=== PATIENT | male | born 1960 | race Caucasian/White ===

== ENCOUNTER → 2020-04-10 14:15 | Outpatient (BNVA) | payer OTHER, SELFPAY | PROVIDERS: PCP Internal Medicine; Visit Provider Physician Assistant | DX: M65.4 Radial styloid tenosynovitis [de Quervain] (principal) | CPT/HCPCS: 20550; J1020 ==

== ENCOUNTER → 2020-11-23 15:53 | Outpatient (BNVA) | payer OTHER, SELFPAY | PROVIDERS: PCP Internal Medicine; Visit Provider Orthopaedic Surgery ==

== ENCOUNTER → 2020-12-22 11:02 | Outpatient (BNVA) | payer OTHER, SELFPAY | PROVIDERS: PCP Internal Medicine; Visit Provider Surgery ==

== ENCOUNTER 2021-04-07 06:05 | Day surgery (SDC) | payer OTHER, SELFPAY ==
--- NOTE | 2021-04-06 14:47 | HO.ANESPROP2 ---
Documented by User: Helen Eli NP 04/06/21 14:48 HPI - Anesthesia Eval Consult details Narrative: 61yo M for Hernia Repair Ventral PMFSH Active Problems Active Problems: All Active Problems (Updated 03/30/21 @ 10:51 by Elyse Hutson RN) De Quervain's disease (radial styloid tenosynovitis) (Acute) Mass of right forearm (Acute) Biceps strain (Acute) GERD (gastroesophageal reflux disease) (Acute) Ventral hernia (Acute) Past Medical History Medical History PAF (paroxysmal atrial fibrillation) Surgical History Surgical History History of surgery on arm Hx of colonoscopy S/P appendectomy Social History Social History Patient Tobacco Use Status: Current everyday Tobacco user Tobacco use type: Cigar Use of substances other than those prescribed or required for medical reasons: No Are you DNR?: No Advance Directives: No Advance Directives Information Provided: Yes Advance Directives on File: No 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 Meds Allergies Allergy/AdvReac Type Severity Reaction Status Date / Time No Known Allergies Allergy Verified 03/30/21 10:51 Home Medications Medication Instructions Recorded Confirmed Last Taken Type No Known Home Meds 04/10/20 07/17/20 Unknown History Exam Exam Date and Time: April 06, 2021 144 Assessment and Plan Assessment Anesthesia Assessment: Chart Reviewed Documented by User: Jovita Byrnes MD 04/07/21 07:26 PMFSH Past Medical History Medical History PAF (paroxysmal atrial fibrillation) Surgical History Surgical History History of surgery on arm Hx of colonoscopy S/P appendectomy History of Problems with Anesthesia: No Social History Social History Patient Tobacco Use Status: Current everyday Tobacco user Tobacco use type: Cigar Use of substances other than those prescribed or required for medical reasons: No Are you DNR?: No Advance Directives: No Advance Directives Information Provided: Yes Advance Directives on File: No 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 Meds Allergies Allergy/AdvReac Type Severity Reaction Status Date / Time No Known Allergies Allergy Verified 03/30/21 10:51 Home Medications Medication Instructions Recorded Confirmed Last Taken Type No Known Home Meds 04/10/20 07/17/20 Unknown History Exam Airway Mallampati Class: II TM Dist: >3cm Neck ROM: Full Loose/Missing/Broken Teeth: No Heart: RRR Lungs: CTA Assessment and Plan Assessment Anesthesia Assessment: Anesthesia Plan Discussed Final Anesthetic Review History of Problems with Anesthesia: No NPO: Yes ASA Class: II Final Preanesthetic Review: Meds/Allgs Chart Reviewed, Consent Obtained/Reviewed and Anes Risks/Benef Reviewed Patient Risk: Low Procedure Risk: Low Anesthetic Plan Anesthetic Plan: GA Disposition: Standard PACU
[2021-04-07] VITALS (8 sets, daily range): BP systolic 115–131; BP diastolic 70–79; PULSE 48–68; RESP 14–16; TEMP 36.4–36.5; O2SAT 95–100; BMI 30.6
[2021-04-07] MEDS: Lactated Ringers 1,000 ML 100 ML IVCONT (06:31)
--- NOTE | 2021-04-07 07:29 | MHC.SHP ---
Pre-Procedural Eval Section A Date of Service: 04/07/21 The patient is an INPATIENT: No Changes since office visit: Yes Patient answered all questions; No Cold of Flu in the past 2 weeks, No New Medical Problems and No Changes in Medication The History & Physical has been completed within 30 days and I have reviewed it.: Yes Section B Chief Complaint: Ventral Hernia Allergies: Allergies Allergy/AdvReac Type Severity Reaction Status Date / Time No Known Allergies Allergy Verified 03/30/21 10:51 Plan Diagnosis/Plan: Unchanged I have reviewed the history and physical and performed a pertinent physical examination on my patient. No changes have occurred unless specified.
--- NOTE | 2021-04-07 08:25 | W.PM.OPN ---
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 Patient request repair of this hernia without mesh Operative findings: patient was found to have a 1.5 cm defect in the midline abdomen repaired primarily without mesh. Specimen: None Estimated blood loss: 2 mL Complications: none Procedure details: patient was brought to the OR and placed in a supine position. After administering general anesthesia the patient's abdomen was prepped with ChloraPrep and draped in a sterile fashion. A surgical time-out was called the consent confirmed. Patient received preoperative antibiotics and Venodyne boots were in place. Local anesthesia consisting of 0.5% Sensorcaine was infiltrated around the umbilicus. Transverse incision was made over the hernia above the umbilicus and carried down through subcutaneous tissue. Hernia sac was identified immediately. Hernia sac was then dissected down to the fascial defect. Umbilical skin was lifted off the fascia to allow better visualization of the fascial defect. The fascial defect was further defined using electrocautery. The contents of the hernia reduced into the abdominal cavity. A preperitoneal space was then created using electrocautery. The wounds were then irrigated with saline solution and suctioned dry. No bleeding could be identified within the preperitoneal space. Fascial edges were then reapproximated using [id number] 1 Tycron sutures. The defect was closed transversely. Wounds were again irrigated with saline solution and suctioned dry. Umbilical skin was then reapproximated to the fascial edge using a 3-0 Polysorb suture. Dermis was then reapproximated using interrupted 3-0 Polysorb sutures. Skin was closed using a running subcuticular 4-0 Polysorb suture. Steri-Strips, 2 x 2 gauze and Tegaderm were then applied. The patient tolerated the procedure well. Sponge, instrument, and needle counts reported as correct. The patient was transferred to PACU in stable condition.
[2021-04-07] MEDS: Acetaminophen 325 MG TABLET 650 MG PO (08:58)
[2021-04-07] MEDS: oxyCODONE HCl Immed Release 5 MG TABLET 10 MG PO (08:58)
[2021-04-07] MEDS: fentaNYL citrate/PF 100 MCG/2 ML VIAL 50 MCG IVPUSH (08:59)
== END 2021-04-07 10:30 | disposition home or self-care (01) ==
PROVIDERS: Visit Provider Surgery
PROC: (CPT 49560; principal; 2021-04-07 07:30)
DX: K43.9 Ventral hernia without obstruction or gangrene (principal); K21.9 Gastro-esophageal reflux disease without esophagitis; I48.0 Paroxysmal atrial fibrillation; F17.290 Nicotine dependence, other tobacco product, uncomplicated
CPT/HCPCS: 49560; J0690; J1100; J2250; J2405; J3010

== ENCOUNTER → 2021-04-15 11:42 | Outpatient (BNVA) | payer OTHER, SELFPAY | PROVIDERS: PCP Internal Medicine; Visit Provider Surgery ==

== ENCOUNTER 2021-04-22 04:25 | Inpatient (IN) | payer OTHER, SELFPAY ==
[2021-04-22] VITALS (9 sets, daily range): BP systolic 100–131; BP diastolic 62–70; PULSE 68–146; RESP 12–18; TEMP 36.8; O2SAT 94–98; BMI 30.2
--- NOTE | ~2021-04-22 | XR_ITS ---
EXAMINATION: XR CHEST CLINICAL INFORMATION: Left lower lobe infiltrate on AP. Please get lateral view. COMPARISON: Earlier on same day and 05/05/2008. TECHNIQUE: Lateral view of the chest view of the chest was obtained. FINDINGS: The region of airspace disease seen on the AP portable view performed on same day is seen to lie within the left lower lobe. No other definite region of disease is identified on the lateral view. No pleural effusion. XR/XR chest 1V IMPRESSION: Region of disease within the left lower lobe.
--- NOTE | ~2021-04-22 | XR_ITS ---
EXAMINATION: XR CHEST CLINICAL INFORMATION: Onset of A. fib COMPARISON: May 05, 2008 TECHNIQUE: AP portable view of the chest was obtained. FINDINGS: There is region of parenchymal disease seen within the left lower lobe. No pneumothorax or pleural effusion. Heart normal size. No evidence of pulmonary edema. There is scoliosis of the thoracic spine convex right. XR/XR chest 1V IMPRESSION: Left lower lobe disease. No evidence of pulmonary edema.
--- NOTE | 2021-04-22 04:32 | ECG_ITS ---
Test Reason : CHEST PAIN Blood Pressure : / mmHG Vent. 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 rate has increased BY 59 BPM Nonspecific T wave abnormality has replaced inverted T waves in Inferior leads T wave amplitude has decreased in Lateral leads QT has lengthened Referred By: Generic ED Physician Electronically Signed By:TATIANA STEEN MD
--- NOTE | 2021-04-22 05:06 | ED_ITS ---
HPI - General Adult General Chief complaint: General Medical Stated complaint: A-fib Time Seen by Provider: 04/22/21 05:06 Source: patient Mode of arrival: ambulatory Limitations: no limitations History of Present Illness HPI narrative: patient with known atrial fibrillation. patient states he is normally in sinus rhythm, He drank heavily last night and know he is in atrial fibrillation. Onset (ago): hour(s) Severity: mild Exacerbating factors: other (alcohol) Associated symptoms: denies other symptoms Related Data Home Medications Medication Instructions Recorded Confirmed magnesium oxide 400 mg PO BID PRN 04/22/21 04/22/21 Allergies Allergy/AdvReac Type Severity Reaction Status Date / Time No Known Allergies Allergy Verified 04/15/21 11:48 Review of Systems Constitutional: Constitutional: Reports no additional constitutional complaints Eyes: Eyes: Reports no additional eye complaints ENT: Denies dizziness Cardiovascular: Cardiovascular: Reports no additional cardiovascular complaints Respiratory: Respiratory: Reports as per HPI Gastrointestinal: Gastrointestinal: Reports no additional gastrointestinal complaints Musculoskeletal: Musculoskeletal: Reports no additional musculoskeletal complaints Integumentary/Breasts: Skin/Breast: Denies rash Neurologic: Reports system reviewed and no additional complaints, except as documented, Denies dizziness and Denies Sensory deficit (Neuro) Psychiatric: Psychiatric: Denies anxiety PMFSH Past Medical History Medical History PAF (paroxysmal atrial fibrillation) Surgical History History of surgery on arm Hx of colonoscopy S/P appendectomy Social History Social History Patient Tobacco Use Status: Current everyday Tobacco user Tobacco use type: Cigar Advance Directives: No Advance Directives Information Provided: Yes 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 Physical Exam Vital Signs: Vital Signs: Last Vital Signs Temp 98.3 F 04/22/21 04:49 Pulse 146 H 04/22/21 07:58 Resp 12 04/22/21 07:12 BP 101/62 04/22/21 07:58 Pulse Ox 97 04/22/21 07:12 BMI result Body Mass Index 30.2 Const: General: healthy appearing Nutritional Appearance: average body habitus Orientation/consciousness: oriented to person and patient oriented x3 Limitations: no limitations HENMT: Head: Yes normal to inspection Ears: external ears normal General nose exam: Normal external nose present Mouth: Normal oral and palatal mucosa present and oropharynx normal Throat: Yes posterior oropharynx normal Eyes: General: appearance normal, both eyes and all related structures Neck: Other: supple Neck: Yes normal visual inspection Chest: Chest palpation & inspection: normal inspection of the chest Resp: Auscultation: clear to auscultation bilaterally Cardio: Other: tachycardia, IRRR Jugular venous distension: no JVD GI: Inspection: Yes normal to inspection Palpation (GI): Soft to palpation, nontender and No hepatosplenomegaly present Auscultation: normal bowel sounds : General: Yes no CVA tenderness Back/Spine/Pelvis: Back: no CVA tenderness Skin: General skin exam: no rashes or lesions noted Neuro: General: oriented to person and patient oriented x3 Cranial nerves: Yes CN's II-XII intact bilaterally Motor exam (neuro): 5/5 motor strength present throughout Sensory Exam: No Sensory deficit (Neuro) Extrem: General: Yes normal to inspection Psych: Appearance: grossly normal Course Reevaluation(s) Reevaluation #1: patient with bursts up to 200, will start drip and get patient admitted. He needs repeat troponin as first one was 21.3 Time: 06:31 Medical Decision Making Lab Data Result diagrams: 04/22/21 05:21 04/22/21 05:21 Labs: Lab Results 04/22/21 04/22/21 04/22/21 Range/Units 05:21 05:21 05:21 WBC 7.5 (4.8-10.8) X10*3/uL RBC 4.65 (4.60-5.80) X10*6/uL Hgb 14.0 (14.0-18.0) g/dl Hct 42.4 (42.0-52.0) % MCV 91.2 (80.0-98.0) fL MCH 30.1 (27.0-33.0) pg MCHC 33.0 (31.0-36.0) g/dl RDW 13.0 (11.0-16.0) % Plt Count 230 (160-400) X10*3/uL MPV 9.5 (9.4-12.4) fL Immature Gran % (Auto) 0.3 (0.0-0.4) % Neut % (Auto) 58.7 (45-73) % Lymph % (Auto) 28.5 (20-40) % [place] % (Auto) 8.1 (2-11) % Eos % (Auto) 3.9 (0-4) % Baso % (Auto) 0.5 (0-2) % Lymph # (Auto) 2.1 (1.2-4.9) X10*3/uL [place] # (Auto) 0.6 (0.1-1.2) X10*3/uL Eos # (Auto) 0.3 (0.0-0.4) X10*3/uL Baso # (Auto) 0.0 (0.0-0.2) X10*3/uL Abs Immat Gran (auto) 0.02 (0.00-0.03) X10*3/uL Absolute Neuts (auto) 4.4 (2.0-8.3) x10*3/uL Absolute Nucleated RBC 0.000 (0.0-0.012) X10*3/uL Nucleated RBC % (auto) 0.0 (0.0-0.2) /100WBC Sodium 138 (135-145) mmol/L Potassium 4.1 (3.3-5.1) mmol/L Chloride 102 (96-108) mmol/L Carbon Dioxide 24 (22-29) mmol/L Anion Gap 16 (12-20) BUN 23 H (9-16) mg/dL Creatinine 1.04 (0.5-1.4) mg/dL Estim Creat Clear Calc 85.0 Estimated GFR > 60 Random Glucose 111 (60-115) mg/dL Calcium 10.2 (8.4-10.2) mg/dL Troponin I High Sens 21.3 (<3.5-35.0) ng/L Ethyl Alcohol mg/dL 04/22/21 Range/Units 05:21 WBC (4.8-10.8) X10*3/uL RBC (4.60-5.80) X10*6/uL Hgb (14.0-18.0) g/dl Hct (42.0-52.0) % MCV (80.0-98.0) fL MCH (27.0-33.0) pg MCHC (31.0-36.0) g/dl RDW (11.0-16.0) % Plt Count (160-400) X10*3/uL MPV (9.4-12.4) fL Immature Gran % (Auto) (0.0-0.4) % Neut % (Auto) (45-73) % Lymph % (Auto) (20-40) % [place] % (Auto) (2-11) % Eos % (Auto) (0-4) % Baso % (Auto) (0-2) % Lymph # (Auto) (1.2-4.9) X10*3/uL [place] # (Auto) (0.1-1.2) X10*3/uL Eos # (Auto) (0.0-0.4) X10*3/uL Baso # (Auto) (0.0-0.2) X10*3/uL Abs Immat Gran (auto) (0.00-0.03) X10*3/uL Absolute Neuts (auto) (2.0-8.3) x10*3/uL Absolute Nucleated RBC (0.0-0.012) X10*3/uL Nucleated RBC % (auto) (0.0-0.2) /100WBC Sodium (135-145) mmol/L Potassium (3.3-5.1) mmol/L Chloride (96-108) mmol/L Carbon Dioxide (22-29) mmol/L Anion Gap (12-20) BUN (9-16) mg/dL Creatinine (0.5-1.4) mg/dL Estim Creat Clear Calc Estimated GFR Random Glucose (60-115) mg/dL Calcium (8.4-10.2) mg/dL Troponin I High Sens (<3.5-35.0) ng/L Ethyl Alcohol < 10 mg/dL Discharge Plan Discharge Clinical Impression: Atrial fibrillation with RVR Patient Disposition: Admitted As Inpatient
[2021-04-22 05:28] LABS: Basophils Percent Auto 0.5 % (0-2); Eosinophils Absolute Auto 0.3 X10*3/uL (0.0-0.4); Eosinophils Percent Auto 3.9 % (0-4); Hematocrit 42.4 % (42.0-52.0); Imm Gran Abs Auto 0.02 X10*3/uL (0.00-0.03); Imm Gran Pct Auto 0.3 % (0.0-0.4); Lymphocytes Absolute Auto 2.1 X10*3/uL (1.2-4.9); Lymphocytes Percent Auto 28.5 % (20-40); MANUAL DIFF FLAG NO; Mean Corpuscular Hemoglobin 30.1 pg (27.0-33.0); Mean Corpuscular Volume 91.2 fL (80.0-98.0); Mean Platelet Volume 9.5 fL (9.4-12.4); Monocytes Absolute Auto 0.6 X10*3/uL (0.1-1.2); Monocytes Percent Auto 8.1 % (2-11); Neutrophils Absolute Auto 4.4 x10*3/uL (2.0-8.3); Neutrophils Percent Auto 58.7 % (45-73); Platelet Count 230 X10*3/uL (160-400); Red Blood Count 4.65 X10*6/uL (4.60-5.80); White Blood Count 7.5 X10*3/uL (4.8-10.8)
[2021-04-22 05:45] LABS: Ethanol < 10 mg/dL
[2021-04-22 05:47] LABS: Anion Gap 16 (12-20); Blood Urea Nitrogen 23 mg/dL (9-16); Calcium 10.2 mg/dL (8.4-10.2); Carbon Dioxide 24 mmol/L (22-29); Chloride 102 mmol/L (96-108); Estimated Glomerular Filt Rate > 60; Glucose Random 111 mg/dL (60-115); Potassium 4.1 mmol/L (3.3-5.1); Sodium 138 mmol/L (135-145)
[2021-04-22 05:51] LABS: Troponin-I High Sensitivity 21.3 ng/L (<3.5-35.0)
[2021-04-22] MEDS: dilTIAZem HCL 50 MG/10 ML VIAL 10 MG IVPUSH ×2 (06:15→07:58)
[2021-04-22] MEDS: dilTIAZem HCL 125 MG in 0.9 % Sodium Chloride 100 ML 10 MG IVCONT (06:34)
--- NOTE | 2021-04-22 07:37 | PHA.MEDREC ---
Pharmacy Consult ? Medication Reconciliation Pharmacy has completed the medication reconciliation. Clotilde Orona
--- NOTE | 2021-04-22 07:51 | PC.NURSE ---
pt is axox3. skin pwd. last etoh was 2330 04/21/21. denies hx withdrawal sz.
[2021-04-22 08:32] LABS: COVID-19 Test Negative (Negative)
[2021-04-22 08:54] LABS: Thyroid Stimulating Hormone 2.07 uIU/mL (0.32-4.0)
[2021-04-22 08:57] LABS: Troponin-I High Sensitivity 86.8 ng/L (<3.5-35.0)
--- NOTE | 2021-04-22 08:58 | P.HPHOSP_ITS ---
History of Present Illness Date of Service: 04/22/21 Chief Complaint: palpitations 61yo M with history of paroxysmal atrial fibrillation initially diagnosed at the age of 48yo, when he was admitted to this hospital overnight for rapid ventricular response. He converted to sinus rhythm pharmacologically and was di scharged on aspirin. He has had at least 3 or 4 episodes since then and was seen at a hospital in [place], [place]. At one point, he was sent home with diltiazem, but he stopped it because he did not like the way it made him feel. When he feels his heart skip beats, he takes magnesium on a prn basis, and feels this has controlled his AF. 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 He does not have a history of CAD, CVA, HTN, or DM. He smokes cigars occasionally. He drinks alcohol at least once weekly but denies history of withdrawal syndrome. Last night, he had a whiskey tasting flight, a glass of port wine, and some caffeine-supplemented beer, for a total of at least 4 servings of alcohol. This is more than usual for him. He does not drink excess caffeine and denies cocaine, amphetamine, or other stimulant use. This morning around 3:00am, he was awakened from sleep with palpitations, dizziness, lightheadedness, and shortness of breath. No chest pain. He arrived in the ED in AF/RVR in the 130s with bursts up to 200. EKG showed AF/RVR with LAFB and septal Q waves. He was started on diltiazem infusion. Serum magnesium and potassium were normal. TSH was normal. HS troponin-I went from 21.3 to 86.8 over 3 hr. 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 Meds Allergies Allergy/AdvReac Type Severity Reaction Status Date / Time No Known Allergies Allergy Verified 04/15/21 11:48 Active Medications: Current Medications Apixaban (Apixaban 5 Mg Tablet) 5 mg PO BID [facility] Diltiazem HCl 125 mg/ Sodium (Chloride) 125 mls @ 0 mls/hr IVCONT .Q0M [facility]; Protocol Last Admin: 04/22/21 06:34 Dose: 10 mg/hr, 10 mls/hr Documented by: Magnesium Oxide (Magnesium Oxide 400 Mg Tablet) 400 mg PO BID [facility] Pharmacy Consult (Consult Rx Perform Med Rec) 1 each MISCELLANE ONCE PRN PRN Reason: Consult order Home Medications Medication Instructions Recorded Confirmed Last Taken Type magnesium oxide 400 mg PO BID PRN 04/22/21 04/22/21 04/21/21 History Physical Exam Vital Signs and Narrative: Vital Signs: Last Vital Signs Temp 98.3 F 04/22/21 04:49 Pulse 101 H 04/22/21 08:28 Resp 17 04/22/21 08:28 BP 119/64 04/22/21 08:28 Pulse Ox 96 04/22/21 08:28 BMI result Body Mass Index 30.2 Gen: in no acute distress HEENT: sclera anicteric, moist mucus membranes Neck: supple, no goiter Lungs: clear to auscultation bilaterally Heart: rapid and irregular with no murmurs noted Abd: soft, non-tender, non-distended Ext: no edema Skin: warm/well-perfused Neuro: alert and oriented x3, no focal findings Psych: appropriate affect, somewhat irritable Results Labs CBC and Chem 7: 04/22/21 05:21 04/22/21 05:21 Labs: Laboratory Results - last 24 hr 04/22/21 04/22/21 04/22/21 05:21 05:21 05:21 MCV 91.2 MCH 30.1 MCHC 33.0 RDW 13.0 Plt Count 230 MPV 9.5 Immature Gran % (Auto) 0.3 Neut % (Auto) 58.7 Lymph % (Auto) 28.5 [place] % (Auto) 8.1 Eos % (Auto) 3.9 Baso % (Auto) 0.5 Lymph # (Auto) 2.1 [place] # (Auto) 0.6 Eos # (Auto) 0.3 Baso # (Auto) 0.0 Abs Immat Gran (auto) 0.02 Absolute Neuts (auto) 4.4 Absolute Nucleated RBC 0.000 Nucleated RBC % (auto) 0.0 Anion Gap 16 Estim Creat Clear Calc 85.0 Estimated GFR > 60 Random Glucose 111 Calcium 10.2 Magnesium 2.0 Troponin I High Sens 21.3 TSH 2.07 Ethyl Alcohol COVID-19 ([facility]) COVID-19 Clin Com 04/22/21 04/22/21 04/22/21 05:21 08:02 08:33 MCV MCH MCHC RDW Plt Count MPV Immature Gran % (Auto) Neut % (Auto) Lymph % (Auto) [place] % (Auto) Eos % (Auto) Baso % (Auto) Lymph # (Auto) [place] # (Auto) Eos # (Auto) Baso # (Auto) Abs Immat Gran (auto) Absolute Neuts (auto) Absolute Nucleated RBC Nucleated RBC % (auto) Anion Gap Estim Creat Clear Calc Estimated GFR Random Glucose Calcium Magnesium Troponin I High Sens 86.8 H D TSH Ethyl Alcohol < 10 COVID-19 ([facility]) Negative COVID-19 Clin Com See Note Imaging Radiologist's Impressions: Impressions Chest X-Ray 04/22/21 08:30 IMPRESSION: Left lower lobe disease. No evidence of pulmonary edema. Assessment and Plan (1) Atrial fibrillation with RVR: Status: Acute 61yo M with history of pAF presenting with symptomatic AF in RVR, possibly triggered by excess EtOH intake. # AF/RVR - admit to [facility], continue diltiazem gtt, obtain TTE + cardiology consult. [id number] 0 so will not need therapeutic anticoagulation unless workup reveals other risk factors # question of LLL infiltrate - no fever or cough. will check lateral view to assess in further detail. # excess EtOH intake - more of a binge-type drinker than daily; monitor for withdrawals; counseled to abstain from EtOH given cardiotoxic effect # nicotine abuse - declines NRT # VTE ppx - LMWH # code - full Quality Stroke Does the patient have a stroke diagnosis?: No VTE Prior VTE?: No VTE Risk Level:: Medical - moderate - high VTE Device Contraindication: N/A - Device Ordered VTE Drug Contraindication: N/A - Med Ordered
[2021-04-22 09:32] LABS: Estimated Average Glucose 117 mg/dL; Hemoglobin A1c % 5.7 %
[2021-04-22 09:53] LABS: Procalcitonin 0.02 ng/mL
--- NOTE | 2021-04-22 09:59 | P.CONCA_ITS ---
History of Present Illness History of Present Illness Date of Service: 04/22/21 Requesting physician: Gonzalez Schultz Consult reason: atrial fibrillation Chief complaint: AF/RVR Narrative: I was requested to see Jay in cardiology consultation today for atrial fibrillation with rapid ventricular response. He has not been to a primary care physician for few years and also has not seen me for many years. He has prior history of atrial fibrillation 1 episode. He was started medical therapy but did not take any medications and has been self treating with magnesium. This has worked for him for many years and has had no recurrent atrial fibrillation. Last night he went for [employer] and had 4 hard drinks. On top of that he also had some wine as well as caffeinated beer. He went to bed after that and woke up around 04:00 with symptoms of palpitations and knew that he was back in atrial fibrillation. He therefore came to the e mergency room as noted to be in atrial fibrillation rapid ventricular response. He still feeling the symptoms despite the rate being controlled. He is currently on IV Cardizem drip. He is not on any medications at home and prefers that he did not take any medications on a long-term basis. He denies any prior history of hypertension diabetes, congestive heart failure. He had hernia repair about 2 weeks ago. Still recuperating from them. Otherwise he said he is very active and has no exertional chest pain or shortness of breath. Review of Systems Constitutional: Constitutional: Reports no additional constitutional complaints Eyes: Eyes: Reports no additional eye complaints Cardiovascular: Cardiovascular: Denies chest pain, Reports rapid heart rate, Denies lightheadedness, Reports palpitations and Denies dyspnea Respiratory: Respiratory: Reports no additional respiratory complaints and Denies dyspnea Gastrointestinal: Gastrointestinal: Reports no additional gastrointestinal complaints Genitourinary: Genitourinary: Reports no additional male genitourinary complaints Musculoskeletal: Musculoskeletal: Reports no additional musculoskeletal complaints Integumentary/Breasts: Skin/Breast: Reports system reviewed and no additional complaints, except as docu Neurologic: Reports system reviewed and no additional complaints, except as documented Psychiatric: Psychiatric: Reports no additional psychiatric complaints Endocrine: Endocrine: Reports no additional endocrine complaints and Reports palpitations Hematologic/Lymphatic: Hematologic/Lymphatic: Reports no additional hematologic/lymphatic complaints Allergic/Immunologic: Allergic/Immunologic: Reports no additional allergic/immunologic complaints [facility] Past Medical History Medical History PAF (paroxysmal atrial fibrillation) Surgical History Surgical History History of surgery on arm Hx of colonoscopy S/P appendectomy Social History Social History Patient Tobacco Use Status: Current everyday Tobacco user Tobacco use type: Cigar Advance Directives: No Advance Directives Information Provided: Yes 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 Meds Allergies Allergy/AdvReac Type Severity Reaction Status Date / Time No Known Allergies Allergy Verified 04/15/21 11:48 Active Medications: Current Medications Acetaminophen (Acetaminophen 325 Mg Tablet) 650 mg PO Q4H PRN PRN Reason: pain/fever Enoxaparin Sodium (Enoxaparin Sodium 40 Mg/0.4 Ml Syringe) 40 mg SUBCUT Q24H CYRIL Diltiazem HCl 125 mg/ Sodium (Chloride) 125 mls @ 0 mls/hr IVCONT .Q0M [facility]; Protocol Last Admin: 04/22/21 06:34 Dose: 10 mg/hr, 10 mls/hr Documented by: Magnesium Oxide (Magnesium Oxide 400 Mg Tablet) 400 mg PO BID CYRIL Ondansetron HCl (Ondansetron Hcl 4 Mg/2 Ml Vial) 4 mg IVPUSH Q6H PRN PRN Reason: nausea/vomiting Pharmacy Consult (Consult Rx Perform Med Rec) 1 each MISCELLANE ONCE PRN PRN Reason: Consult order Rivaroxaban (Rivaroxaban 20 Mg Tablet) 20 mg PO ONCE ONE Stop: 04/22/21 09:59 Sodium Chloride (0.9 % Sodium Chloride Flush 3 Ml Syringe) 3 ml IVFLUSH QSHIFT [facility] Home Medications Medication Instructions Recorded Confirmed Last Taken Type magnesium oxide 400 mg PO BID PRN 04/22/21 04/22/21 04/21/21 History Physical Exam Vital Signs: Vital Signs: Last Vital Signs Temp 98.3 F 04/22/21 04:49 Pulse 101 H 04/22/21 08:28 Resp 17 04/22/21 08:28 BP 119/64 04/22/21 08:28 Pulse Ox 96 04/22/21 08:28 BMI result Body Mass Index 30.2 Const: General: cooperative, comfortable, no acute distress, alert, awake and other (Dishevelled) Nutritional Appearance: average body habitus Orientation/consciousness: patient oriented x3 Limitations: no limitations HENMT: Head: Yes normocephalic and Yes atraumatic Neck: Neck: Yes trachea midline, Yes supple and Yes no JVD Resp: Effort & Inspection: normal respiratory effort Auscultation: clear to auscultation bilaterally Cardio: Jugular venous distension: no JVD Palpation: normal PMI Rhythm: abnormal rhythm irregularly irregular Heart sounds: S1 normal heart sound present, S2 normal heart sound present, no click, no gallops and no murmurs GI: Auscultation: normal bowel sounds Skin: General skin exam: no rashes or lesions noted Neuro: General: patient oriented x3 and no focal motor deficits Extrem: General: Yes no clubbing, cyanosis or edema Psych: Appearance: grossly normal Objective Labs and Meds Result diagrams: 04/22/21 05:21 04/22/21 05:21 Lab results: Laboratory Results - last 24 hr 04/22/21 04/22/21 04/22/21 05:21 05:21 05:21 WBC 7.5 RBC 4.65 Hgb 14.0 Hct 42.4 MCV 91.2 MCH 30.1 MCHC 33.0 RDW 13.0 Plt Count 230 MPV 9.5 Immature Gran % (Auto) 0.3 Neut % (Auto) 58.7 Lymph % (Auto) 28.5 [place] % (Auto) 8.1 Eos % (Auto) 3.9 Baso % (Auto) 0.5 Lymph # (Auto) 2.1 [place] # (Auto) 0.6 Eos # (Auto) 0.3 Baso # (Auto) 0.0 Abs Immat Gran (auto) 0.02 Absolute Neuts (auto) 4.4 Absolute Nucleated RBC 0.000 Nucleated RBC % (auto) 0.0 Sodium 138 Potassium 4.1 Chloride 102 Carbon Dioxide 24 Anion Gap 16 BUN 23 H Creatinine 1.04 Estim Creat Clear Calc 85.0 Estimated GFR > 60 Random Glucose 111 Estimat Average Glucose Hemoglobin A1c % Calcium 10.2 Magnesium 2.0 Troponin I High Sens 21.3 Procalcitonin TSH 2.07 Ethyl Alcohol COVID-19 (DENICE) COVID-19 Clin Com 04/22/21 04/22/21 04/22/21 05:21 05:21 05:21 WBC RBC Hgb Hct MCV MCH MCHC RDW Plt Count MPV Immature Gran % (Auto) Neut % (Auto) Lymph % (Auto) [place] % (Auto) Eos % (Auto) Baso % (Auto) Lymph # (Auto) [place] # (Auto) Eos # (Auto) Baso # (Auto) Abs Immat Gran (auto) Absolute Neuts (auto) Absolute Nucleated RBC Nucleated RBC % (auto) Sodium Potassium Chloride Carbon Dioxide Anion Gap BUN Creatinine Estim Creat Clear Calc Estimated GFR Random Glucose Estimat Average Glucose 117 Hemoglobin A1c % 5.7 Calcium Magnesium Troponin I High Sens Procalcitonin 0.02 TSH Ethyl Alcohol < 10 COVID-19 (DENICE) COVID-19 Clin Com 04/22/21 04/22/21 08:02 08:33 WBC RBC Hgb Hct MCV MCH MCHC RDW Plt Count MPV Immature Gran % (Auto) Neut % (Auto) Lymph % (Auto) [place] % (Auto) Eos % (Auto) Baso % (Auto) Lymph # (Auto) [place] # (Auto) Eos # (Auto) Baso # (Auto) Abs Immat Gran (auto) Absolute Neuts (auto) Absolute Nucleated RBC Nucleated RBC % (auto) Sodium Potassium Chloride Carbon Dioxide Anion Gap BUN Creatinine Estim Creat Clear Calc Estimated GFR Random Glucose Estimat Average Glucose Hemoglobin A1c % Calcium Magnesium Troponin I High Sens 86.8 H D Procalcitonin TSH Ethyl Alcohol COVID-19 (DENICE) Negative COVID-19 Clin Com See Note Imaging Radiologist's impression: Impressions Chest X-Ray 04/22/21 08:30 IMPRESSION: Left lower lobe disease. No evidence of pulmonary edema. Assessment and Plan (1) Atrial fibrillation with RVR: Status: Acute Symptomatic recurrent atrial fibrillation with rapid ventricular response with minimal troponin release related to atrial fibrillation rapid ventricular response. Currently still remains in atrial fibrillation symptomatic. Onset appears to be less than 6 hours. Will try to revert him back to sinus rhythm with oral flecainide. We discussed about the risks and benefits. Will also give him 1 dose of Xarelto prior to cardioversion. Will give 150 mg on top of current Cardizem drip. If he converts after that he probably sent home on some medications to prevent recurrent atrial fibrillation be most likely triggered by his alcohol intake. Discussed with him about avoiding alcohol as well as caffeine and stimulants. If he converts to sinus rhythm and is symptomatic Nancy doing well with no significant EKG changes can probably discharge him home later in the day. Will require outpatient workup to evaluate for structural heart disease. This was discussed with him. He is agreeable for follow-up. Will follow with you Procedures Date of Service Date of Service: 04/22/21
--- NOTE | 2021-04-22 10:10 | MHC.CM.PN ---
pt lives c his in their home. he reports that he is independent in his care. 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 he drives a car , has no svcs at home and use no AD c ambulation. his can help him should he have any needs including a ride home at dc. pt denies the need for vna at dc. dc plan is home no svcs. cm to cont. to follow.
[2021-04-22] MEDS: Flecainide Acetate 50 MG TABLET 150 MG PO (10:52)
[2021-04-22] MEDS: Magnesium Oxide 400 MG TABLET PO (10:52)
[2021-04-22] MEDS: Rivaroxaban 20 MG TABLET PO (10:53)
--- NOTE | 2021-04-22 13:25 | PC.NURSE ---
converted before second dose of flecanide. Sinus alissa at 58. repeat ekg ordered. Doc Kurtis made aware.
--- NOTE | 2021-04-22 13:28 | ECG_ITS ---
Test Reason : hr converted Blood Pressure : / mmHG Vent. 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 rate has decreased BY 42 BPM Referred By: Shivam Hull Electronically Signed By:SHIVAM HULL MD
--- NOTE | 2021-04-22 13:33 | PC.NURSE ---
pt states he can feel that he's back in normal rhythm
--- NOTE | 2021-04-22 15:38 | P.DS_ITS ---
DS: Providers Provider Date of Service: 04/22/21 Date of admission: 04/22/21 08:56 Primary care physician: Misha Jose MD, DO Consults: 04/22/21 08:16 Consult to Cardiology Routine Consulting Provider: Shivam Hull Reason for consultation: AF/RVR DS: Diagnosis Discharge Diagnosis (1) Atrial fibrillation with RVR: Status: Acute (2) Excessive drinking alcohol: Status: Acute (3) Troponin level elevated: Status: Acute (4) Left lower lobe pulmonary infiltrate: Status: Acute DS: Summary Hospital Course Hospital Course: from my admission H+P, 04/22/21: 61yo M with history of paroxysmal atrial fibrillation initially diagnosed at the age of 48yo, when he was admitted to this hospital overnight for rapid ventricular response.? He converted to sinus rhythm pharmacologically and was discharged on aspirin.? He has had at least 3 or 4 episodes since then and was seen at a hospital in [place], [place].? At one point, he was sent home with diltiazem, but he stopped it because he did not like the way it made him feel.? When he feels his heart skip beats, he takes magnesium on a prn basis, and feels this has controlled his AF.? 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 He does not have a history of CAD, CVA, HTN, or DM.? He smokes cigars occasionally.? He drinks alcohol at least once weekly but denies history of withdrawal syndrome.? Last night, he had a whiskey tasting flight, a glass of port wine, and some caffeine-supplemented beer, for a total of at least 4 servings of alcohol.? This is more than usual for him.? He does not drink excess caffeine and denies cocaine, amphetamine, or other stimulant use.? This morning around 3:00am, he was awakened from sleep with palpitations, dizziness, lightheadedness, and shortness of breath.? No chest pain.? He arrived in the ED in AF/RVR in the 130s with bursts up to 200.? EKG showed AF/RVR with LAFB and septal Q waves.? He was started on diltiazem infusion.? Serum magnesium and potassium were normal.? TSH was normal.? HS troponin-I went from 21.3 to 86.8 over 3 hr. The patient was placed on telemetry and diltiazem infusion. Cardiology was consulted. He was given 1 dose of rivaroxaban and 1 dose of flecainide and converted to normal sinus rhythm with complete resolution of his symptoms. Troponin elevation was attributed to demand from RVR. He was discharged home with instructions to follow up with Primary Care and Cardiology. He will need an outpatient echocardiogram in the next 2 weeks to assess for structural heart disease. He was counseled to avoid alcohol. CXR demonstrated incidental LLL infiltrate. The patient had no cough or sputum production, and procalcitonin was negative. An outpatient chest CT without contrast was ordered to be done in the next 2 weeks. Time Spent with Patient Time attestation: Total time spent providing and/or coordinating discharge services: Discharge coordination time: Greater than 30 minutes Quality: Stroke Does the patient have a stroke diagnosis?: No Physical Exam Vital Signs: Vital Signs: Last Vital Signs Temp 98.3 F 04/22/21 04:49 Pulse 68 04/22/21 13:31 Resp 18 04/22/21 13:31 BP 102/62 04/22/21 13:31 Pulse Ox 98 04/22/21 13:31 BMI result Body Mass Index 30.2 Gen: in no acute distress HEENT: sclera anicteric, moist mucus membranes Neck: supple Lungs: clear to auscultation bilaterally Heart: regular rate and rhythm, no murmurs Abd: soft, non-tender, non-distended Ext: no edema Skin: warm/well-perfused Neuro: alert and oriented x3, no focal findings Psych: appropriate affect DS: Data Data Completed and Pending Completed studies during hospitalization [Text1]: Laboratory Results WBC 7.5 X10*3/uL (4.8-10.8) 04/22/21 05:21 RBC 4.65 X10*6/uL (4.60-5.80) 04/22/21 05:21 Hgb 14.0 g/dl (14.0-18.0) 04/22/21 05:21 Hct 42.4 % (42.0-52.0) 04/22/21 05:21 MCV 91.2 fL (80.0-98.0) 04/22/21 05:21 MCH 30.1 pg (27.0-33.0) 04/22/21 05:21 MCHC 33.0 g/dl (31.0-36.0) 04/22/21 05:21 RDW 13.0 % (11.0-16.0) 04/22/21 05:21 Plt Count 230 X10*3/uL (160-400) 04/22/21 05:21 MPV 9.5 fL (9.4-12.4) 04/22/21 05:21 Immature Gran % (Auto) 0.3 % (0.0-0.4) 04/22/21 05:21 Neut % (Auto) 58.7 % (45-73) 04/22/21 05:21 Lymph % (Auto) 28.5 % (20-40) 04/22/21 05:21 [place] % (Auto) 8.1 % (2-11) 04/22/21 05:21 Eos % (Auto) 3.9 % (0-4) 04/22/21 05:21 Baso % (Auto) 0.5 % (0-2) 04/22/21 05:21 Lymph # (Auto) 2.1 X10*3/uL (1.2-4.9) 04/22/21 05:21 [place] # (Auto) 0.6 X10*3/uL (0.1-1.2) 04/22/21 05:21 Eos # (Auto) 0.3 X10*3/uL (0.0-0.4) 04/22/21 05:21 Baso # (Auto) 0.0 X10*3/uL (0.0-0.2) 04/22/21 05:21 Abs Immat Gran (auto) 0.02 X10*3/uL (0.00-0.03) 04/22/21 05:21 Absolute Neuts (auto) 4.4 x10*3/uL (2.0-8.3) 04/22/21 05:21 Absolute Nucleated RBC 0.000 X10*3/uL (0.0-0.012) 04/22/21 05:21 Nucleated RBC % (auto) 0.0 /100WBC (0.0-0.2) 04/22/21 05:21 Sodium 138 mmol/L (135-145) 04/22/21 05:21 Potassium 4.1 mmol/L (3.3-5.1) 04/22/21 05:21 Chloride 102 mmol/L (96-108) 04/22/21 05:21 Carbon Dioxide 24 mmol/L (22-29) 04/22/21 05:21 Anion Gap 16 (12-20) 04/22/21 05:21 BUN 23 mg/dL (9-16) H 04/22/21 05:21 Creatinine 1.04 mg/dL (0.5-1.4) 04/22/21 05:21 Estim Creat Clear Calc 85.0 04/22/21 05:21 Estimated GFR > 60 04/22/21 05:21 Random Glucose 111 mg/dL (60-115) 04/22/21 05:21 Estimat Average Glucose 117 mg/dL 04/22/21 05:21 Hemoglobin A1c % 5.7 % 04/22/21 05:21 Calcium 10.2 mg/dL (8.4-10.2) 04/22/21 05:21 Magnesium 2.0 mg/dL (1.6-2.6) 04/22/21 05:21 Troponin I High Sens 86.8 ng/L (<3.5-35.0) H D 04/22/21 08:33 Procalcitonin 0.02 ng/mL 04/22/21 05:21 TSH 2.07 uIU/mL (0.32-4.0) 04/22/21 05:21 Ethyl Alcohol < 10 mg/dL 04/22/21 05:21 COVID-19 (DENICE) Negative (Negative) 04/22/21 08:02 COVID-19 Clin Com See Note 04/22/21 08:02 Impressions Chest X-Ray 04/22/21 09:20 IMPRESSION: Region of disease within the left lower lobe. 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 , left lower lobe of lung infiltrate Referrals: Misha Jose MD, DO [Primary Care Provider] - 1 Week Shivam Hull MD [Physician] - 2 Weeks Discharge Medications: New metoprolol succinate 25 mg tablet extended release 24 hr 25 mg PO DAILY Qty: 30 RF: 0 Continued magnesium oxide 400 mg magnesium Tablet 400 mg PO BID PRN (Reason: PRN) RF: 0 Discharge Orders: Discharge Order (Routine); Ordered 04/22/21 Ordered By: Gonzalez Schultz Diet: advance to usual diet Activity on Discharge: As tolerated Stand Alone Forms: Patient Portal Discharge page Other Ambulatory Orders: CT chest wo con (Routine) Timeframe: 2 Weeks Facility: [facility] - Location: CT Scan Ordered By: Gonzalez Schultz CA echo transthoracic complete (Routine) Timeframe: 2 Weeks Facility: [facility] - Location: Cardiology Ordered By: Gonzalez Schultz Care Plan Goals: normal sinus rhythm Health Concerns: atrial fibrillation Plan of Treatment: avoid alcohol take metoprolol succinate 25 mg daily outpatient studies: echocardiogram, CT chest without contrast see Primary Care in 1 week and Cardiology in 2 weeks Assessment: see Discharge Summary
--- NOTE | 2021-04-22 15:43 | PC.NURSE ---
continues to maintain NSR in 70's. up to BR with steady gait. no ACOSTA. awaits discharge. skin pwd.
== END 2021-04-22 17:39 | disposition home or self-care (01) | DRG 201 ==
LOC: HO.ED 06:32 → HO.EDOVER 09:06
PROVIDERS: Family Medicine; Admitting Provider Family Medicine; Emergency Provider Emergency Medicine; PCP Internal Medicine; Visit Provider Family Medicine
DX: I48.0 Paroxysmal atrial fibrillation (principal); F17.210 Nicotine dependence, cigarettes, uncomplicated; Z20.822 Contact with and (suspected) exposure to COVID-19; Z71.6 Tobacco abuse counseling; Z79.899 Other long term (current) drug therapy
CPT/HCPCS: 36415; 71045; 80048; 82077; 83036; 83735; 84145; 84443; 84484; 85025; 87635; 93005; 96365; 96366; 96375; 96376; 99284; 99285

== ENCOUNTER → 2021-05-04 14:34 | Outpatient (BNVA) | payer OTHER, SELFPAY | PROVIDERS: PCP Internal Medicine; Visit Provider Surgery ==

== ENCOUNTER 2021-07-14 11:10 | Outpatient (REF) | payer OTHER, SELFPAY ==
--- NOTE | ~2021-07-14 | CT_ITS ---
EXAMINATION: CT CHEST WITHOUT CONTRAST CLINICAL INFORMATION: Left lower lobe infiltrate on chest radiograph without symptoms. COMPARISON: Radiograph 04/22/2021. TECHNIQUE: Multidetector volumetric CT imaging of the chest was done. Axial MIP volume rendering provided. Sagittal and coronal reformatted images were obtained. This CT examination was performed using dose optimization techniques as appropriate, variously including the following: *Automated exposure control *Adjustment of mA and/or kV according to patient size (this includes techniques or standardized protocols for targeted exams where dose is matched to indication/reason for exam; i.e. 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 LUNGS: The central airways are patent. There is no consolidation. There is a linear band of atelectasis/scarring in the left lower lobe. Minimal right basilar atelectasis. No pneumothorax. No pulmonary nodule. MEDIASTINUM: Normal heart size. No pericardial effusion. No mediastinal lymphadenopathy. The visualized thyroid gland is unremarkable. PLEURA: There is no pleural effusion. No pleural mass or thickening. AXILLA: No lymphadenopathy. UPPER ABDOMEN: Unremarkable. OSSEOUS STRUCTURES: No acute or suspicious osseous abnormality. Mild degenerative changes throughout the spine. CT/CT chest wo con IMPRESSION: No suspicious findings in the lungs. Linear area of atelectasis/scarring in the left lower lobe. No consolidation. No pulmonary nodule. Fleischner guidelines were followed.
== END 2021-07-14 11:11 | disposition home or self-care (01) ==
LOC: HO.CT 11:10
PROVIDERS: PCP Internal Medicine; Visit Provider Internal Medicine
DX: R91.8 Other nonspecific abnormal finding of lung field (principal); R93.89 Abnormal findings on diagnostic imaging of other specified body structures
CPT/HCPCS: 71250

== ENCOUNTER 2021-09-28 08:40 | Outpatient (REF) | payer OTHER, SELFPAY ==
[2021-09-28 09:20] LABS: MANUAL DIFF FLAG NO
[2021-09-28 09:50] LABS: Basophils Percent Auto 0.6 % (0-2); Eosinophils Absolute Auto 0.3 X10*3/uL (0.0-0.4); Eosinophils Percent Auto 6.7 % (0-4); Hematocrit 41.8 % (42.0-52.0); Hemoglobin 13.6 g/dl (14.0-18.0); Imm Gran Abs Auto 0.02 X10*3/uL (0.00-0.03); Imm Gran Pct Auto 0.4 % (0.0-0.4); Mean Corpuscular HGB Conc 32.5 g/dl (31.0-36.0); Mean Corpuscular Hemoglobin 29.8 pg (27.0-33.0); Mean Corpuscular Volume 91.5 fL (80.0-98.0); Mean Platelet Volume 9.9 fL (9.4-12.4); Monocytes Absolute Auto 0.4 X10*3/uL (0.1-1.2); Monocytes Percent Auto 8.6 % (2-11); Neutrophils Absolute Auto 2.9 x10*3/uL (2.0-8.3); Neutrophils Percent Auto 61.7 % (45-73); Platelet Count 261 X10*3/uL (160-400); Red Blood Count 4.57 X10*6/uL (4.60-5.80); Red Cell Distribution Width 13.7 % (11.0-16.0); White Blood Count 4.6 X10*3/uL (4.8-10.8)
[2021-09-28 09:57] LABS: Appearance Urine CLEAR; Color Urine YELLOW; Glucose Urine UA NEG (NEG); Leukocyte Esterase Urine NEG (NEG); Nitrite Urine NEG (NEG); PH 5.5 (5.0-8.0); Specific Gravity - Urine 1.025 (1.005-1.025); Urine Blood NEG (NEG); Urine Ketones 15 MG/DL (NEG); Urine Protein NEG (NEG-TRACE)
[2021-09-28 10:20] LABS: Alanine Aminotransferase 28 U/L (0-40); Albumin Level 4.2 g/dL (3.5-5.0); Alkaline Phosphatase 43 U/L (39-117); Anion Gap 13 (12-20); Aspartate Amino Transferase 23 U/L (5-37); Bilirubin Total 0.8 mg/dL (0.0-1.0); Blood Urea Nitrogen 18 mg/dL (9-16); Calcium 9.8 mg/dL (8.4-10.2); Carbon Dioxide 26 mmol/L (22-29); Chloride 107 mmol/L (96-108); Cholesterol 145 mg/dL; Estimated Glomerular Filt Rate > 60; Glucose Fasting 112 mg/dL (60-99); HDL Cholesterol 59 mg/dL; LDL Cholesterol Calculated 76 mg/dl; Magnesium 2.1 mg/dL (1.6-2.6); Potassium 4.4 mmol/L (3.3-5.1); Sodium 142 mmol/L (135-145); Total Protein 6.5 g/dL (6.5-8.0); Triglycerides 50 mg/dL
[2021-09-28 10:24] LABS: Troponin-I High Sensitivity < 3.5 ng/L (<3.5-35.0)
[2021-09-28 10:45] LABS: Prostate Specific Antigen 1.48 ng/mL (<0.05-4.0); Thyroid Stimulating Hormone 1.63 uIU/mL (0.32-4.0); Vitamin D 25-OH Total 25.8 ng/mL (>30)
[2021-09-28 11:16] LABS: Folate 18.1 ng/mL (> or = 4.0); Vitamin B12 427 pg/mL (200-900)
== END 2021-09-28 08:41 | disposition home or self-care (01) ==
LOC: HO.LAB 08:40
PROVIDERS: PCP Internal Medicine; Visit Provider Internal Medicine
DX: Z12.5 Encounter for screening for malignant neoplasm of prostate (principal); I48.0 Paroxysmal atrial fibrillation; R93.89 Abnormal findings on diagnostic imaging of other specified body structures
CPT/HCPCS: 36415; 80053; 80061; 81003; 82306; 82607; 82746; 83735; 84153; 84443; 84484; 85025

== ENCOUNTER 2021-11-29 02:21 | Emergency (ER) | payer OTHER, SELFPAY ==
--- NOTE | ~2021-11-29 | CT_ITS ---
EXAMINATION: CT HEAD WITHOUT CONTRAST CLINICAL INFORMATION: Pain, rule out aneurysm. COMPARISON: None TECHNIQUE: Contiguous axial imaging was performed from the skull base to vertex without intravenous administration of contrast. Coronal and sagittal reformatted images were obtained. The patient refused intravenous contrast. This CT examination was performed using dose optimization techniques as appropriate, variously including the following: *Automated exposure control *Adjustment of mA and/or kV according to patient size (this includes techniques or standardized protocols for targeted exams where dose is matched to indication/reason for exam; i.e. extremities or head) *Use of iterative reconstruction technique DLP: 755 mGy-cm FINDINGS: There is no evidence of acute intracranial hemorrhage or territorial infarction. No abnormal mass effect or midline shift is seen. Gaffney to white matter differentiation is well preserved. Incidental prominent posterior CSF space in the posterior cranial fossa. No extra-axial fluid collections are identified. The ventricles are normal in size. There is no abnormal attenuation within the brain parenchyma. The osseous structures and soft tissues are normal. Mild to moderate mucosal thickening is seen in the ethmoid air cells bilaterally. Mild bilateral garry bullosa, right greater than left. The visualized mastoid air cells are clear. CT/CT head/brain wo con IMPRESSION: No acute intracranial pathology. This study is nondiagnostic for evaluation for aneurysm.
[2021-11-29 02:29] VITALS: BP 110/68; PULSE 64; RESP 16; TEMP 36.6; O2SAT 96; BMI 32.5
[2021-11-29 03:22] VITALS: BP 111/47; PULSE 56; RESP 16; TEMP 36.6; O2SAT 96
[2021-11-29 05:06] LABS: Basophils Percent Auto 0.5 % (0-2); Eosinophils Absolute Auto 0.1 X10*3/uL (0.0-0.4); Eosinophils Percent Auto 0.8 % (0-4); Hematocrit 36.1 % (42.0-52.0); Hemoglobin 11.8 g/dl (14.0-18.0); Imm Gran Abs Auto 0.04 X10*3/uL (0.00-0.03); Imm Gran Pct Auto 0.7 % (0.0-0.4); Lymphocytes Absolute Auto 0.9 X10*3/uL (1.2-4.9); Lymphocytes Percent Auto 14.5 % (20-40); MANUAL DIFF FLAG NO; Mean Corpuscular HGB Conc 32.7 g/dl (31.0-36.0); Mean Corpuscular Hemoglobin 29.2 pg (27.0-33.0); Mean Corpuscular Volume 89.4 fL (80.0-98.0); Mean Platelet Volume 9.2 fL (9.4-12.4); Monocytes Absolute Auto 0.4 X10*3/uL (0.1-1.2); Monocytes Percent Auto 6.2 % (2-11); Neutrophils Absolute Auto 4.8 x10*3/uL (2.0-8.3); Neutrophils Percent Auto 77.3 % (45-73); Platelet Count 196 X10*3/uL (160-400); Red Blood Count 4.04 X10*6/uL (4.60-5.80); Red Cell Distribution Width 13.4 % (11.0-16.0); White Blood Count 6.1 X10*3/uL (4.8-10.8)
[2021-11-29 05:10] LABS: Appearance Urine CLEAR; Color Urine YELLOW; Glucose Urine UA NEG (NEG); Leukocyte Esterase Urine NEG (NEG); Nitrite Urine NEG (NEG); PH 5.5 (5.0-8.0); Urine Blood NEG (NEG); Urine Ketones NEG (NEG); Urine Protein NEG (NEG-TRACE)
[2021-11-29 05:17] LABS: Ethanol 36 mg/dL
[2021-11-29 05:21] LABS: Anion Gap 14 (12-20); Blood Urea Nitrogen 13 mg/dL (9-16); Calcium 8.7 mg/dL (8.4-10.2); Carbon Dioxide 22 mmol/L (22-29); Chloride 97 mmol/L (96-108); Creatinine Clr Calc Pharmacy 105.1; Estimated Glomerular Filt Rate > 60; Glucose Random 103 mg/dL (60-115); Lipase 15 U/L (8-78); Potassium 4.5 mmol/L (3.3-5.1); Sodium 128 mmol/L (135-145)
[2021-11-29 05:29] LABS: Amphetamine Screen Urine Not Detected (Not Detect); Barbiturates, Urine Not Detected (Not Detect); Benzodiazepines Screen Urine Not Detected (Not Detect); Cannabinoid Screen Urine Not Detected (Not Detect); Cocaine Screen Urine POSITIVE (Not Detect); Fentanyl, urine Not Detected (Not Detect); Opiate Screen Urine Not Detected (Not Detect); Phencyclidine Screen Urine Not Detected (Not Detect)
--- NOTE | 2021-11-29 06:40 | ED_ITS ---
HPI - General Adult General Chief complaint: Eye Problems Stated complaint: vision blurry after drinking alcohol Time Seen by Provider: 11/29/21 06:33 Source: patient Mode of arrival: ambulatory Limitations: no limitations History of Present Illness HPI narrative: This is a 61 years old male who drove himself to the emergency department a presented to the ED with a chief complaint of blurred vision, he states that he went to a concert yesterday and after the concert experienced blurred vision, no trauma no other systemic symptoms such as headache fever Onset (ago): day(s) (1) Radiation: non-radiation Severity: mild Pain Consistency: other (Improving) Relieving factors: none Exacerbating factors: none Related Data Home Medications Medication Instructions Recorded Confirmed magnesium oxide 400 mg PO BID PRN PRN 04/22/21 05/04/21 Previous Rx's Medication Instructions Recorded metoprolol succinate 25 mg 25 mg PO DAILY #30 tabs 04/22/21 tablet,extended release 24 hr Allergies Allergy/AdvReac Type Severity Reaction Status Date / Time No Known Allergies Allergy Verified 11/29/21 02:29 Review of Systems Constitutional: Constitutional: Reports no additional constitutional complaints Eyes: Eyes: Reports no additional eye complaints Cardiovascular: Cardiovascular: Reports no additional cardiovascular complaints Respiratory: Respiratory: Reports no additional respiratory complaints Musculoskeletal: Musculoskeletal: Denies numbness Neurologic: Denies focal weakness, Denies memory loss, Denies numbness, Denies Other visual disturbances and Denies seizure-like activity Psychiatric: Psychiatric: Denies memory loss [facility] Past Medical History Medical History PAF (paroxysmal atrial fibrillation) Surgical History History of surgery on arm Hx of colonoscopy S/P appendectomy Social History Social History Patient Tobacco Use Status: Current everyday Tobacco user Tobacco use type: Cigar Advance Directives: No Advance Directives Information Provided: Yes service: No Current occupational status: employed 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 Physical Exam ED Vital Signs: Vital Signs - 24 hr 11/29/21 02:29 11/29/21 03:22 11/29/21 07:37 Temperature 97.9 F 97.8 F 97.8 F Pulse Rate 64 56 53 Respiratory Rate 16 16 18 Blood Pressure 110/68 111/47 L 123/71 Pulse Oximetry 96 96 93 Oxygen Delivery Method Room Air Room Air Room Air BMI result Body Mass Index 32.5 Const General: cooperative and comfortable Nutritional Appearance: average body habitus Orientation/consciousness: patient oriented x3 Limitations: no limitations HENMT Head: Yes normal to inspection General nose exam: Normal external nose present Face and sinus: Yes normal facial exam Mouth: Normal oral and palatal mucosa present Throat: Yes posterior oropharynx normal Eyes General: appearance normal, both eyes and all related structures Visual Perez: normal visual perez by confrontation Alignment and Position: alignment normal Eyelids: Yes eyelids normal Conjunctivae: conjunctivae normal Sclerae: sclerae normal Corneas: corneas normal Pupils: Equal, round and reactive pupils present EOM: EOMs intact bilaterally Direct Ophthalmoscopy: no photophobia and no papilledema Neck Neck: Yes normal visual inspection Thyroid: Thyroid normal Chest Chest palpation & inspection: normal inspection of the chest Resp Effort & Inspection: normal respiratory effort Auscultation: clear to auscultation bilaterally Cardio Jugular venous distension: no JVD Rate: regular rate Rhythm: regular rhythm GI Inspection: Yes normal to inspection Palpation (GI): Soft to palpation, not firm, nontender and no guarding Skin General skin exam: no rashes or lesions noted, elasticity normal, turgor normal and atrophy Rashes: no rashes Neuro General: patient oriented x3 Cranial nerves: Yes Equal, round and reactive pupils present Course Reevaluation(s) Reevaluation #1: I RE-EXAMINED THE PATIENT AT THIS TIME HE IS ASYMPTOMATIC, HEAD CT IS NEGATIVE, HIS VISION IS BACK TO NORMAL. THE MOST LIKELY EXPLANATION IS THAT HE USED COCAINE. Medical Decision Making Lab Data Result diagrams: 11/29/21 05:00 11/29/21 05:00 Labs: Lab Results 11/29/21 11/29/21 11/29/21 Range/Units 05:00 05:00 05:00 WBC 6.1 (4.8-10.8) X10*3/uL RBC 4.04 L (4.60-5.80) X10*6/uL Hgb 11.8 L (14.0-18.0) g/dl Hct 36.1 L (42.0-52.0) % MCV 89.4 (80.0-98.0) fL MCH 29.2 (27.0-33.0) pg MCHC 32.7 (31.0-36.0) g/dl RDW 13.4 (11.0-16.0) % Plt Count 196 (160-400) X10*3/uL MPV 9.2 L (9.4-12.4) fL Immature Gran % (Auto) 0.7 H (0.0-0.4) % Neut % (Auto) 77.3 H (45-73) % Lymph % (Auto) 14.5 L (20-40) % Donley % (Auto) 6.2 (2-11) % Eos % (Auto) 0.8 (0-4) % Baso % (Auto) 0.5 (0-2) % Lymph # (Auto) 0.9 L (1.2-4.9) X10*3/uL Donley # (Auto) 0.4 (0.1-1.2) X10*3/uL Eos # (Auto) 0.1 (0.0-0.4) X10*3/uL Baso # (Auto) 0.0 (0.0-0.2) X10*3/uL Abs Immat Gran (auto) 0.04 H (0.00-0.03) X10*3/uL Absolute Neuts (auto) 4.8 (2.0-8.3) x10*3/uL Absolute Nucleated RBC 0.000 (0.0-0.012) X10*3/uL Nucleated RBC % (auto) 0.0 (0.0-0.2) /100WBC Sodium 128 L (135-145) mmol/L Potassium 4.5 (3.3-5.1) mmol/L Chloride 97 (96-108) mmol/L Carbon Dioxide 22 (22-29) mmol/L Anion Gap 14 (12-20) BUN 13 (9-16) mg/dL Creatinine 0.87 (0.5-1.4) mg/dL Estim Creat Clear Calc 105.1 Estimated GFR > 60 Random Glucose 103 (60-115) mg/dL Calcium 8.7 D (8.4-10.2) mg/dL Lipase 15 (8-78) U/L Urine Color Urine Appearance Urine pH (5.0-8.0) Ur Specific Whitmore (1.005-1.025) Urine Protein (NEG-TRACE) MG/DL Urine Glucose (UA) (NEG) MG/DL Urine Ketones (NEG) MG/DL Urine Blood (NEG) Urine Nitrite (NEG) Ur Leukocyte Esterase (NEG) Urine Opiates Screen (Not Detect) Urine Fentanyl Screen (Not Detect) Ur Barbiturates Screen (Not Detect) Ur Phencyclidine Scrn (Not Detect) Ur Amphetamines Screen (Not Detect) U Benzodiazepines Scrn (Not Detect) Urine Cocaine Screen (Not Detect) U Marijuana (THC) Screen (Not Detect) Ethyl Alcohol 36 mg/dL 11/29/21 11/29/21 Range/Units 05:04 05:04 WBC (4.8-10.8) X10*3/uL RBC (4.60-5.80) X10*6/uL Hgb (14.0-18.0) g/dl Hct (42.0-52.0) % MCV (80.0-98.0) fL MCH (27.0-33.0) pg MCHC (31.0-36.0) g/dl RDW (11.0-16.0) % Plt Count (160-400) X10*3/uL MPV (9.4-12.4) fL Immature Gran % (Auto) (0.0-0.4) % Neut % (Auto) (45-73) % Lymph % (Auto) (20-40) % Donley % (Auto) (2-11) % Eos % (Auto) (0-4) % Baso % (Auto) (0-2) % Lymph # (Auto) (1.2-4.9) X10*3/uL Donley # (Auto) (0.1-1.2) X10*3/uL Eos # (Auto) (0.0-0.4) X10*3/uL Baso # (Auto) (0.0-0.2) X10*3/uL Abs Immat Gran (auto) (0.00-0.03) X10*3/uL Absolute Neuts (auto) (2.0-8.3) x10*3/uL Absolute Nucleated RBC (0.0-0.012) X10*3/uL Nucleated RBC % (auto) (0.0-0.2) /100WBC Sodium (135-145) mmol/L Potassium (3.3-5.1) mmol/L Chloride (96-108) mmol/L Carbon Dioxide (22-29) mmol/L Anion Gap (12-20) BUN (9-16) mg/dL Creatinine (0.5-1.4) mg/dL Estim Creat Clear Calc Estimated GFR Random Glucose (60-115) mg/dL Calcium (8.4-10.2) mg/dL Lipase (8-78) U/L Urine Color YELLOW Urine Appearance CLEAR Urine pH 5.5 (5.0-8.0) Ur Specific Whitmore 1.010 (1.005-1.025) Urine Protein NEG (NEG-TRACE) MG/DL Urine Glucose (UA) NEG (NEG) MG/DL Urine Ketones NEG (NEG) MG/DL Urine Blood NEG (NEG) Urine Nitrite NEG (NEG) Ur Leukocyte Esterase NEG (NEG) Urine Opiates Screen Not Detected (Not Detect) Urine Fentanyl Screen Not Detected (Not Detect) Ur Barbiturates Screen Not Detected (Not Detect) Ur Phencyclidine Scrn Not Detected (Not Detect) Ur Amphetamines Screen Not Detected (Not Detect) U Benzodiazepines Scrn Not Detected (Not Detect) Urine Cocaine Screen POSITIVE H (Not Detect) U Marijuana (THC) Screen Not Detected (Not Detect) Ethyl Alcohol mg/dL Imaging Data CT scan - head: Radiologist's impression: re dose is matched to indication/reason for exam; i.e. extremities or head) *Use of iterative reconstruction technique DLP: 755 mGy-cm FINDINGS: There is no evidence of acute intracranial hemorrhage or territorial infarction. No abnormal mass effect or midline shift is seen. Gaffney to white matter differentiation is well preserved. Incidental prominent posterior CSF space in the posterior cranial fossa. No extra-axial fluid collections are identified. The ventricles are normal in size. There is no abnormal attenuation within the brain parenchyma. The osseous structures and soft tissues are normal. Mild to moderate mucosal thickening is seen in the ethmoid air cells bilaterally. Mild bilateral garry bullosa, right greater than left. The visualized mastoid air cells are clear. ? CT/CT head/brain wo con IMPRESSION: No acute intracranial pathology. ? This study is nondiagnostic for evaluation for aneurysm. Dictated By: Silvino Bullard MD Signed By: <Electronically signed by Silvino Bullard MD in OV> 11/29/21942 DD/ 4 Discharge Plan Discharge Clinical Impression: Blurred vision, Cocaine use disorder Patient Disposition: Home, Self-Care Instructions: Blurred Vision (ED) Additional Instructions: FOLLOW-UP WITH YOUR PRIMARY CARE PHYSICIAN, ALSO WE WILL GIVE YOU THE NUMBER OF THE EYE DOCTOR dR JURADO, RETURN IF YOU WORSE , ANY CONCERN. Prescriptions: No Action magnesium oxide 400 mg magnesium Tablet 400 mg PO BID PRN (Reason: PRN) metoprolol succinate 25 mg tablet extended release 24 hr 25 mg PO DAILY Qty: 30 0RF Referrals: Souleymane Jurado [Physician] - 2 days Interventions: ED Discharge Assessment Last Done: 11/29/21 11:03 Discharge Date/Time: 11/29/21 11:05
[2021-11-29] MEDS: 0.9 % Sodium Chloride 1,000 ML 999 ML IVCONT (06:48)
[2021-11-29 07:37] VITALS: BP 123/71; PULSE 53; RESP 18; TEMP 36.6; O2SAT 93
[2021-11-29] MEDS: diazePAM 2 MG TABLET 5 MG PO (08:14)
== END 2021-11-29 11:05 | disposition home or self-care (01) ==
PROVIDERS: Emergency Provider Emergency Medicine; PCP Internal Medicine
DX: H53.8 Other visual disturbances (principal); R51.9 Headache, unspecified; F14.10 Cocaine abuse, uncomplicated; F17.200 Nicotine dependence, unspecified, uncomplicated; Z79.899 Other long term (current) drug therapy; Z71.6 Tobacco abuse counseling
CPT/HCPCS: 36415; 70450; 80048; 80307; 81003; 82077; 83690; 85025; 96361; 96374; 99284

== ENCOUNTER 2022-04-13 14:12 | Outpatient (REF) | payer OTHER, SELFPAY ==
--- NOTE | ~2022-04-13 | MR_ITS ---
EXAMINATION: MR HUMERUS WITHOUT CONTRAST, LEFT CLINICAL INFORMATION: Left arm pain. Evaluate for a biceps injury. COMPARISON: None. TECHNIQUE: Multisequence MR imaging of the left humerus was obtained without contrast on a high-field strength scanner. FINDINGS: BONE: No marrow edema or evidence of acute osseous injury. No concerning lytic or blastic osseous lesion. MUSCLES/TENDONS: There is minimally increased T2 signal along the anterior aspect of the biceps muscle which could represent a minimal muscle strain. No measurable tendon tear or tendon retraction. The remaining visualized muscles and tendons are grossly intact. Poor evaluation the rotator cuff tendons on large [id number]-nw-gymf imaging. SOFT TISSUES: Partially visualized small glenohumeral joint effusion. No abnormal soft tissue mass or fluid collection. MR/MR humerus LT wo con IMPRESSION: 1. Minimally increased T2 signal along the anterior aspect of the biceps muscle which could represent a minimal muscle strain. No measurable tendon tear or tendon retraction. 2. Partially visualized small glenohumeral joint effusion.
== END 2022-04-13 14:13 | disposition home or self-care (01) ==
LOC: HO.MRI 14:12
PROVIDERS: Visit Provider Orthopaedic Surgery
DX: S46.212A Strain of muscle, fascia and tendon of other parts of biceps, left arm, initial encounter (principal); X58.XXXA Exposure to other specified factors, initial encounter; Y93.9 Activity, unspecified; Y92.9 Unspecified place or not applicable; Y99.9 Unspecified external cause status
CPT/HCPCS: 73218

== ENCOUNTER → 2022-04-28 11:08 | Outpatient (BNVA) | payer OTHER, SELFPAY | PROVIDERS: PCP Internal Medicine; Visit Provider Orthopaedic Surgery | DX: M79.602 Pain in left arm (principal) ==

== ENCOUNTER 2022-10-10 08:33 | Outpatient (REF) | payer OTHER, SELFPAY ==
--- NOTE | ~2022-10-10 | XR_ITS ---
EXAMINATION: XR KNEE, LEFT XR KNEE AP STANDING CLINICAL INFORMATION: Left knee pain. COMPARISON: None available. TECHNIQUE: Two views of the left knee. AP bilateral standing view of the knees was obtained. FINDINGS: Bones and soft tissues appear unremarkable. No fracture or joint effusion appreciated. Alignment is anatomic. Joint spaces appear well maintained. No abnormal soft tissue calcification. XR/XR knee standing BI IMPRESSION: Unremarkable plain film examination of the left knee, as above.
--- NOTE | ~2022-10-10 | XR_ITS ---
EXAMINATION: XR KNEE, LEFT XR KNEE AP STANDING CLINICAL INFORMATION: Left knee pain. COMPARISON: None available. TECHNIQUE: Two views of the left knee. AP bilateral standing view of the knees was obtained. FINDINGS: Bones and soft tissues appear unremarkable. No fracture or joint effusion appreciated. Alignment is anatomic. Joint spaces appear well maintained. No abnormal soft tissue calcification. XR/XR knee LT 2V IMPRESSION: Unremarkable plain film examination of the left knee, as above.
== END 2022-10-10 08:34 | disposition home or self-care (01) ==
LOC: HO.HOSX 08:33
PROVIDERS: Visit Provider Orthopaedic Surgery
DX: M25.562 Pain in left knee (principal)
CPT/HCPCS: 20610; 73560; 73565; J1100

== ENCOUNTER 2022-11-30 16:32 | Outpatient (REF) | payer OTHER, SELFPAY ==
--- NOTE | ~2022-11-30 | MR_ITS ---
EXAMINATION: MR KNEE WITHOUT CONTRAST, LEFT CLINICAL INFORMATION: Internal derangement of left knee. COMPARISON: X-ray of the left knee October 2022. TECHNIQUE: MRI of the knee without contrast was performed using routine sequences on a high-field scanner. FINDINGS: MENISCI: Medial Meniscus: There is marked attenuation and surface irregularity of the posterior horn of the medial meniscus. In the absence of prior surgery, this is consistent with a meniscal tear. Lateral Meniscus: There is marked blunting and irregularity of the body of the meniscus. A small portion of the meniscus appears to be extruding into the femoral meniscal recess. There is also an oblique increased signal in the posterior horn at the junction of the posterior horn and posterior root extending to the free edge. Findings indicative of tearing of the body and posterior horn of the meniscus. LIGAMENTS: Cruciate: Intact. Collateral: Intact. EXTENSOR MECHANISM: Intact. ARTICULAR CARTILAGE/BONE: Patellofemoral Compartment: There is mild cartilage thinning and surface irregularity of the medial facet of the patella. There is some minimal heterogeneity of the trochlear cartilage laterally. Overall mild patellofemoral arthrosis. Medial Compartment: There are small marginal osteophytes. There is cartilage heterogeneity along the posterior medial aspect of the weightbearing portion of the compartment. Overall mild arthrosis. Lateral Compartment: There is a focal area of nonuniform up to high-grade cartilage loss and perhaps some delamination along the posterior lateral tibial articular surface extending over an area measuring approximately 15 mm transverse and 17 mm AP. There is some reactive edema related to this cartilage abnormality. There is some additional partial-thickness cartilage loss and surface irregularity in the adjacent femoral articular surface posteriorly. Overall relatively focal but moderate arthrosis. JOINT FLUID AND BURSAE: There is a mild joint effusion and synovitis. There is a concomitant more focal nodular-appearing area of synovitis in the posterior recess of the medial compartment extending over 3 cm transverse, 13 mm craniocaudal, and 12 mm AP. This abuts the posterior aspect of the posterior cruciate ligament and periphery of the medial meniscus posterior horn. MR/MR knee LT wo con IMPRESSION: 1. Tear of the posterior horn of the medial meniscus. 2. Tear of the body and posterior horn of the lateral meniscus. 3. Mild arthrosis of the patellofemoral compartment and medial compartment. Moderate arthrosis of the lateral compartment. 4. Mild joint effusion and synovitis. 5. Focal nodular area of synovitis in the posterior recess of the medial compartment.
== END 2022-11-30 16:33 | disposition home or self-care (01) ==
LOC: HO.MRI 16:32
PROVIDERS: PCP Internal Medicine; Visit Provider Orthopaedic Surgery
DX: M23.92 Unspecified internal derangement of left knee (principal)
CPT/HCPCS: 73721

== ENCOUNTER 2022-12-22 11:33 | Outpatient (AMB) | payer OTHER, SELFPAY ==
--- NOTE | 2022-12-22 11:35 | MHC.OFFVIS ---
Intake Intake Visit Reasons: OV-LT knee MRI review Intake Note: Jay is a 62 year old male who presents today for a left knee MRI review. Allergies No Known Allergies Allergy (Verified 11/02/22 13:05) HPI OV-LT knee MRI review HPI Details Jay Degroot is a 62-year-old male who presents today to the office for a follow-up of review of MRI scan result of left knee. He states that he had an incident in the past where his dog smashed into his knee; however, his pain started flaring up about 1-2 years ago. He reports worsening pain when bending his knee. He has difficulty walking short distances. He has difficulty ascending and descending stairs. He denies any pain in his kneecap. 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 He has focal tenderness to palpation over the medial joint line and a positive medial Latanya's. No effusion. Psych Appearance: grossly normal Affect: normal affect Attitude: cooperative Results Reviewed Results Reviewed: I personally reviewed relevant radiographs. 11/30/22: MR KNEE WITHOUT CONTRAST, LEFT 1. Tear of the posterior horn of the medial meniscus. 2. Tear of the body and posterior horn of the lateral meniscus. 3. Mild arthrosis of the patellofemoral compartment and medial compartment. Moderate arthrosis of the lateral compartment. 4. Mild joint effusion and synovitis. 5. Focal nodular area of synovitis in the posterior recess of the medial compartment. 10/10/22: XR KNEE, LEFT. XR KNEE AP STANDING Essentially normal radiographs Assessment & Plan Assessment & Plan (1) Medial meniscus tear: Code(s): S83.249A - Other tear of medial meniscus, current injury, unspecified knee, initial encounter Plan: This is a 62-year-old gentleman with signs and symptoms of a medial meniscus tear. I recommend left knee arthroscopy.I discussed the risks benefits and alternatives including but not limited to the risk of pain, infection, stiffness, need for further surgery as well as potential medical complications such as blood clots, pulmonary embolism and cardiac complications. He also has a question of nodular synovitis in popliteal fossa. On exam he does not have a effusion or symptoms associated with PVNS but I think it would be reasonable to obtain a sample of this tissue during arthroscopy to sent to pathology. Plan Scribed for Dr. Jasvir Larson by Yovany Cruz, medical device sales consultant, on 12/22/2022. I, Dr. Jasvir Larson, have personally reviewed and agree with the information entered by the scribe. Coding Level of Care Code Est Pt Level 4 (53609) Diagnoses Medial meniscus tear S83.249A
== END 2022-12-22 12:04 | disposition home or self-care (01) ==
LOC: HO.HOS 11:34
PROVIDERS: PCP Internal Medicine; Visit Provider Orthopaedic Surgery
DX: S83.232A Complex tear of medial meniscus, current injury, left knee, initial encounter (principal); M25.462 Effusion, left knee
CPT/HCPCS: 99214

== ENCOUNTER → 2022-12-22 11:33 | Outpatient (BNVA) | payer OTHER, SELFPAY | PROVIDERS: PCP Internal Medicine; Visit Provider Orthopaedic Surgery ==

== ENCOUNTER 2023-01-10 19:40 | Emergency (ER) | payer OTHER, SELFPAY ==
--- NOTE | ~2023-01-10 | XR_ITS ---
EXAMINATION: XR CHEST CLINICAL INFORMATION: Shortness of breath COMPARISON: Previous chest x-ray April [address] July 2021 TECHNIQUE: 2 views of the chest were obtained. FINDINGS: The cardiac and mediastinal contours are stable. There are increased central markings questionable for bronchial wall thickening, particularly in the left upper lobe. No evidence of lobar pneumonia. No pleural effusion or pneumothorax. There are degenerative changes of the spine and mild scoliosis. XR/XR chest 2V IMPRESSION: Question central bronchial wall thickening/bronchitis. No evidence of lobar pneumonia.
[2023-01-10 19:58] VITALS: BP 109/72; PULSE 77; RESP 20; TEMP 37.7; O2SAT 98; BMI 31.7
[2023-01-10 20:45] LABS: Hematocrit 38.8 % (42.0-52.0); Hemoglobin 12.9 g/dl (14.0-18.0); Mean Corpuscular HGB Conc 33.2 g/dl (31.0-36.0); Mean Corpuscular Hemoglobin 29.1 pg (27.0-33.0); Mean Corpuscular Volume 87.6 fL (80.0-98.0); Mean Platelet Volume 9.5 fL (9.4-12.4); Platelet Count 195 X10*3/uL (160-400); Red Blood Count 4.43 X10*6/uL (4.60-5.80); Red Cell Distribution Width 13.1 % (11.0-16.0); White Blood Count 6.7 X10*3/uL (4.8-10.8)
[2023-01-10 21:07] LABS: Alanine Aminotransferase 21 U/L (0-40); Alkaline Phosphatase 63 U/L (39-117); Anion Gap 13 (12-20); Aspartate Amino Transferase 29 U/L (5-37); Bilirubin Total 0.4 mg/dL (0.0-1.0); Blood Urea Nitrogen 16 mg/dL (9-16); Calcium 9.5 mg/dL (8.4-10.2); Carbon Dioxide 22 mmol/L (22-29); Chloride 102 mmol/L (96-108); Creatinine Clr Calc Pharmacy 91.1; Estimated Glomerular Filt Rate > 60; Glucose Random 104 mg/dL (60-115); Potassium 4.2 mmol/L (3.3-5.1); Sodium 133 mmol/L (135-145)
[2023-01-10 21:23] LABS: Influenza A PCR NEGATIVE (Negative); Influenza B PCR NEGATIVE (Negative); Resp Syncy Virus RNA Qual PCR NEGATIVE (Negative); SARS COV2 PCR INHOUSE POSITIVE (Negative)
[2023-01-10 23:41] VITALS: BP 129/71; PULSE 68; RESP 16; TEMP 36.9; O2SAT 97
--- NOTE | 2023-01-11 00:17 | ED.URI ---
HPI - URI/Sore Throat General Chief Complaint: Upper Respiratory Symptoms Stated Complaint: itchy cough /+Covid Time Seen by Provider: 01/10/23 23:20 Source: patient Mode of arrival: ambulatory Limitations: no limitations History of Present Illness HPI Narrative: 62-year-old male came in for evaluation of cough and shortness of breath patient was tested positive for COVID a week ago, smokes only cigars prone to bronchitis. Patient also is complaining of generalized body ache, sore throat. No sick contacts, no recent travel Related Data Home Medications Medication Instructions Recorded Confirmed magnesium oxide 400 mg PO BID PRN PRN 04/22/21 01/06/23 Previous Rx's Medication Instructions Recorded albuterol sulfate 90 mcg/actuation 1 inh inhalation QID PRN shortness 01/11/23 aerosol inhaler of breath or wheezing #6.7 grams azithromycin 250 mg tablet See Rx Instructions PO .COMPLEX #6 01/11/23 (Zithromax Z-Russell) tabs prednisone 20 mg tablet 20 mg PO BID #10 tabs 01/11/23 Allergies Allergy/AdvReac Type Severity Reaction Status Date / Time No Known Allergies Allergy Verified 11/02/22 13:05 [facility] Past Medical History Medical History GERD (gastroesophageal reflux disease) Internal derangement of left knee PAF (paroxysmal atrial fibrillation) PVNS (pigmented villonodular synovitis) Surgical History History of surgery on arm Hx of colonoscopy Hx of ventral hernia repair S/P appendectomy Social History Social History Alcohol intake: former Patient Tobacco Use Status: Current everyday Tobacco user Tobacco use type: Cigar Use of substances other than those prescribed or required for medical reasons: No Advance Directives: No Advance Directives Information Provided: No service: No Current occupational status: employed 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 Blood pressure normal. Heart rate normal. Respiration rate normal. Temperature normal. Oxygen saturation normal. Appearance: Alert. Oriented X3. No acute distress. Head: Normal external exam. Normocephalic. Atraumatic. No Gmóez signs noted. No raccoon eyes noted Eyes: PERRLA. EOMI. Conjunctiva and sclera normal. Eyelids normal. ENT: TM's Normal. Pharynx normal. Uvula midline. Moist mucous membranes. No trismus noted. No drooling noted. No muffled voice noted. Neck: Normal inspection. Neck supple. FROM. No adenopathy. Thyroid Normal. No meningeal signs. No neck mass noted. CVS: Normal heart rate and rhythm. Heart sound normal. No murmurs noted. Pulses normal throughout. Respiratory: No respiratory distress. Painless inspiration. Breath sounds normal. Mild diffuse expiratory wheezing with prolonged expiration. Abdomen: Soft and nontender. Bowel sounds normal in all 4 quadrants. No distention noted. No organomegaly noted. No visible injury noted. Back: No CVA tenderness. Full range of motion noted. Skin: Skin warm and dry. Normal skin color. Normal skin turgor. No rashes/lesions/lacerations noted. Extremities: No lower extremity edema. Extremities exhibit normal range of motion. Extremities nontender. Neuro: Oriented X 3. Cranial nerve exam: II-XII are grossly intact No motor deficit. No sensory deficit. Reflexes normal. Course Course Course Narrative: Acute bronchitis will start the patient on prednisone/Z-Russell/again of a follow-up with his knee. Medical Decision Making Differential Diagnosis Differential Diagnoses: The differential diagnosis associated with the presentation includes (Pneumonia, pneumothorax, pleural effusion, bronchitis, COVID-19 infection.) Admission/Observation Consideration of admission/observation: Escalation of care including admission/observation considered Lab Data MDM Lab Attestation statement: I reviewed the patient's lab results. 01/10/23 20:38 01/10/23 20:38 Labs: Lab Results 01/10/23 01/10/23 01/10/23 Range/Units 20:38 20:38 20:38 WBC 6.7 (4.8-10.8) X10*3/uL RBC 4.43 L (4.60-5.80) X10*6/uL Hgb 12.9 L (14.0-18.0) g/dl Hct 38.8 L (42.0-52.0) % MCV 87.6 (80.0-98.0) fL MCH 29.1 (27.0-33.0) pg MCHC 33.2 (31.0-36.0) g/dl RDW 13.1 (11.0-16.0) % Plt Count 195 (160-400) X10*3/uL MPV 9.5 (9.4-12.4) fL Absolute Nucleated RBC 0.000 (0.0-0.012) X10*3/uL Nucleated RBC % (auto) 0.0 (0.0-0.2) /100WBC Sodium 133 L (135-145) mmol/L Potassium 4.2 (3.3-5.1) mmol/L Chloride 102 (96-108) mmol/L Carbon Dioxide 22 (22-29) mmol/L Anion Gap 13 (12-20) BUN 16 (9-16) mg/dL Creatinine 0.98 (0.5-1.4) mg/dL Estim Creat Clear Calc 91.1 Estimated GFR > 60 Random Glucose 104 (60-115) mg/dL Calcium 9.5 D (8.4-10.2) mg/dL Total Bilirubin 0.4 (0.0-1.0) mg/dL AST 29 (5-37) U/L ALT 21 (0-40) U/L Alkaline Phosphatase 63 (39-117) U/L Total Protein 7.0 (6.5-8.0) g/dL Albumin 4.0 (3.5-5.0) g/dL Influenza Type A (PCR) NEGATIVE (Negative) Influenza Type B (PCR) NEGATIVE (Negative) RSV RNA Qual (PCR) NEGATIVE (Negative) SARS-CoV-2 RNA (RT-PCR) POSITIVE A (Negative) Independent Interpretation I performed an independent interpretation of an: Plain X-Ray (Chest: Central bronchial wall thickening) Radiology Impression Discussion of test interpretation with radiology: I have reviewed the radiologist's reading. (Question central bronchial wall thickening/bronchitis. No evidence of lobar pneumonia.) Prescription Management I considered prescription management with: Other (Cigar smoking.) Discharge Plan Discharge Clinical Impression: Bronchitis, COVID-19 Patient Disposition: Home, Self-Care Instructions: Acute Bronchitis (ED) Prescriptions: New prednisone 20 mg tablet 20 mg PO BID Qty: 10 0RF azithromycin [Zithromax Z-Russell] 250 mg tablet See Rx Instructions .ROUTE .COMPLEX Qty: 6 0RF Rx Instructions: For 250 mg dose pack: take 500 mg today (day 1), then 250 mg for 4 days (days 2-5) albuterol sulfate 90 mcg/actuation HFA aerosol inhaler 1 inh inhalation QID PRN (Reason: shortness of breath or wheezing) Qty: 6.7 0RF No Action magnesium oxide 400 mg magnesium Tablet 400 mg PO BID PRN (Reason: PRN) Referrals: Misha Jose DO [Primary Care Provider] -
== END 2023-01-11 00:39 | disposition home or self-care (01) ==
PROVIDERS: Emergency Provider Emergency Medicine; PCP Internal Medicine
DX: U07.1 COVID-19 (principal); J40 Bronchitis, not specified as acute or chronic; R06.02 Shortness of breath; Z79.899 Other long term (current) drug therapy
CPT/HCPCS: 0241U; 36415; 71046; 80053; 85027; 99283; 99284

== ENCOUNTER 2023-01-14 15:12 | Emergency (ER) | payer OTHER, SELFPAY ==
--- NOTE | ~2023-01-14 | XR_ITS ---
EXAMINATION: XR CHEST CLINICAL INFORMATION: Reason for Exam Cough, COVID rule out pneumonia COMPARISON: Chest radiograph 01/10/2023 TECHNIQUE: 2 views of the chest FINDINGS: Lines and tubes: None. Patchy multifocal parenchymal airspace opacities with increased interstitial opacities. No pleural effusion. No pneumothorax. Normal cardiomediastinal silhouette. XR/XR chest 2V IMPRESSION: Unchanged multifocal parenchymal airspace opacities with increased interstitial opacities, which can be seen in the setting of atypical/viral pneumonia including Covid pneumonia.
--- NOTE | ~2023-01-14 | CT_ITS ---
EXAMINATION: CT ANGIOGRAM OF THE CHEST WITH AND WITHOUT CONTRAST (CT PULMONARY ANGIOGRAM FOR PE) CLINICAL INFORMATION: Reason for Exam Covid + 8/30, fever/sob, eval for pe COMPARISON: Chest radiograph 01/14/2023. CT chest 07/14/2021. TECHNIQUE: Prior to contrast administration, noncontrast localization images were obtained. Subsequently, multidetector volumetric imaging was performed from the thoracic inlet to below the diaphragms following the administration of 65 mL Omnipaque 350 intravenous contrast. No contrast reaction reported Sagittal, coronal, and MIP oblique sagittal reformatted images were obtained on the CT workstation, uploaded to PACS, and reviewed. This CT examination was performed using dose optimization techniques as appropriate, variously including the following: *Automated exposure control *Adjustment of mA and/or kV according to patient size (this includes techniques or standardized protocols for targeted exams where dose is matched to indication/reason for exam; i.e. extremities or head) *Use of iterative reconstruction technique Total exam dose-length product 07/07/2019 mGy-cm FINDINGS: QUALITY OF STUDY/CONTRAST BOLUS: Satisfactory. PULMONARY ARTERIES: No pulmonary emboli. THORACIC AORTA: No aneurysm. Lung and pleura: Multifocal bilateral groundglass and alveolar opacities are present. No pleural effusions or pneumothoraces identified. MEDIASTINUM: Normal heart size. No pericardial effusion. No hilar or mediastinal lymphadenopathy. No evidence of septal bowing or right heart strain. CORONARY ARTERY CALCIFICATION: None visualized on this study. CHEST WALL/AXILLA: No axillary or internal mammary lymphadenopathy. OSSEOUS STRUCTURES: Moderate multilevel anterior bridging endplate osteophytosis of the thoracic spine. UPPER ABDOMEN: Partially visualized vague 6 mm rounded low-density focus within the superior aspect of the left kidney not fully included in the image [id number] but most suspicious for a benign, simple cyst. This finding does not warrant additional imaging follow-up on the basis of this examination. No reflux of contrast into the hepatic veins to suggest elevated right heart pressures. CT/CT angio chest PE protocol IMPRESSION: 1. CT pulmonary angiogram negative for pulmonary emboli. 2. Multifocal bilateral groundglass and alveolar pulmonary opacities suspicious for viral pneumonia. VTE: negative.
--- NOTE | 2023-01-14 16:25 | ED.EYEPROB ---
HPI - Eye Problem General Chief complaint: Upper Respiratory Symptoms Stated complaint: L eye issue Time Seen by Provider: 01/14/23 16:40 Source: patient Mode of arrival: ambulatory Limitations: no limitations History of Present Illness HPI Narrative: 62yo male with history of afib here with multiple complaints. patient reports on January 04 he tested positive for COVID. He was seen here on January 11 for persistent cough, shortness of breath and fever. He was diagnosed with bronchitis and placed on azithromycin and prednisone. He is taking these as prescribed (3 doses of antibiotics) He presents with continued cough, shortness of breath, fever up to 102 degrees F. He denies any chest discomfort, leg swelling, leg pain, vomiting, diarrhea, abdominal pain. Patient also reports that today he had a change in his vision to his left eye. He describes it as my vision was washed out . he feels that the colored was distorted in his left eye but tells me this is now resolved. He denies any associated floaters, flashing lights, eye pain, discharge, irritation, redness. Related Data Home Medications Medication Instructions Recorded Confirmed magnesium oxide 400 mg PO BID PRN PRN 04/22/21 01/06/23 Previous Rx's Medication Instructions Recorded albuterol sulfate 90 mcg/actuation 1 inh inhalation QID PRN shortness 01/11/23 aerosol inhaler of breath or wheezing #6.7 grams azithromycin 250 mg tablet See Rx Instructions PO .COMPLEX #6 01/11/23 (Zithromax Z-Russell) tabs prednisone 20 mg tablet 20 mg PO BID #10 tabs 01/11/23 Allergies Allergy/AdvReac Type Severity Reaction Status Date / Time No Known Allergies Allergy Verified 01/14/23 16:37 Review of Systems Review of Systems: Yes all other systems are reviewed and are negative Constitutional: Constitutional: Reports no additional constitutional complaints, Denies body ache(s), Reports chills, Reports fever(s), Denies headache(s) and Denies weakness Eyes: Eyes: Reports no additional eye complaints, Reports change in vision, Denies eye discharge, Denies floaters, Denies irritation, Denies eye pain, Denies seeing flashes and Denies photophobia ENT: Reports system reviewed and no additional complaints, except as documented, Denies dizziness, Denies headache(s), Denies nasal congestion, Denies nasal discharge and Denies neck pain Cardiovascular: Cardiovascular: Reports no additional cardiovascular complaints, Denies chest pain, Denies leg edema and Reports dyspnea Respiratory: Respiratory: Reports no additional respiratory complaints, Reports cough and Reports dyspnea Gastrointestinal: Gastrointestinal: Reports no additional gastrointestinal complaints, Denies abdominal pain, Denies diarrhea, Denies nausea and Denies vomiting Genitourinary: Genitourinary: Denies urinary incontinence Musculoskeletal: Musculoskeletal: Reports no additional musculoskeletal complaints, Denies back pain, Denies arthralgias, Denies joint swelling, Denies neck pain, Denies numbness and Denies tingling Integumentary/Breasts: Skin/Breast: Reports system reviewed and no additional complaints, except as docu and Denies rash Neurologic: Reports system reviewed and no additional complaints, except as documented, Denies Abnormal speech present, Denies dizziness, Denies headache(s), Denies numbness, Denies tingling and Denies weakness PMFSH Past Medical History Attestation statement: The following information was validated with the patient. 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 Physical Exam Vital Signs: Vital Signs: Last Vital Signs Temp 99.8 F 01/14/23 18:24 Pulse 90 01/14/23 16:34 Resp 24 H 01/14/23 16:34 BP 123/76 01/14/23 16:34 Pulse Ox 92 01/14/23 16:34 O2 Del Method Room Air 01/14/23 16:34 BMI result Body Mass Index 31.3 Const: General: cooperative, healthy appearing, comfortable and no acute distress Orientation/consciousness: patient oriented x3 Limitations: no limitations HEENT: Head: Yes normal to inspection Ears: hearing grossly normal bilaterally and TM's normal bilaterally General nose exam: Normal external nose present Face and sinus: Yes normal facial exam Mouth: Normal oral and palatal mucosa present Throat: Yes posterior oropharynx normal, Yes tonsils normal and Yes uvula midline Eyes: Other: IOP right 20, IOP left 30 General: appearance normal, both eyes and all related structures Visual Perez: normal visual perez by confrontation Alignment and Position: alignment normal Periorbital: periorbital findings normal Eyelids: Yes eyelids normal Conjunctivae: conjunctivae normal Sclerae: sclerae normal Corneas: corneas normal and fluorescein used Pupils: Equal, round and reactive pupils present EOM: EOMs intact bilaterally Direct Ophthalmoscopy: normal light reflex and No photophobia Neck: Neck: Yes normal visual inspection, Yes full ROM, Yes no lymphadenopathy and Yes no meningeal signs Chest: Chest palpation & inspection: normal inspection of the chest Resp: Other: +tachypnea Effort & Inspection: Actively coughing Auscultation: clear to auscultation bilaterally Cardio: Rate: regular rate Rhythm: regular rhythm Peripheral pulses: Peripheral pulses 2+ throughout GI: Inspection: Yes normal to inspection Palpation (GI): Soft to palpation and nontender Auscultation: normal bowel sounds Back/Spine/Pelvis: Thoracic/Lumbar Spine: thoracic and lumbar spine normal to inspection Skin: General skin exam: no rashes or lesions noted Neuro: General: patient oriented x3, no meningeal signs, no focal motor deficits and normal sensation to monofilament Cranial nerves: Yes Equal, round and reactive pupils present Cognition (Neuro): normal cognition Speech: No Abnormal speech present Gait exam (Neuro): Normal gait present Motor exam (neuro): 5/5 motor strength present throughout Extrem: General: Yes normal to inspection, Yes no pedal edema and Yes no calf tenderness Course Course Course Narrative: Patient complains of worsening cough, he has had COVID for 10 days, he was prescribed Zithromax antibiotic a week ago He also complains of some left eye blurriness that is intermittent, right now he has no eye pain no vision loss no discharge from the eye, he said the last time he experienced the blurriness was when the sunlight was in his eyes driving on the left eye Reevaluation(s) Reevaluation #1: 1900- sign-out to Jeffy LEUNG pending CTA results, ambulatory pulse oximeter and dispositionPatient was walked with pulse oximeter and never had any acute shortness of breath, his pulse oximeter wavered between 96 and 93%, he was speaking full sentences and no respiratory distress while walkingCTA showed ground-glass opacities consistent with a COVID pneumonia, viral pneumoniaCase discussed with Dr. Mims who agreed that this does not appear to be a bacterial pneumonia and patient was safe for discharge with good warnings to return if breathing worsens His eye symptoms were not present during the visit to the ER, he has no eye pain no vision loss no vision change no discharge no floaters and he will be referred to an eye doctor and come back if he develops eye pain vision loss any worse condition Medications Administered Discontinued Medications Generic Name Dose Route Start Last Admin Trade Name Freq PRN Reason Stop Dose Admin Fluorescein Sodium 1 strip 01/14/23 17:00 01/14/23 17:24 Fluorescein Sodium Strip EYE-LEFT 01/14/23 17:01 1 strip ONCE ONE Administration Sodium Chloride 1,000 mls @ 999 mls/hr 01/14/23 16:58 01/14/23 19:48 Ns IV 01/14/23 17:58 Infused .Q1H1M STA Infusion Ceftriaxone Sodium 2 gm/ 50 mls @ 100 mls/hr 01/14/23 17:19 01/14/23 19:18 Sodium Chloride IV 01/14/23 17:48 Infused ONCE ONE Infusion Iohexol 100 ml 01/14/23 18:39 01/14/23 18:39 Iohexol 350 Mg/Ml 100 Ml Infus..Btl IV 01/14/23 18:40 65 ml ONCE ONE Administration Ketorolac Tromethamine 15 mg 01/14/23 16:59 01/14/23 17:22 Ketorolac Tromethamine 15 Mg/Ml Vial IVPUSH 01/14/23 17:00 15 mg ONCE ONE Administration Tetracaine HCl 1 drop 01/14/23 17:00 01/14/23 17:24 Tetracaine Hcl/Pf 0.5% Oph Chinyere 4 Ml Drops EYE-LEFT 01/14/23 17:01 1 drop ONCE ONE Administration Medical Decision Making Medical Decision Making [facility] Narrative: [age]yo male with history of afib here with multiple complaints. patient reports on January 04 he tested positive for COVID. He was seen here on January 11 for persistent cough, shortness of breath and fever. He was diagnosed with bronchitis and placed on azithromycin and prednisone. He is taking these as prescribed (3 doses of antibiotics) He presents with continued cough, shortness of breath, fever up to 102 degrees F. He denies any chest discomfort, leg swelling, leg pain, vomiting, diarrhea, abdominal pain. Patient also reports that today he had a change in his vision to his left eye. He describes it as my vision was washed out . he feels that the colored was distorted in his left eye but tells me this is now resolved and he never had any associated eye pain with this. He denies any associated floaters, flashing lights, eye pain, discharge, irritation, redness. On arrival patient is febrile and tachypneic. at this time infection is suspected. Blood cultures and lactic acid ordered. Antibiotics ordered. Will obtain chest x-ray, viral testing, EKG. Patient will need visual acuity an eye exam as well. Differential Diagnosis Differential Diagnoses: The differential diagnosis associated with the presentation includes PNA, PE glaucoma, retinal detachment -less likely with transient symptoms, now resolved. Admission/Observation Consideration of admission/observation: Escalation of care including admission/observation considered Lab Data MDM Lab Attestation statement: I reviewed the patient's lab results. unremarkable 01/14/23 17:20 01/14/23 17:20 Labs: Lab Results 01/14/23 01/14/23 Range/Units 17:20 17:52 WBC 10.0 (4.8-10.8) X10*3/uL RBC 4.55 L (4.60-5.80) X10*6/uL Hgb 13.6 L (14.0-18.0) g/dl Hct 40.5 L (42.0-52.0) % MCV 89.0 (80.0-98.0) fL MCH 29.9 (27.0-33.0) pg MCHC 33.6 (31.0-36.0) g/dl RDW 13.1 (11.0-16.0) % Plt Count 336 D (160-400) X10*3/uL MPV 9.7 (9.4-12.4) fL Immature Gran % (Auto) 1.6 H (0.0-0.4) % Neut % (Auto) 84.5 H (45-73) % Lymph % (Auto) 9.0 L (20-40) % Merrick % (Auto) 4.6 (2-11) % Eos % (Auto) 0.0 (0-4) % Baso % (Auto) 0.3 (0-2) % Lymph # (Auto) 0.9 L (1.2-4.9) X10*3/uL Merrick # (Auto) 0.5 (0.1-1.2) X10*3/uL Eos # (Auto) 0.0 (0.0-0.4) X10*3/uL Baso # (Auto) 0.0 (0.0-0.2) X10*3/uL Abs Immat Gran (auto) 0.16 H (0.00-0.03) X10*3/uL Absolute Neuts (auto) 8.5 H (2.0-8.3) x10*3/uL Absolute Nucleated RBC 0.000 (0.0-0.012) X10*3/uL Nucleated RBC % (auto) 0.0 (0.0-0.2) /100WBC PT 12.4 (11.1-13.3) SEC INR 1.0 (0.9-1.1) D-Dimer High Sensitivty 275 NG/ML Sodium 134 L (135-145) mmol/L Potassium 4.1 (3.3-5.1) mmol/L Chloride 98 (96-108) mmol/L Carbon Dioxide 27 (22-29) mmol/L Anion Gap 13 (12-20) BUN 15 (9-16) mg/dL Creatinine 1.02 (0.5-1.4) mg/dL Estim Creat Clear Calc 87.5 Estimated GFR > 60 Random Glucose 116 H (60-115) mg/dL Lactic Acid 1.0 (0.5-2.0) mmol/L Calcium 10.0 (8.4-10.2) mg/dL Magnesium 2.1 (1.6-2.6) mg/dL Total Bilirubin 0.5 (0.0-1.0) mg/dL Direct Bilirubin 0.2 (0.0-0.5) mg/dL AST 45 H (5-37) U/L ALT 48 H (0-40) U/L Alkaline Phosphatase 71 (39-117) U/L Total Creatine Kinase 189 H (38-174) U/L Troponin I High Sens < 2.7 (<3.5-35.0) ng/L B-Natriuretic Peptide 82 (<100) pg/mL Total Protein 7.8 (6.5-8.0) g/dL Albumin 4.3 (3.5-5.0) g/dL Influenza Type A (PCR) NEGATIVE (Negative) Influenza Type B (PCR) NEGATIVE (Negative) RSV RNA Qual (PCR) NEGATIVE (Negative) SARS-CoV-2 RNA (RT-PCR) POSITIVE A (Negative) Independent Interpretation I performed an independent interpretation of an: EKG and Plain X-Ray Interpretation: I independently reviewed the chest x-ray and agree with the radiology report I independently reviewed the EKG which shows normal sinus rhythm with a rate of 74, normal OH, normal QRS, normal QT Radiology Impression Discussion of test interpretation with radiology: I have reviewed the radiologist's reading. Radiologist Impression: [place] [id number] XRay Report Signed Patient: Jay Degroot MR#: [id number] : 1960 Acct:[id number] Age/Sex: 62 / M ADM Date: 01/14/23 Loc: .ED Attending Dr: Ordering Physician: Lux Luo Date of Service: 01/14/23 Procedure(s): XR chest 2V Accession Number(s): [id number] cc: Misha Jose DO; Lux Luo~ EXAMINATION: XR CHEST CLINICAL INFORMATION: Reason for Exam Cough, COVID rule out pneumonia COMPARISON: Chest radiograph 01/10/2023 TECHNIQUE: 2 views of the chest FINDINGS: Lines and tubes: None. Patchy multifocal parenchymal airspace opacities with increased interstitial opacities. No pleural effusion. No pneumothorax. Normal cardiomediastinal silhouette. XR/XR chest 2V IMPRESSION: Unchanged multifocal parenchymal airspace opacities with increased interstitial opacities, which can be seen in the setting of atypical/viral pneumonia including Covid pneumonia. Discharge Plan Discharge Clinical Impression: Pneumonia, Acute COVID-19 Patient Disposition: Home, Self-Care Additional Instructions: a workup confirmed that the cause of cough and fever is COVID The CT scan did not show any blood clot or bacterial pneumonia but did show COVID findings There is no medication that can cure the COVID at this point, you can use Tylenol for fever, drink plenty of fluids Return to the ER any time if her breathing gets worse or if you are vomiting or dehydrated, or for any worse condition or any concerns It can take several weeks for COVID symptoms to get better it varies with each person The eye problem we did not find anything emergent today, if symptoms mildly continue follow with eye doctor Return any time for vision loss, eye pain, discharge from eye any worse condition Prescriptions: No Action magnesium oxide 400 mg magnesium Tablet 400 mg PO BID PRN (Reason: PRN) prednisone 20 mg tablet 20 mg PO BID Qty: 10 0RF azithromycin [Zithromax Z-Russell] 250 mg tablet See Rx Instructions .ROUTE .COMPLEX Qty: 6 0RF Rx Instructions: For 250 mg dose pack: take 500 mg today (day 1), then 250 mg for 4 days (days 2-5) albuterol sulfate 90 mcg/actuation HFA aerosol inhaler 1 inh inhalation QID PRN (Reason: shortness of breath or wheezing) Qty: 6.7 0RF Referrals: Souleymane Jurado [Physician] -
[2023-01-14 16:34] VITALS: BP 123/76; PULSE 90; RESP 24; TEMP 38.3; O2SAT 92; BMI 31.3
--- NOTE | 2023-01-14 16:58 | ECG_ITS ---
Test Reason : SOB Blood Pressure : / mmHG Vent. 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
[2023-01-14] MEDS: Ketorolac Tromethamine 15 MG/ML VIAL IVPUSH (17:22)
[2023-01-14] MEDS: 0.9 % Sodium Chloride 1,000 ML 999 ML IV (17:22)
[2023-01-14] MEDS: Fluorescein Sodium STRIP 1 STRIP EYE-LEFT (17:24)
[2023-01-14] MEDS: Tetracaine HCl/PF 0.5% Oph Sol 4 ML DROPS 1 DROP EYE-LEFT (17:24)
[2023-01-14 17:33] LABS: MANUAL DIFF FLAG NO
[2023-01-14 17:36] LABS: Basophils Percent Auto 0.3 % (0-2); Hematocrit 40.5 % (42.0-52.0); Hemoglobin 13.6 g/dl (14.0-18.0); Imm Gran Abs Auto 0.16 X10*3/uL (0.00-0.03); Imm Gran Pct Auto 1.6 % (0.0-0.4); Lymphocytes Absolute Auto 0.9 X10*3/uL (1.2-4.9); Mean Corpuscular HGB Conc 33.6 g/dl (31.0-36.0); Mean Corpuscular Hemoglobin 29.9 pg (27.0-33.0); Mean Platelet Volume 9.7 fL (9.4-12.4); Monocytes Absolute Auto 0.5 X10*3/uL (0.1-1.2); Monocytes Percent Auto 4.6 % (2-11); Neutrophils Absolute Auto 8.5 x10*3/uL (2.0-8.3); Neutrophils Percent Auto 84.5 % (45-73); Platelet Count 336 X10*3/uL (160-400); Red Blood Count 4.55 X10*6/uL (4.60-5.80); Red Cell Distribution Width 13.1 % (11.0-16.0)
[2023-01-14 17:41] LABS: Prothrombin Time 12.4 SEC (11.1-13.3)
--- NOTE | 2023-01-14 17:41 | PC.NURSE ---
pt labs obtained, 1l NS infusing per order, BC x2 , and lactic obtained
[2023-01-14 17:44] LABS: D Dimer High Sensitivity 275 NG/ML
[2023-01-14 17:52] LABS: Alanine Aminotransferase 48 U/L (0-40); Albumin Level 4.3 g/dL (3.5-5.0); Alkaline Phosphatase 71 U/L (39-117); Anion Gap 13 (12-20); Aspartate Amino Transferase 45 U/L (5-37); Bilirubin Direct 0.2 mg/dL (0.0-0.5); Bilirubin Total 0.5 mg/dL (0.0-1.0); Blood Urea Nitrogen 15 mg/dL (9-16); Carbon Dioxide 27 mmol/L (22-29); Chloride 98 mmol/L (96-108); Creatinine Clr Calc Pharmacy 87.5; Estimated Glomerular Filt Rate > 60; Glucose Random 116 mg/dL (60-115); Magnesium 2.1 mg/dL (1.6-2.6); Potassium 4.1 mmol/L (3.3-5.1); Sodium 134 mmol/L (135-145); Total Protein 7.8 g/dL (6.5-8.0)
[2023-01-14 17:56] LABS: B Type Natriuretic Peptide 82 pg/mL (<100)
[2023-01-14 18:02] LABS: Troponin-I High Sensitivity < 2.7 ng/L (<3.5-35.0)
[2023-01-14] MEDS: cefTRIAXone sodium 2 GM in 0.9 % Sodium Chloride 50 ML IV (18:20)
[2023-01-14 18:24] VITALS: TEMP 37.7
--- NOTE | 2023-01-14 18:29 | PC.NURSE ---
pt emdicated per MAR- take to CT for CTA study
[2023-01-14] MEDS: iohexoL 350 MG/ML 100 ML INFUS..BTL IV (18:39)
[2023-01-14 18:51] LABS: Influenza A PCR NEGATIVE (Negative); Influenza B PCR NEGATIVE (Negative); Resp Syncy Virus RNA Qual PCR NEGATIVE (Negative); SARS COV2 PCR INHOUSE POSITIVE (Negative)
--- NOTE | 2023-01-14 19:16 | PC.NURSE ---
walking pulse ox 93-96. pt not reporting SOB, abx finished infusing. fluids running per jul. will ctm
[2023-01-14 21:18] VITALS: BP 137/70; PULSE 78; RESP 18; TEMP 37.3; O2SAT 94
== END 2023-01-14 21:24 | disposition home or self-care (01) ==
PROVIDERS: Nurse Practitioner Family; Emergency Provider Emergency Medicine Emergency Medical Services; PCP Internal Medicine
DX: U07.1 COVID-19 (principal); J12.82 Pneumonia due to coronavirus disease 2019; R06.02 Shortness of breath; H53.8 Other visual disturbances; R50.9 Fever, unspecified; I48.0 Paroxysmal atrial fibrillation; F17.200 Nicotine dependence, unspecified, uncomplicated
CPT/HCPCS: 0241U; 36415; 71046; 71275; 80048; 80076; 82550; 83605; 83735; 83880; 84484; 85025; 85379; 85610; 87040; 93005; 96361; 96365; 96375; 99284; J0696; J1885; Q9967

== ENCOUNTER 2023-01-16 08:08 | Inpatient (IN) | payer OTHER, SELFPAY ==
[2023-01-16] VITALS (11 sets, daily range): BP systolic 110–132; BP diastolic 56–79; PULSE 66–94; RESP 18–24; TEMP 36.3–38.3; O2SAT 89–97; BMI 31.7
--- NOTE | ~2023-01-16 | XR_ITS ---
EXAMINATION: XR CHEST CLINICAL INFORMATION: Shortness of breath COMPARISON: Chest 01/14/2023 TECHNIQUE: Frontal view of the chest was obtained. 9:49 AM. FINDINGS: The patient is slightly rotated on the AP upright view. The lungs are not as well inflated compared to 01/14/2023. There is interval increase in multifocal parenchymal airspace opacities with increased interstitial opacities in the right midlung and lower lung and the left midlung and lower lung. This can be seen in the setting of atypical/viral pneumonia including Covid pneumonia. No pleural effusion, no pneumothorax. No significant abnormality is noted involving the heart, mediastinum or soft tissues. There is scoliosis of the thoracic spine, convex right. XR/XR chest 1V IMPRESSION: Interval worsening of multifocal pneumonia which can be seen with atypical/viral pneumonia including Covid pneumonia.
--- NOTE | ~2023-01-16 | CT_ITS ---
EXAMINATION: CT CHEST WITHOUT CONTRAST CLINICAL INFORMATION: Reassess pneumonia. Reassess pneumonia, Covid positive COMPARISON: Chest CT 01/16/2023. TECHNIQUE: Multidetector volumetric CT imaging of the chest was done. Axial MIP volume rendering provided. Sagittal and coronal reformatted images were obtained. This CT examination was performed using dose optimization techniques as appropriate, variously including the following: *Automated exposure control *Adjustment of mA and/or kV according to patient size (this includes techniques or standardized protocols for targeted exams where dose is matched to indication/reason for exam; i.e. extremities or head) *Use of iterative reconstruction technique DLP: 356 mGy-cm FINDINGS: LUNGS: Diffuse multifocal peribronchial groundglass and consolidative opacities are again seen and appear slightly improved, less radiodense. MEDIASTINUM: No adenopathy. No pericardial effusion. Normal caliber aorta. CORONARY ARTERY CALCIFICATION: None visualized on this study. PLEURA: There is no pleural effusion. No pleural mass or thickening. AXILLA: No adenopathy. UPPER ABDOMEN: Small hiatal hernia. OSSEOUS STRUCTURES: Suspicious osseous lesions. Degenerative changes in the spine. CT/CT chest wo IV con IMPRESSION: Slightly improved diffuse multifocal airspace disease. Fleischner guidelines were followed.
--- NOTE | ~2023-01-16 | CT_ITS ---
EXAMINATION: CT CHEST WITHOUT CONTRAST CLINICAL INFORMATION: Hypoxia. COMPARISON: 01/14/2023 TECHNIQUE: Multidetector volumetric CT imaging of the chest was done. Axial MIP volume rendering provided. Sagittal and coronal reformatted images were obtained. This CT examination was performed using dose optimization techniques as appropriate, variously including the following: *Automated exposure control *Adjustment of mA and/or kV according to patient size (this includes techniques or standardized protocols for targeted exams where dose is matched to indication/reason for exam; i.e. extremities or head) *Use of iterative reconstruction technique DLP: 315 mGy-cm FINDINGS: LUNGS: Diffuse multifocal peribronchial groundglass opacities and airspace consolidation. Central airways are patent. MEDIASTINUM: Imaged thyroid gland is unremarkable. No axillary, hilar or mediastinal lymphadenopathy. Great vessels are of normal caliber. Heart size is normal. No pericardial effusion. CORONARY ARTERY CALCIFICATION: None visualized on this study. PLEURA: Trace bilateral pleural effusions. UPPER ABDOMEN: Small hiatal hernia. OSSEOUS STRUCTURES: No destructive bone lesions. CT/CT chest wo IV con IMPRESSION: Multifocal pneumonia with trace bilateral parapneumonic effusions. Given the history of Covid positive, this may represent Covid related pneumonia.
[2023-01-16] MEDS: Albuterol Sulfate 90 MCG 8 GM INHALER 8 PUFF INHALE (10:04)
--- NOTE | 2023-01-16 10:18 | ED_ITS ---
HPI - General Adult General Chief complaint: General Medical Stated complaint: covid + not feeling well Time Seen by Provider: 01/16/23 09:04 Source: patient Mode of arrival: ambulatory Limitations: no limitations History of Present Illness HPI narrative: 62 year old male hx alcohol abuse, gerd, afib, covid + on 01/04/2023 presents w/ worsening shortness of breath, fatigue, malaise, myalgias since 01/04/23. Patient reports he feels terrible has taken steroids and a z pack little to no relief. Shortness of breath worse w/ exertion. Poor PO intake. Denies n/v/d, abd pain, garcia, vision changes, dizziness, fevers, chills Related Data Home Medications Medication Instructions Recorded Confirmed magnesium oxide 400 mg PO BID PRN PRN 04/22/21 01/06/23 Previous Rx's Medication Instructions Recorded albuterol sulfate 90 mcg/actuation 1 inh inhalation QID PRN shortness 01/11/23 aerosol inhaler of breath or wheezing #6.7 grams azithromycin 250 mg tablet See Rx Instructions PO .COMPLEX #6 01/11/23 (Zithromax Z-Russell) tabs prednisone 20 mg tablet 20 mg PO BID #10 tabs 01/11/23 Allergies Allergy/AdvReac Type Severity Reaction Status Date / Time No Known Allergies Allergy Verified 01/14/23 16:37 Review of Systems 2 Review of Systems: Constitutional : No Weight loss, No Fever, + Chills, + Fatigue, + Malaise ENT/Mouth : No sore throat, No Rhinorrhea Eyes: No Eye Pain, No Swelling, No Redness Cardiovascular : No Chest Pain, + SOB, + Dyspnea on Exertion, No Orthopnea, No Edema, No Palpitations Respiratory : + Cough, No Sputum, + Wheezing Gastrointestinal : No Nausea, No Vomiting, No Diarrhea, No Constipation, No abdominal Pain, No Hematochezia, No Melena Genitourinary : No Dysuria, No Urinary Frequency, No Hematuria, Musculoskeletal : No joint pain, No Myalgias, No Joint Swelling Skin : No Skin Lesions, No rash Neuro : No Weakness, No Numbness, No Dizziness, No Headache Psych : No Anxiety/Panic, No Depression All other systems reviewed and are negative Yes all other systems are reviewed and are negative PMFSH Past Medical History Attestation statement: The following information was validated with the patient. 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 Oriented X3.?Mild acute distress.? Head: Normocephalic, atraumatic, no step-offs or deformities Eyes: Pupils equal, round and reactive to light.? Neck: Normal inspection.? Neck supple.? CVS: Normal heart rate and rhythm.? Pulses normal.? Respiratory: Mild respiratory distress.? Breath sounds breath sounds diminished throughout w/ some fait crackles to lower lobes and expiratory wheezing throughout. Abdomen: Soft and nontender.? Skin: Skin warm and dry.? Normal skin color.? Normal skin turgor.? Extremities: No lower extremity edema.? No calf ttp. 5/5 strength to bilateral upper and lower extremities Neuro: Oriented X 3.? No motor deficit.? No sensory deficit. CN 2-12 intact Course Reevaluation(s) Reevaluation #1: CBC appears to be around patient's baseline within normocytic anemia. Neutrophil predominance. Chemistry with no acute findings requiring intervention. Transaminases slightly elevated likely secondary to chronic alcohol abuse. Chest x-ray with interval worsening multifocal pneumonia which can be seen with atypical /viral pneumonia including COVID pneumonia. Chest CT with multifocal pneumonia with trace bilateral parapneumonic effusions. Given the history of COVID positive this may represent COVID related pneumonia. To note I initially was going to order CT of the chest to rule out PE however patient had a CTA done within the past few days, which was negative with no blood clot. I do not suspect PE. respiratory symptoms likely secondary to COVID-19/ pneumonia. Unlikely from PE Time: 11:35 Reevaluation #2: At this time infection suspected, ordered ceftriaxone is a throw for broad coverage, it has been over a week of symptoms, concerned that viral infection has turned into a bacterial infection, blood cultures, lactic acid ordered as well as fluids. Time: 11:36 Reevaluation #3: Plan hospital admission Medications Administered Discontinued Medications Generic Name Dose Route Start Last Admin Trade Name Freq PRN Reason Stop Dose Admin Albuterol Sulfate 8 puff 01/16/23 09:51 01/16/23 10:04 Albuterol Sulfate 90 Mcg 8 Gm Inhaler INHALE 01/16/23 09:52 8 puff ONCE ONE Administration Medical Decision Making Medical Decision Making [facility] Narrative: 1000 62 year old male presents w/ worsening sob was covid + on 01/04 and has been having worsening sob and fatigue since then PE breath sounds diminished throughout w/ some fait crackles to lower lobes and expiratory wheezing throughout. Patient in mild respirtory distress with O2 of 90% at rest. concerns for COVID pneumonia. Will rule out metabolic derangements as patient has not eaten well in the past few days. Unlikely pulmonary embolism. Other differentials include chronic lung disease, viral illess. Plan- labs, xray, aluterol. Likely hospital admission Differential Diagnosis Differential Diagnoses: The differential diagnosis associated with the presentation includes concerns for COVID pneumonia. Will rule out metabolic derangements as patient has not eaten well in the past few days. Unlikely pulmonary embolism. Other differentials include chronic lung disease, viral illess. Admission/Observation Consideration of admission/observation: Escalation of care including admission/observation considered Lab Data [facility] Lab Attestation statement: I reviewed the patient's lab results. 01/16/23 10:16 01/16/23 10:16 Labs: Lab Results 01/16/23 Range/Units 10:16 WBC 9.5 (4.8-10.8) X10*3/uL RBC 4.53 L (4.60-5.80) X10*6/uL Hgb 13.2 L (14.0-18.0) g/dl Hct 39.8 L (42.0-52.0) % MCV 87.9 (80.0-98.0) fL MCH 29.1 (27.0-33.0) pg MCHC 33.2 (31.0-36.0) g/dl RDW 13.0 (11.0-16.0) % Plt Count 319 (160-400) X10*3/uL MPV 9.0 L (9.4-12.4) fL Immature Gran % (Auto) 2.7 H (0.0-0.4) % Neut % (Auto) 87.0 H (45-73) % Lymph % (Auto) 5.7 L (20-40) % [place] % (Auto) 4.2 (2-11) % Eos % (Auto) 0.1 (0-4) % Baso % (Auto) 0.3 (0-2) % Lymph # (Auto) 0.5 L (1.2-4.9) X10*3/uL [place] # (Auto) 0.4 (0.1-1.2) X10*3/uL Eos # (Auto) 0.0 (0.0-0.4) X10*3/uL Baso # (Auto) 0.0 (0.0-0.2) X10*3/uL Abs Immat Gran (auto) 0.26 H (0.00-0.03) X10*3/uL Absolute Neuts (auto) 8.3 (2.0-8.3) x10*3/uL Absolute Nucleated RBC 0.000 (0.0-0.012) X10*3/uL Nucleated RBC % (auto) 0.0 (0.0-0.2) /100WBC Sodium 136 (135-145) mmol/L Potassium 4.2 (3.3-5.1) mmol/L Chloride 101 (96-108) mmol/L Carbon Dioxide 25 (22-29) mmol/L Anion Gap 14 (12-20) BUN 8 L (9-16) mg/dL Creatinine 0.85 (0.5-1.4) mg/dL Estim Creat Clear Calc 105.1 Estimated GFR > 60 Random Glucose 139 H (60-115) mg/dL Calcium 9.8 (8.4-10.2) mg/dL Total Bilirubin 0.6 (0.0-1.0) mg/dL AST 43 H (5-37) U/L ALT 55 H (0-40) U/L Alkaline Phosphatase 65 (39-117) U/L Total Protein 6.8 (6.5-8.0) g/dL Albumin 3.8 (3.5-5.0) g/dL Independent Interpretation I performed an independent interpretation of an: Plain X-Ray (XR/XR chest 1V IMPRESSION: Interval worsening of multifocal pneumonia which can be seen with atypical/viral pneumonia including Covid pneumonia. ) and CT Scan (CT/CT chest wo IV con IMPRESSION: Multifocal pneumonia with trace bilateral parapneumonic effusions. Given the history of Covid positive, this may represent Covid related pneumonia.) Radiology Impression Discussion of test interpretation with radiology: I have reviewed the radiologist's reading. Core Measures AMI core measures followed: Yes Measure exclusions: not indicated Critical Care Time Critical Care Time Critical Care Time: Yes Total Critical Care Time: 35 Attestation: I attest to this time spent taking care of the patient, obtaining history, physical, reviewing labs, imaging Discharge Plan Discharge Clinical Impression: Pneumonia due to 2019-nCoV, Hypoxia Patient Disposition: Admitted As Inpatient Prescriptions: No Action magnesium oxide 400 mg magnesium Tablet 400 mg PO BID PRN (Reason: PRN) prednisone 20 mg tablet 20 mg PO BID Qty: 10 0RF azithromycin [Zithromax Z-Russell] 250 mg tablet See Rx Instructions .ROUTE .COMPLEX Qty: 6 0RF Rx Instructions: For 250 mg dose pack: take 500 mg today (day 1), then 250 mg for 4 days (days 2-5) albuterol sulfate 90 mcg/actuation HFA aerosol inhaler 1 inh inhalation QID PRN (Reason: shortness of breath or wheezing) Qty: 6.7 0RF
[2023-01-16 10:20] LABS: MANUAL DIFF FLAG NO
[2023-01-16 10:26] LABS: Basophils Percent Auto 0.3 % (0-2); Eosinophils Percent Auto 0.1 % (0-4); Hematocrit 39.8 % (42.0-52.0); Hemoglobin 13.2 g/dl (14.0-18.0); Imm Gran Abs Auto 0.26 X10*3/uL (0.00-0.03); Imm Gran Pct Auto 2.7 % (0.0-0.4); Lymphocytes Absolute Auto 0.5 X10*3/uL (1.2-4.9); Lymphocytes Percent Auto 5.7 % (20-40); Mean Corpuscular HGB Conc 33.2 g/dl (31.0-36.0); Mean Corpuscular Hemoglobin 29.1 pg (27.0-33.0); Mean Corpuscular Volume 87.9 fL (80.0-98.0); Monocytes Absolute Auto 0.4 X10*3/uL (0.1-1.2); Monocytes Percent Auto 4.2 % (2-11); Neutrophils Absolute Auto 8.3 x10*3/uL (2.0-8.3); Platelet Count 319 X10*3/uL (160-400); Red Blood Count 4.53 X10*6/uL (4.60-5.80); White Blood Count 9.5 X10*3/uL (4.8-10.8)
[2023-01-16 10:38] LABS: Alanine Aminotransferase 55 U/L (0-40); Albumin Level 3.8 g/dL (3.5-5.0); Alkaline Phosphatase 65 U/L (39-117); Anion Gap 14 (12-20); Aspartate Amino Transferase 43 U/L (5-37); Bilirubin Total 0.6 mg/dL (0.0-1.0); Blood Urea Nitrogen 8 mg/dL (9-16); Calcium 9.8 mg/dL (8.4-10.2); Carbon Dioxide 25 mmol/L (22-29); Chloride 101 mmol/L (96-108); Creatinine Clr Calc Pharmacy 105.1; Estimated Glomerular Filt Rate > 60; Glucose Random 139 mg/dL (60-115); Potassium 4.2 mmol/L (3.3-5.1); Sodium 136 mmol/L (135-145); Total Protein 6.8 g/dL (6.5-8.0)
[2023-01-16 12:33] LABS: Lactic Acid 1.3 mmol/L (0.5-2.0)
--- NOTE | 2023-01-16 12:40 | P.HPHOSP_ITS ---
History of Present Illness Date of Service: 01/16/23 Attending physician on admission: Luis E Osei Chief Complaint: sob, cough, fevers 62-year-old male with history of paroxysmal atrial fibrillation not on anticoagulation, history alcohol abuse, who is a 2 cigar per day smoker, and GERD presented to the ED earlier today for evaluation of worsening shortness of breath, productive cough with white sputum, subjective fevers, and intermittent diarrhea. He tested positive for COVID-19 at home on 01/04 and has been progressively worsening. States prior to his positive COVID test he did also have an intermittent dry cough for 3 weeks but states the additional symptoms did not begin until 01/04. He presented to the ED on 01/11 for evaluation of symptoms and chest x-ray was negative for pneumonia pitted show bronchial wall thickening/bronchitis which he is prone to. He was discharged from the ED with azithromycin, prednisone, and albuterol inhaler. He again presented to the ED on 01/14 for persistent complaints as noted but had developed fevers up to 102 as well as abdominal pain, vomiting, diarrhea. CXR at that time showed increased interstitial opacities possibly related to atypical/viral pneumonia including COVID pneumonia. He reports symptoms have not improved and cough and shortness of breath continued to worsen. There is both shortness of breath at rest and with exertion. He is not vaccinated against COVID-19. He reports he has not consumed any alcohol since prior to his diagnosis and has not smoked any cigars in this time either. Denies any other substance use. On arrival, patient hypoxic to 89-91%. No known history of chronic lung disease. Vitals otherwise stable. On my exam, patient was noted to be satting 85-89% on room air and was placed on 3 L supplemental O2. There is no leukocytosis. Renal function normal, electrolyte levels normal. AST 43, ALT 55 which are consistent with baseline. Procalcitonin level pending. Chest x-ray shows interval worsening of multifocal pneumonia which can be seen with atypical/viral pneumonia including COVID pneumonia. Subsequent chest CT showed multifocal pneumonia with trace bilateral parapneumonic effusions. In the ED, treated with albuterol inhaler. Patient to be admitted with COVID-19 related COVID 19 pneumonia with acute hypoxemic respiratory failure. Review of Systems 2 Review of Systems: General: No fevers, malaise, unintentional weight loss HEENT: No blurred vision, diplopia. No sore throat, nasal congestion, rhinorrhea, sinus pain, ear pain Cardiovascular: +chest tightness. No retrosternal chest pain, palpitations, or leg edema Respiratory: +shortness of breath, +cough. No wheezing GI: + nausea, +diarrhea. abdominal pain, vomiting, constipation, melena, hematochezia : No dysuria, hematuria, increased urinary frequency, decreased urinary output MSK: No myalgia, back pain Neuro: No headaches, weakness, paresthesias Skin: No rashes or lesions [facility] Medical History Alcohol abuse GERD (gastroesophageal reflux disease) 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 PAF (paroxysmal atrial fibrillation) Surgical History Hx of ventral hernia repair History of surgery on arm Hx of colonoscopy S/P appendectomy Social History Alcohol intake: former Patient Tobacco Use Status: Current everyday Tobacco user Tobacco use type: Cigar Advance Directives: No Advance Directives Information Provided: Yes service: No Current occupational status: employed 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 Meds Allergies Allergy/AdvReac Type Severity Reaction Status Date / Time No Known Allergies Allergy Verified 01/14/23 16:37 Active Medications: Current Medications Magnesium Sulfate (Magnesium Sulfate/H2o) 2 gm in 50 mls @ 25 mls/hr IV ONCE ONE Stop: 01/16/23 13:11 Home Medications Medication Instructions Recorded Confirmed Last Taken Type magnesium oxide 400 mg PO BID PRN 04/22/21 01/16/23 01/16/23 History multivitamin 1 tab PO DAILY 01/16/23 01/16/23 01/16/23 History Physical Exam 2 Vital Signs and Narrative: Vital Signs: Last Vital Signs Temp 98.4 F 01/16/23 08:14 Pulse 80 01/16/23 11:11 Resp 20 01/16/23 11:11 BP 128/75 01/16/23 08:14 Pulse Ox 91 L 01/16/23 11:11 O2 Del Method Room Air 01/16/23 11:11 BMI result Body Mass Index 31.7 Constitutional - Awake and Alert, No apparent distress Eyes - PERRLA, EOMI Cardiovascular - S1S2, RRR, No edema Respiratory - Normal lung expansion, Normal respiratory effort, No respiratory distress, scattered crackles bilaterally, otherwise CTA Gastrointestinal - NT / ND; +BS; No rebound or guarding Extremities - no calf tenderness bilaterally, no swelling Skin - Warm/Dry Neurological - Alert & oriented x3 Psychological - Appropriate affect Results Labs 01/16/23 10:16 01/16/23 10:16 Labs: Laboratory Results - last 24 hr 01/16/23 01/16/23 10:16 12:03 MCV 87.9 MCH 29.1 MCHC 33.2 RDW 13.0 Plt Count 319 MPV 9.0 L Immature Gran % (Auto) 2.7 H Neut % (Auto) 87.0 H Lymph % (Auto) 5.7 L [place] % (Auto) 4.2 Eos % (Auto) 0.1 Baso % (Auto) 0.3 Lymph # (Auto) 0.5 L [place] # (Auto) 0.4 Eos # (Auto) 0.0 Baso # (Auto) 0.0 Abs Immat Gran (auto) 0.26 H Absolute Neuts (auto) 8.3 Absolute Nucleated RBC 0.000 Nucleated RBC % (auto) 0.0 Anion Gap 14 Estim Creat Clear Calc 105.1 Estimated GFR > 60 Random Glucose 139 H Lactic Acid 1.3 Calcium 9.8 Total Bilirubin 0.6 AST 43 H ALT 55 H Alkaline Phosphatase 65 Total Protein 6.8 Albumin 3.8 Imaging Radiologist's Impressions: Impressions Chest X-Ray 01/16/23 09:50 IMPRESSION: Interval worsening of multifocal pneumonia which can be seen with atypical/viral pneumonia including Covid pneumonia. Chest CT 01/16/23 10:55 IMPRESSION: Multifocal pneumonia with trace bilateral parapneumonic effusions. Given the history of Covid positive, this may represent Covid related pneumonia. Assessment and Plan (1) Pneumonia due to 2019-nCoV: Status: Acute (2) Hypoxia: Status: Acute Plan 62-year-old male with history of paroxysmal atrial fibrillation not on anticoagulation, history alcohol abuse, who is a 2 cigar per day smoker, and GERD admitted for COVID-19 related multifocal pneumonia with acute hypoxemic respiratory failure. # acute hypoxemic respiratory failure- related to COVID-19 multifocal pneumonia -no known chronic lung disease -desatting to 85-89% on room air on my exam -continue supplemental O2 to maintain oximetry > 92% # COVID-19 related multifocal pneumonia -initial diagnosis 01/04 -chest CT showing patchy multifocal pneumonia with bilateral trace parapneumonic effusions -IV ceftriaxone and azithromycin (initiated 01/16) -Decadron 6 mg daily given hypoxia -airborne/contact precautions per infection control -continue supplemental O2 as above -symptomatic management -no leukocytosis, vital stable. No sepsis -strep pneumo antigen, Legionella antigen, sputum culture pending # paroxysmal atrial fibrillation-rate controlled -has not had any recurrence of symptoms since 2020 -not on rate control or anticoagulation # alcohol abuse -no alcohol consumption since 01/04, not at risk for withdrawal -declines addiction med consult # nicotine dependence -smokes 2 cigarettes daily, no use since 01/04 -declines NRT DVT prophylaxis-Lovenox Full code Patient requires inpatient stay for at least 2 midnights for management of COVID-19 related multifocal pneumonia with acute hypoxemic respiratory failure requiring IV antibiotics, steroid treatment, and supplemental O2 Time Spent With Patient Time: Total time managing care of this patient today ____ minutes. Quality Stroke Does the patient have a stroke diagnosis?: No VTE Prior VTE?: No VTE Risk Level:: Medical - moderate - high VTE Device Contraindication: Treatment Not Indicated VTE Drug Contraindication: N/A - Med Ordered
--- NOTE | 2023-01-16 12:45 | PHA.MEDREC ---
Pharmacy Consult ? Medication Reconciliation Pharmacy has completed the medication reconciliation. Pt able to state OTC meds, no Rx medication
[2023-01-16 13:20] LABS: Procalcitonin 0.05 ng/mL
[2023-01-16] MEDS: dexAMETHasone sod phosphate 10 MG/ML VIAL IVPUSH (13:26)
[2023-01-16] MEDS: 0.9 % Sodium Chloride 1,000 ML 999 ML IV (13:28)
[2023-01-16] MEDS: Magnesium Sulfate/H2O 2 GM/50 ML PIGGYBACK IV (13:29)
--- NOTE | 2023-01-16 13:30 | PC.NURSE ---
pt comes in for third visit with UR symptoms due to covid and pneumonia. all labs and blood cultures drawn, and IV inserted. fluids and mag infusing per MAR.
--- NOTE | 2023-01-16 13:56 | PC.NURSE ---
per PA, give Mag over 15 minutes for respiratory effect.
[2023-01-16] MEDS: cefTRIAXone sodium 1 GM in 0.9 % Sodium Chloride 50 ML IV (14:31)
[2023-01-16] MEDS: Azithromycin 500 MG in 0.9 % Sodium Chloride 250 ML 125 MG IV (15:06)
[2023-01-16] MEDS: Benzonatate 100 MG CAPSULE PO ×2 (15:06→22:19)
--- NOTE | 2023-01-16 16:11 | PC.NURSE ---
pt abx infusing per mar, resp even, unlabored. lung sounds clear. pt sleeping, reported that when eh wakes up he experiences significant coughing. Pt allowed to sleep and not given albuterol puff at this time.
[2023-01-16] MEDS: Albuterol/Iprat 2.5/0.5MG 3 ML AMPUL.NEB INHALE ×2 (17:22→19:23)
[2023-01-16 18:48] LABS: D Dimer High Sensitivity 268 NG/ML
[2023-01-16 19:18] LABS: Influenza A PCR NEGATIVE (Negative); Influenza B PCR NEGATIVE (Negative); Resp Syncy Virus RNA Qual PCR NEGATIVE (Negative); SARS COV2 PCR INHOUSE POSITIVE (Negative)
[2023-01-16] MEDS: vancomycin/NS 2,000 MG/500 ML PLAST..BAG 250 MG IV (19:20)
--- NOTE | 2023-01-16 20:14 | PHA.PROG ---
Admission Date/Time: January 16, 2023 12:59 Indication: RESP Weight in k.522 kg Serum Creatinine - Last 168 Hours 01/16/23 10:16 Creatinine 0.85 Estimated CrCl and GFR - Last 168 Hours 01/16/23 10:16 Estim Creat Clear Calc 105.1 Estimated GFR > 60 Vancomycin Loading Dose: 2000 Current Vancomycin Dosing Regimen: 1250 Q 12 Vancomycin Monitoring using AUC goal of 400 - 600 range with trough as surrogate marker: 532 Date and Time for next Vancomycin Level to be drawn: 01/18 @ 0600 Pharmacist Comments on Vancomycin Plan: Vancomycin dosing will take advantage of [employer] as a clinical decision support tool that uses Bayesian modeling to calculate individual patient's pharmacokinetic parameters and forecast the patient's drug concentration time course with the target goal AUC 24 range of 400 - 600 mg/L/hr.
[2023-01-16 21:55] LABS: Creatinine Clr Calc Pharmacy 90.2; Estimated Glomerular Filt Rate > 60
[2023-01-16] MEDS: Magnesium Oxide 400 MG TABLET PO (22:19)
[2023-01-16] MEDS: 0.9 % Sodium Chloride Flush 3 ML SYRINGE IVFLUSH (22:20)
[2023-01-17] VITALS (10 sets, daily range): BP systolic 113–153; BP diastolic 62–77; PULSE 55–86; RESP 16–20; TEMP 36.2–36.8; O2SAT 89–95
[2023-01-17 06:25] LABS: MANUAL DIFF FLAG NO
[2023-01-17 06:28] LABS: Basophils Percent Auto 0.3 % (0-2); Hematocrit 33.8 % (42.0-52.0); Hemoglobin 11.3 g/dl (14.0-18.0); Imm Gran Abs Auto 0.16 X10*3/uL (0.00-0.03); Imm Gran Pct Auto 2.6 % (0.0-0.4); Lymphocytes Absolute Auto 0.5 X10*3/uL (1.2-4.9); Lymphocytes Percent Auto 7.5 % (20-40); Mean Corpuscular HGB Conc 33.4 g/dl (31.0-36.0); Mean Corpuscular Hemoglobin 29.7 pg (27.0-33.0); Mean Corpuscular Volume 88.9 fL (80.0-98.0); Mean Platelet Volume 9.3 fL (9.4-12.4); Monocytes Absolute Auto 0.4 X10*3/uL (0.1-1.2); Monocytes Percent Auto 6.8 % (2-11); Neutrophils Percent Auto 82.8 % (45-73); Platelet Count 330 X10*3/uL (160-400); Red Cell Distribution Width 13.2 % (11.0-16.0)
[2023-01-17 06:43] LABS: Anion Gap 11 (12-20); Blood Urea Nitrogen 10 mg/dL (9-16); Calcium 8.9 mg/dL (8.4-10.2); Carbon Dioxide 25 mmol/L (22-29); Chloride 105 mmol/L (96-108); Creatinine Clr Calc Pharmacy 102.6; Estimated Glomerular Filt Rate > 60; Glucose Random 174 mg/dL (60-115); Sodium 136 mmol/L (135-145)
[2023-01-17] MEDS: Albuterol/Iprat 2.5/0.5MG 3 ML AMPUL.NEB INHALE ×4 (07:46→19:57)
[2023-01-17] MEDS: Magnesium Oxide 400 MG TABLET PO ×2 (08:00→21:03)
[2023-01-17] MEDS: dexAMETHasone 6 MG TABLET PO (08:00)
[2023-01-17] MEDS: Multivitamin TABLET 1 TAB PO (08:00)
[2023-01-17] MEDS: Benzonatate 100 MG CAPSULE PO ×2 (08:00→21:03)
[2023-01-17] MEDS: vancomycin HCL 1,250 MG in 0.9 % Sodium Chloride 250 ML 166.67 MG IV (08:05)
[2023-01-17] MEDS: guaiFEN/Codeine SF 200/20/10ML 10 ML LIQUID 5 ML PO ×3 (08:14→22:43)
--- NOTE | 2023-01-17 08:24 | P.CONPL_ITS ---
History of Present Illness History of Present Illness Consult date: 01/17/23 Chief complaint: Multifocal Pneumonia Hypoxia Recent Covid 19 Narrative: The patient is a 62-year-old male with history of paroxysmal atrial fibrillation not on anticoagulation, history alcohol abuse, + smoker, presented to the ED earlier today for evaluation of worsening shortness of breath, productive cough with white sputum, subjective fevers, and intermittent diarrhea. He tested positive for COVID-19 at home on 01/04 and has been progressively worsening. States prior to his positive COVID test he did also have an intermittent dry cough for 3 weeks but states the additional symptoms did not begin until 01/04. He presented to the ED on 01/11 for evaluation of symptoms and chest x-ray was negative for pneumonia pitted show bronchial wall thickening/bronchitis which he is prone to. He was discharged from the ED with azithromycin, prednisone, and albuterol inhaler. He again presented to the ED on 01/14 for persistent complaints as noted but had developed fevers up to 102 as well as abdominal pain, vomiting, diarrhea. CXR at that time showed increased interstitial opacities possibly related to atypical/viral pneumonia including COVID pneumonia. He reports symptoms have not improved and cough and shortness of breath continued to worsen. There is both shortness of breath at rest and with exertion. He is not vaccinated against COVID-19. He reports he has not consumed any alcohol since prior to his diagnosis and has not smoked any cigars in this time either. On arrival, patient hypoxic to 89-91%. No known history of chronic lung disease. Vitals otherwise stable. On my exam, patient was noted to be satting 85-89% on room air and was placed on 3 L supplemental O2. I reviewed his CT chest demonstrating multifocal pneumonia with trace bilateral parapneumonic effusions. In the ED, treated with albuterol inhaler. Patient to be admitted with COVID-19 related COVID 19 pneumonia with acute hypoxemic respiratory failure. He was placed on CTX and ZTX, I added MRSA screen and a dose of vancomycin. Review of Systems 2 Review of Systems: General: No fevers, malaise, unintentional weight loss HEENT: No blurred vision, diplopia. No sore throat, nasal congestion, rhinorrhea, sinus pain, ear pain Cardiovascular: +chest tightness. No retrosternal chest pain, palpitations, or leg edema Respiratory: +shortness of breath, +cough. No wheezing GI: + nausea, +diarrhea. 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 Meds Allergies Allergy/AdvReac Type Severity Reaction Status Date / Time No Known Allergies Allergy Verified 01/14/23 16:37 Active Medications: Current Medications Acetaminophen (Acetaminophen 325 Mg Tablet) 650 mg PO Q6H PRN PRN Reason: Pain, Mild (Pain Scale 1-3) Albuterol Sulfate (Albuterol Sulfate 90 Mcg 8 Gm Inhaler) 1 puff INHALE QID PRN PRN Reason: shortness of breath or wheezing Albuterol/Ipratropium (Albuterol/Iprat 2.5/0.5mg 3 Ml Ampul.Neb) 3 ml INHALE RQ4H WHILE AWAKE [facility] Last Admin: 01/17/23 07:46 Dose: 3 ml Benzonatate (Benzonatate 100 Mg Capsule) 100 mg PO TID [facility] Last Admin: 01/17/23 08:00 Dose: 100 mg Dexamethasone (Dexamethasone 6 Mg Tablet) 6 mg PO DAILY [facility] Last Admin: 01/17/23 08:00 Dose: 6 mg Docusate Sodium (Docusate Sodium 100 Mg Capsule) 100 mg PO DAILY PRN PRN Reason: Constipation Enoxaparin Sodium (Enoxaparin Sodium 40 Mg/0.4 Ml Syringe) 40 mg SUBCUT Q24H [facility] Last Admin: 01/16/23 13:32 Dose: Not Given Guaifenesin/Codeine Phosphate (Guaifen/Codeine Sf 200/20/10ml 10 Ml Liquid) 5 ml PO Q6H PRN PRN Reason: cough Last Admin: 01/17/23 08:14 Dose: 5 ml Azithromycin 500 mg/ Sodium (Chloride) 250 mls @ 125 mls/hr IV Q24H [facility] Stop: 01/18/23 14:44 Last Infusion: 01/16/23 17:38 Dose: Infused Ceftriaxone Sodium 1 gm/ (Sodium Chloride) 50 mls @ 100 mls/hr IV Q24H [facility] Stop: 01/20/23 13:14 Last Infusion: 01/16/23 15:52 Dose: Infused Vancomycin HCl 1,250 mg/ (Sodium Chloride) 250 mls @ 166.667 mls/hr IV Q12H [facility] Last Admin: 01/17/23 08:05 Dose: 166.67 mls/hr Magnesium Oxide (Magnesium Oxide 400 Mg Tablet) 400 mg PO BID [facility] Last Admin: 01/17/23 08:00 Dose: 400 mg Multivitamins/Vitamin C (Multivitamin Tablet) 1 tab PO DAILY [facility] Last Admin: 01/17/23 08:00 Dose: 1 tab Ondansetron HCl (Ondansetron Hcl 4 Mg/2 Ml Vial) 4 mg IVPUSH Q8H PRN PRN Reason: Nausea and Vomiting Pharmacy Consult (Consult Rx Vancomycin Dosing) 1 each MISCELLANE DAILY PRN PRN Reason: Consult order Sodium Chloride (0.9 % Sodium Chloride Flush 3 Ml Syringe) 3 ml IVFLUSH QSHIFT [facility] Last Admin: 01/16/23 22:20 Dose: 3 ml Home Medications Medication Instructions Recorded Confirmed Last Taken Type magnesium oxide 400 mg PO BID PRN 04/22/21 01/16/23 01/16/23 History multivitamin 1 tab PO DAILY 01/16/23 01/16/23 01/16/23 History Physical Exam 2 Vital Signs: Vital Signs: Last Vital Signs Temp 97.1 F 01/17/23 07:27 Pulse 84 01/17/23 07:47 Resp 16 01/17/23 07:47 BP 153/72 H 01/17/23 07:27 Pulse Ox 89 L 01/17/23 07:27 O2 Del Method Nasal Cannula 01/17/23 07:27 O2 Flow Rate 2 01/17/23 07:27 BMI result Body Mass Index 31.7 Const: General: comfortable HEENT: Head: Yes atraumatic Neck: Neck: Yes supple Chest: Chest palpation & inspection: normal inspection of the chest Resp: Effort & Inspection: normal respiratory effort and able to speak in complete sentences Cardio: Heart sounds: S1 normal heart sound present and S2 normal heart sound present GI: Palpation (GI): Soft to palpation Skin: General skin exam: no rashes or lesions noted Extrem: General: Yes no clubbing, cyanosis or edema Results Laboratory Findings 01/17/23 06:06 01/17/23 06:06 Abnormal lab findings: Abnormal Labs 01/16/23 01/16/23 01/17/23 10:16 18:32 06:06 RBC 4.53 L 3.80 L Hgb 13.2 L 11.3 L Hct 39.8 L 33.8 L MPV 9.0 L 9.3 L Immature Gran % (Auto) 2.7 H 2.6 H Neut % (Auto) 87.0 H 82.8 H Lymph % (Auto) 5.7 L 7.5 L Lymph # (Auto) 0.5 L 0.5 L Abs Immat Gran (auto) 0.26 H 0.16 H Anion Gap 11 L BUN 8 L Random Glucose 139 H 174 H AST 43 H ALT 55 H SARS-CoV-2 RNA (RT-PCR) POSITIVE A Assessment and Plan (1) Acute respiratory failure: Status: Acute (2) Acute COVID-19: Status: Acute (3) Pneumonia due to 2019-nCoV: Status: Acute Plan Severe pneumonia based on CT chest. REC: -Continue IV abx -Awaiting MRSA screen, if negative would switch zythromax to doxy. If positive, would leave on vancomycin -Bloodwork to asess immune system -Continue Decadron -Too Late for Remdisivir -oxygen supplementation to keep pox>90% -Supportive care -Guarded Time Spent With Patient Time: Total time managing care of this patient today ____ minutes. Procedures Date of Service Date of Service: 01/17/23
[2023-01-17] MEDS: 0.9 % Sodium Chloride Flush 3 ML SYRINGE IVFLUSH ×2 (09:46→14:35)
--- NOTE | 2023-01-17 09:50 | MHC.CM.PN ---
Pt admitted with pneumonia, hypoxia, recent covid-19 infection. Pt lives with his spouse is independent/self-care. D/C plan is to return home self-care. Pt will transport himself home (truck is in the lot). PCP: Misha Jose
--- NOTE | 2023-01-17 09:53 | HO.PM.IMPN ---
Subjective Subjective Date of Service: 01/17/23 Review of Systems Follow up Covid 19 hypoxia still with cough denied chest pain Physical Exam Vital Signs: Vital Signs: Last Vital Signs Temp 97.1 F 01/17/23 07:27 Pulse 84 01/17/23 07:47 Resp 16 01/17/23 07:47 BP 153/72 H 01/17/23 07:27 Pulse Ox 89 L 01/17/23 07:27 O2 Del Method Nasal Cannula 01/17/23 07:27 O2 Flow Rate 2 01/17/23 07:27 BMI result Body Mass Index 31.7 Appearing in no acute distress lung sounds normal expansion heart regular rate rhythm, clear S1, S2 positive bowel sounds, abdomen is soft, nontender neuro patient is alert x3, no focal deficits Objective Data Active Medications Acetaminophen (Acetaminophen 325 Mg Tablet) 650 mg PO Q6H PRN PRN Reason: Pain, Mild (Pain Scale 1-3) Albuterol Sulfate (Albuterol Sulfate 90 Mcg 8 Gm Inhaler) 1 puff INHALE QID PRN PRN Reason: shortness of breath or wheezing Albuterol/Ipratropium (Albuterol/Iprat 2.5/0.5mg 3 Ml Ampul.Neb) 3 ml INHALE RQ4H WHILE AWAKE [facility] Last Admin: 01/17/23 07:46 Dose: 3 ml Documented By: ROSAURA Benzonatate (Benzonatate 100 Mg Capsule) 100 mg PO TID [facility] Last Admin: 01/17/23 08:00 Dose: 100 mg Documented By: KIRK Dexamethasone (Dexamethasone 6 Mg Tablet) 6 mg PO DAILY [facility] Last Admin: 01/17/23 08:00 Dose: 6 mg Documented By: KIRK Docusate Sodium (Docusate Sodium 100 Mg Capsule) 100 mg PO DAILY PRN PRN Reason: Constipation Enoxaparin Sodium (Enoxaparin Sodium 40 Mg/0.4 Ml Syringe) 40 mg SUBCUT Q24H [facility] Last Admin: 01/16/23 13:32 Dose: Not Given Documented By: AMY Non-Admin Reason: Patient Refused Guaifenesin/Codeine Phosphate (Guaifen/Codeine Sf 200/20/10ml 10 Ml Liquid) 5 ml PO Q6H PRN PRN Reason: cough Last Admin: 01/17/23 08:14 Dose: 5 ml Documented By: KIRK Azithromycin 500 mg/ Sodium (Chloride) 250 mls @ 125 mls/hr IV Q24H [facility] Stop: 01/18/23 14:44 Last Infusion: 01/16/23 17:38 Dose: Infused Documented By: SHU Ceftriaxone Sodium 1 gm/ (Sodium Chloride) 50 mls @ 100 mls/hr IV Q24H [facility] Stop: 01/20/23 13:14 Last Infusion: 01/16/23 15:52 Dose: Infused Documented By: AMY Vancomycin HCl 1,250 mg/ (Sodium Chloride) 250 mls @ 166.667 mls/hr IV Q12H [facility] Last Infusion: 01/17/23 09:47 Dose: Infused Documented By: KIRK Magnesium Oxide (Magnesium Oxide 400 Mg Tablet) 400 mg PO BID [facility] Last Admin: 01/17/23 08:00 Dose: 400 mg Documented By: KIRK Multivitamins/Vitamin C (Multivitamin Tablet) 1 tab PO DAILY [facility] Last Admin: 01/17/23 08:00 Dose: 1 tab Documented By: KIRK Ondansetron HCl (Ondansetron Hcl 4 Mg/2 Ml Vial) 4 mg IVPUSH Q8H PRN PRN Reason: Nausea and Vomiting Pharmacy Consult (Consult Rx Vancomycin Dosing) 1 each MISCELLANE DAILY PRN PRN Reason: Consult order Sodium Chloride (0.9 % Sodium Chloride Flush 3 Ml Syringe) 3 ml IVFLUSH QSHIFT [facility] Last Admin: 01/17/23 09:46 Dose: 3 ml Documented By: KIRK Labs 01/17/23 06:06 01/17/23 06:06 Labs: Laboratory Results - last 24 hr 01/16/23 01/16/23 01/16/23 10:16 12:03 17:11 MCV 87.9 MCH 29.1 MCHC 33.2 RDW 13.0 Plt Count 319 MPV 9.0 L Immature Gran % (Auto) 2.7 H Neut % (Auto) 87.0 H Lymph % (Auto) 5.7 L [place] % (Auto) 4.2 Eos % (Auto) 0.1 Baso % (Auto) 0.3 Lymph # (Auto) 0.5 L [place] # (Auto) 0.4 Eos # (Auto) 0.0 Baso # (Auto) 0.0 Abs Immat Gran (auto) 0.26 H Absolute Neuts (auto) 8.3 Absolute Nucleated RBC 0.000 Nucleated RBC % (auto) 0.0 D-Dimer High Sensitivty 268 Anion Gap 14 Estim Creat Clear Calc 105.1 Estimated GFR > 60 Random Glucose 139 H Lactic Acid 1.3 Calcium 9.8 Total Bilirubin 0.6 AST 43 H ALT 55 H Alkaline Phosphatase 65 Total Protein 6.8 Albumin 3.8 Procalcitonin 0.05 Influenza Type A (PCR) Influenza Type B (PCR) RSV RNA Qual (PCR) SARS-CoV-2 RNA (RT-PCR) 01/16/23 01/16/23 01/17/23 18:32 21:34 06:06 MCV 88.9 MCH 29.7 MCHC 33.4 RDW 13.2 Plt Count 330 MPV 9.3 L Immature Gran % (Auto) 2.6 H Neut % (Auto) 82.8 H Lymph % (Auto) 7.5 L [place] % (Auto) 6.8 Eos % (Auto) 0.0 Baso % (Auto) 0.3 Lymph # (Auto) 0.5 L [place] # (Auto) 0.4 Eos # (Auto) 0.0 Baso # (Auto) 0.0 Abs Immat Gran (auto) 0.16 H Absolute Neuts (auto) 5.0 Absolute Nucleated RBC 0.000 Nucleated RBC % (auto) 0.0 D-Dimer High Sensitivty Anion Gap 11 L Estim Creat Clear Calc 90.2 102.6 Estimated GFR > 60 > 60 Random Glucose 174 H Lactic Acid Calcium 8.9 D Total Bilirubin AST ALT Alkaline Phosphatase Total Protein Albumin Procalcitonin Influenza Type A (PCR) NEGATIVE Influenza Type B (PCR) NEGATIVE RSV RNA Qual (PCR) NEGATIVE SARS-CoV-2 RNA (RT-PCR) POSITIVE A Microbiology Microbiology Results: Microbiology 01/16/23 14:34 Gram Stain - Final Sputum - Expectorated Sputum Culture - Final Assessment and Plan (1) Acute respiratory failure: Status: Acute Plan 62-year-old male with history of paroxysmal atrial fibrillation not on anticoagulation, history alcohol abuse, who is a 2 cigar per day smoker, and GERD admitted for COVID-19 related multifocal pneumonia with acute hypoxemic respiratory failure. Acute hypoxemic respiratory failure- related to COVID-19 multifocal pneumonia no known chronic lung disease continue supplemental O2 to maintain oximetry > 92% COVID-19 related multifocal pneumonia initial diagnosis 01/[address] showing patchy multifocal pneumonia with bilateral trace parapneumonic effusions IV ceftriaxone and azithromycin (initiated 01/16) Decadron 6 mg daily given hypoxia airborne/contact precautions per infection control continue supplemental O2 as above symptomatic management no leukocytosis, vital stable. No sepsis strep pneumo antigen, Legionella antigen, sputum culture pending paroxysmal atrial fibrillation-rate controlled has not had any recurrence of symptoms since 2020 not on rate control or anticoagulation alcohol abuse no alcohol consumption since 01/04, not at risk for withdrawal declines addiction med consult nicotine dependence smokes 2 cigarettes daily, no use since 01/04 declines NRT DVT prophylaxis-Lovenox Attending Dr. Osei Full code continued hospital for management of COVID-19 related multifocal pneumonia with acute hypoxemic respiratory failure requiring IV antibiotics, steroid treatment, and supplemental O2 Time Spent With Patient Time: Total time managing care of this patient today ____ minutes. Quality Stroke Does the patient have a stroke diagnosis?: No VTE Prior VTE?: No VTE Risk Level:: Medical - moderate - high VTE Device Contraindication: Treatment Not Indicated VTE Drug Contraindication: N/A - Med Ordered
[2023-01-17 10:45] LABS: MRSA Nasal PCR NEGATIVE (Negative); SA Nasal PCR NEGATIVE (Negative)
[2023-01-17] MEDS: cefTRIAXone sodium 1 GM in 0.9 % Sodium Chloride 50 ML IV (12:04)
[2023-01-17] MEDS: Azithromycin 500 MG in 0.9 % Sodium Chloride 250 ML 125 MG IV (12:34)
[2023-01-17] MEDS: Enoxaparin Sodium 40 MG/0.4 ML SYRINGE SUBCUT (12:34)
[2023-01-18] VITALS (13 sets, daily range): BP systolic 121–135; BP diastolic 68–85; PULSE 52–88; RESP 16–20; TEMP 36.3–37.1; O2SAT 89–96
[2023-01-18] MEDS: guaiFEN/Codeine SF 200/20/10ML 10 ML LIQUID 5 ML PO ×3 (06:49→18:05)
[2023-01-18 08:02] LABS: Creatinine Clr Calc Pharmacy 107.6; Estimated Glomerular Filt Rate > 60
[2023-01-18 08:04] LABS: Vancomycin Random 5.8 mcg/mL (15-20)
[2023-01-18] MEDS: Albuterol/Iprat 2.5/0.5MG 3 ML AMPUL.NEB INHALE ×3 (08:15→20:20)
--- NOTE | 2023-01-18 08:51 | MHC.CM.PN ---
EMR REVIEWED, PT REMAINS ON SUPPLEMENTAL O2, PER HOSPITALIST PT IMPROVING HOWEVER NOT QUITE READY FOR D/C, PLAN CONT'S TO BE HOME SELF CARE W/PT TRNASPORTING SELF VEHICLE IS IN [facility], CM WILL CONT TO FOLLOW D/C NEEDS.
[2023-01-18] MEDS: 0.9 % Sodium Chloride Flush 3 ML SYRINGE IVFLUSH ×3 (08:56→23:48)
[2023-01-18] MEDS: Benzonatate 100 MG CAPSULE PO ×3 (08:56→20:06)
[2023-01-18] MEDS: Multivitamin TABLET 1 TAB PO (08:56)
[2023-01-18] MEDS: dexAMETHasone 6 MG TABLET PO (08:56)
[2023-01-18] MEDS: Magnesium Oxide 400 MG TABLET PO ×2 (08:56→20:06)
--- NOTE | 2023-01-18 11:13 | P.PNIM_ITS ---
Subjective Subjective Date of Service: 01/18/23 Review of Systems Follow up Covid 19 hypoxia still with cough denied chest pain Physical Exam 2 Vital Signs: Vital Signs: Last Vital Signs Temp 97.5 F 01/18/23 07:51 Pulse 76 01/18/23 10:32 Resp 16 01/18/23 08:16 BP 122/72 01/18/23 07:51 Pulse Ox 94 01/18/23 10:32 O2 Del Method Nasal Cannula 01/18/23 10:32 O2 Flow Rate 2 01/18/23 10:32 Oxygen Flow Rate 2 01/18/23 09:13 BMI result Body Mass Index 31.7 Appearing in no acute distress lung sounds are clear to auscultation heart regular rate rhythm, clear S1, S2 positive bowel sounds, abdomen is soft, nontender neuro patient is alert x3, no focal deficits Objective Data Active Medications Acetaminophen (Acetaminophen 325 Mg Tablet) 650 mg PO Q6H PRN PRN Reason: Pain, Mild (Pain Scale 1-3) Albuterol Sulfate (Albuterol Sulfate 90 Mcg 8 Gm Inhaler) 1 puff INHALE QID PRN PRN Reason: shortness of breath or wheezing Albuterol/Ipratropium (Albuterol/Iprat 2.5/0.5mg 3 Ml Ampul.Neb) 3 ml INHALE RQ4H WHILE AWAKE [facility] Last Admin: 01/18/23 08:15 Dose: 3 ml Documented By: ANOOP Benzonatate (Benzonatate 100 Mg Capsule) 100 mg PO TID [facility] Last Admin: 01/18/23 08:56 Dose: 100 mg Documented By: LESVIA Dexamethasone (Dexamethasone 6 Mg Tablet) 6 mg PO DAILY [facility] Last Admin: 01/18/23 08:56 Dose: 6 mg Documented By: LESVIA Docusate Sodium (Docusate Sodium 100 Mg Capsule) 100 mg PO DAILY PRN PRN Reason: Constipation Enoxaparin Sodium (Enoxaparin Sodium 40 Mg/0.4 Ml Syringe) 40 mg SUBCUT Q24H [facility] Last Admin: 01/17/23 12:34 Dose: 40 mg Documented By: KIRK Guaifenesin/Codeine Phosphate (Guaifen/Codeine Sf 200/20/10ml 10 Ml Liquid) 5 ml PO Q6H PRN PRN Reason: cough Last Admin: 01/18/23 06:49 Dose: 5 ml Documented By: LAYLA Azithromycin 500 mg/ Sodium (Chloride) 250 mls @ 125 mls/hr IV Q24H [facility] Stop: 01/18/23 14:44 Last Infusion: 01/17/23 14:45 Dose: Infused Documented By: KIRK Ceftriaxone Sodium 1 gm/ (Sodium Chloride) 50 mls @ 100 mls/hr IV Q24H [facility] Stop: 01/20/23 13:14 Last Infusion: 01/17/23 12:39 Dose: Infused Documented By: KIRK Magnesium Oxide (Magnesium Oxide 400 Mg Tablet) 400 mg PO BID [facility] Last Admin: 01/18/23 08:56 Dose: 400 mg Documented By: LSEVIA Multivitamins/Vitamin C (Multivitamin Tablet) 1 tab PO DAILY [facility] Last Admin: 01/18/23 08:56 Dose: 1 tab Documented By: LESVIA Ondansetron HCl (Ondansetron Hcl 4 Mg/2 Ml Vial) 4 mg IVPUSH Q8H PRN PRN Reason: Nausea and Vomiting Pharmacy Consult (Consult Rx Vancomycin Dosing) 1 each MISCELLANE DAILY PRN PRN Reason: Consult order Sodium Chloride (0.9 % Sodium Chloride Flush 3 Ml Syringe) 3 ml IVFLUSH QSHIFT [facility] Last Admin: 01/18/23 08:56 Dose: 3 ml Documented By: LESVIA Labs 01/17/23 06:06 01/18/23 06:40 Labs: Laboratory Results - last 24 hr 01/18/23 06:40 Estim Creat Clear Calc 107.6 Estimated GFR > 60 Random Vancomycin 5.8 L Microbiology Microbiology Results: Microbiology 01/16/23 13:25 Blood Culture - Preliminary Blood - Venous No growth after 24 hours. 01/16/23 13:25 Blood Culture - Preliminary Blood - Venous No growth after 24 hours. 01/16/23 14:34 Gram Stain - Final Sputum - Expectorated Sputum Culture - Final Assessment and Plan (1) Acute respiratory failure: Status: Acute Plan 62-year-old male with history of paroxysmal atrial fibrillation not on anticoagulation, history alcohol abuse, who is a 2 cigar per day smoker, and GERD admitted for COVID-19 related multifocal pneumonia with acute hypoxemic respiratory failure. Acute hypoxemic respiratory failure- related to COVID-19 multifocal pneumonia no known chronic lung disease continue supplemental O2 to maintain oximetry > 92% continuous oxygen saturation monitoring COVID-19 related multifocal pneumonia initial diagnosis 01/[address] showing patchy multifocal pneumonia with bilateral trace parapneumonic effusions IV ceftriaxone and azithromycin (initiated 01/16) Decadron 6 mg daily given hypoxia x 10 days airborne/contact precautions per infection control continue supplemental O2 as above symptomatic management still with cough and some sob with ambulation paroxysmal atrial fibrillation-rate controlled has not had any recurrence of symptoms since 2020 not on rate control or anticoagulation alcohol abuse no alcohol consumption since 01/04, not at risk for withdrawal declines addiction med consult nicotine dependence smokes 2 cigarettes daily, no use since 01/04 declines NRT DISPO dc home when medically clear. may need home o2 eval DVT prophylaxis-Lovesumax Attending Dr. Osei Full code continued hospital for management of COVID-19 related multifocal pneumonia with acute hypoxemic respiratory failure requiring IV antibiotics, steroid treatment, and supplemental O2 Time Spent With Patient Time: Total time managing care of this patient today ____ minutes. Quality Stroke Does the patient have a stroke diagnosis?: No VTE Prior VTE?: No VTE Risk Level:: Medical - moderate - high VTE Device Contraindication: Treatment Not Indicated VTE Drug Contraindication: N/A - Med Ordered
[2023-01-18] MEDS: Enoxaparin Sodium 40 MG/0.4 ML SYRINGE SUBCUT (12:02)
[2023-01-18] MEDS: Magnesium Hydrox/Alum Hydrox 30 ML ORAL.SUSP PO (16:43)
[2023-01-18] MEDS: cefTRIAXone sodium 1 GM in 0.9 % Sodium Chloride 50 ML IV (16:44)
[2023-01-18] MEDS: Azithromycin 500 MG in 0.9 % Sodium Chloride 250 ML 125 MG IV (17:12)
[2023-01-19] VITALS (9 sets, daily range): BP systolic 119–139; BP diastolic 66–74; PULSE 52–90; RESP 18–20; TEMP 36.2–36.7; O2SAT 90–96
[2023-01-19] MEDS: guaiFEN/Codeine SF 200/20/10ML 10 ML LIQUID 5 ML PO ×4 (03:34→20:50)
[2023-01-19 06:57] LABS: Estimated Glomerular Filt Rate > 60
[2023-01-19] MEDS: Multivitamin TABLET 1 TAB PO (08:34)
[2023-01-19] MEDS: dexAMETHasone 6 MG TABLET PO (08:34)
[2023-01-19] MEDS: Benzonatate 100 MG CAPSULE PO ×3 (08:34→19:26)
[2023-01-19] MEDS: Magnesium Oxide 400 MG TABLET PO ×2 (08:34→19:27)
[2023-01-19] MEDS: 0.9 % Sodium Chloride Flush 3 ML SYRINGE IVFLUSH ×3 (08:35→19:27)
[2023-01-19] MEDS: Albuterol/Iprat 2.5/0.5MG 3 ML AMPUL.NEB INHALE ×3 (11:49→19:41)
--- NOTE | 2023-01-19 12:07 | HO.PM.IMPN ---
Subjective Subjective Date of Service: 01/19/23 Interval History: seen and examined this morning follow up for covid pneumonia ongoing cough with phlegm still requiring 5L supplemental oxygen Review of Systems Review of Systems: Yes all other systems are reviewed and are negative Constitutional Constitutional: Denies chills and Denies fever(s) Cardiovascular Cardiovascular: Denies chest pain Respiratory Respiratory: Reports cough Physical Exam Vital Signs: Vital Signs: Last Vital Signs Temp 97.4 F 01/19/23 11:22 Pulse 70 01/19/23 11:51 Resp 18 01/19/23 11:51 BP 119/71 01/19/23 11:22 Pulse Ox 92 01/19/23 11:22 O2 Del Method Nasal Cannula 01/19/23 11:22 O2 Flow Rate 3 01/19/23 11:22 Oxygen Flow Rate 2 01/18/23 09:13 BMI result Body Mass Index 31.7 Const: General: cooperative, comfortable, alert and awake Nutritional Appearance: overweight Orientation/consciousness: patient oriented x3 Resp: Other: course breath sounds, no wheezing Effort & Inspection: normal respiratory effort, no respiratory distress and no use of accessory muscles Cardio: Rate: regular rate GI: Inspection: No distended Palpation (GI): Soft to palpation Neuro: Other: grossly nonfocal General: patient oriented x3 Objective Data Active Medications Acetaminophen (Acetaminophen 325 Mg Tablet) 650 mg PO Q6H PRN PRN Reason: Pain, Mild (Pain Scale 1-3) Al Hydroxide/Mg Hydroxide (Magnesium Hydrox/Alum Hydrox 30 Ml Oral.Susp) 30 ml PO Q4H PRN PRN Reason: heartburn Last Admin: 01/18/23 16:43 Dose: 30 ml Documented By: NERY Albuterol Sulfate (Albuterol Sulfate 90 Mcg 8 Gm Inhaler) 1 puff INHALE QID PRN PRN Reason: shortness of breath or wheezing Albuterol/Ipratropium (Albuterol/Iprat 2.5/0.5mg 3 Ml Ampul.Neb) 3 ml INHALE RQ4H WHILE AWAKE [facility] Last Admin: 01/19/23 11:49 Dose: 3 ml Documented By: PRADEEP Benzonatate (Benzonatate 100 Mg Capsule) 100 mg PO TID [facility] Last Admin: 01/19/23 08:34 Dose: 100 mg Documented By: JADE Dexamethasone (Dexamethasone 6 Mg Tablet) 6 mg PO DAILY [facility] Last Admin: 01/19/23 08:34 Dose: 6 mg Documented By: JADE Docusate Sodium (Docusate Sodium 100 Mg Capsule) 100 mg PO DAILY PRN PRN Reason: Constipation Enoxaparin Sodium (Enoxaparin Sodium 40 Mg/0.4 Ml Syringe) 40 mg SUBCUT Q24H [facility] Last Admin: 01/18/23 12:02 Dose: 40 mg Documented By: LESVIA Guaifenesin/Codeine Phosphate (Guaifen/Codeine Sf 200/20/10ml 10 Ml Liquid) 5 ml PO Q6H PRN PRN Reason: cough Last Admin: 01/19/23 08:34 Dose: 5 ml Documented By: JADE Ceftriaxone Sodium 1 gm/ (Sodium Chloride) 50 mls @ 100 mls/hr IV Q24H [facility] Stop: 01/20/23 13:14 Last Infusion: 01/18/23 17:18 Dose: Infused Documented By: NERY Magnesium Oxide (Magnesium Oxide 400 Mg Tablet) 400 mg PO BID [facility] Last Admin: 01/19/23 08:34 Dose: 400 mg Documented By: JADE Multivitamins/Vitamin C (Multivitamin Tablet) 1 tab PO DAILY [facility] Last Admin: 01/19/23 08:34 Dose: 1 tab Documented By: JADE Ondansetron HCl (Ondansetron Hcl 4 Mg/2 Ml Vial) 4 mg IVPUSH Q8H PRN PRN Reason: Nausea and Vomiting Pharmacy Consult (Consult Rx Vancomycin Dosing) 1 each MISCELLANE DAILY PRN PRN Reason: Consult order Sodium Chloride (0.9 % Sodium Chloride Flush 3 Ml Syringe) 3 ml IVFLUSH QSHIFT [facility] Last Admin: 01/19/23 08:35 Dose: 3 ml Documented By: JADE Labs 01/17/23 06:06 01/19/23 06:17 Labs: Laboratory Results - last 24 hr 01/19/23 06:17 Estim Creat Clear Calc 116.0 Estimated GFR > 60 Microbiology Microbiology Results: Microbiology 01/16/23 13:25 Blood Culture - Preliminary Blood - Venous No growth after 48 hours. 01/16/23 13:25 Blood Culture - Preliminary Blood - Venous No growth after 48 hours. Assessment and Plan (1) Pneumonia due to 2019-nCoV: Status: Acute (2) Acute respiratory failure: Status: Acute Plan This is a 62-year-old male with history of paroxysmal atrial fibrillation not on anticoagulation, history alcohol abuse, who is a 2 cigar per day smoker, and GERD admitted for COVID-19 related multifocal pneumonia with acute hypoxemic respiratory failure. Acute hypoxemic respiratory failure- related to COVID-19 multifocal pneumonia no known chronic lung disease continue supplemental O2 to maintain oximetry > 92% - wean supplemental oxygen as tolerated COVID-19 related multifocal pneumonia initial diagnosis 01/[address] showing patchy multifocal pneumonia with bilateral trace parapneumonic effusions procalcitonin low continue empiric abx (initiated 01/16) Decadron 6 mg daily given hypoxia x 10 days airborne/contact precautions per infection control continue supplemental O2 as above seen by respiratory paroxysmal atrial fibrillation-rate controlled has not had any recurrence of symptoms since 2020 not on rate control or anticoagulation alcohol abuse no alcohol consumption since 01/04, not at risk for withdrawal declines addiction med consult nicotine dependence smokes 2 cigarettes daily, no use since 01/04 declines NRT DISPO dc home when medically clear. may need home o2 eval DVT prophylaxis-Lovenox Attending Dr. Osei Full code continued hospital for management of COVID-19 related multifocal pneumonia with acute hypoxemic respiratory failure requiring IV antibiotics, steroid treatment, and supplemental O2 Time Spent With Patient Time: Total time managing care of this patient today ____ minutes. Quality Stroke Does the patient have a stroke diagnosis?: No VTE Prior VTE?: No VTE Risk Level:: Medical - moderate - high VTE Device Contraindication: Treatment Not Indicated VTE Drug Contraindication: N/A - Med Ordered
[2023-01-19] MEDS: Enoxaparin Sodium 40 MG/0.4 ML SYRINGE SUBCUT (12:21)
[2023-01-19] MEDS: cefTRIAXone sodium 1 GM in 0.9 % Sodium Chloride 50 ML IV (12:22)
[2023-01-19 13:54] LABS: Immunoglobulin G Subclass 1 372 mg/dL (382-929); Immunoglobulin G Subclass 2 286 mg/dL (241-700); Immunoglobulin G Subclass 3 46 mg/dL (22-178); Immunoglobulin G Subclass 4 10.6 mg/dL (4-86); Immunoglobulin G Total 725 mg/dL (600-1540)
[2023-01-19] MEDS: Magnesium Hydrox/Alum Hydrox 30 ML ORAL.SUSP PO (20:45)
[2023-01-20] VITALS (8 sets, daily range): BP systolic 124–139; BP diastolic 67–78; PULSE 64–98; RESP 16–20; TEMP 36.3–36.9; O2SAT 90–98
[2023-01-20 04:14] LABS: Strep Pneumo Ag urine Not Detected (Not Detected)
[2023-01-20 07:33] LABS: Creatinine Clr Calc Pharmacy 103.8; Estimated Glomerular Filt Rate > 60
[2023-01-20] MEDS: 0.9 % Sodium Chloride Flush 3 ML SYRINGE IVFLUSH ×2 (07:55→17:04)
[2023-01-20] MEDS: guaiFEN/Codeine SF 200/20/10ML 10 ML LIQUID 5 ML PO ×3 (07:55→21:14)
[2023-01-20] MEDS: Magnesium Oxide 400 MG TABLET PO ×2 (07:55→20:27)
[2023-01-20] MEDS: Multivitamin TABLET 1 TAB PO (07:55)
[2023-01-20] MEDS: Benzonatate 100 MG CAPSULE PO ×3 (07:55→20:27)
[2023-01-20] MEDS: dexAMETHasone 6 MG TABLET PO (07:55)
[2023-01-20] MEDS: Albuterol/Iprat 2.5/0.5MG 3 ML AMPUL.NEB INHALE ×2 (11:34→18:45)
[2023-01-20] MEDS: cefTRIAXone sodium 1 GM in 0.9 % Sodium Chloride 50 ML IV (13:10)
--- NOTE | 2023-01-20 14:11 | HO.PM.IMPN ---
Subjective Subjective Date of Service: 01/20/23 Interval History: seen and examined this morning follow up for covid/multifocal pneumonia still hypoxic with ambulation ongoing cough, dyspnea improving Review of Systems Review of Systems: Yes all other systems are reviewed and are negative Constitutional Constitutional: Denies chills and Denies fever(s) Cardiovascular Cardiovascular: Denies chest pain, Denies palpitations and Reports dyspnea on exertion Respiratory Respiratory: Reports cough and Reports dyspnea on exertion Gastrointestinal Gastrointestinal: Denies abdominal pain Endocrine Endocrine: Denies palpitations Physical Exam Vital Signs: Vital Signs: Last Vital Signs Temp 97.5 F 01/20/23 11:44 Pulse 64 01/20/23 11:44 Resp 20 01/20/23 11:44 BP 126/67 01/20/23 11:44 Pulse Ox 98 01/20/23 11:44 O2 Del Method Nasal Cannula 01/20/23 11:44 O2 Flow Rate 2 01/20/23 11:44 Oxygen Flow Rate 2 01/18/23 09:13 BMI result Body Mass Index 31.7 Const: General: cooperative, comfortable, alert and awake Nutritional Appearance: overweight Orientation/consciousness: patient oriented x3 Resp: Other: course breath sounds, no wheezing Effort & Inspection: normal respiratory effort, no respiratory distress and no use of accessory muscles Cardio: Rate: regular rate GI: Inspection: No distended Palpation (GI): Soft to palpation Neuro: Other: grossly nonfocal General: patient oriented x3 Objective Data Active Medications Acetaminophen (Acetaminophen 325 Mg Tablet) 650 mg PO Q6H PRN PRN Reason: Pain, Mild (Pain Scale 1-3) Al Hydroxide/Mg Hydroxide (Magnesium Hydrox/Alum Hydrox 30 Ml Oral.Susp) 30 ml PO Q4H PRN PRN Reason: heartburn Last Admin: 01/19/23 20:45 Dose: 30 ml Documented By: ONIEL Albuterol Sulfate (Albuterol Sulfate 90 Mcg 8 Gm Inhaler) 1 puff INHALE QID PRN PRN Reason: shortness of breath or wheezing Albuterol/Ipratropium (Albuterol/Iprat 2.5/0.5mg 3 Ml Ampul.Neb) 3 ml INHALE RQ4H WHILE AWAKE [facility] Last Admin: 01/20/23 11:34 Dose: 3 ml Documented By: ANOOP Benzonatate (Benzonatate 100 Mg Capsule) 100 mg PO TID [facility] Last Admin: 01/20/23 07:55 Dose: 100 mg Documented By: JADE Dexamethasone (Dexamethasone 6 Mg Tablet) 6 mg PO DAILY [facility] Last Admin: 01/20/23 07:55 Dose: 6 mg Documented By: JADE Docusate Sodium (Docusate Sodium 100 Mg Capsule) 100 mg PO DAILY PRN PRN Reason: Constipation Enoxaparin Sodium (Enoxaparin Sodium 40 Mg/0.4 Ml Syringe) 40 mg SUBCUT Q24H [facility] Last Admin: 01/19/23 12:21 Dose: 40 mg Guaifenesin/Codeine Phosphate (Guaifen/Codeine Sf 200/20/10ml 10 Ml Liquid) 5 ml PO Q6H PRN PRN Reason: cough Last Admin: 01/20/23 07:55 Dose: 5 ml Documented By: JADE Magnesium Oxide (Magnesium Oxide 400 Mg Tablet) 400 mg PO BID [facility] Last Admin: 01/20/23 07:55 Dose: 400 mg Documented By: JADE Multivitamins/Vitamin C (Multivitamin Tablet) 1 tab PO DAILY [facility] Last Admin: 01/20/23 07:55 Dose: 1 tab Documented By: JADE Ondansetron HCl (Ondansetron Hcl 4 Mg/2 Ml Vial) 4 mg IVPUSH Q8H PRN PRN Reason: Nausea and Vomiting Pharmacy Consult (Consult Rx Vancomycin Dosing) 1 each MISCELLANE DAILY PRN PRN Reason: Consult order Sodium Chloride (0.9 % Sodium Chloride Flush 3 Ml Syringe) 3 ml IVFLUSH QSHIFT [facility] Last Admin: 01/20/23 07:55 Dose: 3 ml Documented By: JADE Labs 01/17/23 06:06 01/20/23 06:27 Labs: Laboratory Results - last 24 hr 01/16/23 01/20/23 13:25 06:27 Estim Creat Clear Calc 103.8 Estimated GFR > 60 Ur Strep pneumoniae Ag Not Detected Assessment and Plan (1) Acute respiratory failure: Status: Acute (2) Pneumonia due to 2019-nCoV: Status: Acute Plan This is a 62-year-old male with history of paroxysmal atrial fibrillation not on anticoagulation, history alcohol abuse, who is a 2 cigar per day smoker, and GERD admitted for COVID-19 related multifocal pneumonia with acute hypoxemic respiratory failure. Acute hypoxemic respiratory failure- related to COVID-19 multifocal pneumonia no known chronic lung disease continue supplemental O2 to maintain oximetry > 92% - wean supplemental oxygen as tolerated COVID-19 related multifocal pneumonia initial diagnosis 01/[address] showing patchy multifocal pneumonia with bilateral trace parapneumonic effusions procalcitonin low, s/p 5 days of empiric abx Decadron 6 mg daily given hypoxia x 10 days airborne/contact precautions per infection control continue supplemental O2 as above, wean as tolerated seen by pulmonary paroxysmal atrial fibrillation-rate controlled has not had any recurrence of symptoms since 2020 not on rate control or anticoagulation alcohol abuse no alcohol consumption since 01/04, not at risk for withdrawal declines addiction med consult nicotine dependence smokes 2 cigarettes daily, no use since 01/04 declines NRT DISPO dc home when medically clear. may need home o2 eval DVT prophylaxis-[place] Attending Dr. Osei Full code continued hospital for management of COVID-19 related multifocal pneumonia with acute hypoxemic respiratory failure requiring steroids, and supplemental O2 Time Spent With Patient Time: Total time managing care of this patient today ____ minutes. Quality Stroke Does the patient have a stroke diagnosis?: No VTE Prior VTE?: No VTE Risk Level:: Medical - moderate - high VTE Device Contraindication: Treatment Not Indicated VTE Drug Contraindication: N/A - Med Ordered
--- NOTE | 2023-01-20 15:35 | MHC.CM.PN ---
EMR reviewed and per MD rounds, pt is not medically cleared for D/C due to continued hypoxia and awaiting a repeat chest x-ray. CM will continue to follow.
[2023-01-20] MEDS: Magnesium Hydrox/Alum Hydrox 30 ML ORAL.SUSP PO (21:17)
[2023-01-21] VITALS (9 sets, daily range): BP systolic 117–148; BP diastolic 68–79; PULSE 59–98; RESP 16–20; TEMP 36.1–37; O2SAT 88–96
[2023-01-21 06:52] LABS: Creatinine Clr Calc Pharmacy 111.6; Estimated Glomerular Filt Rate > 60
[2023-01-21] MEDS: Albuterol/Iprat 2.5/0.5MG 3 ML AMPUL.NEB INHALE ×4 (07:31→18:46)
[2023-01-21] MEDS: Magnesium Oxide 400 MG TABLET PO ×2 (08:10→22:29)
[2023-01-21] MEDS: dexAMETHasone 6 MG TABLET PO (08:10)
[2023-01-21] MEDS: Multivitamin TABLET 1 TAB PO (08:10)
[2023-01-21] MEDS: Benzonatate 100 MG CAPSULE PO ×3 (08:10→22:29)
[2023-01-21] MEDS: 0.9 % Sodium Chloride Flush 3 ML SYRINGE IVFLUSH ×2 (08:11→15:21)
[2023-01-21] MEDS: guaiFEN/Codeine SF 200/20/10ML 10 ML LIQUID 5 ML PO ×3 (08:11→22:29)
--- NOTE | 2023-01-21 10:34 | P.PNIM_ITS ---
Subjective Subjective Date of Service: 01/21/23 Interval History: seen and examined this morning follow up for covid/multifocal pneumonia still hypoxic with ambulation ongoing cough, dyspnea improving Review of Systems Review of Systems: Yes all other systems are reviewed and are negative Constitutional Constitutional: Denies chills and Denies fever(s) Cardiovascular Cardiovascular: Denies chest pain, Denies palpitations and Reports dyspnea on exertion Respiratory Respiratory: Reports cough and Reports dyspnea on exertion Gastrointestinal Gastrointestinal: Denies abdominal pain Endocrine Endocrine: Denies palpitations Physical Exam 2 Vital Signs: Vital Signs: Last Vital Signs Temp 97 F 01/21/23 07:26 Pulse 65 01/21/23 07:34 Resp 16 01/21/23 07:34 BP 118/76 01/21/23 07:26 Pulse Ox 96 01/21/23 07:26 O2 Del Method Nasal Cannula 01/21/23 07:26 O2 Flow Rate 2 01/21/23 07:26 Oxygen Flow Rate 2 01/18/23 09:13 BMI result Body Mass Index 31.7 Appearing in no acute distress lungs normal expansion heart regular rate positive bowel sounds, abdomen is soft, nontender neuro patient is alert x3, no focal deficits Objective Data Active Medications Acetaminophen (Acetaminophen 325 Mg Tablet) 650 mg PO Q6H PRN PRN Reason: Pain, Mild (Pain Scale 1-3) Al Hydroxide/Mg Hydroxide (Magnesium Hydrox/Alum Hydrox 30 Ml Oral.Susp) 30 ml PO Q4H PRN PRN Reason: heartburn Last Admin: 01/20/23 21:17 Dose: 30 ml Documented By: LAYLA Albuterol Sulfate (Albuterol Sulfate 90 Mcg 8 Gm Inhaler) 1 puff INHALE QID PRN PRN Reason: shortness of breath or wheezing Albuterol/Ipratropium (Albuterol/Iprat 2.5/0.5mg 3 Ml Ampul.Neb) 3 ml INHALE RQ4H WHILE AWAKE [facility] Last Admin: 01/21/23 07:31 Dose: 3 ml Documented By: LORENZOSNITA Benzonatate (Benzonatate 100 Mg Capsule) 100 mg PO TID [facility] Last Admin: 01/21/23 08:10 Dose: 100 mg Documented By: JAMMIE Dexamethasone (Dexamethasone 6 Mg Tablet) 6 mg PO DAILY [facility] Last Admin: 01/21/23 08:10 Dose: 6 mg Documented By: JAMMIE Docusate Sodium (Docusate Sodium 100 Mg Capsule) 100 mg PO DAILY PRN PRN Reason: Constipation Enoxaparin Sodium (Enoxaparin Sodium 40 Mg/0.4 Ml Syringe) 40 mg SUBCUT Q24H [facility] Last Admin: 01/20/23 14:22 Dose: Not Given Documented By: JADE Non-Admin Reason: Patient Refused Guaifenesin/Codeine Phosphate (Guaifen/Codeine Sf 200/20/10ml 10 Ml Liquid) 5 ml PO Q6H PRN PRN Reason: cough Last Admin: 01/21/23 08:11 Dose: 5 ml Documented By: JAMMIE Magnesium Oxide (Magnesium Oxide 400 Mg Tablet) 400 mg PO BID [facility] Last Admin: 01/21/23 08:10 Dose: 400 mg Documented By: JAMMIE Multivitamins/Vitamin C (Multivitamin Tablet) 1 tab PO DAILY [facility] Last Admin: 01/21/23 08:10 Dose: 1 tab Documented By: JAMMIE Ondansetron HCl (Ondansetron Hcl 4 Mg/2 Ml Vial) 4 mg IVPUSH Q8H PRN PRN Reason: Nausea and Vomiting Pharmacy Consult (Consult Rx Vancomycin Dosing) 1 each MISCELLANE DAILY PRN PRN Reason: Consult order Sodium Chloride (0.9 % Sodium Chloride Flush 3 Ml Syringe) 3 ml IVFLUSH QSHIFT [facility] Last Admin: 01/21/23 08:11 Dose: 3 ml Documented By: JAMMIE Labs 01/17/23 06:06 01/21/23 06:28 Labs: Laboratory Results - last 24 hr 01/21/23 06:28 Estim Creat Clear Calc 111.6 Estimated GFR > 60 Assessment and Plan (1) Acute respiratory failure: Status: Acute (2) Pneumonia due to 2019-nCoV: Status: Acute Plan This is a 62-year-old male with history of paroxysmal atrial fibrillation not on anticoagulation, history alcohol abuse, who is a 2 cigar per day smoker, and GERD admitted for COVID-19 related multifocal pneumonia with acute hypoxemic respiratory failure. Acute hypoxemic respiratory failure- related to COVID-19 multifocal pneumonia no known chronic lung disease continue supplemental O2 to maintain oximetry > 92% - wean supplemental oxygen as tolerated COVID-19 related multifocal pneumonia initial diagnosis 01/[address] showing patchy multifocal pneumonia with bilateral trace parapneumonic effusions procalcitonin low, s/p 5 days of empiric abx Decadron 6 mg daily given hypoxia x 10 days airborne/contact precautions per infection control continue supplemental O2 as above, wean as tolerated seen by pulmonary paroxysmal atrial fibrillation-rate controlled has not had any recurrence of symptoms since 2020 not on rate control or anticoagulation alcohol abuse no alcohol consumption since 01/04, not at risk for withdrawal declines addiction med consult nicotine dependence smokes 2 cigarettes daily, no use since 01/04 declines NRT DISPO dc home when medically clear. may need home o2 eval DVT prophylaxis-Lovenox Attending Dr. Egan Full code continued hospital for management of COVID-19 related multifocal pneumonia with acute hypoxemic respiratory failure requiring steroids, and supplemental O2 Time Spent With Patient Time: Total time managing care of this patient today ____ minutes. Quality Stroke Does the patient have a stroke diagnosis?: No VTE Prior VTE?: No VTE Risk Level:: Medical - moderate - high VTE Device Contraindication: Treatment Not Indicated VTE Drug Contraindication: N/A - Med Ordered
[2023-01-21] MEDS: Magnesium Hydrox/Alum Hydrox 30 ML ORAL.SUSP PO (22:30)
[2023-01-22] VITALS: BP 124/73; PULSE 79; RESP 15; O2SAT 93
[2023-01-22 04:00] VITALS: BP 132/67; PULSE 68; RESP 16; TEMP 36.6; O2SAT 93
[2023-01-22 06:46] LABS: Creatinine Clr Calc Pharmacy 114.5; Estimated Glomerular Filt Rate > 60
[2023-01-22] MEDS: Albuterol/Iprat 2.5/0.5MG 3 ML AMPUL.NEB INHALE (07:51)
[2023-01-22 07:53] VITALS: PULSE 79; RESP 18; O2SAT 96
[2023-01-22 08:00] VITALS: BP 118/72; PULSE 73; RESP 18; TEMP 36.3; O2SAT 94
[2023-01-22] MEDS: guaiFEN/Codeine SF 200/20/10ML 10 ML LIQUID 5 ML PO (08:49)
[2023-01-22] MEDS: Benzonatate 100 MG CAPSULE PO (08:49)
[2023-01-22] MEDS: Multivitamin TABLET 1 TAB PO (08:49)
[2023-01-22] MEDS: Magnesium Oxide 400 MG TABLET PO (08:49)
[2023-01-22] MEDS: 0.9 % Sodium Chloride Flush 3 ML SYRINGE IVFLUSH ×2 (08:50→10:23)
[2023-01-22] MEDS: dexAMETHasone 6 MG TABLET PO (08:51)
[2023-01-22 09:08] VITALS: PULSE 127; PULSE 131; PULSE 87; O2SAT 87; O2SAT 91; O2SAT 92
--- NOTE | 2023-01-22 10:00 | P.DS_ITS ---
DS: Providers Provider Date of Service: 01/22/23 Date of admission: 01/16/23 12:59 Primary care physician: Misha Jose DO Consults: 01/16/23 15:17 Consult to Pulmonology Routine Consulting Provider: [facility] [place] Pulmonology Services Reason for consultation: covid pneumonia DS: Diagnosis Discharge Diagnosis (1) Acute respiratory failure: Status: Acute (2) Pneumonia due to 2019-nCoV: Status: Acute DS: Summary Hospital Course Hospital Course: History and physical as per admitting provider. 62-year-old male with history of paroxysmal atrial fibrillation not on anticoagulation, history alcohol abuse, who is a 2 cigar per day smoker, and GERD presented to the ED earlier today for evaluation of worsening shortness of breath, productive cough with white sputum, subjective fevers, and intermittent diarrhea. He tested positive for COVID-19 at home on 01/04 and has been progressively worsening. States prior to his positive COVID test he did also have an intermittent dry cough for 3 weeks but states the additional symptoms did not begin until 01/04. He presented to the ED on 01/11 for evaluation of symptoms and chest x-ray was negative for pneumonia p itted show bronchial wall thickening/bronchitis which he is prone to. He was discharged from the ED with azithromycin, prednisone, and albuterol inhaler. He again presented to the ED on 01/14 for persistent complaints as noted but had developed fevers up to 102 as well as abdominal pain, vomiting, diarrhea. CXR at that time showed increased interstitial opacities possibly related to atypical/viral pneumonia including COVID pneumonia. He reports symptoms have not improved and cough and shortness of breath continued to worsen. There is both shortness of breath at rest and with exertion. He is not vaccinated against COVID-19. He reports he has not consumed any alcohol since prior to his diagnosis and has not smoked any cigars in this time either. Denies any other substance use. On arrival, patient hypoxic to 89-91%. No known history of chronic lung disease. Vitals otherwise stable. On my exam, patient was noted to be satting 85-89% on room air and was placed on 3 L supplemental O2. There is no leukocytosis. Renal function normal, electrolyte levels normal. AST 43, ALT 55 which are consistent with baseline. Procalcitonin level pending. Chest x-ray shows interval worsening of multifocal pneumonia which can be seen with atypical/viral pneumonia including COVID pneumonia. Subsequent chest CT showed multifocal pneumonia with trace bilateral parapneumonic effusions. In the ED, treated with albuterol inhaler. Patient to be admitted with COVID-19 related COVID 19 pneumonia with acute hypoxemic respiratory failure. 62-year-old man treated for acute hypoxic respiratory failure secondary to COVID-19 and multifocal pneumonia. Patient was treated with appropriate antibiotics initially, Decadron 6 mg daily, supplemental oxygen. Over diagnosed 01/10/2023. Patient's course was pretty unremarkable, he required oxygen mostly with activity, patient completed antibiotic course. He had a home oxygen evaluation and will require 2 L of oxygen with activity. He should follow-up with his primary care provider in 2 weeks to reassess the need for oxygen. Smoking cessation discussed. He has 4 more days left of oral Decadron. He will be discharged home. Paroxysmal atrial fibrillation. Rate controlled. Not on any home medications Alcohol abuse. Discussed it is the importance of alcohol cessation. No withdrawal symptoms started hospitalization Tobacco use. Discussed the importance of tobacco cessation. Aligned nicotine replacement therapy Time Spent with Patient Time attestation: Total time managing care of this patient today ____ minutes. Discharge coordination time: Greater than 30 minutes Quality: Safe Use of Opioids Does Pt have an Active Cancer Diagnosis on the Problem List?: No Quality: Stroke Does the patient have a stroke diagnosis?: No Physical Exam Vital Signs: Vital Signs: Last Vital Signs Temp 97.3 F 01/22/23 08:00 Pulse 73 01/22/23 08:00 Resp 18 01/22/23 08:00 BP 118/72 01/22/23 08:00 Pulse Ox 94 01/22/23 08:00 O2 Del Method Room Air 01/22/23 08:00 O2 Flow Rate 2 01/21/23 15:22 Oxygen Flow Rate 2 01/18/23 09:13 BMI result Body Mass Index 31.7 Appearing in no acute distress head is normocephalic atraumatic eyes pupils are PERRLA sclera is anicteric mouth throat mucous membranes are intact and moist neck is supple no lymphadenopathy, no JVD noted lung sounds are clear to auscultation heart regular rate rhythm, clear S1, S2 positive bowel sounds, abdomen is soft, nontender neuro patient is alert x3, no focal deficits DS: Data Data Completed and Pending Labs on day of discharge: Laboratory Results - last 24 hr 01/22/23 06:25 Creatinine 0.78 Estim Creat Clear Calc 114.5 Estimated GFR > 60 Discharge Plan Discharge Anticipated Discharge Date/Time: 01/22/23 09:53 Patient Disposition: Home, Self-Care Discharge Diagnosis: Hypoxic respiratory failure COVID-19 Referrals: Misha Jose DO [Primary Care Provider] - 1 Week Discharge Medications: New dexamethasone 6 mg Tablet 6 mg PO DAILY Qty: 4 0RF Continued magnesium oxide 400 mg magnesium Tablet 400 mg PO BID albuterol sulfate 90 mcg/actuation HFA aerosol inhaler 1 inh inhalation QID PRN (Reason: shortness of breath or wheezing) Qty: 6.7 0RF multivitamin Tablet 1 tab PO DAILY Discharge Orders: Discharge Order (Routine); Ordered 01/22/23 Ordered By: Mitra Sandoval Diet: Advance to usual diet Activity on Discharge: As tolerated Stand Alone Forms: Patient Portal Discharge page Care Plan Goals: Complete resolution of symptoms Health Concerns: Hypoxic respiratory failure COVID-19(01/10/23) Plan of Treatment: You will be sent home with oxygen to use with activity. Follow-up with primary care provider to reassess the need for oxygen in 2 weeks Take all medications as prescribed Assessment: See discharge summary
--- NOTE | 2023-01-22 10:56 | MHC.CM.PN ---
Patient has been medically cleared for dc to home today, self care.
--- NOTE | 2023-01-22 11:14 | PC.NURSE ---
Pt is alert and oriented to person, place, time, and situation. Patient discharge plans in place,Patient discharged home. iv and telemonitor removed. Patient asked if he could receive another Covid test prior to discharge. Education given as patient was already positive for covid, no further testing needed. Provider notified via tiger text. no other orders placed at this time.
[2023-01-22 11:18] LABS: SARS COV2 IgG Positive (Negative)
[2023-01-25 04:04] LABS: Legionella Ag Urine Not Detected (Not Detected)
== END 2023-01-22 12:18 | disposition home or self-care (01) | DRG 137 ==
LOC: HO.ED 11:38 → HO.EDOVER 13:00 → HO.IMC 15:57
PROVIDERS: Hospitalist; Physician Assistant; Admitting Provider Physician Assistant; Emergency Provider Student in an Organized Health Care Education/Training Program; PCP Internal Medicine; Visit Provider Nurse Practitioner Acute Care
DX: U07.1 COVID-19 (principal); J96.01 Acute respiratory failure with hypoxia; J12.82 Pneumonia due to coronavirus disease 2019; F10.11 Alcohol abuse, in remission; K21.9 Gastro-esophageal reflux disease without esophagitis; F17.290 Nicotine dependence, other tobacco product, uncomplicated; Z71.6 Tobacco abuse counseling; Z28.310 Unvaccinated for COVID-19; Z79.899 Other long term (current) drug therapy
CPT/HCPCS: 0241U; 36415; 71045; 71250; 80048; 80053; 80202; 82565; 82784; 83605; 84145; 85025; 85379; 86769; 87040; 87070; 87205; 87449; 87640; 87641; 87899; 94640; 99285; J0456; J0696; J1100; J1650; J3370; J3371; J3475; J8540

== ENCOUNTER → 2023-01-16 12:59 | Outpatient (BNV) | payer OTHER, SELFPAY | PROVIDERS: Admitting Provider Physician Assistant; Emergency Provider Student in an Organized Health Care Education/Training Program; PCP Internal Medicine; Visit Provider Hospitalist | DX: J96.00 Acute respiratory failure, unspecified whether with hypoxia or hypercapnia (principal); U07.1 COVID-19; J12.82 Pneumonia due to coronavirus disease 2019 | CPT/HCPCS: 99223 ==

== ENCOUNTER → 2023-01-16 12:59 | Outpatient (BNV) | payer OTHER, SELFPAY | PROVIDERS: Admitting Provider Physician Assistant; Emergency Provider Student in an Organized Health Care Education/Training Program; PCP Internal Medicine; Visit Provider Nurse Practitioner Acute Care | DX: J96.01 Acute respiratory failure with hypoxia (principal); U07.1 COVID-19; J12.82 Pneumonia due to coronavirus disease 2019 | CPT/HCPCS: 99223; 99232; 99239 ==

== ENCOUNTER 2023-02-09 18:57 | Emergency (ER) | payer OTHER, SELFPAY ==
[2023-02-09 19:05] VITALS: BP 143/86; PULSE 107; RESP 20; TEMP 37.6; O2SAT 97; BMI 29.5
--- NOTE | 2023-02-09 19:07 | ED.GENADULT ---
HPI - General Adult General Chief complaint: Wound/Laceration Stated complaint: multiple dog bites Time Seen by Provider: 02/09/23 20:03 Source: patient, RN notes reviewed and old records reviewed Mode of arrival: ambulatory Limitations: no limitations History of Present Illness HPI narrative: 62-year-old male presents for evaluation of multiple dog bites. Patient states that he has 3 dogs at his house 2 of them were getting into an altercation which he tried to break up Patient reports that while he was trying to break up the fight with his own dogs he was bit multiple times mostly on the left hand and forearm. He reports numbness and tingling to the left hand and forearm He reports his tetanus is up-to-date and the dogs are all up-to-date on the rabies vaccines He complains of 02/14 pain He also has 1 small bite to the right forearm Related Data Home Medications Medication Instructions Recorded Confirmed magnesium oxide 400 mg PO BID PRN 04/22/21 01/16/23 multivitamin 1 tab PO DAILY 01/16/23 01/16/23 Previous Rx's Medication Instructions Recorded albuterol sulfate 90 mcg/actuation 1 inh inhalation QID PRN shortness 01/11/23 aerosol inhaler of breath or wheezing #6.7 grams dexamethasone 6 mg tablet 6 mg PO DAILY #4 tabs 01/22/23 amoxicillin 875 mg-potassium 1 tab PO BID #20 tabs 02/09/23 clavulanate 125 mg tablet morphine 15 mg immediate release 15 mg PO Q6H PRN severe pain 02/09/23 tablet (scale score 7-10) #12 tabs Allergies Allergy/AdvReac Type Severity Reaction Status Date / Time No Known Allergies Allergy Verified 02/09/23 19:10 Review of Systems Constitutional: Constitutional: Denies chills and Denies fever(s) Cardiovascular: Cardiovascular: Denies chest pain and Denies dyspnea Respiratory: Respiratory: Denies dyspnea Musculoskeletal: Musculoskeletal: Reports arthralgias, Reports joint swelling and Reports limited range of motion Integumentary/Breasts: Skin/Breast: Reports wounds PMFSH Past Medical History Medical History Alcohol abuse GERD (gastroesophageal reflux disease) 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 Physical Exam ED Vital Signs: Vital Signs - 24 hr 02/09/23 19:05 02/09/23 20:01 Temperature 99.6 F Pulse Rate 107 H Respiratory Rate 20 Blood Pressure 143/86 H 113/61 Pulse Oximetry 97 Oxygen Delivery Method Room Air BMI result Body Mass Index 29.5 Const General: healthy appearing, alert and awake Nutritional Appearance: well nourished Orientation/consciousness: patient oriented x3 HENMT Head: Yes normocephalic and Yes atraumatic Eyes Eyelids: Yes eyelids normal Conjunctivae: conjunctivae normal Sclerae: sclerae normal Corneas: corneas normal Pupils: Equal, round and reactive pupils present EOM: EOMs intact bilaterally Neck Neck: Yes full ROM Resp Effort & Inspection: normal respiratory effort, able to speak in complete sentences and not labored Skin Other: Patient has 1 puncture wound to the right forearm, no significant bleeding. Patient has approximately 20 superficial puncture wounds to the left hand and forearm. No significant, deep lacerations. He has minimal oozing from several wounds There is minimal subcutaneous tissue visible to the dorsal surface of the left hand, left ventral forearm. General skin exam: elasticity normal Neuro General: patient oriented x3 Cranial nerves: Yes Equal, round and reactive pupils present and Yes Bilaterally intact EOM present Cognition (Neuro): normal cognition Extrem Other: Patient is able to flex and extend the wrist, elbows bilaterally. He is able to flex and extend all fingers of each hand with full range of motion Course Course Course Narrative: This is a rapid medical exam: Additional HPI, ROS, PE not included below will be deferred to primary provider. Patient is a 62-year-old left-hand dominant male presenting to the emergency department with complaint of dog bites to his left forearm, wrist and hand. States all three dogs are his, and that he was attempting to break up the fight between two of the dogs at his home in [place]. States Tdap was recently updated. Reports numbness and tingling to his arm and hand. Multiple puncture wounds noted to left forearm and hand. Plan: X-ray Reevaluation(s) Reevaluation #1: X-ray shows distal radius and distal ulna fractures. These will require orthopedic follow-up. The patient require splinting, due to the open wounds from dog bites, he will be given Augmentin for 10 days as this is a high risk for infection. He was given strict return precautions. Time: 21:17 Medications Administered Discontinued Medications Generic Name Dose Route Start Last Admin Trade Name Freq PRN Reason Stop Dose Admin Amoxicillin/Clavulanate Potassium 875 mg 02/09/23 20:13 02/09/23 20:29 Amoxicillin/Potassium Clav 875 Mg Tablet PO 02/09/23 20:14 875 mg ONCE ONE Administration Morphine Sulfate 4 mg 02/09/23 20:13 02/09/23 20:29 Morphine Sulfate 4 Mg/Ml Cartridge IM 02/09/23 20:14 4 mg ONCE ONE Administration Protocol Ondansetron HCl 4 mg 02/09/23 20:13 02/09/23 20:29 Ondansetron Odt 4 Mg Tab.Rapdis TRANSLINGU 02/09/23 20:14 4 mg ONCE ONE Administration Procedures Orthopedic Splinting/Casting Injury #1: Side: left Upper Extremity Injury Location: forearm and wrist Upper Extremity Immobilizer: volar splint Additional Comments: Patient tolerated the procedure well, there were no complications. CMS intact postprocedure Medical Decision Making Medical Decision Making MDM Narrative: Will treat the patient's discomfort with morphine any we given Zofran as well. X-ray of the left hand and forearm were obtained given the amount of trauma. Patient does not have any significant lacerations that would require secondary closure. He has multiple small, puncture wounds. Patient's wounds will be cleaned with Betadine and saline. He will be given a dose of Augmentin. He reports he is up-to-date on his tetanus vaccine and all his dogs are up-to-date on rabies vaccines. Differential Diagnosis Differential Diagnoses: The differential diagnosis associated with the presentation includes Dog bite Puncture wound Skin tear Laceration Independent Interpretation I performed an independent interpretation of an: Plain X-Ray (Agree with Radiology interpretation) Radiology Impression Discussion of test interpretation with radiology: I have reviewed the radiologist's reading. (This mildly displaced left radial and ulnar styloid fracture fragments.) Discharge Plan Discharge Clinical Impression: Dog bite of multiple sites of hand and fingers, Fracture of left wrist Patient Disposition: Home, Self-Care Instructions: Animal Bite (ED) Additional Instructions: You have multiple dog bites that are high risk for infection. Take Augmentin twice daily for the next 10 days You also have small fractures to both bones of your wrist. Keep the splint on and follow up with Orthopedics at the number provided Return to the ER if you develop any fevers, chills, increasing pain or redness You reported that you are up-to-date on your tetanus vaccine and that your dogs are up-to-date on rabies vaccines, therefore these vaccines were not provided to you today. Use ibuprofen/Tylenol for pain Use Morphine more more severe, breakthrough pain. This may make you sleepy, do not drink alcohol or drive after taking it Prescriptions: New amoxicillin-pot clavulanate 875-125 mg tablet 1 tab PO BID Qty: 20 0RF morphine 15 mg tablet 15 mg PO Q6H PRN (Reason: severe pain (scale score 7-10)) Qty: 12 0RF Rx Instructions: Partial Fill upon patient request. No Action magnesium oxide 400 mg magnesium Tablet 400 mg PO BID albuterol sulfate 90 mcg/actuation HFA aerosol inhaler 1 inh inhalation QID PRN (Reason: shortness of breath or wheezing) Qty: 6.7 0RF multivitamin Tablet 1 tab PO DAILY dexamethasone 6 mg Tablet 6 mg PO DAILY Qty: 4 0RF Referrals: Jasvir Larson MD [Physician] - (distal radius and ulna fractures due to dog bite. On antibiotics) Interventions: ED Discharge Assessment Last Done: 02/09/23 22:11 Discharge Date/Time: 02/09/23 22:11
[2023-02-09 20:01] VITALS: BP 113/61
--- NOTE | 2023-02-09 20:04 | PC.NURSE ---
pt a&ox3, pt comes in today d/t breaking up dog fight - lacerations to lower extremities bilaterally. wounds currently wrapped w/ gauze/tape. pt states numbness/tingling in arms bilaterally. cms intact, pulses palpable. ROM intact. provider bedside assessing pt.
--- NOTE | 2023-02-09 20:35 | PC.NURSE ---
pt's right hand soaking in betadine/normal saline. pt medicated per provider order.
== END 2023-02-09 22:11 | disposition home or self-care (01) ==
PROVIDERS: Emergency Provider Emergency Medicine
DX: S61.452A Open bite of left hand, initial encounter (principal); S51.852A Open bite of left forearm, initial encounter; S52.612A Displaced fracture of left ulna styloid process, initial encounter for closed fracture; W54.0XXA Bitten by dog, initial encounter; Y93.89 Activity, other specified; Y92.9 Unspecified place or not applicable; Y99.9 Unspecified external cause status
CPT/HCPCS: 29125; 73090; 73130; 96372; 99284; J2270

== ENCOUNTER 2023-02-14 15:01 | Outpatient (AMB) | payer OTHER, SELFPAY ==
--- NOTE | 2023-02-14 15:14 | MHC.OFFVIS ---
Intake Vital Signs 02/14/23 15:47 Height 5 ft 9 in Weight 200 lb BMI 29.5 Intake Visit Reasons: ER F/Up- Lt Wrist Fx Intake Note: Jay is a 62 year old left hand dominant male who presents today for a new problem visit with complaints of left hand/wrist dog bite & Fracture. On 02/09/23 he was seen in the ED after his three dogs were fighting when he was bit multiple times on the left arm. Currently patiemt came in with his splint. States he has discomfort onky as long as he doesnt move his arm. Allergies No Known Allergies Allergy (Verified 02/14/23 15:47) HPI ER F/Up- Lt Wrist Fx HPI Details The patient is a 62-year-old man who sustained a left distal radius and distal ulna fractures status post dog bites when he was trying to split up his to Rottweilers who were fighting. He was seen in the emergency department where the wounds were cleaned, he was splinted and placed on oral Augmentin for 5-7 days. 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 Physical Exam Vital Signs: BMI result Body Mass Index 29.5 Const General: cooperative, healthy appearing and no acute distress Orientation/consciousness: oriented to person and oriented to place HEENT Head: Yes normocephalic and Yes atraumatic Eyes EOM: EOMs intact bilaterally Resp Effort & Inspection: normal respiratory effort and able to speak in complete sentences Cardio Jugular venous distension: no JVD Skin General skin exam: turgor normal Rashes: no rashes Neuro General: oriented to person and oriented to place Extrem Other: Evaluation of left Upper Extremity: Patient with multiple dog bites about the radial and ulnar and dorsal aspects of the left wrist. He has got some serosanguineous drainage He has got some swelling but no erythema or purulent drainage. With encouragement I was able to get him to bring his fingers close to a fist. He could then actively extend all of his fingers. Active flexion and extension of the left thumb. He can oppose the thumb to the index middle and ring fingers, but not quite the tip of the small finger. Sensation intact to the tips of all fingers and the thumb. Good finger cross and APB muscle belly firing. He does have some numbness across the dorsal aspect of the thumb and also across a fairly narrow strip of the dorsal ulnar aspect of the hand mostly in line with the ring finger. Sensation is intact along the ulnar border of the hand. Sensation is intact over the dorsal aspect of the hand in line with the index and middle fingers. All sensation is also intact to the thenar aspect of the thumb. Wrist flexion and extension is limited secondary to pain. He can pronate to about 50 degrees and supinate to about 10 degrees as limited by pain. Radiographs: Three views of the left hand and wrist from 02/09/2023 were reviewed by me today in clinic and show a nondisplaced radial styloid fracture. There also appears to be displaced fracture of the distal ulna. The ulnar fracture for the most part appears to be minimally displaced, however on the forearm views I am a little more concerned about the displacement. Psych Appearance: grossly normal Affect: normal affect Attitude: cooperative Assessment & Plan Assessment & Plan (1) Open fracture of distal end of left ulna: Code(s): S52.602B - Unspecified fracture of lower end of left ulna, initial encounter for open fracture type I or II (2) Open fracture of left distal radius: Code(s): S52.502B - Unspecified fracture of the lower end of left radius, initial encounter for open fracture type I or II Plan Assessment and plan: 1. Left open distal radius styloid fracture, nondisplaced Secondary to dog bite Date of injury 02/09/2023 2. Left open distal ulna fracture, displaced Secondary to dog bite Date of injury 02/09/2023 3. Multiple dog bite puncture wounds over the ulnar, dorsal and radial aspect of the patient's left wrist With numbness in a partial superficial radial nerve distribution over the dorsal aspect of the 1st metacarpal extending to the thumb Also with numbness in a partial dorsal cutaneous branch of the ulnar nerve distribution, mostly over the dorsal aspect of the 4th metacarpal in the hand. Fortunately, all the flexor tendons appear to be working well, and all of the extensor tendons appear to be working well this time. I educated him about this injury I am placing him on an additional 7 days of Augmentin out of an abundance of caution because of the open fractures. I am placing him in a removable wrist splint that we are fabricating for him. He will remove his splints every day to allow him to wash the wounds while he is in the shower with soap and water. He will then use a small amount of antibiotic ointment and a dressing in place his wrist back into the splint. I showed him some exercises and he is to work on bring his fingers gently into a closed fist and then into extension. He can also work on some small arc prono-supination. I have ordered a CT scan for the purpose of further evaluating the distal ulnar fracture to assure that operative treatment is not indicated. He will follow-up in 1 week for wound check and to assess the CT scan. Not coding for fractures until after assessment of the CT scan to determine plan of care Orders: Orders CT wrist LT wo IV con Today S52.502B - Unspecified fracture of the lower end of left radius, initial encounter for open fracture type I or II, S52.602B - Unspecified fracture of lower end of left ulna, initial encounter for open fracture type I or II Medications: Refilled amoxicillin-pot clavulanate 875-125 mg 1 tab PO BID 20 tabs 0RF Coding Level of Care Code Est Pt Level 3 (35049) Diagnoses Open fracture of distal end of left ulna S52.602B Open fracture of left distal radius S52.502B
[2023-02-14 15:47] VITALS: BMI 29.5
== END 2023-02-14 16:00 ==
PROVIDERS: Visit Provider Orthopaedic Surgery
DX: S52.602B Unspecified fracture of lower end of left ulna, initial encounter for open fracture type I or II (principal); S52.502B Unspecified fracture of the lower end of left radius, initial encounter for open fracture type I or II
CPT/HCPCS: 99213

== ENCOUNTER → 2023-02-14 15:01 | Outpatient (BNVA) | payer OTHER, SELFPAY | PROVIDERS: Visit Provider Orthopaedic Surgery ==

== ENCOUNTER 2023-02-16 07:48 | Outpatient (REF) | payer OTHER, SELFPAY ==
--- NOTE | ~2023-02-16 | CT_ITS ---
EXAMINATION: CT WRIST WITHOUT CONTRAST, LEFT CLINICAL INFORMATION: Ulnar fracture. Radial styloid fracture. Dog bite. COMPARISON: Left forearm and left hand radiographs dated 02/09/2023. TECHNIQUE: Contiguous axial CT images of the left wrist were obtained without contrast. Multiplanar reformats were provided and reviewed. This CT examination was performed using dose optimization techniques as appropriate, variously including the following: *Automated exposure control *Adjustment of mA and/or kV according to patient size (this includes techniques or standardized protocols for targeted exams where dose is matched to indication/reason for exam; i.e. extremities or head) *Use of iterative reconstruction technique. DOSE: 129 mGy-cm FINDINGS: Mildly displaced, oblique fracture through the base of the ulnar styloid with the resultant fracture fragment measuring up to 1.6 cm in greatest dimension. There is mild volar and proximal displacement of the fracture fragment with cortical step-off measuring up to 0.5 cm along the distal cortical surface. Multiple tiny fracture fragments along the volar aspect of the dominant fracture line. Mildly displaced fracture through the distal aspect of the ulnar styloid with the fracture fragment measuring up to 0.7 cm in AP dimension. The fracture gap measures up to 0.1 cm. No dislocation. Normal carpal alignment. Mild joint space narrowing with small marginal osteophytes at the 1st carpometacarpal joint where there is a 0.3 cm ossified loose body. No concerning lytic or blastic osseous lesion. Mild circumferential subcutaneous edema. No soft tissue mass or organized fluid collection/abscess formation. Small distal radial ulnar joint effusion. The visualized flexor and extensor tendons are grossly intact, however, evaluation is limited on CT examination. CT/CT wrist LT wo IV con IMPRESSION: Mildly displaced, oblique fracture through the base of the ulnar styloid with mild volar and proximal displacement of the fracture fragment. Multiple tiny fracture fragments along the volar aspect of the dominant fracture line. Mildly displaced fracture through the distal aspect of the ulnar styloid. Mild osteoarthritis at the 1st carpometacarpal joint with a 0.3 cm ossified loose body. Small distal radial ulnar joint effusion.
== END 2023-02-16 07:49 | disposition home or self-care (01) ==
LOC: HO.CT 07:48
PROVIDERS: Visit Provider Orthopaedic Surgery
DX: S52.502B Unspecified fracture of the lower end of left radius, initial encounter for open fracture type I or II (principal); S52.602B Unspecified fracture of lower end of left ulna, initial encounter for open fracture type I or II
CPT/HCPCS: 73200

== ENCOUNTER 2023-02-21 13:57 | Outpatient (AMB) | payer OTHER, SELFPAY ==
--- NOTE | 2023-02-21 14:25 | A.OFFVIS_ITS ---
Intake Intake Visit Reasons: OV- Lt wrist Fx wound check Intake Note: Cain 62 year old left hand dominant male who presents today for a wound check of left hand/wrist dog bite & Fracture, DOI 02/09/23. Patient reports pain and numbness in wrist. He states here for a CT review. He also has complaints of lump on his right arm. He continues taking antibiotic as prescribed. Allergies No Known Allergies Allergy (Verified 02/14/23 15:47) HPI OV- Lt wrist Fx wound check HPI Details Jay is a 62 year old man who presents for a CT scan review of his left distal radius and distal ulna fractures S/P dog bites, DOI: 02/09/23. He is seen today wearing his splint, and says he continues to take his PO Abx as instructed He complains of continued pain and numbness in his wrist. He has been working on finger ROM while wearing his splint, but days he has difficulty with wrist ROM. He says he has been using his left hand for activities since his last appointment, including scooping dog poop and opening doors. He is worried his fracture may have moved since he had his CT scan. He says he had plans to remove his docks later this week, with help. He also complains of a painful lump on his right wrist. He says he had one bite on his right wrist. 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 Review of Systems Const All systems reviewed & are unremarkable except as noted in HPI and below Physical Exam Const General: no acute distress and alert Orientation/consciousness: patient oriented x3 Neuro General: patient oriented x3 Extrem Other: Evaluation of Upper Extremity: The patient is alert, oriented, and in no acute distress Neuro: Sensation intact to the tips of all fingers and the thumb. Good finger cross and APB muscle belly firing. He does have some numbness across the dorsal aspect of the thumb and also across a fairly narrow strip of the dorsal ulnar aspect of the hand mostly in line with the ring finger. Sensation is intact along the ulnar border of the hand. Sensation is intact over the dorsal aspect of the hand in line with the index and middle fingers. All sensation is also intact to the thenar aspect of the thumb. Vascular: Cap refill brisk ROM: He was able to bring his fingers close to a fist. He could then actively extend all of his fingers. Active flexion and extension of the left thumb. He can oppose the thumb to the index middle and ring fingers, but not quite the tip of the small finger. Wrist flexion and extension is limited secondary to pain. He can pronate to ~70 degrees and supinate to neutral, limited by pain Patient with multiple dog bites about the radial and ulnar and dorsal aspects of the left wrist. He has got some serosanguineous drainage He has got some swelling but no erythema or purulent drainage. Radiographs: The patient insisted we get a new X-ray as he had been using his left hand for heavier activities. 3 views of the left wrist were taken, viewed, and compared to prior X-rays from 02/09/23 today in clinic. The show the distal ulna fracture with no change in alignment. CT scan: IMPRESSION: Mildly displaced, oblique fracture through the base of the ulnar styloid with mild volar and proximal displacement of the fracture fragment. Multiple tiny fracture fragments along the volar aspect of the dominant fracture line. Mildly displaced fracture through the distal aspect of the ulnar styloid. Mild osteoarthritis at the 1st carpometacarpal joint with a 0.3 cm ossified loose body. Small distal radial ulnar joint effusion. Marco Silva MD 02/16/23 Psych Appearance: grossly normal Affect: normal affect Attitude: cooperative Office Procedures Fracture Care Details: Fracture care distal radius [id number] Fracture Billing Code: Fracture Billing Code Assessment & Plan Assessment & Plan (1) Open fracture of distal end of left ulna: Code(s): S52.602B - Unspecified fracture of lower end of left ulna, initial encounter for open fracture type I or II (2) Open fracture of left distal radius: Code(s): S52.502B - Unspecified fracture of the lower end of left radius, initial encounter for open fracture type I or II Plan Assessment and plan: 1. Left open distal radius styloid oblique fracture, nondisplaced Secondary to dog bite DOI: 02/09/23 Multiple tiny fracture fragments along the volar aspect of the dominant fracture line seen on CT scan 2. Left open distal ulna fracture, mildly displaced Secondary to dog bite DOI: 02/09/23 3. Multiple dog bite puncture wounds over the ulnar, dorsal and radial aspect of the patient's left wrist With numbness in a partial superficial radial nerve distribution over the dorsal aspect of the 1st metacarpal extending to the thumb Also with numbness in a partial dorsal cutaneous branch of the ulnar nerve distribution, mostly over the dorsal aspect of the 4th metacarpal in the hand. Fortunately, all the flexor tendons appear to be working well, and all of the extensor tendons appear to be working well this time. I educated him about this injury I explained the signs and symptoms of infection, if the patient develops any new or worsening erythema, drainage, pain, or warmth they should contact the clinic or attend the ED. He will continue to take his PO Abx as instructed I discussed activity modifications, he is to lift nothing heavier than a cellphone for the next month at least. I think he has been participating in somewhat heavier activities that he should, and we talked about this. He was fitted for a new velcro wrist splint to wear with daily activity. He is able to wash his hand in both the sink and shower with soap & water, and continue to use a small amount of antibiotic ointment and a dressing in place his wrist back into the splint. He will continue to work on finger ROM, sand small arc prono-supination out of his splint. He will follow up in 3-4 weeks for a ROM check, with X-rays 3V L wrist Consider OT hand therapy if needs to improve flexion extension or prono- supination Scribed for Anisa Driscoll MD by Delano Lewis, general medical practitioner, on 02/21/23 at 2:55 PM, EST. Orders: Orders XR wrist LT min 3V Today M25.532 - Pain in left wrist Coding Level of Care Code Est Pt Level 3 (03889) Diagnoses Open fracture of distal end of left ulna S52.602B Open fracture of left distal radius S52.502B CPT Codes Fracture Care - Fracture Billing Code: Fracture Billing Code ([id number])
== END 2023-02-21 15:14 | disposition home or self-care (01) ==
PROVIDERS: Visit Provider Orthopaedic Surgery
DX: S52.602B Unspecified fracture of lower end of left ulna, initial encounter for open fracture type I or II (principal); S52.502B Unspecified fracture of the lower end of left radius, initial encounter for open fracture type I or II; W54.0XXA Bitten by dog, initial encounter
CPT/HCPCS: 99213

== ENCOUNTER 2023-02-21 13:57 | Outpatient (REF) | payer OTHER, SELFPAY ==
--- NOTE | ~2023-02-21 | XR_ITS ---
EXAMINATION: XR WRIST, LEFT CLINICAL INFORMATION: Pain in left wrist COMPARISON: 02/10/2020 TECHNIQUE: PA, lateral, and oblique views of the left wrist. FINDINGS: There is stable position of ulnar styloid, fracture line is still visualized. There is soft tissue swelling associated with this fracture. The rest of wrist is unremarkable. Radiocarpal joint is preserved. XR/XR wrist LT min 3V IMPRESSION: No significant interval change in appearance of fracture at the base of ulnar styloid
== END 2023-02-21 13:58 | disposition home or self-care (01) ==
LOC: HO.HOSX 13:57
PROVIDERS: Visit Provider Orthopaedic Surgery
DX: S52.602B Unspecified fracture of lower end of left ulna, initial encounter for open fracture type I or II (principal); S52.502B Unspecified fracture of the lower end of left radius, initial encounter for open fracture type I or II
CPT/HCPCS: 73110

== ENCOUNTER 2023-03-22 09:32 | Outpatient (AMB) | payer OTHER, SELFPAY ==
--- NOTE | 2023-03-22 09:45 | A.OFFVIS_ITS ---
Intake Vital Signs 03/22/23 09:48 Height 5 ft 9 in Weight 200 lb BMI 29.5 Intake Visit Reasons: OV- Lt wrist Fx 3V V ROM Intake Note: Cain 62 year old left hand dominant male who presents today for a ROM of left hand/wrist s/p dog bite & Fracture, DOI 02/09/23. Patiemt states he is still limited ROM with pronation and supination, stiffness in his 4th and 5th digit. Also reports he cont's to have pain by his CMC joint. Allergies No Known Allergies Allergy (Verified 03/22/23 09:48) HPI OV- Lt wrist Fx 3V V ROM HPI Details Jay is a 63 year old left hand dominant man who presents for a ROM check of his left distal radius and distal ulna fractures S/P dog bites, DOI: 02/09/23. He is seen today wearing his splint, and says he completed his PO Abx as instructed. He reports continuing to struggle with his wrist ROM, as well as motion in his ring & small fingers. He also complains of pain in his ring & small fingers, as well as at the base of his thumb. He says he wakes up with his hand feeling very stiff. 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 He had questions today about using crutches to walk due to his left knee and right hip pain. He was scheduled for left knee surgery prior to his injury. 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 Physical Exam Vital Signs: BMI result Body Mass Index 29.5 Const General: no acute distress and alert Orientation/consciousness: patient oriented x3 Neuro General: patient oriented x3 Extrem Other: Evaluation of Left Upper Extremity: The patient is alert, oriented, and in no acute distress Neuro: Sensation intact to the tips of all fingers and the thumb. Good finger cross and APB muscle belly firing. He does have some numbness across the dorsal aspect of the thumb and also across a fairly narrow strip of the dorsal ulnar aspect of the hand mostly in line with the ring finger. Sensation is intact along the ulnar border of the hand. Sensation is intact over the dorsal aspect of the hand in line with the index and middle fingers. All sensation is also intact to the thenar aspect of the thumb. Vascular: Cap refill brisk ROM: He was able to bring his fingers close to a fist. Good FDP and FDS tendon function to all fingers including the small and ring fingers. He says he has trouble bring his small and ring fingers close to a fist, but he was actually actively able to fully bring these digits closed to a fist. It is possible it may not be with the strength he normally has. He could then actively extend all of his fingers. Active flexion and extension of the left thumb. He can oppose the thumb to the index middle and ring fingers, but not quite the tip of the small finger. Wrist flexion ~50 degrees Wrist extension ~45 degrees Wrist pronation ~75 degrees Wrist supination ~ 60 degrees Patient with multiple dog bites about the radial and ulnar and dorsal aspects of the left wrist. These appear to have healed well. He has no swelling, erythema, or purulent drainage. Radiographs: 3 views of the left wrist were taken, viewed, and compared to prior X-rays from 02/21/23 today in clinic. The show radial styloid and distal ulna fractures with satisfactory fracture alignment and well-healed fractures Psych Appearance: grossly normal Affect: normal affect Attitude: cooperative Assessment & Plan Assessment & Plan (1) Dog bite of left wrist: Code(s): S61.552A - Open bite of left wrist, initial encounter; W54.0XXA - Bitten by dog, initial encounter (2) Open fracture of left distal radius: Code(s): S52.502B - Unspecified fracture of the lower end of left radius, initial encounter for open fracture type I or II Plan Assessment and plan: 1. Left open distal radius styloid oblique fracture, nondisplaced Secondary to dog bite DOI: 02/09/23 Multiple tiny fracture fragments along the volar aspect of the dominant fracture line seen on CT scan 2. Left open distal ulna fracture, mildly displaced Secondary to dog bite DOI: 02/09/23 3. Multiple dog bite puncture wounds over the ulnar, dorsal and radial aspect of the patient's left wrist With numbness in a partial superficial radial nerve distribution over the dorsal aspect of the 1st metacarpal extending to the thumb Also with numbness in a partial dorsal cutaneous branch of the ulnar nerve distribution, mostly over the dorsal aspect of the 4th metacarpal in the hand. Fortunately, all the flexor tendons appear to be working well, and all of the extensor tendons appear to be working well this time. His fractures have gone on to heal well. He is improving his wrist range of motion, but could use some help with OT. I educated him about this injury I discussed activity modifications, he is able to use his hand for light & medium weight activities. He is still to avoid any heavy lifting activities for the next few weeks. He did talk about lifting his air conditioner yesterday, and is planning to lift his 200 lb door that he is going to install. I did let him know that these 100-200 lb tasks are likely best left for a few weeks from now. I told him to discontinue his wrist splint. He will massage about his hand to work on improving his sensation and pain, and to prevent the development of hypersensitivity. He will continue to work on finger ROM, and wrist ROM exercises at home I ordered OT hand therapy to work on wrist & finger ROM , strengthening as well as improving overall function. He also feels he needs to ambulate using crutches due to his knee & hip. He is hoping to have some surgery with Dr. Larson in the future and wants to know if he can use crutches. I have no problem with him using crutches. 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 He will follow up prn. Scribed for Anisa Driscoll MD by Delano Lewis, medical physiologist, on 03/22/23 at 10:00 AM, EST. Orders: Orders XR wrist LT min 3V Today M25.532 - Pain in left wrist OT Evaluation and Treatment Today S52.502B - Unspecified fracture of the lower end of left radius, initial encounter for open fracture type I or II, S52.602B - Unspecified fracture of lower end of left ulna, initial encounter for open fracture type I or II, S61.552A - Open bite of left wrist, initial encounter, W54.0XXA - Bitten by dog, initial encounter Coding Level of Care Code Global (09094) Diagnoses Dog bite of left wrist S61.552A; W54.0XXA Open fracture of left distal radius S52.502B
[2023-03-22 09:48] VITALS: BMI 29.5
== END 2023-03-22 10:13 | disposition home or self-care (01) ==
PROVIDERS: Visit Provider Orthopaedic Surgery
DX: S61.552A Open bite of left wrist, initial encounter (principal); W54.0XXA Bitten by dog, initial encounter; S52.502B Unspecified fracture of the lower end of left radius, initial encounter for open fracture type I or II
CPT/HCPCS: 99213

== ENCOUNTER 2023-03-22 11:02 | Outpatient (REF) | payer OTHER, SELFPAY ==
--- NOTE | ~2023-03-22 | XR_ITS ---
EXAMINATION: XR WRIST, LEFT CLINICAL INFORMATION: Follow-up fracture COMPARISON: Multiple previous studies including CT scan from February 16 2023 TECHNIQUE: PA, lateral, and oblique views of the left wrist. FINDINGS: There is interval healing of intra-articular fracture through the base of ulnar styloid. The fracture line is still visualized there is mild osteopenia of the area of ulnar styloid. There is soft tissue swelling associated with fracture. XR/XR wrist LT min 3V IMPRESSION: Interval healing of fracture of ulnar styloid on the left
== END 2023-03-22 11:03 | disposition home or self-care (01) ==
LOC: HO.HOSX 11:02
PROVIDERS: Visit Provider Orthopaedic Surgery
DX: S61.552D Open bite of left wrist, subsequent encounter (principal); S52.502D Unspecified fracture of the lower end of left radius, subsequent encounter for closed fracture with routine healing; S52.602D Unspecified fracture of lower end of left ulna, subsequent encounter for closed fracture with routine healing
CPT/HCPCS: 73110

== ENCOUNTER 2023-04-07 10:20 | Outpatient (REF) | payer OTHER, SELFPAY ==
--- NOTE | ~2023-04-07 | XR_ITS ---
EXAMINATION: XR PELVIS CLINICAL INFORMATION: Hip pain. COMPARISON: None available. TECHNIQUE: AP view of the pelvis. FINDINGS: No fracture. Hip joint spaces are maintained. Alignment is anatomic. Sacroiliac joints and pubic symphysis are normal. No abnormal soft tissue calcifications. There are pelvic phleboliths. XR/XR pelvis 1-2V IMPRESSION: Unremarkable pelvis. No unusual degenerative changes are seen of the hips. There is no fracture or dislocation noted.
== END 2023-04-07 10:21 | disposition home or self-care (01) ==
LOC: HO.HOSX 10:20
PROVIDERS: Visit Provider Orthopaedic Surgery
DX: M25.551 Pain in right hip (principal)
CPT/HCPCS: 72170

== ENCOUNTER 2023-04-07 10:20 | Outpatient (AMB) | payer OTHER, SELFPAY ==
--- NOTE | 2023-04-07 10:24 | A.OFFVIS_ITS ---
Intake Vital Signs 04/07/23 10:25 Height 5 ft 9 in Weight 200 lb BMI 29.5 Intake Visit Reasons: New Prob- left hip pain Intake Note: Jay is a 63 year old male who presents today for a new problem visit with complaints of right hip pain. Patient reports that his hip has been painful for about 2 months now. He has increased pain with prolonged sitting and climbing stairs. Allergies No Known Allergies Allergy (Verified 04/07/23 10:27) HPI New Prob- left hip pain HPI Details Jay is a 63 year old man who presents with complaints of new right hip pain. He has pain primarily with prolonged sitting and climbing stairs. He says his pain has been present for ~2 months now. He is scheduled for a left knee on 04/19/23. 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 nl ap pelvis Assessment & Plan Assessment & Plan (1) Right hip pain: Code(s): M25.551 - Pain in right hip Plan This is a 63 year old man with right hip pain. It is only present with climbing stairs and not reproduceable. He has a nl exam. I recommend we proceed with left knee . No additional treatment indicated today. Orders: Orders XR pelvis 1-2V Today M25.559 - Pain in unspecified hip Coding Level of Care Code Est Pt Level 3 (76958) Diagnoses Right hip pain M25.432
[2023-04-07 10:25] VITALS: BMI 29.5
== END 2023-04-07 11:34 | disposition home or self-care (01) ==
PROVIDERS: Visit Provider Orthopaedic Surgery
DX: M25.551 Pain in right hip (principal)
CPT/HCPCS: 99213

== ENCOUNTER 2023-04-10 08:00 | Outpatient (RCR) | payer OTHER, SELFPAY ==
--- NOTE | 2023-03-29 10:21 | MHC.OT.EP ---
[address] [phone] Occupational Therapy Plan of Care Patient Name: Jay Degroot Date of Evaluation: 03/29/23 Diagnosis: Left ulna fracture Open bite of L wrist Pain Location: Pain L wrist Current: 4/10 Worst: 8/10 Pain Score: 4 Pain Scale Used: Numeric (0 - 10) Aggravating Factors: Turning shahid, twisting doorknobs Alleviating Factors: Ice, heat Assessment: Jay is a 62 y/o left hand dominant male s/p dog bite & Fracture, DOI 02/09/23. He was casted, progressed to splint and seen by Dr. Driscoll on 03/22. X-rays showed routine healing and splint was discharged. Patient states he is still limited ROM with pronation and wrist extension, stiffness in his 4th and 5th digit. Also reports he cont's to have pain by his CMC joint. Gross grasp is 75# compared to 100# on the right. We discussed activity modification and avoidance of heavy lifting, as pt. reports he has been lifting air conditioners and 200lbs doors. Pt would benefit from skilled OT to address noted barrier and assist in return to PLOF. Frequency and Duration: The patient will be seen 2x/wk for 4 weeks Short Term Goals: Pain free with BADL's/IADL's Improve gross grasp >90# IND with progression of HEP L wrist AROM 55/60 Intermediate Goals: Same as above Treatment Plan: Therapeutic Exercise Therapeutic Activity Home Exercise Program Patient Education Edema Control Fluidotherapy MHP Cold Packs Soft Tissue Mobilization Electronically Signed By: Jahaira Carroll MS OTR/L Please Sign and return to therapist. Thank you once again for your referral.
--- NOTE | 2023-05-12 11:36 | MHC.OT.DC ---
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 Primary complaint of stiffness and pain equally. Recommended CP after heavy work Electronically Signed By: Sary Chaudhari OT CHT CLT Reviewed/agree with student documentation: Therapist: Please Sign and return to therapist, thank you for your referral.
== END 2023-05-12 11:37 | disposition home or self-care (01) ==
LOC: HO.OT 08:00
PROVIDERS: Visit Provider Orthopaedic Surgery
DX: S52.602D Unspecified fracture of lower end of left ulna, subsequent encounter for closed fracture with routine healing (principal); S61.552D Open bite of left wrist, subsequent encounter
CPT/HCPCS: 97110; 97165

== ENCOUNTER 2023-04-19 10:18 | Day surgery (SDC) | payer OTHER, SELFPAY ==
[2023-04-17 07:37] VITALS: BMI 29.5
--- NOTE | 2023-04-18 11:57 | P.CONAN_ITS ---
Documented by User: Helen Eli NP 04/18/23 11:59 HPI - Anesthesia Eval Consult details Narrative: 63yo M for Left Knee Arthroscopy PAF, no OAC PMFSH Active Problems Active Problems: All Active Problems (Updated 04/07/23 @ 14:46 by Jasvir Larson MD) Right hip pain (Acute) Open fracture of distal end of left ulna (Acute) Open fracture of left distal radius (Acute) COVID-19 (Acute) Medial meniscus tear (Acute) Abrasion forearm (Acute) Left knee pain (Acute) Left arm pain (Acute) Left lower lobe pulmonary infiltrate (Acute) Troponin level elevated (Acute) Excessive drinking alcohol (Acute) Ventral hernia (Acute) GERD (gastroesophageal reflux disease) (Acute) Biceps strain (Acute) Mass of right forearm (Acute) De Quervain's disease (radial styloid tenosynovitis) (Acute) PVNS (pigmented villonodular synovitis) (Acute) Internal derangement of left knee (Acute) Past Medical History Medical History Pneumonia due to 2019-nCoV Acute COVID-19 Alcohol abuse GERD (gastroesophageal reflux disease) 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 PAF (paroxysmal atrial fibrillation) Surgical History Surgical History Hx of ventral hernia repair History of surgery on arm Hx of colonoscopy S/P appendectomy History of Problems with Anesthesia: No Social History Social History (Updated 04/19/23 @ 10:43 by Madison Sanchez MD) Housing: House Do you presently have visiting nurse or other home services: No Alcohol intake: former Patient Tobacco Use Status: Current everyday Tobacco user Tobacco use type: Cigar service: No Current occupational status: employed 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 Meds Allergies Allergy/AdvReac Type Severity Reaction Status Date / Time No Known Allergies Allergy Verified 04/07/23 10:27 Home Medications Medication Instructions Recorded Confirmed Last Taken Type magnesium oxide 400 mg PO BID PRN 04/22/21 01/16/23 01/16/23 History multivitamin 1 tab PO DAILY 01/16/23 01/16/23 01/16/23 History Exam Height,Weight and Vital Signs: Height 5 ft 9 in Weight 90.718 kg Pertinent Lab Results Pertinent Lab Results: Laboratory Tests 01/17/23 01/17/23 01/22/23 06:06 06:06 06:25 WBC 6.0 Hgb 11.3 L Hct 33.8 L Plt Count 330 Sodium 136 Potassium 5.0 Chloride 105 Carbon Dioxide 25 BUN 10 Creatinine 0.78 Narrative Narrative: EKG 01/2023 Vent. 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 Was admitted to hospital for 1 week. States no residual symptoms Medial meniscus tear (Acute) Abrasion forearm (Acute) Left knee pain (Acute) Left arm pain (Acute) Excessive drinking alcohol (Acute)- patient denies - plays down ETOH us GERD (gastroesophageal reflux disease) (Acute) H/o Biceps strain (Acute) Mass of right forearm (Acute) De Quervain's disease (radial styloid tenosynovitis) (Acute) PVNS (pigmented villonodular synovitis) (Acute) Internal derangement of left knee (Acute) Patient denies drug history but review of records with cocaine positive 11/2021 Past Medical History Medical History Pneumonia due to 2019-nCoV Acute COVID-19 Alcohol abuse GERD (gastroesophageal reflux disease) 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 PAF (paroxysmal atrial fibrillation) Family History Family history of problems with anesthesia: No Surgical History Surgical History Hx of ventral hernia repair History of surgery on arm Hx of colonoscopy S/P appendectomy Social History Social History (Updated 04/19/23 @ 10:43 by Madison Sanchez MD) Housing: House Do you presently have visiting nurse or other home services: No Alcohol intake: former Patient Tobacco Use Status: Current everyday Tobacco user Tobacco use type: Cigar service: No Current occupational status: employed 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 Meds Allergies Allergy/AdvReac Type Severity Reaction Status Date / Time No Known Allergies Allergy Verified 04/07/23 10:27 Home Medications Medication Instructions Recorded Confirmed Last Taken Type magnesium oxide 400 mg PO BID PRN 04/22/21 01/16/23 01/16/23 History multivitamin 1 tab PO DAILY 01/16/23 01/16/23 01/16/23 History Exam Height,Weight and Vital Signs: Height 5 ft 9 in Weight 90.718 kg Vital Signs Temp Pulse Resp BP Pulse Ox O2 Del Method 04/19/23 10:53 98.8 F 60 16 147/70 H 97 Room Air Airway Mallampati Class: II TM Dist: >3cm Neck ROM: Full Loose/Missing/Broken Teeth: No (Denies broken, loose, missing teeth) Heart: RRR Lungs: CTAB Assessment and Plan Assessment Anesthesia Assessment: Anesthesia Plan Discussed Final Anesthetic Review Family History of Problems with Anesthesia: No NPO: Yes ASA Class: III Final Preanesthetic Review: No Changes in Pt Med Stat, Meds/Allgs Chart Reviewed, Consent Obtained/Reviewed and Anes Risks/Benef Reviewed Patient Risk: Intermediate Procedure Risk: Low Assessment/Block/Sedation in SS: Assess/Block/Sedation-SS Anesthetic Plan Anesthetic Plan: GA Disposition: Standard PACU
[2023-04-19] VITALS (11 sets, daily range): BP systolic 139–155; BP diastolic 53–90; PULSE 57–74; RESP 13–18; TEMP 36.6–37.1; O2SAT 95–99
[2023-04-19] MEDS: Lactated Ringers 1,000 ML 100 ML IVCONT (11:01)
--- NOTE | 2023-04-19 12:07 | P.BOP_ITS ---
Brief Operative Note Date of Service: 04/19/23 Pre-op diagnosis: Left knee lateral meniscus tear Post-op diagnosis: other (1) lateral meniscus tear 2) medial meniscus tear 3) left knee OA) Procedure: Partial medial AND laterl meniscectomy, chondroplasty Surgeon: Jasvir Larson MD Anesthesia: GETA and local Was an Lead Software Development Engineer used for this Procedure?: No Estimated blood loss (mL): 5 IV fluids (mL): 10 Pathology: none sent Condition: stable Disposition: PACU
[2023-04-19] MEDS: oxyCODONE HCl Immed Release 5 MG TABLET PO (12:18)
[2023-04-19] MEDS: fentaNYL citrate/PF 100 MCG/2 ML VIAL 25 MCG IVPUSH ×2 (12:21→12:26)
--- NOTE | 2023-04-22 07:47 | P.OP_ITS ---
Operative Note Operative Note Date of Service: 04/19/23 Narrative: Date of Service: 04/19/23 Pre-op diagnosis: Left knee lateral meniscus tear Post-op diagnosis: other (1) lateral meniscus tear 2) medial meniscus tear 3) left knee OA) Procedure: Partial medial AND lateral meniscectomy, chondroplasty Surgeon: Jasvir Larson MD Anesthesia: GETA and local Was an Electrical Engineering Intern used for this Procedure?: No Estimated blood loss (mL): 5 IV fluids (mL): 10 Pathology: none sent Condition: stable Disposition: PACU Procedure in detail: Patient was brought to the operating room placed supine on the arthroscopic table and prepped and draped in standard sterile fashion. A time-out was called to identify proper site proper procedure proper surgeon and IV antibiotics per weight were administered. I began by exsanguinating the limb and insufflating tourniquet to 300 mm Hg. Then made a standard anterolateral stab incision. The knee was insufflated with water and 30 degree arthroscope was placed. There was grade 1 fibrillations of the patella but overall suprapatellar pouch and the gutters were clean. I descended into the medial compartment where I made my medial portal under direct visualization. There was obvious of complex tear of the posterior horn of the medial meniscus. The posterior horn was flipped and extruded and there were G2 changes of the adjacent tibial plateau. The root was intact. I used a combination of biter shaver and cautery to remove unstable portions of the meniscus. Approximately 30% meniscal volume was removed. Once I was satisfied with this the ACL was examined and found to be intact and the lateral compartment was examined. Here there were extensive G3 and scattered G4 changes of the tibial plateau with a complex and tattered lateral meniscus tear. The entire meniscus posterior to the lateral aspect of the politeus was displaced and torn. This was removed with a shaver. The anterior 40% of the lateral meniscus was intact. There was femoral chondromalacia in both compartments and the lateral tibial cartilage was debrided lightly with a shaver. I then removed all instrumentation and closed the portals with nylon. 25 mL of 2% Marcaine with epinephrine was injected into the joint and the surrounding soft tissues. Patient was then placed in sterile dressing extubated brought recovery room stable condition. There were no known complications.
== END 2023-04-19 15:41 | disposition home or self-care (01) ==
LOC: HO.SSS 10:18
PROVIDERS: PCP Internal Medicine; Visit Provider Orthopaedic Surgery
PROC: (CPT 29870; principal; 2023-04-19 12:50)
DX: S83.232A Complex tear of medial meniscus, current injury, left knee, initial encounter (principal); S83.272A Complex tear of lateral meniscus, current injury, left knee, initial encounter; M94.262 Chondromalacia, left knee; M17.12 Unilateral primary osteoarthritis, left knee; X58.XXXA Exposure to other specified factors, initial encounter; Y93.9 Activity, unspecified; Y92.9 Unspecified place or not applicable; Y99.8 Other external cause status; M25.551 Pain in right hip; F10.10 Alcohol abuse, uncomplicated; K21.9 Gastro-esophageal reflux disease without esophagitis; I48.0 Paroxysmal atrial fibrillation; Z79.899 Other long term (current) drug therapy; Z98.890 Other specified postprocedural states; F17.290 Nicotine dependence, other tobacco product, uncomplicated; Z86.16 Personal history of COVID-19
CPT/HCPCS: 29880; J0171; J0690; J1100; J1885; J2250; J2405; J2704; J2795; J3010

== ENCOUNTER → 2023-04-19 10:18 | Outpatient (BNV) | payer OTHER, SELFPAY | PROVIDERS: PCP Internal Medicine; Visit Provider Orthopaedic Surgery | DX: S83.232A Complex tear of medial meniscus, current injury, left knee, initial encounter (principal); S83.272A Complex tear of lateral meniscus, current injury, left knee, initial encounter | CPT/HCPCS: 29880 ==

== ENCOUNTER 2023-04-25 11:39 | Outpatient (AMB) | payer OTHER, SELFPAY ==
--- NOTE | 2023-04-25 11:41 | A.OFFVIS_ITS ---
Intake Intake Visit Reasons: PO-Lt Knee 04/19 NE Intake Note: Jay is a 63 year old male who presents today with a cane for a post op appointment s/p left knee 04/19/23 NE. Patient reports having pain and discomfort. Allergies No Known Allergies Allergy (Verified 04/25/23 11:46) HPI PO-Lt Knee 04/19 NE HPI Details 63-year-old male who presents in the off ice today 6 days status post left knee partial medial and lateral meniscectomy with chondroplasty, which was performed on 04/19/[address] Larson. Of note: The patient reports having pain and discomfort due to having to break up a fight between his dogs. He reports this caused him to injury his operated on knee. [facility] Medical History Pneumonia due to 2019-nCoV Acute COVID-19 Alcohol abuse GERD (gastroesophageal reflux disease) 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 PAF (paroxysmal atrial fibrillation) Surgical History Hx of ventral hernia repair History of surgery on arm Hx of colonoscopy S/P appendectomy Social History Housing: House Do you presently have visiting nurse or other home services: No Alcohol intake: former Patient Tobacco Use Status: Current everyday Tobacco user Tobacco use type: Cigar service: No Current occupational status: employed 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 Review of Systems Const All systems reviewed & are unremarkable except as noted in HPI and below Physical Exam Const General: cooperative, healthy appearing and no acute distress Resp Effort & Inspection: normal respiratory effort and able to speak in complete sentences Cardio Rate: regular rate Peripheral pulses: Peripheral pulses 2+ throughout GI Palpation (GI): Soft to palpation Skin Lesions: no lesions Rashes: no rashes Extrem Other: Left knee: Incision site is clean, dry, and intact. No surrounding erythema or drainage. No signs of infection. Moderate effusion. ROM is 0-90 degrees. NVI. Assessment & Plan Assessment & Plan (1) S/P left knee arthroscopy: Comment: 04/19/2023 NE Code(s): Z98.890 - Other specified postprocedural states Plan Mr. Degroot is a 63-year-old male who presents in the office today 6 days status post left knee partial medial and lateral meniscectomy with chondroplasty, which was performed on 04/19/[address] Larson. Of note: The patient reports having pain and discomfort due to having to break up a fight between his dogs. He reports this caused him to injury his operated on knee. Sutures were removed and steri-stripes were applied. The patient requested a refill of his pain medication and I have agreed to do so at this time. I sent in a prescription for hydrocodone-acetaminophen 5-325 mg PO Q8H PRN for pain. He also requested a knee brace, however, due to the edema I have given him an off the shelf PAWAN wrap. Should he continue to request a knee brace we will re-evaluate at this next appointment. Follow up will be in 2 weeks for a ROM check, or sooner if needed. Medications: Refilled hydrocodone-acetaminophen 5-325 mg Partial Fill upon patient request. 1 tab PO Q8H PRN 21 tabs 0RF pain 7 days Patient Instructions: Scribed for Jazmine Olvera PA-C by Jamila Grande medical typist, on 04/25/2023 at 11:43 am, EST. Coding Level of Care Code Global (38630) Diagnoses S/P left knee arthroscopy Z98.890
== END 2023-04-25 12:06 | disposition home or self-care (01) ==
PROVIDERS: Visit Provider Physician Assistant
DX: Z98.890 Other specified postprocedural states (principal)
CPT/HCPCS: 99024

== ENCOUNTER → 2023-04-25 11:39 | Outpatient (BNVA) | payer OTHER, SELFPAY | PROVIDERS: Visit Provider Physician Assistant ==

== ENCOUNTER 2023-05-18 15:31 | Outpatient (AMB) | payer OTHER, SELFPAY ==
[2023-05-18 15:36] VITALS: BMI 29.5
--- NOTE | 2023-05-18 15:36 | MHC.OFFVIS ---
Intake Vital Signs 05/18/23 15:36 Height 5 ft 9 in Weight 200 lb BMI 29.5 Intake Visit Reasons: PO-Lt Knee 04/19/23 NE Allergies No Known Allergies Allergy (Verified 05/18/23 15:38) HPI PO-Lt Knee 04/19/23 NE HPI Details 63-year-old male who presents in the office today 6 days status post left knee partial medial and lateral meniscectomy with chondroplasty, which was performed on 04/19/[address] Larson. I last saw the patient in the office on 04/25/2023 where he was given an PAWAN wrap for the left knee. He had reported increased pain due to having to break up a fight between his dogs. [facility] Medical History Pneumonia due to 2019-nCoV Acute COVID-19 Alcohol abuse GERD (gastroesophageal reflux disease) 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 PAF (paroxysmal atrial fibrillation) Surgical History Hx of ventral hernia repair History of surgery on arm Hx of colonoscopy S/P appendectomy Social History Housing: House Do you presently have visiting nurse or other home services: No Alcohol intake: former Patient Tobacco Use Status: Current everyday Tobacco user Tobacco use type: Cigar service: No Current occupational status: employed 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 No surrounding erythema or drainage. No signs of infection. ROM is 0-100 degrees. NVI. Assessment & Plan Assessment & Plan (1) S/P left knee arthroscopy: Comment: 04/19/2023 NE Code(s): Z98.890 - Other specified postprocedural states Plan Mr. Degroot is a 63-year-old male who presents in the office today 6 days status post left knee partial medial and lateral meniscectomy with chondroplasty, which was performed on 04/19/[address] Larson. I last saw the patient in the office on 04/25/2023 where he was given an PAWAN wrap for the left knee. He had reported increased pain due to having to break up a fight between his dogs. The patient may return to normal activities as tolerated. He did request a refill of the hydrocodone-acetaminophen 5-325 mg, however, at this point I have instructed him that he should transition to PO Tylenol or Ibuprofen PRN for pain. We also discussed the use of a knee brace, which he had requested at his last appointment, but he states that his symptoms are improving therefore this was deferred at this time. Follow up will be PRN, or sooner if needed. Patient Instructions: Scribed for Jazmine Olvera PA-C by Jamila Grande front office medical assistant, on 05/18/2023 at 3:33 pm, EST. Coding Level of Care Code Global (38379) Diagnoses S/P left knee arthroscopy Z98.890
== END 2023-05-18 15:56 | disposition home or self-care (01) ==
PROVIDERS: Visit Provider Physician Assistant
DX: Z98.890 Other specified postprocedural states (principal)
CPT/HCPCS: 99024

== ENCOUNTER → 2023-05-18 15:31 | Outpatient (BNVA) | payer OTHER, SELFPAY | PROVIDERS: Visit Provider Physician Assistant ==

== ENCOUNTER 2023-12-28 10:05 | Outpatient (AMB) | payer OTHER, SELFPAY ==
[2023-12-28 10:07] VITALS: BMI 29.5
--- NOTE | 2023-12-28 10:07 | MHC.OFFVIS ---
Vital Signs 12/28/23 10:07 Height 5 ft 9 in Weight 200 lb BMI 29.5 Intake Visit Reasons: OV-pain in LT knee/had surgery 04/19/23 on LT knee Intake Note: Jay is a 63 year old male who presents today with complaints of left knee pain s/p left knee 04/19/23 w/ NE. Patient reports that he is having some increased pain and stiffness with gait initiation. Pt is inquiring about having a possible repeat MRI Allergies No Known Allergies Allergy (Verified 12/28/23 10:15) HPI HPI OV-pain in LT knee/had surgery 04/19/23 on LT knee: Details: Jay is a 63 year old male who presents today with complaints of left knee pain s/p left knee 04/19/23 w/ NE. Patient reports that he is having some increased pain and stiffness with gait initiation. Pain is anterior left knee He is also describing right lateral elbow pain persisting several months after a contusion to lateral epicondyle. [facility] Medical History Pneumonia due to 2019-nCoV Acute COVID-19 Alcohol abuse GERD (gastroesophageal reflux disease) 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 PAF (paroxysmal atrial fibrillation) Surgical History Hx of ventral hernia repair History of surgery on arm Hx of colonoscopy S/P appendectomy Social History Housing: House Do you presently have visiting nurse or other home services: No Alcohol intake: former Patient Tobacco Use Status: Current everyday Tobacco user Tobacco use type: Cigar service: No Current occupational status: employed 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 Site was prepped using aseptic technique. Patient tolerated the procedure well. Primary Site: left knee Secondary Site: right tennis elbow Approach Used: anterolateral Coding - Large joint - Epicondyle Procedure code (CPT) selection complete Assessment & Plan Assessment & Plan (1) Arthritis of left knee: Code(s): M17.12 - Unilateral primary osteoarthritis, left knee Category: Medical Plan: I injected left knee. (2) Lateral epicondylitis, right elbow: Code(s): M77.11 - Lateral epicondylitis, right elbow Category: Medical Plan: Right lateral epicondyle injected. Coding Level of Care Code Est Pt Level 4 (96638) Diagnoses Arthritis of left knee M17.12 Lateral epicondylitis, right elbow M77.11 CPT Codes Coding - Large joint: - Large joint ([id number]) Coding - Joint 2: - Epicondyle ([id number])
== END 2023-12-28 10:57 | disposition home or self-care (01) ==
PROVIDERS: Visit Provider Orthopaedic Surgery
DX: M17.12 Unilateral primary osteoarthritis, left knee (principal); M77.11 Lateral epicondylitis, right elbow
CPT/HCPCS: 20550; 20610; 99214

== ENCOUNTER → 2023-12-28 10:05 | Outpatient (BNVA) | payer OTHER, SELFPAY | PROVIDERS: Visit Provider Orthopaedic Surgery | DX: M17.12 Unilateral primary osteoarthritis, left knee (principal); M77.11 Lateral epicondylitis, right elbow | CPT/HCPCS: 20550; 20610; J0665; J1100 ==

== ENCOUNTER 2024-04-25 14:46 | Outpatient (AMB) | payer OTHER, SELFPAY ==
--- NOTE | 2024-04-25 15:21 | A.OFFVIS_ITS ---
Vital Signs 04/25/24 15:22 Height 5 ft 9 in Weight 200 lb BMI 29.5 Intake Visit Reasons: OV - Left Knee Pain Intake Note: Jay is a 64 year old male who presents today for a follow up of his left knee pain. Patient has tried and failed cortisone injections but does not meet medical necessity as he does not have OA. Referral for pain management was offered however he believes that pain management just masks everything rather than treating it. He presents today to discuss alternative treatment options. Allergies No Known Allergies Allergy (Verified 04/25/24 15:22) HPI HPI OV - Left Knee Pain: Details: Jay is a 64 year old male who presents today for a follow up of his left knee pain. Patient has tried and failed cortisone injections but does not meet medical necessity as he does not have OA. Referral for pain management was of fered however he believes that pain management just masks everything rather than treating it. I he has tells me that he was unable to get viscosupplementation approved because there is no evidence that he has arthritis. [facility] Medical History Pneumonia due to 2019-nCoV Acute COVID-19 Alcohol abuse GERD (gastroesophageal reflux disease) 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 PAF (paroxysmal atrial fibrillation) Surgical History Hx of ventral hernia repair History of surgery on arm Hx of colonoscopy S/P appendectomy Social History Housing: House Do you presently have visiting nurse or other home services: No Alcohol intake: former Patient Tobacco Use Status: Current everyday Tobacco user Tobacco use type: Cigar service: No Current occupational status: employed 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 Assessment & Plan Assessment & Plan (1) Arthritis of left knee: Code(s): M17.12 - Unilateral primary osteoarthritis, left knee Category: Medical Plan: This is a 64-year-old with left knee osteoarthritis. I recommend viscosupplementation. I reviewed his intraoperative pictures in the op note and he has direct evidence of arthritic changes in the left knee. His MRI demonstrates this as well. I think he is a good candidate for vi scosupplementation. The other option would be arthroplasty which I think is a little aggressive at this point. (2) Lateral epicondylitis, right elbow: Code(s): M77.11 - Lateral epicondylitis, right elbow Category: Medical Plan: He continues to have pain over the right lateral epicondyle. I injected his lateral epicondyle last visit and it was helpful. At this time I think likely would benefit from a counter force brace and activity modification which she does not sound like he is doing. Coding Level of Care Code Est Pt Level 4 (82990) Diagnoses Arthritis of left knee M17.12 Lateral epicondylitis, right elbow M77.11
[2024-04-25 15:22] VITALS: BMI 29.5
== END 2024-04-25 16:12 | disposition home or self-care (01) ==
PROVIDERS: Visit Provider Orthopaedic Surgery
DX: M17.12 Unilateral primary osteoarthritis, left knee (principal); M77.11 Lateral epicondylitis, right elbow
CPT/HCPCS: 99214

== ENCOUNTER 2024-07-04 08:23 | Outpatient (AMB) | payer OTHER, SELFPAY ==
[2024-07-04 08:26] VITALS: BMI 29.5
--- NOTE | 2024-07-04 08:26 | MHC.OFFVIS ---
Vital Signs 07/04/24 08:26 Height 5 ft 9 in Weight 200 lb BMI 29.5 Intake Visit Reasons: Inj-LT knee Gel One inj Intake Note: Jay is a 64 year old male who presents today for a Left Knee Gel-One Injection. He is also reporting right elbow pain would like repeat injection however he has history of right elbow injection in April 2024. We have filled out a [place] handicap placard for him - patient signed today while in office and we will be mailing out today. Allergies No Known Allergies Allergy (Verified 07/04/24 08:28) HPI HPI Inj-LT knee Gel One inj: Details: Jay is a 64 year old male who presents today for a Left Knee Gel-One Injection. We have filled out a [place] handicap placard for him - patient signed today while in office and we will be mailing out today. 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 Site was prepped using aseptic technique. Patient tolerated the procedure well. Shoulders, Hips, Knees, Knee Large Joint Injection : Left Knee Coding Procedure code (CPT) selection complete Assessment & Plan Assessment & Plan (1) Arthritis of left knee: Code(s): M17.12 - Unilateral primary osteoarthritis, left knee Category: Medical Plan: Gel One injection left knee. No issues. F/u 3 mo or as needed Coding Level of Care Code Est Pt Level 2 (96706) Diagnoses Arthritis of left knee M17.12 CPT Codes Shoulders, Hips, Knees, - Knee Large Joint Injection : Left Knee ([id number])
== END 2024-07-04 08:57 | disposition home or self-care (01) ==
PROVIDERS: Visit Provider Orthopaedic Surgery
DX: M17.12 Unilateral primary osteoarthritis, left knee (principal)
CPT/HCPCS: 20610

== ENCOUNTER → 2024-07-04 08:23 | Outpatient (BNVA) | payer OTHER, SELFPAY | PROVIDERS: Visit Provider Orthopaedic Surgery | DX: M17.12 Unilateral primary osteoarthritis, left knee (principal) | CPT/HCPCS: 20610; J7326 ==

== ENCOUNTER 2024-11-20 14:37 | Outpatient (REF) | payer OTHER, SELFPAY ==
--- NOTE | ~2024-11-20 | XR_ITS ---
EXAMINATION: XR CHEST CLINICAL INFORMATION: R06.02 - Shortness of breath COMPARISON: January 16, 2023. TECHNIQUE: 2 views of the chest were obtained. FINDINGS: Pulmonary reticular pattern. No gross consolidation, pleural effusion or pneumothorax. Cardiomediastinal silhouette size is normal. Multilevel thoracolumbar spondylosis. S-shaped curvature of the thoracolumbar spine. XR/XR chest 2V IMPRESSION: Consider chronic interstitial lung disease. Scoliosis and spondylosis, thoracolumbar spine. Electronically signed by: Bryan Carroll MD 11/20/2024 03:30 PM EDT
--- NOTE | ~2024-11-20 | US_ITS ---
EXAMINATION: US TRIPLEX LOWER EXTREMITY, LEFT CLINICAL INFORMATION: Left lower extremity edema and pain. COMPARISON: None available. TECHNIQUE: Color-flow triplex imaging with spectral analysis and compression Doppler were performed on the left lower extremity. FINDINGS: Respiratory variation, normal compression and augmented flow are noted throughout the left lower extremity. The visualized common femoral vein, superficial femoral vein, and profunda femoral vein show no evidence of deep venous thrombosis. There is occlusive thrombus throughout the left popliteal vein, posterior tibial veins, and peroneal veins. There is no Pearson's cyst. US/US venous duplex LE LT IMPRESSION: Positive DVT in the left lower extremity involving the peroneal vein and deep calf veins. Ordering provider made aware by the scanning technologist at 16:05, 11/20/2024. Electronically signed by: Alex Sevilla MD 11/20/2024 04:10 PM EDT
== END 2024-11-20 14:38 | disposition home or self-care (01) ==
LOC: HO.HMGCX 14:37
PROVIDERS: Visit Provider Physician Assistant
DX: R06.02 Shortness of breath (principal); I82.432 Acute embolism and thrombosis of left popliteal vein; R60.0 Localized edema; R10.11 Right upper quadrant pain; M79.662 Pain in left lower leg; Z87.19 Personal history of other diseases of the digestive system; Z90.49 Acquired absence of other specified parts of digestive tract; Z86.79 Personal history of other diseases of the circulatory system
CPT/HCPCS: 71046; 93005; 93971

== ENCOUNTER 2024-11-20 14:37 | Outpatient (AMB) | payer OTHER, SELFPAY ==
[2024-11-20 14:41] VITALS: BP 128/66; PULSE 95; TEMP 36.9; O2SAT 98; BMI 30.8
--- NOTE | 2024-11-20 14:41 | MHC.OFFWIV ---
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 gallbladder issues Intake Note: presents with SOB;reports h/o A-fib, RUQ pain; h/o gallstones for about 2 months Patient Tobacco Use Status: Current everyday Tobacco user Allergies No Known Allergies Allergy (Verified 11/20/24 14:45) Do you need a note to return to daycare/school/sports/work: No HPI HPI Comments History of Present Illness Details Patient is a 64yo M who presents with constant abdominal/back pain Ongoing 1-1.5 months intermittently He said hx of gallbladder issues with gallstones in past He said hernia repair in past and appendectomy Pain is daily and lingers Starts in back and wraps around R side Ibuprofen 800 and drinking water helps He said lasts until he takes medicine No ffod association per patient recall He eats keto meat/cheese diet He said normal bowel movements but bowel movements are on the waxer operator color Denies fever or chills Does note hx of paroxsysmal afib not anticogulated States over 2-3 weeks feels SOB No cough No CP or palpation Admits to L leg swelling ongoing x 1 day Does recall falling off step ladder a few days ago and feeling pain in his left calf PFS Medical History (Updated 11/20/24 @ 16:12 by Mónica Santiago PA-C) Pneumonia due to 2019-nCoV Acute COVID-19 Alcohol abuse GERD (gastroesophageal reflux disease) 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 PAF (paroxysmal atrial fibrillation) Surgical History Hx of ventral hernia repair History of surgery on arm Hx of colonoscopy S/P appendectomy Social History Housing: House Do you presently have visiting nurse or other home services: No Alcohol intake: former Patient Tobacco Use Status: Current everyday Tobacco user Tobacco use type: Cigar service: No Current occupational status: employed 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 Review of Systems Const Denies chills, Denies fever(s), Denies frequent falls and Denies headache(s) Eyes Denies change in vision ENT Denies otalgia, Denies headache(s), Denies nasal congestion and Denies sore throat Card Denies chest pain, Denies syncope, Reports leg edema and Reports dyspnea Resp Denies cough, Reports dyspnea and Denies wheezing GI Reports abdominal pain, Denies melena, Denies hematochezia, Denies GI cramping, Denies diarrhea and Denies vomiting Denies difficulty urinating and Denies dysuria Musc Reports back pain Skin/Breast Denies rash Neuro Denies syncope, Denies frequent falls and Denies headache(s) Aller/Immun Denies wheezing Physical Exam Vital Signs: Last Vital Signs Temp 98.4 F 11/20/24 14:41 Pulse 95 11/20/24 14:41 BP 128/66 11/20/24 14:41 Pulse Ox 98 11/20/24 14:41 Oxygen Delivery Method Room Air 11/20/24 14:41 BMI result Body Mass Index 30.8 General: Non-toxic, NAD. Speaking full sentences. Skin: Warm dry throughout +LLE edematous when compared to right circumfrentially. Minimal eryrhema to anterior L duncan without warmth Eye: EOMI HENT: Airway patent. Uvula midline. No pharyngeal erythema or edema. No ALLIANCES CONSULTANT. Bilateral canals clear. TM non-erythematous, non-bulging. No TM perforation or hemotympanum noted. Respiratory: CTA bilaterally. No wheezes, rales or rhonchi Cardiac: RRR. No murmur Abdominal: BS present x 4. No ttp throughout. No pulsating mass. No CVAT on exam. MSK: No midline spinal ttp. Full ROM extremities. Neurology: Alert. No aphasia or facial droop. Gait without abnormality Psych: Good mood and affect Assessment & Plan Assessment & Plan (1) Shortness of breath: Code(s): R06.02 - Shortness of breath Plan: Patient seen and evaluated. EKG: normal sinus rhythm. Left axis deviation (noted on 01/14/23) and inferior infarct age indeterminate (noted on 01/14/23 and 05/05/08) Chest xray: No infiltrate or mass based on my interpretation Discussed EKG and chest xray results with pt Due to L leg danial aon exam, will get US to r/o LLE DVT. He will get this within the next 30 minutes. CBC, BMP, liver enzymes and lipase ordered. Patient gave verbal understanding and had no additional questions or concerns at time of discharge All questions answered 4:09pm + LLE US for DVT. I discussed with pt in the US room and he is aware and is willing to go to [facility]. He refuses to go via ambulance Call placed to [facility] and expect given. recruiting team lead will scan in preliminary US read for their record and they are aware we are recommending PE rule out. All questions answered (2) Leg edema, left: Code(s): R60.0 - Localized edema Plan: + DVT sent to ER (3) Abdominal pain: Code(s): R10.9 - Unspecified abdominal pain Qualifiers: Abdominal location: right upper quadrant Qualified Code(s): R10.11 - Right upper quadrant pain Plan: See plan above No acute abdomen on examonatiion (4) DVT (deep venous thrombosis): Code(s): I82.409 - Acute embolism and thrombosis of unspecified deep veins of unspecified lower extremity Qualifiers: DVT location: lower extremity Affected thrombotic vein of extremity: popliteal Chronicity: acute Laterality: left Qualified Code(s): I82.432 - Acute embolism and thrombosis of left popliteal vein Plan: sent to ER Orders: Orders XR chest 2V Today R06.02 - Shortness of breath AMB EKG-In Office Today R06.02 - Shortness of breath Basic Metabolic Panel Today R10.9 - Unspecified abdominal pain Liver Panel Today R10.9 - Unspecified abdominal pain US venous duplex LE LT Today R60.0 - Localized edema Complete Blood Count Auto Diff Today R10.9 - Unspecified abdominal pain Lipase Today R10.9 - Unspecified abdominal pain Coding Level of Care Code Est Pt Level 5 (77028) Diagnoses Shortness of breath R06.02 Leg edema, left R60.0 Right upper quadrant abdominal pain R10.11 Abdominal location: right upper quadrant Acute deep vein thrombosis (DVT) of popliteal vein of left lower extremity I82.432 DVT location: lower extremity Affected thrombotic vein of extremity: popliteal Chronicity: acute Laterality: left
== END 2024-11-20 15:44 | disposition home or self-care (01) ==
PROVIDERS: Visit Provider Physician Assistant
DX: R06.02 Shortness of breath (principal); R60.0 Localized edema; R10.11 Right upper quadrant pain; I82.432 Acute embolism and thrombosis of left popliteal vein

== ENCOUNTER → 2024-11-20 15:15 | Outpatient (BNV) | payer OTHER, SELFPAY | PROVIDERS: Visit Provider Radiology Diagnostic Radiology | DX: K86.89 Other specified diseases of pancreas (principal); I26.99 Other pulmonary embolism without acute cor pulmonale; K80.00 Calculus of gallbladder with acute cholecystitis without obstruction; I82.452 Acute embolism and thrombosis of left peroneal vein; R06.02 Shortness of breath | CPT/HCPCS: 71046; 71275; 74177; 76705; 93971 ==

== ENCOUNTER 2024-11-20 16:29 | Inpatient (IN) | payer OTHER, SELFPAY ==
--- NOTE | ~2024-11-20 | US_ITS ---
EXAMINATION: US ABDOMEN LIMITED HISTORY: post biopsy pain, elevated bili, ? stones TECHNIQUE: Real-time grayscale ultrasound imaging of the gallbladder was performed and images were reviewed. COMPARISON: Comparison is made with the prior examination abdominal ultrasound dated 11/20/2024 and the prior HIDA scan dated 11/21/2024. FINDINGS: The gallbladder is distended and demonstrates multiple shadowing calculi. There is no wall thickening. There is a small amount of pericholecystic fluid/ascites. The patient appears tender over the gallbladder consistent with a sonographic Frank sign. US/US abdomen limited IMPRESSION: Distended gallbladder with cholelithiasis and a positive sonographic Frank sign. Findings are compatible with acute cholecystitis as seen on HIDA scan 11/21/2024.. Electronically signed by: Misha Hilton MD 11/27/2024 07:08 AM EDT
--- NOTE | ~2024-11-20 | US_ITS ---
EXAMINATION: US ABDOMEN LIMITED CLINICAL INFORMATION: Right upper quadrant pain, elevated alkaline phosphatase. Pancreatic mass on recent CT abdomen exam 11/20/2024. COMPARISON: None available. TECHNIQUE: Real-time imaging of the right upper quadrant abdominal viscera. FINDINGS: Liver: The liver is diffusely echogenic with areas of heterogeneity. No obvious liver metastases was seen for biopsy. Patient was transferred to CAT scan for biopsy. US/US abdomen limited IMPRESSION: Heterogenous liver with no focal lesion seen. Biopsy. Patient was transferred to CAT scan for biopsy. Electronically signed by: Dexter Melara MD 11/25/2024 04:42 PM EDT
--- NOTE | ~2024-11-20 | NM_ITS ---
EXAMINATION: NM HEPATOBILIARY WITHOUT PHARM HISTORY: abd pain ?cholecystitis. TECHNIQUE: An hepatobiliary scan was performed following the intravenous administration of 5 mCi technetium 99m-mebrofenin. Sequential images were obtained over 2 hours. Delayed images were obtained at 3.5 hours. COMPARISON: Correlation is made with an abdominal ultrasound and a CT of the abdomen with contrast dated 11/20/2024. FINDINGS: There is normal uptake of the radiopharmaceutical by the liver. Multiple rounded defects are seen within the liver consistent with the metastatic deposits noted on CT. Common bile duct activity is noted at 8 minutes. Small bowel activity is seen at 16 minutes. No gallbladder activity is identified over the course of 2 hours. Delayed images demonstrate no activity in the gallbladder. Findings are consistent with cystic duct obstruction. NM/NM hepatobiliary wo pharm IMPRESSION: 1. Findings consistent with cystic duct obstruction and acute cholecystitis. 2. Multiple photopenic defects in the liver, consistent with the metastatic deposits noted on CT. 3. Findings were discussed with Dr. Morales on 11/22/2024 at 7:22 AM. Electronically signed by: Misha Hilton MD 11/22/2024 07:24 AM EDT
--- NOTE | ~2024-11-20 | CT_ITS ---
PROCEDURE: CT-GUIDED DRAINAGE, PERITONEAL ABSCESS CLINICAL INFORMATION: COLLECTION, pt needs biliary/crystal tube placement COMPARISON: None available. TECHNIQUE: . Following explaining CT fluoroscopy guided cholecystostomy tube procedure, benefits and risk, a written consent was obtained. Consent 5 sedation was obtained as well. Patient was placed supine on CT fluoroscopy table and preliminary imaging through the upper abdomen was obtained. An axial slice was selected and lead lead markers were placed along the right anterolateral abdomen and repeat imaging was performed. An optimal marker was selected and marked on the skin. The marked site was cleaned and draped in usual sterile manner. 1% lidocaine was injected at puncture site. Through a small skin incision a 5 [place] Co3 Systemseh catheter was advanced from the skin through the anterior lobe of liver into the gallbladder. After observing bilateral return, stylet was removed and 0.035 J-wire was advanced through the catheter. The catheter was withdrawn and 8 [place] APD catheter with stiffener was advanced over the guidewire. After advancing the the catheter approximately 10 cm, the stiffener was lucent and the catheter advanced over the guidewire. The guidewire and stiffener were removed, and pigtail was formed by pulling the thread and the catheter was connected to suction bulb via a to a valve. The catheter was anchored to the skin with 3 0 nonabsorbable sutures. Patient tolerated procedure extremely well. No hemorrhage seen. Intravenous conscious sedation was administered and patient monitored by IR nurse and IR physician. Rapid This CT examination was performed using dose optimization techniques as appropriate, variously including the following: *Automated exposure control *Adjustment of mA and/or kV according to patient size (this includes techniques or standardized protocols for targeted exams where dose is matched to indication/reason for exam; i.e. extremities or head) *Use of iterative reconstruction technique. FINDINGS: On preliminary CT imaging there is mild bibasilar atelectasis/infiltrates and small right pleural. There is small right pleural effusion with multiple liver lesions. This gallbladder is distended with heterogeneous fluid collection. Also visualizes diffuse anasarca. An 8 [place] APD catheter was left in gallbladder. The bile is clear color with No immediate complications. CT/CT drain peritoneum IMPRESSION: Status post CT fluoroscopy guided placement of percutaneous transhepatic cholecystostomy catheter connected to a vacuum bottle. None of this fluid was sent to lab. Electronically signed by: Dexter Melara MD 12/02/2024 03:37 PM EDT RP
--- NOTE | ~2024-11-20 | CT_ITS ---
EXAMINATION: CT ABDOMEN PELVIS WITH IV CONTRAST HISTORY: Worsening liver functions, bilirubin COMPARISON: Comparison is made with the prior examination dated 11/20/2024. TECHNIQUE: CT scan of the abdomen and pelvis was performed following administration of 85 mL Omnipaque 350 using standard departmental protocol. Coronal and sagittal reformatted images were generated and reviewed. Oral contrast material was not administered at the request of the referring physician. This CT exam was performed with one or more of the following dose reduction techniques: automated exposure control, adjustment of the mA and/or kV according to patient size, use of iterative reconstruction technique. DLP: 929 mGy-cm FINDINGS: LOWER CHEST: There are filling defects in the right main and bilateral lower lobe pulmonary arterial branches consistent with pulmonary emboli as noted on chest CTA 11/20/2024. There are airspace opacities at the lung bases which may represent atelectasis or pneumonia. There is a trace right pleural effusion. CARDIOVASCULATURE: The heart is normal in size. There is no pericardial effusion. LIVER: Numerous hypodense masses are again seen within the liver. These appear larger and more numerous than on the prior study. For example, a mass at the dome of the left lobe measures 3.5 cm (previously 3.0 cm). The hepatic and portal veins are patent. GALLBLADDER / BILE DUCTS: A drainage catheter is seen in the gallbladder. There is cholelithiasis. There is no intra or extrahepatic biliary ductal dilatation. SPLEEN: The spleen is normal in size. No focal splenic lesion is identified. 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 PANCREAS: Again seen is a 4.5 cm mass pancreatic body with atrophy of the pancreatic tail. ADRENAL GLANDS: Within normal limits. KIDNEYS/RETROPERITONEUM: No renal calculi are identified. There is no hydronephrosis. Again seen are bilateral renal cysts measuring up to the right and 1.3 cm on the left. LYMPH NODES: Again seen are enlarged periportal and peripancreatic lymph nodes. There are subcentimeter para-aortic lymph nodes which are more notable for number than size. VASCULATURE: The abdominal aorta demonstrates atherosclerotic calcification, but is normal in caliber. MESENTERY/PERITONEUM: There is a small amount of free fluid in the pelvis and in the paracolic gutters. No masses. There is no free intraperitoneal gas. STOMACH: The stomach is collapsed, limiting evaluation. SMALL BOWEL: The small bowel is normal in caliber. COLON: There is a large amount of stool throughout the colon. APPENDIX: The appendix is not seen, however no inflammatory changes are seen adjacent to the cecum. URINARY BLADDER/PELVIC ORGANS: The urinary bladder is unremarkable. The prostate is normal in size. BONES / SOFT TISSUES: There is anasarca. There is degenerative disc disease of the spine. CT/CT abdomen pelvis w IV con IMPRESSION: 1. Progression of hepatic metastatic disease as described. 2. 4.5 cm mass in the pancreatic body as seen previously. 3. Bilateral pulmonary emboli as noted on chest CTA. 4. Status post placement of a cholecystostomy tube in satisfactory position. 5. Large amount of stool throughout the colon. Electronically signed by: Misha Hilton MD 12/04/2024 07:19 AM EDT
--- NOTE | ~2024-11-20 | CT_ITS ---
CLINICAL HISTORY: Pleurisy; SOB; Recently Diagnosed DVT CT angiogram chest/pulmonary arteries with contrast Multiplanar reconstructions and MIPS Comparison: 01/21/2023 Findings: Bilateral lower lobe pulmonary emboli noted. Smaller upper lobe emboli are also identified. Possible right heart strain, RV/LV 1.1. Thoracic aorta normal caliber without dissection. Heart size normal. Great vessel origins patent. No coronary calcifications. Bilateral lower lobe subsegmental atelectasis. No significant mediastinal or hilar adenopathy. No free pleural fluid. No acute bony abnormality noted. Impression: Bilateral pulmonary emboli with possible right heart strain Bilateral lower lobe subsegmental atelectasis This document has been electronically signed by: Alberto Flood MD on 11/20/2024 22:47:59
--- NOTE | ~2024-11-20 | CT_ITS ---
CLINICAL HISTORY: RUQ Pain; Tenderness; GB Thickening on US CT abdomen and pelvis with contrast Comparison: None provided Findings: Chest findings in chest CT report. No acute bony abnormalities. 4.5 cm pancreatic body mass concerning for primary malignancy. No acute peripancreatic stranding is identified. Portacaval and peripancreatic adenopathy noted. Numerous hepatic lesions concerning for metastasis. Spleen and adrenal glands unremarkable. Cholelithiasis and/or gallbladder sludge. Moderate gallbladder distention noted. Consider ultrasound if there is biliary colic. No significant focal renal abnormalities. Renal cysts without stones or hydronephrosis. Abdominal aorta is normal in caliber. No free fluid or adenopathy in the pelvis. No diverticulitis. Appendix not identified. Impression: Pancreatic body mass concerning for primary malignancy Portacaval and peripancreatic adenopathy consistent with metastasis Extensive hepatic metastasis also noted This document has been electronically signed by: Alberto Flood MD on 11/20/2024 22:52:03
--- NOTE | ~2024-11-20 | CT_ITS ---
PROCEDURE: CT GUIDED BIOPSY, LIVER CLINICAL INFORMATION: Multiple liver lesions. Also visualized pancreatic lesion. COMPARISON: CT abdomen and pelvis with IV contrast 11/20/2024. TECHNIQUE: Explaining CT fluoroscopy guided liver biopsy procedure, benefits and risk, a written consent was obtained. Patient was placed supine on CT table and preliminary imaging was obtained. An optimal slice was selected and markers placed along the epigastric region and repeat imaging performed. An optimal marker along the slice was selected and marked on the skin. The marked site was cleaned and draped in usual sterile manner. 1% local Xylocaine was injected puncture site. Through a small skin incision 18-gauge guide needle was advanced from this skin incision into the left hepatic lobe lesion. Coaxially a 3 pass biopsy was performed. Postbiopsy 2 Gelfoam was inserted and needle removed. Complete hemostasis achieved at puncture site. Patient tolerated procedure extremely well. Conscious sedation was administered during exam and patient monitored by IR nursing and IR physician. This CT examination was performed using dose optimization techniques as appropriate, variously including the following: *Automated exposure control *Adjustment of mA and/or kV according to patient size (this includes techniques or standardized protocols for targeted exams where dose is matched to indication/reason for exam; i.e. extremities or head) *Use of iterative reconstruction technique DLP 466 mGy/cm. FINDINGS: Preliminary CT imaging there are 2 large hypodense lesions in the left hepatic lobe. CT fluoroscopy guided left hepatic lobe lesion core biopsy performed x3. Sample collected was sent to lab in alcohol solution. CT/CT biopsy liver IMPRESSION: Successful ultrasound-guided left hepatic lobe lesion biopsy performed without immediate complications. Electronically signed by: Dexter Melara MD 11/26/2024 07:57 AM EDT
--- NOTE | ~2024-11-20 | US_ITS ---
CLINICAL HISTORY: RUQ pain, elevated alk phos --- Additional Notes or Special Instructions: Look at gallbladder, liver, pancreas, duct US abdomen limited Comparison: None provided Findings: Liver homogeneous without focal abnormality. Right lobe 20 cm length. Main portal vein patent with antegrade flow. Visualized pancreas unremarkable. 3.1 cm portacaval node noted. Additional 1.9 cm portacaval node. Cholelithiasis with wall thickening at 4.3 mm. Common duct 3.6 mm diameter. Impression: Cholelithiasis with gallbladder wall thickening Findings may represent cholecystitis Nonspecific portacaval adenopathy This document has been electronically signed by: Alberto Flood MD on 11/20/2024 21:01:49
[2024-11-20 17:20] VITALS: BP 143/83; PULSE 75; RESP 16; TEMP 37.1; O2SAT 97; BMI 30.5
--- NOTE | 2024-11-20 17:21 | ED_ITS ---
HPI - General Adult General Chief complaint: Dyspnea Stated complaint: L Lower Leg- Blood Clot, Hard Time Breathing Time Seen by Provider: 11/20/24 21:10 Source: patient Mode of arrival: ambulatory Limitations: no limitations History of Present Illness ED Provider: Alex LEUNG HPI narrative: The patient is a 64-year-old male with history of GERD, presenting to the ED from urgent care for evaluation of dyspnea with new diagnosis of DVT. The patient reports over the past 2 months he has been experiencing exertional dyspnea, as well as right upper quadrant abdominal pain which occurs sometimes after eating but can also occur spontaneously. The patient was seen at urgent care for worsening and more frequent right upper quadrant abdominal pain, during urgent care visit the patient was found to have left lower extremity swelling, sent for an ultrasound which showed positive DVT. In the setting of a new DVT with shortness of breath the patient was sent to the ED for further evaluation of right upper quadrant pain and rule out PE. The patient denies associated fever/chills, chest pain, pleurisy, nausea, vomiting, diarrhea, recent sick contacts, or recent trauma. The patient denies surgical abdominal history. The patient denies any recent extended travel or injury. Related Data Home Medications ?Medication ?Instructions ?Recorded ?Confirmed magnesium oxide 400 mg PO BID PRN 04/22/21 0 01/16/23 multivitamin 1 tab PO DAILY 01/16/2301/06 ibuprofen 600 mg tablet (IBU) 800 mg PO BID PRN sodium hyaluronate 20 mg capsule 200 mg PO .once daily joint aches 11/20/24 Allergies Allergy/AdvReac Type Severity Reaction Status Date / Time No Known Allergies Allergy Verified 11/20/24 17:26 Review of Systems 2 Review of Systems: Yes all other systems are reviewed and are negative [facility] Past Medical History Medical History (Updated 11/20/24 @ 23:36 by Alex Colon PA-C) Pneumonia due to 2019-nCoV Acute COVID-19 Alcohol abuse GERD (gastroesophageal reflux disease) 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 PAF (paroxysmal atrial fibrillation) Surgical History Hx of ventral hernia repair History of surgery on arm Hx of colonoscopy S/P appendectomy Social History Social History (Reviewed 04/25/24 @ 15:25 by CATY Burroughs Housing: House Do you presently have visiting nurse or other home services: No Alcohol intake: former Patient Tobacco Use Status: Current everyday Tobacco user Tobacco use type: Cigar Smoked in Last 30 Days: Yes Use of substances other than those prescribed or required for medical reasons: No Advance Directives: No Advance Directives Information Provided: No Do you have a plan to hurt others: No Plan service: No Current occupational status: employed 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 Vital signs as documented. HEAD: Atraumatic, normocephalic. EYES: EOMs grossly intact, pupils equal, conjunctiva clear, no exudate. ENT: Nares patent, no discharge. Airway patent, no audible stridor, visible mucosa is pink and moist without noted lesions. NECK: Trachea is midline, no obvious masses or gross abnormalities. CHEST: Symmetric movement, normal appearance. LUNGS: LS present and CTAB, no w/r/r. Non-labored work of breathing. CARDIAC: Regular Rhythm, S1/S2 appreciated, no murmurs, rubs or gallops. ABDOMEN: Abdomen soft x4 quadrants, positive tenderness to palpation of the right upper quadrant, negative Frank's, negative rebound, negative CVAT bilaterally, no palpable masses or organomegaly. : Deferred. EXTREMITIES: Normal tone, moves all extremities spontaneously without reported pain. No obvious acute injury or deformity noted. NEURO: Alert and oriented x3, CN II-XII appear grossly intact. Cerebellar Functioning grossly intact. No obvious sensory or motor deficits. Speech clear and appropriate. PSYCH: normal affect, appropriate eye contact, fluid speech, with appropriate response to questioning. No reported suicidality or homicidality. SKIN: Warm, dry, color appropriate, normal turgor. No rashes noted. Course Course Course Narrative: 11/20/24 1721 MADHU Driscoll This is a Rapid Medical Examination (RME) performed by Adeel Walters PA-C in triage. Full HPI, ROS, assessment and treatment plan per primary provider in the Main ED. Hx: 64 yo M here from for eval of shortness of breath. seen at today for eval of abdominal pain ( galbladder pain ) and SOB, was found to have swelling to LLE - positive venous duplex w/ DVT. not currently on thinners. sent here to r/o PE as he is having SOB. no chest pain. PE/vitals: satting 96% on RA. Plan: labs, ekg - will defer imaging to primary provider. Imaging done today: US venous duplex LE LT IMPRESSION: Positive DVT in the left lower extremity involving the peroneal vein and deep calf veins. XR chest 2V IMPRESSION: Consider chronic interstitial lung disease. Scoliosis and spondylosis, thoracolumbar spine. Electronically signed by: Bryan Carroll MD 11/20/2024 03:30 PM EDT Medications Administered Discontinued Medications Generic Name Dose Route Start Last Admin Trade Name Freq PRN Reason Stop Dose Admin Sodium Chloride 1,000 mls @ 999 mls/hr 11/20/24 21:30 11/20/24 22:40 Ns IV 11/20/24 22:30 Infused .Q1H1M CYRIL Infusion Iohexol 85 ml 11/20/24 21:37 11/20/24 21:37 Iohexol 350 Mg/Ml 100 Ml Infus..Btl IV 11/20/24 21:38 85 ml ONCE ONE Administration Magnesium Oxide 400 mg 11/20/24 21:16 11/20/24 21:40 Magnesium Oxide 400 Mg Tablet PO 11/20/24 21:17 400 mg ONCE ONE Administration Medical Decision Making Medical Decision Making MDM Narrative: 11:26 PM 11/20/2024 (Adeel LEUNG): The patient is a 64-year-old male presenting to the ED for evaluation of dyspnea and right upper quadrant abdominal pain in the setting of a recently diagnosed DVT at urgent Care today. The patient has no risk factors for DVT, presented to the ED normotensive without hypoxia. However in the setting of recently diagnosed DVT and shortness of breath, the patient was sent for a CTA chest. The patient was ordered for right upper quadrant ultrasound during triage due to the reported right upper quadrant abdominal tenderness. The patient's ultrasound showed question of gallbladder thickening concerning for cholecystitis, patient's laboratory evaluation showed abnormal LFTs but without elevated T bili or significant leukocytosis. Due to these findings the patient was also sent for a CT abdomen and pelvis with runoff with the CTA chest. The patient's CT imaging resulted and unfortunately shows evidence of a pancreatic mass with liver metastasis as well as bilateral PEs with question right heart strain. Just prior to CT results the patient was noted to be mildly hypoxic on room air, was placed on FiO2 via nasal cannula with improvement in oxygenation. Following CT results patient was ordered for heparinization and was informed of the CT concerns for pancreatic cancer with metastasis. The patient will be admitted for PE with question right heart strain, with increased oxygen requirement, and new diagnosis of pancreatic mass with hepatic masses. Of note, at the patient's request the patient's was also informed of the results via phone. Admission/Observation Consideration of admission/observation: Escalation of care including admission/observation considered Consult Healthcare Provider Management of the patient was discussed with: Hospitalist Lab Data MDM Lab Attestation statement: I reviewed the patient's lab results. 11/20/24 17:37 11/20/24 17:37 Labs: Lab Results 11/20/24 11/20/24 Range/Units 17:37 20:01 WBC 11.6 H (4.8-10.8) X10*3/uL RBC 4.40 L (4.60-5.80) X10*6/uL Hgb 12.4 L (14.0-18.0) g/dl Hct 38.3 L (42.0-52.0) % MCV 87.0 (80.0-98.0) fL MCH 28.2 (27.0-33.0) pg MCHC 32.4 (31.0-36.0) g/dl RDW 14.3 (11.0-16.0) % Plt Count 223 D (160-400) X10*3/uL MPV 10.2 (9.4-12.4) fL Immature Gran % (Auto) 0.6 H (0.0-0.4) % Neut % (Auto) 78.3 H (45-73) % Lymph % (Auto) 7.5 L (20-40) % Ocean % (Auto) 8.9 (2-11) % Eos % (Auto) 4.0 (0-4) % Baso % (Auto) 0.7 (0-2) % Lymph # (Auto) 0.9 L (1.2-4.9) X10*3/uL Ocean # (Auto) 1.0 (0.1-1.2) X10*3/uL Eos # (Auto) 0.5 H (0.0-0.4) X10*3/uL Baso # (Auto) 0.1 (0.0-0.2) X10*3/uL Abs Immat Gran (auto) 0.07 H (0.00-0.03) X10*3/uL Absolute Neuts (auto) 9.1 H (2.0-8.3) x10*3/uL Absolute Nucleated RBC 0.000 (0.0-0.012) X10*3/uL Nucleated RBC % (auto) 0.0 (0.0-0.2) /100WBC PT 12.4 (10.9-12.4) SEC INR 1.1 (0.9-1.1) APTT 29.7 (26.0-36.8) SEC Sodium 140 (135-145) mmol/L Potassium 4.6 (3.3-5.1) mmol/L Chloride 108 (96-108) mmol/L Carbon Dioxide 21 L (22-29) mmol/L Anion Gap 16 (12-20) BUN 20 H (9-16) mg/dL Creatinine 0.91 (0.5-1.4) mg/dL Estim Creat Clear Calc 99.7 Estimated GFR > 60 Random Glucose 124 H (60-115) mg/dL Calcium 9.4 (8.4-10.2) mg/dL Magnesium 2.2 (1.6-2.6) mg/dL Total Bilirubin 0.8 (0.0-1.0) mg/dL AST 139 H (5-37) U/L ALT 155 H (0-40) U/L Alkaline Phosphatase 790 H (39-117) U/L Troponin I High Sens 7.9 D (<3.5-35.0) ng/L Total Protein 6.9 (6.5-8.0) g/dL Albumin 4.1 (3.5-5.0) g/dL Lipase 30 (8-78) U/L Urine Color Yellow Urine Appearance Clear Urine pH 5.5 (5.0-9.0) Ur Specific [place] 1.025 (1.005-1.025) Urine Protein Trace (Neg-Trace) mg/dL Urine Glucose (UA) Negative (Negative) mg/dL Urine Ketones 15 (Negative) mg/dL Urine Blood Negative (Negative) Urine Nitrite Negative (Negative) Ur Leukocyte Esterase Negative (Negative) Urine RBC 0-2 (0-2) /HPF Urine WBC 0-5 (0-5) /HPF Ur Squamous Epith Cells 0-2 (0-2) /HPF Urine Bacteria None Seen (None Seen) Hyaline Casts 3-5 (0-2) /LPF Independent Interpretation I performed an independent interpretation of an: EKG (EKG shows sinus rhythm with a rate of 70, there is left axis deviation but no evidence of acute ischemia, no ST elevation, no ectopy. QTC 410. Compared to previous on 01/14/2023 there are no acute morphology changes. ) Radiology Impression Discussion of test interpretation with radiology: I have reviewed the radiologist's reading. Radiologist Impression: CLINICAL HISTORY: RUQ pain, elevated alk phos --- Additional Notes or Special Instructions: Look at gallbladder, liver, pancreas, duct US abdomen limited Comparison: None provided Findings: Liver homogeneous without focal abnormality. Right lobe 20 cm length. Main portal vein patent with antegrade flow. Visualized pancreas unremarkable. 3.1 cm portacaval node noted. Additional 1.9 cm portacaval node. Cholelithiasis with wall thickening at 4.3 mm. Common duct 3.6 mm diameter. Impression: Cholelithiasis with gallbladder wall thickening Findings may represent cholecystitis Nonspecific portacaval adenopathy This document has been electronically signed by: Alberto Flood MD on 11/20/2024 21:01:49 Report Number: [id number]: Total DLP = 335.00 mGy-cm ADDENDUMThis document has been electronically signed by: Alberto Flood MD on 11/20/2024 22:47:59 ADDENDUM: This report was discussed with Alex LEUNG on Nov 20, 2024 22:49:00 EDT. This document has been electronically signed by: Katia Marion on 11/20/2024 22:49:53 Addendum Dictated By: Alberto Flood MD Addendum Signed By: <Electronically signed by Alberto Flood MD in [place]> 11/20/242249 Addendum Cosigned By: DD/ TD/TT: 11/20/24 CLINICAL HISTORY: Pleurisy; SOB; Recently Diagnosed DVT CT angiogram chest/pulmonary arteries with contrast Multiplanar reconstructions and MIPS Comparison: 01/21/2023 Findings: Bilateral lower lobe pulmonary emboli noted. Smaller upper lobe emboli are also identified. Possible right heart strain, RV/LV 1.1. Thoracic aorta normal caliber without dissection. Heart size normal. Great vessel origins patent. No coronary calcifications. Bilateral lower lobe subsegmental atelectasis. No significant mediastinal or hilar adenopathy. No free pleural fluid. No acute bony abnormality noted. Impression: Bilateral pulmonary emboli with possible right heart strain Bilateral lower lobe subsegmental atelectasis This document has been electronically signed by: Alberto Flood MD on 11/20/2024 22:47:59 Report Number: [id number]: Total DLP = 743.00 mGy-cm CLINICAL HISTORY: RUQ Pain; Tenderness; GB Thickening on US CT abdomen and pelvis with contrast Comparison: None provided Findings: Chest findings in chest CT report. No acute bony abnormalities. 4.5 cm pancreatic body mass concerning for primary malignancy. No acute peripancreatic stranding is identified. Portacaval and peripancreatic adenopathy noted. Numerous hepatic lesions concerning for metastasis. Spleen and adrenal glands unremarkable. Cholelithiasis and/or gallbladder sludge. Moderate gallbladder distention noted. Consider ultrasound if there is biliary colic. No significant focal renal abnormalities. Renal cysts without stones or hydronephrosis. Abdominal aorta is normal in caliber. No free fluid or adenopathy in the pelvis. No diverticulitis. Appendix not identified. Impression: Pancreatic body mass concerning for primary malignancy Portacaval and peripancreatic adenopathy consistent with metastasis Extensive hepatic metastasis also noted This document has been electronically signed by: Alberto Flood MD on 11/20/2024 22:52:03 Dictated By: Alberto Flood MD Signed By: <Electronically signed by Alberto Flood MD in [place]> 11/20/24 [id number] Discharge Plan Discharge Clinical Impression: Pulmonary embolism, Mass of pancreas, Liver masses, DVT (deep venous thrombosis) Patient Disposition: Admitted As Inpatient Print Language: Tongan
--- NOTE | 2024-11-20 17:24 | ECG_ITS ---
Test Reason : SOB Blood Pressure : */* mmHG Vent. Rate : 70 BPM Atrial Rate : 70 BPM P-R Int : 148 ms QRS Dur : 78 ms QT Int : 380 ms P-R-T Axes : 2 -50 23 degrees QTcB Int : 410 ms Normal sinus rhythm Left axis deviation Abnormal ECG When compared with ECG of 14-Jan-2023 17:48, No significant change was found Referred By: Kierra Walters Electronically Signed By: JOSE TAPIA
[2024-11-20 17:42] LABS: MANUAL DIFF FLAG NO
[2024-11-20 17:55] LABS: Hematocrit 38.3 % (42.0-52.0); Hemoglobin 12.4 g/dl (14.0-18.0); Imm Gran Abs Auto 0.07 X10*3/uL (0.00-0.03); Imm Gran Pct Auto 0.6 % (0.0-0.4); Lymphocytes Absolute Auto 0.9 X10*3/uL (1.2-4.9); Mean Corpuscular HGB Conc 32.4 g/dl (31.0-36.0); Mean Corpuscular Hemoglobin 28.2 pg (27.0-33.0); Mean Corpuscular Volume 87.0 fL (80.0-98.0); NRBC Abs Auto 0.000 X10*3/uL (0.0-0.012); NRBC Pct Auto 0.0 /100WBC (0.0-0.2); Platelet Count 223 X10*3/uL (160-400); Red Blood Count 4.40 X10*6/uL (4.60-5.80); White Blood Count 11.6 X10*3/uL (4.8-10.8)
[2024-11-20 17:59] LABS: Alanine Aminotransferase 155 U/L (0-40); Albumin Level 4.1 g/dL (3.5-5.0); Alkaline Phosphatase 790 U/L (39-117); Anion Gap 16 (12-20); Aspartate Amino Transferase 139 U/L (5-37); Blood Urea Nitrogen 20 mg/dL (9-16); Calcium 9.4 mg/dL (8.4-10.2); Carbon Dioxide 21 mmol/L (22-29); Chloride 108 mmol/L (96-108); Creatinine Clr Calc Pharmacy 99.7; Estimated Glomerular Filt Rate > 60; Lipase 30 U/L (8-78); Magnesium 2.2 mg/dL (1.6-2.6); Potassium 4.6 mmol/L (3.3-5.1); Sodium 140 mmol/L (135-145); Total Protein 6.9 g/dL (6.5-8.0)
[2024-11-20 18:00] LABS: INTERNATIONAL NORM RATIO 1.1 (0.9-1.1); Prothrombin Time 12.4 SEC (10.9-12.4)
[2024-11-20 18:05] LABS: Troponin-I High Sensitivity 7.9 ng/L (<3.5-35.0)
[2024-11-20 18:14] LABS: Partial Thromboplastin Time 29.7 SEC (26.0-36.8)
[2024-11-20 20:02] VITALS: BP 147/71; PULSE 97; RESP 20; TEMP 36.8
[2024-11-20 20:10] LABS: Appearance Urine Clear; Glucose Urine UA Negative (Negative); PH 5.5 (5.0-9.0); Specific Gravity - Urine 1.025 (1.005-1.025)
--- NOTE | 2024-11-20 21:01 | PC.NURSE ---
Called radiology department regarding delay in ultrasound report. Ultrasound was done 2 hours ago (19:00), but no report. Was told that this ultrasound is being reviewed and dictated at this time. Patient repeatedly asking for something to drink. Aware that this is pending ultrasound findings. Care ongoing by this RN.
--- NOTE | 2024-11-20 21:26 | PC.NURSE ---
Away for CT scan. Will medicate upon return. MADHU Colon approved small sips of water for PO Magnesium administration and/or ice chips. Care ongoing by this RN. ? Cholecystitis. CT scan to rule out PE and gallbladder disease or other abnormalities.
[2024-11-20] MEDS: iohexoL 350 MG/ML 100 ML INFUS..BTL 85 ML IV (21:37)
[2024-11-20 22:35] VITALS: BP 140/67; PULSE 69; RESP 21; TEMP 37.2; O2SAT 90
--- NOTE | 2024-11-20 22:47 | PC.NURSE ---
Patient noted to be hypoxic on room air. 85% on room air. Alert/oriented, answering questions appropriately. 2LPM oxygen via nasal cannula applied with positive effect. Now 92% on room air. MADHU Colon aware.
[2024-11-20 23:11] VITALS: BMI 31.2
[2024-11-20 23:23] LABS: Hematocrit 36.3 % (42.0-52.0); Hemoglobin 12.0 g/dl (14.0-18.0); Mean Corpuscular HGB Conc 33.1 g/dl (31.0-36.0); Mean Corpuscular Hemoglobin 28.6 pg (27.0-33.0); Mean Corpuscular Volume 86.6 fL (80.0-98.0); NRBC Abs Auto 0.000 X10*3/uL (0.0-0.012); NRBC Pct Auto 0.0 /100WBC (0.0-0.2); Platelet Count 211 X10*3/uL (160-400); Red Blood Count 4.19 X10*6/uL (4.60-5.80); White Blood Count 14.3 X10*3/uL (4.8-10.8)
--- NOTE | 2024-11-20 23:25 | P.HPHOSP_ITS ---
History of Present Illness Date of Service: 11/20/24 Chief Complaint: Abd pain and dyspnea This is a 64-year-old male with pertinent history of tobacco use disorder, alcohol use disorder, not on home prescription medications who presents to the emergency department for evaluation of dyspnea and abdominal pain. Patient was sent from urgent care for new diagnosis of left lower extremity DVT. Patient states he has been having dyspnea which is worse with exertion that has been ongoing for the last 2-3 weeks. Also has been having right upper quadrant pain, nonradiating which is worse after eating and which is without any relieving factors. Has associated nausea. Patient has been taking ibuprofen for the abdominal pain. He admits smoking cigarettes but denies significant alcohol use. Denies history of significant medical condition and does not take any prescription home medications. No fever, chills, palpitations, chest pain, changes in urinary or bowel habits. In the emergency department, imaging with bilateral PE with possible right heart strain. Abdominal imaging with pancreatic body mass concerning for malignancy and portacaval and peripancreatic adenopathy consistent with metastasis. Also extensive hepatic metastasis noted. Patient was initiated on IV heparin in the ER Review of Systems 2 Constitutional: Constitutional: Reports fatigue, Reports malaise and Reports weakness Cardiovascular: Cardiovascular: Reports dyspnea on exertion Respiratory: Respiratory: Reports dyspnea on exertion Gastrointestinal: Gastrointestinal: Reports abdominal pain and Reports nausea Genitourinary: Genitourinary: Reports no additional male genitourinary complaints Neurologic: Reports weakness Endocrine: Endocrine: Reports fatigue [facility] Medical History Pneumonia due to 2019-nCoV Acute COVID-19 Alcohol abuse GERD (gastroesophageal reflux disease) 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 PAF (paroxysmal atrial fibrillation) Surgical History Hx of ventral hernia repair History of surgery on arm Hx of colonoscopy S/P appendectomy Social History Housing: House Do you presently have visiting nurse or other home services: No Alcohol intake: former Patient Tobacco Use Status: Current everyday Tobacco user Tobacco use type: Cigar Smoked in Last 30 Days: Yes Use of substances other than those prescribed or required for medical reasons: No Advance Directives: No Advance Directives Information Provided: No Do you have a plan to hurt others: No Plan service: No Current occupational status: employed 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 Meds Allergies Allergy/AdvReac Type Severity Reaction Status Date / Time No Known Allergies Allergy Verified 11/20/24 17:26 Active Medications: Current Medications Heparin Sodium (Porcine) (Heparin Sodium,Porcine 5,000 Unit/Ml Vial) 4,100 unit IVPUSH PROTOCOL BOLUS PRN; Protocol PRN Reason: 40 unit/kg - Heparin Protocol Heparin Sodium (Porcine) (Heparin Sodium,Porcine 5,000 Unit/Ml Vial) 8,100 unit IVPUSH PROTOCOL BOLUS PRN; Protocol PRN Reason: 80 unit/kg - Heparin Protocol Heparin Sodium (Porcine) (Heparin Sodium,Porcine 5,000 Unit/Ml Vial) 8,100 unit 80 unit/kg (7900 unit) IVPUSH ONCE ONE Stop: 11/20/24 23:31 Heparin Sodium/Sodium Chloride (Heparin Sodium,Porcine/1/2ns) 25,000 unit in 250 mls @ 0 mls/hr IVCONT .Q0M CYRIL; Protocol Home Medications ?Medication ?Instructions ?Recorded ?Confirmed ?Last Taken ?Type magnesium oxide 400 mg PO BID PRN 04/22/21 0 01/16/23 01/16/23 History multivitamin 1 tab PO DAILY 01/16/2301/0601/16/23 History ibuprofen 600 mg tablet (IBU) 800 mg PO BID PRN Unknown History sodium hyaluronate 20 mg capsule 200 mg PO .once daily joint aches 11/20/24 Unknown History Physical Exam 2 Vital Signs and Narrative: Vital Signs: Last Vital Signs Temp 98.9 F 11/20/24 22:35 Pulse 69 11/20/24 22:35 Resp 21 H 11/20/24 22:35 BP 140/67 H 11/20/24 22:35 Pulse Ox 90 L 11/20/24 22:35 O2 Del Method Room Air 11/20/24 22:35 BMI result Body Mass Index 31.2 Middle-aged male lying in bed in mild distress Neck supple, no JVD Regular rate and rhythm, S1-S2 heard Regular breath sounds bilaterally, no wheezing or crackles appreciated Abdomen with right upper quadrant tenderness, no rigidity Patient is awake, alert and oriented to self, place, time and person ; no focal motor deficit Psych: Normal mood Left lower extremity swelling seen Results Labs 11/20/24 23:18 11/20/24 17:37 Labs: Laboratory Results - last 24 hr 11/20/24 11/20/24 11/20/24 17:37 20:01 23:18 MCV 87.0 86.6 MCH 28.2 28.6 MCHC 32.4 33.1 RDW 14.3 14.3 Plt Count 223 D 211 MPV 10.2 9.7 Immature Gran % (Auto) 0.6 H Neut % (Auto) 78.3 H Lymph % (Auto) 7.5 L [place] % (Auto) 8.9 Eos % (Auto) 4.0 Baso % (Auto) 0.7 Lymph # (Auto) 0.9 L [place] # (Auto) 1.0 Eos # (Auto) 0.5 H Baso # (Auto) 0.1 Abs Immat Gran (auto) 0.07 H Absolute Neuts (auto) 9.1 H Absolute Nucleated RBC 0.000 0.000 Nucleated RBC % (auto) 0.0 0.0 PT 12.4 INR 1.1 APTT 29.7 Anion Gap 16 Estim Creat Clear Calc 99.7 Estimated GFR > 60 Random Glucose 124 H Calcium 9.4 Magnesium 2.2 Total Bilirubin 0.8 AST 139 H ALT 155 H Alkaline Phosphatase 790 H Total Protein 6.9 Albumin 4.1 Lipase 30 Urine Color Yellow Urine Appearance Clear Urine pH 5.5 Ur Specific [place] 1.025 Urine Protein Trace Urine Glucose (UA) Negative Urine Ketones 15 Urine Blood Negative Urine Nitrite Negative Ur Leukocyte Esterase Negative Urine RBC 0-2 Urine WBC 0-5 Ur Squamous Epith Cells 0-2 Urine Bacteria None Seen Hyaline Casts 3-5 Assessment and Plan (1) Pulmonary embolism: Qualifiers: Pulmonary embolism type: multiple subsegmental (without acute cor pulmonale) Qualified Code(s): I26.94 - Multiple subsegmental thrombotic pulmonary emboli without acute cor pulmonale Status: Acute (2) DVT (deep venous thrombosis): Status: Acute (3) Mass of pancreas: Status: Acute Plan This is a 64-year-old male with pertinent history of tobacco use disorder, alcohol use disorder, not on home prescription medications who presents to the emergency department for evaluation of dyspnea and abdominal pain. #. Acute PE and left lower extremity DVT: Initiated IV heparin in the ER. Will admit patient with cardiac monitoring. Concern for right heart strain. Will obtain echo. Vascular surgery eval #. Pancreatic mass concerning for malignancy with with metastasis: Consulted Gastroenterology and Oncology. IV opioids p.r.n. for analgesia #. ?Acute calculous cholecytitis: Initiated IV Zosyn. General surgery eval. HIDA scan pending #. Tobacco use disorder: Refused NRT DVT prophylaxis: IV heparin Full code. Discussed with the patient at bedside Admit as inpatient and will require two night minimum hospital stay for IV heparin, evaluation of pancreatic mass, IV antibiotics (as above), which is not possible in a lesser acute setting. Quality Stroke Does the patient have a stroke diagnosis?: No VTE Prior VTE?: No VTE Risk Level:: Medical - moderate - high VTE Device Contraindication: Treatment Not Indicated VTE Drug Contraindication: N/A - Med Ordered
[2024-11-20 23:32] LABS: INTERNATIONAL NORM RATIO 1.1 (0.9-1.1); Prothrombin Time 12.5 SEC (10.9-12.4)
[2024-11-20 23:34] LABS: PTT Heparin Drip 30.9 SEC (53-77.9)
[2024-11-20] MEDS: Heparin Sodium,Porcine/1/2NS 25,000 UNIT/250 ML IV.SOLN 14.2 UNIT IVCONT (23:44)
[2024-11-20 23:56] LABS: B Type Natriuretic Peptide 36 pg/mL (<100)
[2024-11-21] MEDS: diazePAM 10 MG/2 ML CARTRIDGE 5 MG IVPUSH (00:07)
[2024-11-21 02:18] VITALS: BP 146/86; PULSE 76; RESP 25; TEMP 37.2; O2SAT 97
[2024-11-21 04:00] VITALS: BP 150/65; PULSE 74; RESP 18; TEMP 36.8; O2SAT 98
[2024-11-21 05:57] LABS: Hematocrit 32.9 % (42.0-52.0); Hemoglobin 11.3 g/dl (14.0-18.0); Imm Gran Abs Auto 0.07 X10*3/uL (0.00-0.03); Imm Gran Pct Auto 0.6 % (0.0-0.4); Lymphocytes Absolute Auto 0.6 X10*3/uL (1.2-4.9); MANUAL DIFF FLAG NO; Mean Corpuscular HGB Conc 34.3 g/dl (31.0-36.0); Mean Corpuscular Hemoglobin 29.3 pg (27.0-33.0); Mean Corpuscular Volume 85.2 fL (80.0-98.0); NRBC Abs Auto 0.000 X10*3/uL (0.0-0.012); NRBC Pct Auto 0.0 /100WBC (0.0-0.2); Platelet Count 203 X10*3/uL (160-400); Red Blood Count 3.86 X10*6/uL (4.60-5.80); White Blood Count 11.2 X10*3/uL (4.8-10.8)
[2024-11-21 06:08] LABS: INTERNATIONAL NORM RATIO 1.1 (0.9-1.1); Prothrombin Time 12.9 SEC (10.9-12.4)
[2024-11-21 06:11] LABS: PTT Heparin Drip 76.6 SEC (53-77.9)
[2024-11-21 06:13] LABS: Alanine Aminotransferase 126 U/L (0-40); Albumin Level 3.5 g/dL (3.5-5.0); Alkaline Phosphatase 731 U/L (39-117); Anion Gap 12 (12-20); Aspartate Amino Transferase 115 U/L (5-37); Blood Urea Nitrogen 15 mg/dL (9-16); Calcium 8.5 mg/dL (8.4-10.2); Carbon Dioxide 21 mmol/L (22-29); Chloride 109 mmol/L (96-108); Creatinine Clr Calc Pharmacy 100.7; Estimated Glomerular Filt Rate > 60; Potassium 3.9 mmol/L (3.3-5.1); Sodium 138 mmol/L (135-145); Total Protein 5.9 g/dL (6.5-8.0)
--- NOTE | 2024-11-21 07:00 | CA_ITS ---
Transthoracic Echocardiogram Patient (Last, First, Middle): Jay Degroot, Gender: Male Date of : 1960 Age: 64 Procedure Date: 11/21/2024 Procedure Type: Transthoracic Echocardiogram Location: [facility] [place] Height: 180.34 cm Weight: 101.15 kg BSA: 2.21 m2 Heart Rate: bpm BP: 134 / 68 mmHg Production Potter: TO Referring MD: Sunshine Milligan MD Symptoms: PE Study Quality: Fair/unable to tolerate ECG Rhythm: Sinus Conclusions: - The left ventricular systolic function is normal. The visually estimated ejection fraction is between 60-65%. - No obvious valvular pathology seen on this study. - Mild pulmonary hypertension is present. Findings Procedure Information The study quality is limited by the patients inability to tolerate the test. Left Ventricle Normal left ventricular cavity size. There is normal left ventricular wall thickness. The left ventricular systolic function is normal. The visually estimated ejection fraction is between 60-65%. There is no evidence of regional wall motion abnormalities. Diastolic function is normal for age. Right Ventricle Mildly increased right ventricular cavity size. There is normal right ventricular systolic function. Atria Both atria are normal in size. Aortic Valve There is a normal trileaflet aortic valve. There is no aortic valve stenosis. There is no aortic valve regurgitation. Mitral Valve The mitral valve appears normal. There is no mitral valve regurgitation. There is no mitral valve stenosis. Pulmonic Valve The pulmonic valve is likely normal. Tricuspid Valve There is mild tricuspid valve regurgitation. Mild pulmonary hypertension is present. Great Vessels The asc aorta is normal in size. Venous The inferior vena cava is normal in size and collapses greater than 50% with inspiration. Pericardium/Pleural There is no evidence of pericardial effusion. Prior Study Comparison No prior study available for comparison. Recommendations, Care & Conclusions No obvious valvular pathology seen on this study. Measurements 2D Linear Measurements IVSd: 0.93 0.6-0.9/0.6-1.0 cm LVIDd: 4.81 3.9-5.3/4.2-5.9 cm LVIDd Index: 2.18 2.4-3.2/2.2-3.1 cm/m2 LVIDs: 3.07 2.0-3.6 cm LVPWd: 0.83 0.7-1.1 cm LA Diam: 3.50 2.7-3.8/3.0-4.0 cm LAIDs Index: 1.58 1.5-2.3 cm/m2 LV Mass: 179.47 67-162/88-224 g LV Mass Index: 81.21 43-95/49-115 g/m2 LVOT Diam: 2.60 3.0+(-)1.3 cm Mitral Valve MV Pk E: 0.51 MV PK A: 0.47 MV Decel Time: 222.00 E/A: 1.10 E'Lateral: 11.10 E'Medial: 8.49 E/E' Med: 6.00 E/E' Lat: 4.60 PHT: 65.00 MVA PHT: 3.38 Decel Tift: 2.30 Aortic Valve AoV Pk Favian: 1.43 AoV Mn Favian: 1.02 AoV VTI: 0.24 AoV Pk Grad: 8.00 Aov Mn Grad: 4.00 WHITNEY Cont.VTI: 3.91 LVOT LVOT Pk Favian: 0.82 LVOT Mn Favian: 0.51 LVOT VTI: 0.18 LVOT Pk Grad: 3.00 LVOT Mn Grad: 1.00 LVOT Diam: 2.60 LVOT Area: 5.31 Diastolic Function MV Pk E: 0.51 MV Pk A: 0.47 E/A: 1.10 E'Medial: 8.49 E/E' Med: 6.00 E' Laterial: 11.10 E/E' Lat: 4.60 Right Ventricle TAPSE (mm): 27.70 TVS' Favian: 22.20 Tricuspid Valve TR Pk Favian: 3.27 TR Pk Grad: 43.00 RA Press: 3.00 RVSP: 46.00 Great Vessels Aorta Sinus of Valsalva: 3.82 2.0-3.5 cm Ao Asc: 3.60 2.1-3.4 cm Updated in Other Vendor System with Status of Final Mark Pro MD electronically signed on 11/21/2024 12:32:03 PM with status of Final
[2024-11-21 07:17] VITALS: BP 134/68; PULSE 75; RESP 20; TEMP 37.3; O2SAT 93
--- NOTE | 2024-11-21 07:56 | PHA.MEDREC ---
Pharmacy Consult ? Medication Reconciliation Pharmacy has completed the medication reconciliation. Spoke with patient in room 477-1. patient is not taking any prescription medications.
--- NOTE | 2024-11-21 07:57 | PM.CNGS ---
History of Present Illness Consult details Consult date: 11/21/24 <Antonia Toro PA-C - Last Filed: 11/21/24 08:12> Reason for consult: abdominal pain (acute cholecystitis) <Antonia Toro PA-C - Last Filed: 11/21/24 08:12> Requesting physician: Sunshine Milligan <Antonia Toro PA-C - Last Filed: 11/21/24 08:12> Narrative: 64-year-old male with PMH of tobacco use disorder, alcohol use disorder, not on home prescription medications and has not seen a PCP in years who presented to the ED for evaluation of dyspnea and abdominal pain. Patient was sent from urgent care with new diagnosis of left lower extremity DVT. Patient was complaining of dyspnea for the last 2-3 weeks. He also reports RUQ abdominal pain for the last two months. He reports the pain waxes and wanes, he denies radiation of the pain. He has been taking ibuprofen ATC for it. He thought it was just secondary to his gallbladder as he has had issues with this before. He does note that the pain is not as severe as when he had his gallbladder attacks and those episodes would subside quickly while this has been constant. He thinks it may be exacerbated by eating. No fever, chills, diarrhea, constipation, nausea/vomiting, change in urine, skin or stool color. Work up in the ED included extensive imaging with CTA demonstrating bilateral PE with possible right heart strain. ABD US and CT scan abd/pelvis demonstrated pancreatic body mass concerning for malignancy with portacaval and peripancreatic adenopathy and extensive hepatic lesions consistent with metastasis. He had gallstones and the gallbladder was distended with possible very mild wall thickening. General surgery was consulted for possible acute cholecystitis. 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 PAF (paroxysmal atrial fibrillation) <Antonia Toro PA-C - Last Filed: 11/21/24 08:12> Surgical History Surgical History: Surgical History Hx of ventral hernia repair History of surgery on arm Hx of colonoscopy S/P appendectomy <Antonia Toro PA-C - Last Filed: 11/21/24 08:12> Social History Social History: Social History Household Members: Spouse Housing: House Do you presently have visiting nurse or other home services: No Alcohol intake: former Patient Tobacco Use Status: Current everyday Tobacco user Tobacco use type: Cigar Smoked in Last 30 Days: Yes Use of substances other than those prescribed or required for medical reasons: No Advance Directives: No Advance Directives Information Provided: No Do you have a plan to hurt others: No Plan service: No Current occupational status: employed 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 <CRISTEL Vee Last Filed: 11/21/24 08:12> Meds Allergies/Adverse reactions: Allergies Allergy/AdvReac Type Severity Reaction Status Date / Time No Known Allergies Allergy Verified 11/20/24 17:26 <Antonia Toro PA-C - Last Filed: 11/21/24 08:12> Active Medications: Current Medications Acetaminophen (Acetaminophen 325 Mg Tablet) 650 mg PO Q6H PRN PRN Reason: Pain, Mild 1-3,fever,headache Last Admin: 11/21/24 06:42 Dose: 650 mg Calcium Carbonate (Calcium Carbonate 750 Mg Tab.Chew) 750 mg PO Q4H PRN PRN Reason: Heartburn Heparin Sodium (Porcine) (Heparin Sodium,Porcine 5,000 Unit/Ml Vial) 4,100 unit IVPUSH PROTOCOL BOLUS PRN; Protocol PRN Reason: 40 unit/kg - Heparin Protocol Heparin Sodium (Porcine) (Heparin Sodium,Porcine 5,000 Unit/Ml Vial) 8,100 unit IVPUSH PROTOCOL BOLUS PRN; Protocol PRN Reason: 80 unit/kg - Heparin Protocol Heparin Sodium/Sodium Chloride (Heparin Sodium,Porcine/1/2ns) 25,000 unit in 250 mls @ 0 mls/hr IVCONT .Q0M [facility]; Protocol Last Titration: 11/21/24 06:31 Dose: 14 units/kg/hr, 14.2 mls/hr Piperacillin Sod/Tazobactam (Sod 4.5 gm/ Sodium Chloride) 100 mls @ 200 mls/hr IV Q6H [facility] Last Infusion: 11/21/24 07:33 Dose: Infused Magnesium Hydroxide (Milk Of Magnesia 30 Ml Oral.Susp) 30 ml PO DAILY PRN PRN Reason: Constipation Melatonin (Melatonin 3 Mg Tablet) 6 mg PO BEDTIME PRN PRN Reason: Insomnia Morphine Sulfate (Morphine Sulfate 4 Mg/Ml Cartridge) 4 mg IVPUSH Q4H PRN; Protocol PRN Reason: Pain, Severe (Pain Scale 7-10) Last Admin: 11/21/24 04:06 Dose: 4 mg Ondansetron HCl (Ondansetron Hcl 4 Mg/2 Ml Vial) 4 mg IVPUSH Q8H PRN PRN Reason: Nausea and Vomiting Sodium Chloride (0.9 % Sodium Chloride Flush 3 Ml Syringe) 3 ml IVFLUSH QSHIFT [facility] Last Admin: 11/21/24 00:05 Dose: Not Given <Antonia Toro PA-C - Last Filed: 11/21/24 08:12> Home medications: Home Medications ?Medication ?Instructions ?Recorded ?Confirmed ?Last Taken ?Type magnesium oxide 400 mg PO BID PRN 04/22/21 11/21/24 01/16/23 History multivitamin 1 tab PO DAILY 01/16/23 11/21/24 01/16/23 History Hyaluronic Acid 100 mg PO BID 11/21/24 11/21/24 Unknown History ibuprofen 200 mg tablet 800 mg PO BID 11/21/24 11/21/24 Unknown History <Antonia Toro PA-C - Last Filed: 11/21/24 08:12> Physical Exam Vital Signs: Vital Signs: Last Vital Signs Temp 99.2 F 11/21/24 07:17 Pulse 75 11/21/24 07:17 Resp 20 11/21/24 07:17 BP 134/68 11/21/24 07:17 Pulse Ox 93 11/21/24 07:17 O2 Del Method Room Air 11/21/24 07:17 O2 Flow Rate 2 11/21/24 02:18 BMI result Body Mass Index 31.2 <Antonia Toro PA-C Latrell Last Filed: 11/21/24 08:12> Const: General: alert and tired appearing; No acute distress <CRISTEL Vee Last Filed: 11/21/24 08:12> Orientation/consciousness: patient oriented x3 <Antonia Toro PA-C Latrell Last Filed: 11/21/24 08:12> Resp: Effort & Inspection: normal respiratory effort, not labored, not tachypneic and no use of accessory muscles <CRISTEL Vee Last Filed: 11/21/24 08:12> GI: Inspection: No distended and Yes scar (umbilical region ) <Antonia Toro PA-C Latrell Last Filed: 11/21/24 08:12> Palpation (GI): Soft to palpation, Tenderness to palpation present (GI) (moderate RUQ/right mid abd tenderness) Frank's sign negative and Hepatomegaly present (liver edge palpable just above ASIS) <Antonia Toro PA-C Latrell Last Filed: 11/21/24 08:12> Percussion: Yes normal to percussion <Antonia Toro PA-C Latrell Last Filed: 11/21/24 08:12> Skin: General skin exam: no rashes or lesions noted and no jaundice <Antonia Toro PA-C Latrell Last Filed: 11/21/24 08:12> Neuro: General: patient oriented x3 and moves all extremities <CRISTEL Vee Last Filed: 11/21/24 08:12> Results Labs Result diagrams: 11/21/24 05:49 11/21/24 05:48 <CRISTEL Vee Last Filed: 11/21/24 08:12> Labs: Abnormal lab results 11/20/24 11/20/24 11/21/24 Range/Units 17:37 23:18 05:48 WBC 11.6 H 14.3 H (4.8-10.8) X10*3/uL RBC 4.40 L 4.19 L (4.60-5.80) X10*6/uL Hgb 12.4 L 12.0 L (14.0-18.0) g/dl Hct 38.3 L 36.3 L (42.0-52.0) % Immature Gran % (Auto) 0.6 H (0.0-0.4) % Neut % (Auto) 78.3 H (45-73) % Lymph % (Auto) 7.5 L (20-40) % Lymph # (Auto) 0.9 L (1.2-4.9) X10*3/uL Eos # (Auto) 0.5 H (0.0-0.4) X10*3/uL Abs Immat Gran (auto) 0.07 H (0.00-0.03) X10*3/uL Absolute Neuts (auto) 9.1 H (2.0-8.3) x10*3/uL PT 12.5 H 12.9 H (10.9-12.4) SEC aPTT Heparin Protocol 30.9 L (53-77.9) SEC Chloride 109 H (96-108) mmol/L Carbon Dioxide 21 L 21 L (22-29) mmol/L BUN 20 H (9-16) mg/dL Random Glucose 124 H 189 H (60-115) mg/dL AST 139 H 115 H (5-37) U/L ALT 155 H 126 H (0-40) U/L Alkaline Phosphatase 790 H 731 H (39-117) U/L Total Protein 5.9 L (6.5-8.0) g/dL // Range/Units 05:49 WBC 11.2 H (4.8-10.8) X10*3/uL RBC 3.86 L (4.60-5.80) X10*6/uL Hgb 11.3 L (14.0-18.0) g/dl Hct 32.9 L (42.0-52.0) % Immature Gran % (Auto) 0.6 H (0.0-0.4) % Neut % (Auto) 83.9 H (45-73) % Lymph % (Auto) 5.3 L (20-40) % Lymph # (Auto) 0.6 L (1.2-4.9) X10*3/uL Eos # (Auto) (0.0-0.4) X10*3/uL Abs Immat Gran (auto) 0.07 H (0.00-0.03) X10*3/uL Absolute Neuts (auto) 9.4 H (2.0-8.3) x10*3/uL PT (10.9-12.4) SEC aPTT Heparin Protocol (53-77.9) SEC Chloride (96-108) mmol/L Carbon Dioxide (22-29) mmol/L BUN (9-16) mg/dL Random Glucose (60-115) mg/dL AST (5-37) U/L ALT (0-40) U/L Alkaline Phosphatase (39-117) U/L Total Protein (6.5-8.0) g/dL Short CBC 11/20/24 11/20/24 11/21/24 Range/Units 17:37 23:18 05:49 WBC 11.6 H 14.3 H 11.2 H (4.8-10.8) X10*3/uL Hgb 12.4 L 12.0 L 11.3 L (14.0-18.0) g/dl Hct 38.3 L 36.3 L 32.9 L (42.0-52.0) % Plt Count 223 D 211 203 (160-400) X10*3/uL BMP 11/20/24 11/21/24 17:37 05:48 Sodium 140 138 Potassium 4.6 3.9 Chloride 108 109 H Carbon Dioxide 21 L 21 L BUN 20 H 15 Creatinine 0.91 0.91 Calcium 9.4 8.5 D Liver Function 11/20/24 11/21/24 Range/Units 17:37 05:48 Total Bilirubin 0.8 0.8 (0.0-1.0) mg/dL AST 139 H 115 H (5-37) U/L ALT 155 H 126 H (0-40) U/L Alkaline Phosphatase 790 H 731 H (39-117) U/L Albumin 4.1 3.5 (3.5-5.0) g/dL Urine 11/20/24 Range/Units 20:01 Urine Color Yellow Urine Appearance Clear Urine pH 5.5 (5.0-9.0) Ur Specific Romeo 1.025 (1.005-1.025) Urine Protein Trace (Neg-Trace) mg/dL Urine Glucose (UA) Negative (Negative) mg/dL All other labs normal. <Antonia Toro PA-C - Last Filed: 11/21/24 08:12> Imaging Abdomen CT scan report/results: report reviewed and image reviewed <Antonia Toro PA-C - Last Filed: 11/21/24 08:12> Abdominal ultrasound report/results: report reviewed and image reviewed <CRISTEL Vee Last Filed: 11/21/24 08:12> Assessment and Plan (1) Liver masses: Status: Acute <Antonia Toro PA-C - Last Filed: 11/21/24 08:12> (2) Mass of pancreas: Status: Acute <Antonia Toro PA-C - Last Filed: 11/21/24 08:12> 64-year-old male admitted because of a DVT. He has had shortness of breath for weeks now. CT angiogram also shows bilateral PEs. This some evidence of right sided heart strain from pulmonary hypertension. He also is noted to have multiple liver masses consistent with metastatic disease. There is a pancreatic mass. He has not had a colonoscopy in 13 years. Workup for primary source of metastatic disease would include colonoscopy. His gallbladder was distended on imaging but the gallbladder wall is not thickened and there were no inflammatory changes. His pain is likely from his mets. If he requires intervention for cholecystitis, would recommend IR cholecystostomy tube. This may be done along with CT guided biopsy as well this has liver Mets. Currently he is not a candidate for surgical intervention for his gallbladder. We will follow along. I have seen and examined the patient independently. <Nam Arias MD - Last Filed: 11/21/24 08:39> (3) Abdominal pain: Qualifiers: Abdominal location: right upper quadrant Qualified Code(s): R10.11 - Right upper quadrant pain <Antonia Toro PA-C - Last Filed: 11/21/24 08:12> Status: Acute <CRISTEL Vee Last Filed: 11/21/24 08:12> 64 year old male admitted with left leg DVT, bilateral PEs, found to have pancreatitis mass and portacaval and peripancreatic adenopathy and extensive hepatic lesions consistent with metastasis. Gallbladder was distended on imaging and raised concern for acute cholecystitis. He has borderline wall thickening. Overall picture not suggestive of acute cholecystitis, distention may be secondary to NPO status and pain likely secondary to stretching of liver capsule due to hepatic mets. Would continue supportive measures at this point with IV abx even if HIDA is positive. He is a high surgical risk given the bilateral PEs with question of right heart strain. Would recommend IR consult for CT or US guided biopsy of hepatic lesion for diagnosis once heparin drip is able to be held for 6h after he is out of the acute phase. Patient comfortable with plan. <Antonia Toro PA-C - Last Filed: 11/21/24 08:12> Procedures Date of Service Date of Service: 11/21/24 <Antonia Toro PA-C - Last Filed: 11/21/24 08:12> 11/21/24 <Nam Arias MD - Last Filed: 11/21/24 08:39>
--- NOTE | 2024-11-21 08:03 | PM.HEMONCCN ---
Subjective - Subjective Chief complaint: Abdominal pain Patient: new to practice Consult date: 11/22/24 Primary Care Provider: None Physician [employer] Utilized?: No - Portuguese Speaking HPI - Consult Narrative Reason for consult: Probable metastatic pancreatic cancer Narrative: Jay Degroot is a 64 year old male who has been diagnosed with probable metastatic pancreatic cancer based on imaging study. He presented to the emergency department on 11/20/2024 for complaints of dyspnea and abdominal pain. Patient was sent from urgent care for new diagnosis of left lower extremity DVT. Patient states he has been having dyspnea which is worse with exertion that has been ongoing for the last 2-3 weeks. Also has been having right upper quadrant pain, nonradiating which is worse after eating and which is without any relieving factors. Has associated nausea. Patient has been taking ibuprofen for the abdominal pain. He admits smoking cigarettes but denies significant alcohol use. Denies history of significant medical condition and does not take any prescription home medications. No fever, chills, palpitations, chest pain, changes in urinary or bowel habits. In the emergency department, imaging with bilateral PE with possible right heart strain. Abdominal imaging with pancreatic body mass concerning for malignancy and portacaval and peripancreatic adenopathy consistent with metastasis. Also extensive hepatic metastasis noted. Patient was initiated on IV heparin in the ER Patient states that he has not had any significant weight loss. His sister was diagnosed with Hodgkin's disease at age 17 and breast cancer in her 40s. She of complications of chemo and radiation therapy. Paternal grandmother was treated for breast cancer. Maternal grandfather was treated for prostate cancer. Review of Systems - Constitutional Reports as per HPI, Reports fatigue, Reports malaise, Reports poor appetite - Eyes Denies blurry vision - ENT Denies headache(s) - Cardiovascular Reports no additional cardiovascular complaints - Respiratory Reports no additional respiratory complaints - Gastrointestinal Reports no additional gastrointestinal complaints, Denies black, tarry stools, Denies change in stools - Neurologic Reports weakness PMFSH Medical History: Medical History (Last Reviewed 11/20/24 @ 23:56 by Sunshine Milligan MD) Acute COVID-19 Alcohol abuse GERD (gastroesophageal reflux disease) Internal derangement of left knee PAF (paroxysmal atrial fibrillation) Pneumonia due to 2019-nCoV PVNS (pigmented villonodular synovitis) Surgical History: Surgical History (Last Reviewed 11/20/24 @ 23:56 by Sunshine Milligan MD) History of surgery on arm Hx of colonoscopy Hx of ventral hernia repair S/P appendectomy Social History: Social History (Last Reviewed 11/20/24 @ 23:56 by Sunshine Milligan MD) Living Situation History: Household Members: Spouse Housing: House Do you presently have visiting nurse or other home services: No Alcohol History Details: 1. How often do you have a drink containing alcohol?: c. 2-4 times a month 3. How often do you have six or more drinks on one occasion?: b. Less than monthly AUDIT-C Alcohol total score: 3 Currently Displaying Signs/Symptoms of Alcohol Withdrawal: No Tobacco History: Patient Tobacco Use Status: Current everyday Tobacco Tobacco use type: Cigar Smoked in Last 30 Days: Yes Substance Use History: Use of substances other than those prescribed or required for medical reasons: No Currently Displaying Signs/Symptoms of Drug Intoxication Withdrawal: No Advance Directives: Advance Directives: No Advance Directives Information Provided: No Homicidal Assessment: Do you have a plan to hurt others: No Plan Occupation Assessmet: service: No Current occupational status: employed 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 Home Medications and Allergies Current Medications: Current Medications Acetaminophen (Acetaminophen 325 Mg Tablet) 650 mg PO Q6H PRN PRN Reason: Pain, Mild 1-3,fever,headache Last Admin: 11/21/24 06:42 Dose: 650 mg Calcium Carbonate (Calcium Carbonate 750 Mg Tab.Chew) 750 mg PO Q4H PRN PRN Reason: Heartburn Heparin Sodium (Porcine) (Heparin Sodium,Porcine 5,000 Unit/Ml Vial) 4,100 unit IVPUSH PROTOCOL BOLUS PRN; Protocol PRN Reason: 40 unit/kg - Heparin Protocol Heparin Sodium (Porcine) (Heparin Sodium,Porcine 5,000 Unit/Ml Vial) 8,100 unit IVPUSH PROTOCOL BOLUS PRN; Protocol PRN Reason: 80 unit/kg - Heparin Protocol Heparin Sodium/Sodium Chloride (Heparin Sodium,Porcine/1/2ns) 25,000 unit in 250 mls @ 0 mls/hr IVCONT .Q0M [facility]; Protocol Last Titration: 11/21/24 06:31 Dose: 14 units/kg/hr, 14.2 mls/hr Piperacillin Sod/Tazobactam (Sod 4.5 gm/ Sodium Chloride) 100 mls @ 200 mls/hr IV Q6H [facility] Last Infusion: 11/21/24 07:33 Dose: Infused Magnesium Hydroxide (Milk Of Magnesia 30 Ml Oral.Susp) 30 ml PO DAILY PRN PRN Reason: Constipation Melatonin (Melatonin 3 Mg Tablet) 6 mg PO BEDTIME PRN PRN Reason: Insomnia Morphine Sulfate (Morphine Sulfate 4 Mg/Ml Cartridge) 4 mg IVPUSH Q4H PRN; Protocol PRN Reason: Pain, Severe (Pain Scale 7-10) Last Admin: 11/21/24 04:06 Dose: 4 mg Ondansetron HCl (Ondansetron Hcl 4 Mg/2 Ml Vial) 4 mg IVPUSH Q8H PRN PRN Reason: Nausea and Vomiting Sodium Chloride (0.9 % Sodium Chloride Flush 3 Ml Syringe) 3 ml IVFLUSH QSHIFT [facility] Last Admin: 11/21/24 00:05 Dose: Not Given Home Medications ?Medication ?Instructions ?Recorded ?Confirmed ?Type magnesium oxide 400 mg PO BID PRN 04/22/21 11/21/24 History multivitamin 1 tab PO DAILY 01/16/23 11/21/24 History Hyaluronic Acid 100 mg PO BID 11/21/24 11/21/24 History ibuprofen 200 mg tablet 800 mg PO BID 11/21/24 11/21/24 History Allergies Allergy/AdvReac Type Severity Reaction Status Date / Time No Known Allergies Allergy Verified 11/20/24 17:26 Physical Exam Vital signs: Vital Signs Temp 99.2 F 11/21/24 07:17 Pulse 75 11/21/24 07:17 Resp 20 11/21/24 07:17 BP 134/68 11/21/24 07:17 Pulse Ox 93 11/21/24 07:17 O2 Del Method Room Air 11/21/24 07:17 O2 Flow Rate 2 11/21/24 02:18 Intake & Output 11/20/24 11/21/24 11/21/24 18:59 06:59 18:59 Intake Total 1416.323 / 1416.323 100 / 100 Output Total 875 / 875 Balance 541.323 / 541.323 100 / 100 Urine Output (Average ml/kg/hr) 0.72 0.72 Intake: Intake, Oral Amount 220 / 220 Intake, IV Amount 1196.323 / 1196.323 100 / 100 0.9 % Sodium Chloride 1,000 ml 1000 / 1000 @ 999 mls/hr IV .Q1H1M [facility] Rx#: [id number] Piperacillin Sodium/Tazobactam 100 / 100 100 / 100 4.5 gm In 0.9 % Sodium Chloride 100 ml @ 200 mls/hr IV Q6H [facility] Rx#:[id number] Heparin Sodium,Porcine/1/2NS 25 96.323 / 96.323 ,000 unit In 250 ml @ Per Protocol IVCONT .Q0M [facility] Rx#: [id number] Output: Output, Urine Amount 875 / 875 Other: Urine Urinal Urine Color Yellow Weight 99.3 kg 101.4 kg Weight 101.4 kg - Constitutional Present: no acute distress, average body habitus - Routine HEENT Exam Head: Present: normal inspection Eye: Present: EOMI - Routine Neck Exam Present: supple. Absent: lymphadenopathy - Routine Respiratory Exam Absent: accessory muscle use - Routine Cardiovascular Exam Cardiovascular: Present: RRR, S1, S2 - Routine Abdominal Exam Present: soft - Routine Extremities Exam Present: pulses intact - Routine Skin Exam Present: intact Hem/Onc Consult Result - Labs CBC & Chem 7: 11/21/24 05:49 11/21/24 05:48 Labs: Short CBC 11/20/24 11/20/24 11/21/24 Range/Units 17:37 23:18 05:49 WBC 11.6 H 14.3 H 11.2 H (4.8-10.8) X10*3/uL Hgb 12.4 L 12.0 L 11.3 L (14.0-18.0) g/dl Hct 38.3 L 36.3 L 32.9 L (42.0-52.0) % Plt Count 223 D 211 203 (160-400) X10*3/uL BMP 11/20/24 11/21/24 17:37 05:48 Sodium 140 138 Potassium 4.6 3.9 Chloride 108 109 H Carbon Dioxide 21 L 21 L BUN 20 H 15 Creatinine 0.91 0.91 Calcium 9.4 8.5 D Liver Function 11/20/24 11/21/24 Range/Units 17:37 05:48 Total Bilirubin 0.8 0.8 (0.0-1.0) mg/dL AST 139 H 115 H (5-37) U/L ALT 155 H 126 H (0-40) U/L Alkaline Phosphatase 790 H 731 H (39-117) U/L Albumin 4.1 3.5 (3.5-5.0) g/dL Urine 11/20/24 Range/Units 20:01 Urine Color Yellow Urine Appearance Clear Urine pH 5.5 (5.0-9.0) Ur Specific [place] 1.025 (1.005-1.025) Urine Protein Trace (Neg-Trace) mg/dL Urine Glucose (UA) Negative (Negative) mg/dL Assessment and Plan Patient Active problem list reviewed?: Yes (1) Mass of pancreas Status: Acute Assessment and plan: 1. This is a 64-year-old male admitted for bilateral pulmonary embolism and left lower extremity DVT found to have CT findings consistent with metastatic pancreatic cancer. Chest CTA performed 11/20/2024 showed bilateral lower lobe pulmonary emboli, no significant mediastinal or hilar lymphadenopathy. Left lower extremity Doppler revealed occlusive thrombus throughout left popliteal vein, posterior tibial and peroneal veins. CT abdomen/pelvis with contrast showed 4.5 cm pancreatic body mass concerning for primary malignancy. Portacaval and peripancreatic adenopathy, numerous hepatic lesions concerning for metastasis. Moderate gallbladder distention noted. Hepatobiliary scan performed 11/21/2024 shows findings consistent with cystic duct obstruction and acute cholecystitis. He is undergoing surgical evaluation for cholecystectomy. Biopsy of liver lesion can be performed concurrently. If surgery is not deemed necessary, ultrasound-guided liver biopsy can be performed for definitive diagnosis. CA 19 9 is pending. I discussed above findings with the patient. He understands that this could be cancer. He is agreeable to biopsy of liver lesion. He is now on unfractionated heparin for DVT/PE. Eventually he would need to be switched to Eliquis. Anticoagulation would be long-term. Etiology of spontaneous thromboembolism is underlying malignancy. There is also breast cancer in his family which raises suspicion for inherited cancer syndrome related to BRCA gene mutation. Testing can be performed as outpatient. I thank you for the referral. - Time Spent With Patient Time Spent with Patient (in minutes): 20 Additional Coding: - Additional E/M codes Complex E/M visit Add On: CPT G2211
--- NOTE | 2024-11-21 08:08 | PM.EVENT ---
Chart reviewed, liver mass biopsy for definitive diagnosis. CA 19-9 pending. Echocardiogram pending. Continue with unfractionated heparin until biopsy.
--- NOTE | 2024-11-21 10:42 | MHC.CM.PN ---
Pt. lives with and his dogs, he does not have a PCP, no home care services or DME. HCP to be completed and added to chart. DCP: is TBD, CM to follow for DC needs.
[2024-11-21] MEDS: 0.9 % Sodium Chloride Flush 3 ML SYRINGE IVFLUSH ×2 (10:43→16:22)
[2024-11-21 11:01] VITALS: BP 131/69; PULSE 72; RESP 20; TEMP 37.3; O2SAT 94
[2024-11-21 12:51] LABS: PTT Heparin Drip 62.5 SEC (53-77.9)
--- NOTE | 2024-11-21 13:59 | PM.EVENT ---
Event Note Date of Service: 11/21/24 Event Note: GI Consult-Full note dictated. History from patient and EMR. Patient seen in Nuclear Medicine during his HIDA scan. Imp: 64 yo male with metastatic disease to his liver from what appears to be a primary pancreatic lesion. There is no sign of biliary obstruction. I suspect at least some, if not all, of his abdominal pain is related to that. He does have gallstones but there is no sign of biliary disease or definitive cholecystitis. Rec: I don't think he needs any intervention on my part. I agree with Oncology recommendations for a biopsy of one of the hepatic lesions for diagnosis. Check final HIDA results.Please call if I can be of any assistance. Thanks Time Spent With Patient Time: Total time managing care of this patient today ____ minutes.
--- NOTE | 2024-11-21 15:12 | PM.CNGS ---
History of Present Illness Consult details Consult date: 11/21/24 Reason for consult: other (dvt/pe) Narrative: Very pleasant 64-year-old gentleman presents for evaluation regarding DVT and PE. He had noticed some dyspnea that had been going on for 2-3 weeks. He reports that he actually had a fall. He was subsequently seen in the urgent care and was sent in to the ER for evaluation. In the emergency room he CT scan and was subsequently worked up. He now presents to us for vascular evaluation. Review of Systems Review of Systems: Yes all other systems are reviewed and are negative Constitutional: Constitutional: Reports no additional constitutional complaints ENT: Reports Normal hearing present Cardiovascular: Cardiovascular: Denies chest pain, Denies chest pain at rest, Denies chest pain with activity and Denies pedal edema Respiratory: Respiratory: Denies cough Gastrointestinal: Gastrointestinal: Denies abdominal pain Musculoskeletal: Musculoskeletal: Denies abnormal gait, Denies muscle cramps and Denies radiating pain into limb Integumentary/Breasts: Skin/Breast: Denies skin ulcer and Denies wounds Neurologic: Reports Normal hearing present and Denies abnormal gait Psychiatric: Psychiatric: Reports no additional psychiatric complaints PMFSH Past Medical History Medical History Pneumonia due to 2019-nCoV Acute COVID-19 Alcohol abuse GERD (gastroesophageal reflux disease) 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 PAF (paroxysmal atrial fibrillation) Surgical History Surgical History Hx of ventral hernia repair History of surgery on arm Hx of colonoscopy S/P appendectomy Social History Social History Household Members: Spouse Housing: House Do you presently have visiting nurse or other home services: No Alcohol intake: former Patient Tobacco Use Status: Current everyday Tobacco user Tobacco use type: Cigar Smoked in Last 30 Days: Yes Use of substances other than those prescribed or required for medical reasons: No Currently Displaying Signs/Symptoms of Drug Intoxication Withdrawal: No Advance Directives: No Advance Directives Information Provided: No Do you have a plan to hurt others: No Plan service: No Current occupational status: employed 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 Meds Allergies Allergy/AdvReac Type Severity Reaction Status Date / Time No Known Allergies Allergy Verified 11/20/24 17:26 Active Medications: Current Medications Acetaminophen (Acetaminophen 325 Mg Tablet) 650 mg PO Q6H PRN PRN Reason: Pain, Mild 1-3,fever,headache Last Admin: 11/21/24 06:42 Dose: 650 mg Calcium Carbonate (Calcium Carbonate 750 Mg Tab.Chew) 750 mg PO Q4H PRN PRN Reason: Heartburn Heparin Sodium (Porcine) (Heparin Sodium,Porcine 5,000 Unit/Ml Vial) 4,100 unit IVPUSH PROTOCOL BOLUS PRN; Protocol PRN Reason: 40 unit/kg - Heparin Protocol Heparin Sodium (Porcine) (Heparin Sodium,Porcine 5,000 Unit/Ml Vial) 8,100 unit IVPUSH PROTOCOL BOLUS PRN; Protocol PRN Reason: 80 unit/kg - Heparin Protocol Heparin Sodium/Sodium Chloride (Heparin Sodium,Porcine/1/2ns) 25,000 unit in 250 mls @ 0 mls/hr IVCONT .Q0M [facility]; Protocol Last Titration: 11/21/24 12:59 Dose: 14 units/kg/hr, 14.2 mls/hr Piperacillin Sod/Tazobactam (Sod 4.5 gm/ Sodium Chloride) 100 mls @ 200 mls/hr IV Q6H [facility] Last Infusion: 11/21/24 11:19 Dose: Infused Magnesium Hydroxide (Milk Of Magnesia 30 Ml Oral.Susp) 30 ml PO DAILY PRN PRN Reason: Constipation Melatonin (Melatonin 3 Mg Tablet) 6 mg PO BEDTIME PRN PRN Reason: Insomnia Morphine Sulfate (Morphine Sulfate 4 Mg/Ml Cartridge) 4 mg IVPUSH Q4H PRN; Protocol PRN Reason: Pain, Severe (Pain Scale 7-10) Last Admin: 11/21/24 04:06 Dose: 4 mg Ondansetron HCl (Ondansetron Hcl 4 Mg/2 Ml Vial) 4 mg IVPUSH Q8H PRN PRN Reason: Nausea and Vomiting Sodium Chloride (0.9 % Sodium Chloride Flush 3 Ml Syringe) 3 ml IVFLUSH [facility] Last Admin: 11/21/24 10:43 Dose: 3 ml Home Medications ?Medication ?Instructions ?Recorded ?Confirmed ?Last Taken ?Type magnesium oxide 400 mg PO BID PRN 04/22/21 11/21/24 01/16/23 History multivitamin 1 tab PO DAILY 01/16/23 11/21/24 01/16/23 History Hyaluronic Acid 100 mg PO BID 11/21/24 11/21/24 Unknown History ibuprofen 200 mg tablet 800 mg PO BID 11/21/24 11/21/24 Unknown History Physical Exam Vital Signs: Vital Signs: Last Vital Signs Temp 99.2 F 11/21/24 11:01 Pulse 72 11/21/24 11:01 Resp 20 11/21/24 11:01 BP 131/69 11/21/24 11:01 Pulse Ox 94 11/21/24 11:01 O2 Del Method Room Air 11/21/24 11:01 O2 Flow Rate 2 11/21/24 02:18 BMI result Body Mass Index 31.2 Const: General: cooperative, healthy appearing and comfortable Orientation/consciousness: oriented to person, oriented to place and oriented to time HEENT: Head: Yes normal to inspection Neck: Neck: Yes normal visual inspection Carotids: no bruits Chest: Chest palpation & inspection: normal inspection of the chest Resp: Effort & Inspection: normal respiratory effort and able to speak in complete sentences Auscultation: clear to auscultation bilaterally, no crackles, no rales, no rhonchi and no wheezes Cardio: Rate: regular rate Rhythm: regular rhythm Heart sounds: S1 normal heart sound present and S2 normal heart sound present Bruits: no carotid bruits Peripheral pulses: Peripheral pulses 2+ throughout GI: Inspection: Yes normal to inspection Skin: Wounds: no wounds Hair: normal Neuro: General: oriented to person, oriented to place and oriented to time Cranial nerves: Yes CN's II-XII intact bilaterally and Yes Normal hearing present Cognition (Neuro): normal cognition Motor exam (neuro): 5/5 motor strength present throughout Extrem: Other: venous exam: +2 edema bilateral lower extremity General: No clubbing, No cyanosis and No edema Psych: Appearance: grossly normal Mental Status: mental status grossly normal Speech and movement: Normal speech and movement present Results Labs 11/21/24 05:49 11/21/24 05:48 Labs: Abnormal lab results 11/20/24 11/20/24 11/21/24 Range/Units 17:37 23:18 05:48 WBC 11.6 H 14.3 H (4.8-10.8) X10*3/uL RBC 4.40 L 4.19 L (4.60-5.80) X10*6/uL Hgb 12.4 L 12.0 L (14.0-18.0) g/dl Hct 38.3 L 36.3 L (42.0-52.0) % Immature Gran % (Auto) 0.6 H (0.0-0.4) % Neut % (Auto) 78.3 H (45-73) % Lymph % (Auto) 7.5 L (20-40) % Lymph # (Auto) 0.9 L (1.2-4.9) X10*3/uL Eos # (Auto) 0.5 H (0.0-0.4) X10*3/uL Abs Immat Gran (auto) 0.07 H (0.00-0.03) X10*3/uL Absolute Neuts (auto) 9.1 H (2.0-8.3) x10*3/uL PT 12.5 H 12.9 H (10.9-12.4) SEC aPTT Heparin Protocol 30.9 L (53-77.9) SEC Chloride 109 H (96-108) mmol/L Carbon Dioxide 21 L 21 L (22-29) mmol/L BUN 20 H (9-16) mg/dL Random Glucose 124 H 189 H (60-115) mg/dL AST 139 H 115 H (5-37) U/L ALT 155 H 126 H (0-40) U/L Alkaline Phosphatase 790 H 731 H (39-117) U/L Total Protein 5.9 L (6.5-8.0) g/dL 11/21/24 Range/Units 05:49 WBC 11.2 H (4.8-10.8) X10*3/uL RBC 3.86 L (4.60-5.80) X10*6/uL Hgb 11.3 L (14.0-18.0) g/dl Hct 32.9 L (42.0-52.0) % Immature Gran % (Auto) 0.6 H (0.0-0.4) % Neut % (Auto) 83.9 H (45-73) % Lymph % (Auto) 5.3 L (20-40) % Lymph # (Auto) 0.6 L (1.2-4.9) X10*3/uL Eos # (Auto) (0.0-0.4) X10*3/uL Abs Immat Gran (auto) 0.07 H (0.00-0.03) X10*3/uL Absolute Neuts (auto) 9.4 H (2.0-8.3) x10*3/uL PT (10.9-12.4) SEC aPTT Heparin Protocol (53-77.9) SEC Chloride (96-108) mmol/L Carbon Dioxide (22-29) mmol/L BUN (9-16) mg/dL Random Glucose (60-115) mg/dL AST (5-37) U/L ALT (0-40) U/L Alkaline Phosphatase (39-117) U/L Total Protein (6.5-8.0) g/dL Short CBC 11/20/24 11/20/24 11/21/24 Range/Units 17:37 23:18 05:49 WBC 11.6 H 14.3 H 11.2 H (4.8-10.8) X10*3/uL Hgb 12.4 L 12.0 L 11.3 L (14.0-18.0) g/dl Hct 38.3 L 36.3 L 32.9 L (42.0-52.0) % Plt Count 223 D 211 203 (160-400) X10*3/uL BMP 11/20/24 11/21/24 17:37 05:48 Sodium 140 138 Potassium 4.6 3.9 Chloride 108 109 H Carbon Dioxide 21 L 21 L BUN 20 H 15 Creatinine 0.91 0.91 Calcium 9.4 8.5 D Liver Function 11/20/24 11/21/24 Range/Units 17:37 05:48 Total Bilirubin 0.8 0.8 (0.0-1.0) mg/dL AST 139 H 115 H (5-37) U/L ALT 155 H 126 H (0-40) U/L Alkaline Phosphatase 790 H 731 H (39-117) U/L Albumin 4.1 3.5 (3.5-5.0) g/dL Urine 11/20/24 Range/Units 20:01 Urine Color Yellow Urine Appearance Clear Urine pH 5.5 (5.0-9.0) Ur Specific [place] 1.025 (1.005-1.025) Urine Protein Trace (Neg-Trace) mg/dL Urine Glucose (UA) Negative (Negative) mg/dL All other labs normal. Assessment and Plan (1) DVT (deep venous thrombosis): Qualifiers: DVT location: lower extremity Affected thrombotic vein of extremity: popliteal Chronicity: acute Laterality: left Qualified Code(s): I82.432 - Acute embolism and thrombosis of left popliteal vein Status: Acute In short patient has DVT with PE. Unfortunately from what we see on the CAT scan there is concern of metastatic disease to his liver from what appears to be primary pancreatic source. I did review CAT scans of chest and abdomen in addition to his lower extremity ultrasound. He has small DVT along with lobular PE. Would not recommend any intervention especially in light of his cancer diagnosis. He was being maintained on a heparin drip. Would maintain on heparin until workup is complete. May require Lovenox verse Eliquis as he does have a cancer diagnosis. Would have patient follow-up with Hematology-Oncology. We wish the patient best of luck and we will follow on an as-needed basis. Thank you for allowing us to assist in his care. (2) Pulmonary embolism: Qualifiers: Pulmonary embolism type: multiple subsegmental (without acute cor pulmonale) Qualified Code(s): I26.94 - Multiple subsegmental thrombotic pulmonary emboli without acute cor pulmonale Status: Acute Plan See above Procedures Date of Service Date of Service: 11/21/24
[2024-11-21 15:43] VITALS: BP 134/80; PULSE 79; RESP 18; TEMP 36.7; O2SAT 98
[2024-11-21] MEDS: Heparin Sodium,Porcine/1/2NS 25,000 UNIT/250 ML IV.SOLN 14.2 UNIT IVCONT (16:21)
--- NOTE | 2024-11-21 18:21 | P.PNIM_ITS ---
Subjective Subjective Date of Service: 11/21/24 Interval History: No significant events overnight Some SOB though improved Currently no significant abd pain Denies N/V/D No CP or pressure Review of Systems Review of Systems: Yes all other systems are reviewed and are negative Physical Exam 2 Exam: Exam: General: AOx3, no acute distress Resp: CTA bilaterally, diminished CVS: S1, S2, RRR GI: +BS, NT, no distention Skin: Warm, dry Neuro: Cranial nerves II-XII grossly intact bilaterally. Motor grossly intact bilaterally Extremities: Left lower extremity with some swelling Psych: Calm and cooperative Vital Signs: Vital Signs: Last Vital Signs Temp 98.0 F 11/21/24 15:43 Pulse 79 11/21/24 15:43 Resp 18 11/21/24 15:43 BP 134/80 11/21/24 15:43 Pulse Ox 98 11/21/24 15:43 O2 Del Method Nasal Cannula 11/21/24 15:43 O2 Flow Rate 2 11/21/24 15:43 BMI result Body Mass Index 31.2 Objective Data Active Medications Acetaminophen (Acetaminophen 325 Mg Tablet) 650 mg PO Q6H PRN PRN Reason: Pain, Mild 1-3,fever,headache Last Admin: 11/21/24 06:42 Dose: 650 mg Documented By: AGA Calcium Carbonate (Calcium Carbonate 750 Mg Tab.Chew) 750 mg PO Q4H PRN PRN Reason: Heartburn Heparin Sodium (Porcine) (Heparin Sodium,Porcine 5,000 Unit/Ml Vial) 4,100 unit IVPUSH PROTOCOL BOLUS PRN; Protocol PRN Reason: 40 unit/kg - Heparin Protocol Heparin Sodium (Porcine) (Heparin Sodium,Porcine 5,000 Unit/Ml Vial) 8,100 unit IVPUSH PROTOCOL BOLUS PRN; Protocol PRN Reason: 80 unit/kg - Heparin Protocol Heparin Sodium/Sodium Chloride (Heparin Sodium,Porcine/1/2ns) 25,000 unit in 250 mls @ 0 mls/hr IVCONT .Q0M [facility]; Protocol Last Admin: 11/21/24 16:21 Dose: 14 units/kg/hr, 14.2 mls/hr Documented By: RACQUEL Co-signed By: EFREM Piperacillin Sod/Tazobactam (Sod 4.5 gm/ Sodium Chloride) 100 mls @ 200 mls/hr IV Q6H [facility] Last Admin: 11/21/24 17:55 Dose: 200 mls/hr Documented By: RACQUEL Magnesium Hydroxide (Milk Of Magnesia 30 Ml Oral.Susp) 30 ml PO DAILY PRN PRN Reason: Constipation Melatonin (Melatonin 3 Mg Tablet) 6 mg PO BEDTIME PRN PRN Reason: Insomnia Morphine Sulfate (Morphine Sulfate 4 Mg/Ml Cartridge) 4 mg IVPUSH Q4H PRN; Protocol PRN Reason: Pain, Severe (Pain Scale 7-10) Last Admin: 11/21/24 04:06 Dose: 4 mg Documented By: DIVYA-SHELLYZESushil Ondansetron HCl (Ondansetron Hcl 4 Mg/2 Ml Vial) 4 mg IVPUSH Q8H PRN PRN Reason: Nausea and Vomiting Sodium Chloride (0.9 % Sodium Chloride Flush 3 Ml Syringe) 3 ml IVFLUSH QSHIFT [facility] Last Admin: 11/21/24 16:22 Dose: 3 ml Documented By: RACQUEL Labs 11/21/24 05:49 11/21/24 05:48 Labs: Laboratory Results - last 24 hr 11/20/24 11/20/24 11/21/24 20:01 23:18 05:48 MCV 86.6 MCH 28.6 MCHC 33.1 RDW 14.3 Plt Count 211 MPV 9.7 Immature Gran % (Auto) Neut % (Auto) Lymph % (Auto) [place] % (Auto) Eos % (Auto) Baso % (Auto) Lymph # (Auto) [place] # (Auto) Eos # (Auto) Baso # (Auto) Abs Immat Gran (auto) Absolute Neuts (auto) Absolute Nucleated RBC 0.000 Nucleated RBC % (auto) 0.0 PT 12.5 H 12.9 H INR 1.1 1.1 aPTT Heparin Protocol 30.9 L 76.6 D Anion Gap 12 Estim Creat Clear Calc 100.7 Estimated GFR > 60 Random Glucose 189 H Calcium 8.5 D Total Bilirubin 0.8 AST 115 H ALT 126 H Alkaline Phosphatase 731 H B-Natriuretic Peptide 36 Total Protein 5.9 L Albumin 3.5 Urine Color Yellow Urine Appearance Clear Urine pH 5.5 Ur Specific [place] 1.025 Urine Protein Trace Urine Glucose (UA) Negative Urine Ketones 15 Urine Blood Negative Urine Nitrite Negative Ur Leukocyte Esterase Negative Urine RBC 0-2 Urine WBC 0-5 Ur Squamous Epith Cells 0-2 Urine Bacteria None Seen Hyaline Casts 3-5 11/21/24 11/21/24 05:49 12:29 MCV 85.2 MCH 29.3 MCHC 34.3 RDW 14.3 Plt Count 203 MPV 9.8 Immature Gran % (Auto) 0.6 H Neut % (Auto) 83.9 H Lymph % (Auto) 5.3 L [place] % (Auto) 8.0 Eos % (Auto) 1.7 Baso % (Auto) 0.5 Lymph # (Auto) 0.6 L [place] # (Auto) 0.9 Eos # (Auto) 0.2 Baso # (Auto) 0.1 Abs Immat Gran (auto) 0.07 H Absolute Neuts (auto) 9.4 H Absolute Nucleated RBC 0.000 Nucleated RBC % (auto) 0.0 PT INR aPTT Heparin Protocol 62.5 Anion Gap Estim Creat Clear Calc Estimated GFR Random Glucose Calcium Total Bilirubin AST ALT Alkaline Phosphatase B-Natriuretic Peptide Total Protein Albumin Urine Color Urine Appearance Urine pH Ur Specific [place] Urine Protein Urine Glucose (UA) Urine Ketones Urine Blood Urine Nitrite Ur Leukocyte Esterase Urine RBC Urine WBC Ur Squamous Epith Cells Urine Bacteria Hyaline Casts Assessment and Plan (1) DVT (deep venous thrombosis): Status: Acute (2) Pulmonary embolism: Status: Acute (3) Mass of pancreas: Status: Acute Plan This is a 64-year-old male with paroxysmal AFib not on prescription medication, pertinent history of tobacco use disorder, alcohol use disorder, not on home prescription medications who presents to the emergency department for evaluation of dyspnea and abdominal pain. Pt admitted to the hospital for treatment and further evaluation of acute PE and left lower extremity DVT in the setting of pancreatic mass concerning for malignancy with liver metastasis. Acute PE and left lower extremity DVT Lower extremity U/S positive for left DVT CTA bilateral pulmonary emboli with possible right heart strain Echo showing LVEF 60-65% with mild pulmonary hypertension Continue heparin drip Vascular surgery consulted who recommended continuing heparin drip; no indication for thrombectomies Monitor on telemetry Pancreatic mass concerning for malignancy with with metastasis CT showing pancreatic body mass concerning for primary malignancy with portacaval and peripancreatic adenopathy consistent with metastasis and extensive hepatic metastasis Oncology consulted, suggest liver mass biopsy for definitive diagnosis Analgesics for pain management ?Acute calculous cholecytitis As seen on abd U/S HIDA scan taken, official read pending GI consulted and reviewed images, do not think any acute intervention necessary at this time General surgery also following Continue Zosyn for now, day 2 Paroxysmal AFib Not on prescription medication Reports takes magnesium which keeps him in regular rhythm Continue magnesium and multivitamin Nicotine dependence Refused NRT DVT prophylaxis: IV heparin Full code Admit as inpatient and will require two night minimum hospital stay for IV heparin, evaluation of pancreatic mass, IV antibiotics (as above), which is not possible in a lesser acute setting. Quality Stroke Does the patient have a stroke diagnosis?: No VTE Prior VTE?: No VTE Risk Level:: Medical - moderate - high VTE Device Contraindication: Treatment Not Indicated VTE Drug Contraindication: N/A - Med Ordered
[2024-11-21 19:11] VITALS: BP 130/70; PULSE 80; RESP 18; TEMP 36.7; O2SAT 93
[2024-11-22] VITALS (7 sets, daily range): BP systolic 115–134; BP diastolic 61–77; PULSE 64–78; RESP 16–20; TEMP 36.8–37.3; O2SAT 92–100
[2024-11-22] MEDS: 0.9 % Sodium Chloride Flush 3 ML SYRINGE IVFLUSH ×3 (00:34→17:55)
--- NOTE | 2024-11-22 00:57 | CONS_ITS ---
DATE OF SERVICE: 11/21/2024 REASON FOR CONSULTATION: Pancreatic mass. HISTORY OF PRESENT ILLNESS: This has been obtained from the patient and the medical record. The patient is a 64-year-old generally healthy male who has been having intermittent right upper abdominal pain and lower back pain for at least the past 1 or 2 months. During this time, he did not have any associated signs of jaundice, fevers, vomiting, nor diarrhea. He has not noticed any melena nor hematochezia. He denies any previous GI problems. He specifically denies any history of ulcer disease or pancreatic disease. He denies any known family history of pancreatic disease or GI malignancy. The patient has had a longstanding history of known gallstones. However, he denies any previous issues with gallbladder-type pain. He does use occasional ibuprofen. He does not smoke and drinks only occasional alcohol. He came to the ER yesterday and was found to have a DVT in the left lower leg with pulmonary emboli. Further imaging revealed a mass in the body of the pancreas with metastatic disease to his liver as well as associated lymphadenopathy. He denies any history of chronic heartburn or dysphagia. CURRENT MEDICATIONS: His medications here in the hospital include acetaminophen p.r.n., Tums p.r.n., heparin infusion, melatonin p.r.n., milk of magnesia p.r.n., morphine p.r.n., Zofran p.r.n., and IV Zosyn. PAST MEDICAL HISTORY: He describes appendectomy and umbilical hernia surgery. He has had a history of paroxysmal atrial fibrillation. He denies history of [place], diabetes, or stroke. SOCIAL HISTORY: He is . He does smoke some cigars. He denies any significant alcohol use at the present time. 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 FAMILY HISTORY: Noncontributory. REVIEW OF SYSTEMS: CONSTITUTIONAL: His appetite has been somewhat diminished over the past couple of months. He has lost some weight. CARDIAC: No chest pain. PULMONARY: No coughing or hemoptysis. GI: As above. URINARY: No dysuria. No hematuria. NEUROLOGIC: No headache or seizures. PHYSICAL EXAMINATION: GENERAL: The patient is an alert male, in no distress. He answers questions appropriately. SKIN: Warm and dry. HEENT: Nonjaundiced. Anicteric sclerae. ABDOMEN: Soft, nondistended, nontender. LABORATORY DATA AND IMAGING STUDIES: As above. The CT scan of his abdomen describes a 4.5 cm pancreatic body mass consistent with malignancy. There was surrounding lymphadenopathy. There were numerous liver lesions consistent with metastatic disease. There was no splenomegaly. Gallstones were noted as well. There was no ascites. He was found to have bilateral pulmonary emboli on the CT angiogram of the chest. He has a left lower leg DVT on an ultrasound. He does have gallstones on the ultrasound with gallbladder wall thickening of 4 mm. The common bile duct was only 3.6 mm. White blood cell count 11.2, hemoglobin 11.3, MCV 85, platelets 203,000. PT 12.9 with INR 1.1. Normal electrolytes. BUN 15, creatinine 0.9. AST 115, ALT 126, alkaline phosphatase 731, total bilirubin is 0.8, albumin 3.5. CA 19-9 level is pending. IMPRESSION: The patient is an unfortunate 64-year-old male presenting with what appears to be advanced pancreatic cancer with a primary lesion in the pancreas and metastatic disease to liver and lymph nodes. Given the location of the tumor in the pancreas, there is no evidence of biliary obstruction. I suspect his intermittent right upper abdominal pain is primarily related to his liver metastases. He does have the gallstones, but based on the imaging thus far, the gallbladder does not seem to be significantly inflamed. At this point, I do not think he needs any intervention on my part. There are no signs of jaundice and he will not need ERCP at this time. At this time, I would agree with oncology recommendations for a biopsy of one of the hepatic lesions for diagnosis. I would check the final result of his HIDA scan that he is currently having. He has already been seen by Surgery in that regard. At this point, I will be available if questions or problems arise, then I can be of assistance with. Please feel free to call me if the need arises. Thank you for the consultation. MD JAIRON Velasquez/TRENT / [phone] MTDJeniffer
--- NOTE | 2024-11-22 07:20 | P.PNGS_ITS ---
Subjective Subjective Date of Service: 11/22/24 <Antonia Toro PA-C - Last Filed: 11/22/24 08:50> 11/22/24 <Nam Arias MD - Last Filed: 11/22/24 10:44> Interval history: Had pizza last night and this morning. Tolerated without worsening abd pain. Thinks RUQ pain is overall better. <Antonia Toro PA-C - Last Filed: 11/22/24 08:50> Physical Exam 2 Vital Signs: Vital Signs: Last Vital Signs Temp 98.3 F 11/22/24 04:00 Pulse 64 11/22/24 04:00 Resp 18 11/22/24 04:00 BP 115/73 11/22/24 04:00 Pulse Ox 95 11/22/24 04:00 O2 Del Method Room Air 11/22/24 04:00 O2 Flow Rate 2 11/21/24 19:11 BMI result Body Mass Index 31.2 <Antonia Toro PA-C - Last Filed: 11/22/24 08:50> Resp: Effort & Inspection: normal respiratory effort, able to speak in complete sentences and not labored <Antonia Toro PA-C - Last Filed: 11/22/24 08:50> GI: Other: very mild RUQ/right sided tenderness, no saenz sign abd soft, nondistended <Antonia Toro PA-C - Last Filed: 11/22/24 08:50> Palpation (GI): no guarding and not rigid <Antonia Toro PA-C - Last Filed: 11/22/24 08:50> Skin: General skin exam: no rashes or lesions noted and no jaundice < CRISTEL Vee Last Filed: 11/22/24 08:50> Objective Data Active Medications Acetaminophen (Acetaminophen 325 Mg Tablet) 650 mg PO Q6H PRN PRN Reason: Pain, Mild 1-3,fever,headache Last Admin: 11/21/24 06:42 Dose: 650 mg Documented By: AGA Calcium Carbonate (Calcium Carbonate 750 Mg Tab.Chew) 750 mg PO Q4H PRN PRN Reason: Heartburn Heparin Sodium (Porcine) (Heparin Sodium,Porcine 5,000 Unit/Ml Vial) 4,100 unit IVPUSH PROTOCOL BOLUS PRN; Protocol PRN Reason: 40 unit/kg - Heparin Protocol Heparin Sodium (Porcine) (Heparin Sodium,Porcine 5,000 Unit/Ml Vial) 8,100 unit IVPUSH PROTOCOL BOLUS PRN; Protocol PRN Reason: 80 unit/kg - Heparin Protocol Heparin Sodium/Sodium Chloride (Heparin Sodium,Porcine/1/2ns) 25,000 unit in 250 mls @ 0 mls/hr IVCONT .Q0M [facility]; Protocol Last Admin: 11/21/24 16:21 Dose: 14 units/kg/hr, 14.2 mls/hr Documented By: RACQUEL Co-signed By: EFREM Piperacillin Sod/Tazobactam (Sod 4.5 gm/ Sodium Chloride) 100 mls @ 200 mls/hr IV Q6H [facility] Last Infusion: 11/22/24 06:20 Dose: Infused Documented By: LOIDA Magnesium Hydroxide (Milk Of Magnesia 30 Ml Oral.Susp) 30 ml PO DAILY PRN PRN Reason: Constipation Magnesium Oxide (Magnesium Oxide 400 Mg Tablet) 400 mg PO BID [facility] Last Admin: 11/21/24 19:59 Dose: 400 mg Documented By: LOIDA Melatonin (Melatonin 3 Mg Tablet) 6 mg PO BEDTIME PRN PRN Reason: Insomnia Morphine Sulfate (Morphine Sulfate 4 Mg/Ml Cartridge) 1 mg IVPUSH Q4H PRN; Protocol PRN Reason: Pain, Severe (Pain Scale 7-10) Last Admin: 11/22/24 04:39 Dose: 1 mg Documented By: LOIDA Multivitamins/Vitamin C (Multivitamin Tablet) 1 tab PO DAILY [facility] Ondansetron HCl (Ondansetron Hcl 4 Mg/2 Ml Vial) 4 mg IVPUSH Q8H PRN PRN Reason: Nausea and Vomiting Sodium Chloride (0.9 % Sodium Chloride Flush 3 Ml Syringe) 3 ml IVFLUSH QSHIFT [facility] Last Admin: 11/22/24 00:34 Dose: 3 ml Documented By: LOIDA <Antonia Toro PA-C - Last Filed: 11/22/24 08:50> Labs CBC & Chem 7: 11/21/24 05:49 11/21/24 05:48 <Antonia Toro PA-C - Last Filed: 11/22/24 08:50> Labs: Laboratory Results - last 24 hr 11/21/24 12:29 aPTT Heparin Protocol 62.5 <Antonia Toro PA-C - Last Filed: 11/22/24 08:50> Procedures Date of Service Date of Service: 11/22/24 <Antonia Toro PA-C - Last Filed: 11/22/24 08:50> 11/22/24 <Nam Arias MD - Last Filed: 11/22/24 10:44> Progress Note: A&P Assessment and plan (1) Pulmonary embolism: Status: Acute <Antonia Toro PA-C - Last Filed: 11/22/24 08:50> (2) Acute cholecystitis: Status: Acute <Antonia Toro PA-C - Last Filed: 11/22/24 08:50> Assessment and Plan: Describes improvement of right upper quadrant pain Tolerating diet Looks well Abdomen is soft Continue workup for advanced metastatic disease - IR biopsy of liver lesions Patient is a candidate for IR cholecystostomy tube if he gets worse clinically with regards to his cholecystitis Currently on heparin drip for multiple acute PEs and DVTs Oncology follow up Continue IV antibiotics Seen and examined independently <Nam Arias MD - Last Filed: 11/22/24 10:44> Assessment and Plan: HIDA positive- no activity in the gallbladder, consistent with cystic duct obstruction and acute cholecystitis. He however is tolerating a solid diet and had pizza last night and this morning without worsening pain. Abd remains benign, soft, very mild tenderness. Given current acute medical problems, would recommend continuing supportive measures and IV abx and hold off on cholecystostomy tube. <Antonia Toro PA-C - Last Filed: 11/22/24 08:50> Time Spent With Patient Time: Total time managing care of this patient today ____ minutes. <Antonia Toro PA-C - Last Filed: 11/22/24 08:50> Quality Stroke Does the patient have a stroke diagnosis?: No <Antonia Toro PA-C - Last Filed: 11/22/24 08:50> VTE Prior VTE?: No <Antonia Toro PA-C - Last Filed: 11/22/24 08:50> VTE Risk Level:: Medical - moderate - high <Antonia Toro PA-C - Last Filed: 11/22/24 08:50> VTE Device Contraindication: Treatment Not Indicated <Antonia Toro PA-C - Last Filed: 11/22/24 08:50> VTE Drug Contraindication: N/A - Med Ordered <Antonia Toro PA-C - Last Filed: 11/22/24 08:50>
--- NOTE | 2024-11-22 07:22 | PC.NURSE ---
PTT-HD ordered for 0600, patient has Heparin drip infusing. Phlebotomy did not arrive to draw blood at 6 am. Lab department/tower erector helper called x2 to remind of the importance of lab draw. [facility] arrived at 0725.
--- NOTE | 2024-11-22 07:44 | P.PNIM_ITS ---
Subjective Subjective Date of Service: 11/23/24 Interval History: No acute overnight events Seen resting relatively comfortably in bed Denies significant SOB Intermittent RUQ and diffuse abd pain, currently felling OK No N/V/D; has been able to tolerate diet Denies chest pain or pressure Review of Systems Review of Systems: Yes all other systems are reviewed and are negative Physical Exam 2 Exam: Exam: General: AOx3, no acute distress Resp: CTA bilaterally, diminished CVS: S1, S2, RRR GI: +BS, no distention. Mild diffuse abd tenderness. Negative Frank's sign Skin: Warm, dry Neuro: Cranial nerves II-XII grossly intact bilaterally. Motor grossly intact bilaterally Extremities: Left lower extremity without clear swelling Psych: Calm and cooperative Vital Signs: Vital Signs: Last Vital Signs Temp 98.6 F 11/22/24 07:15 Pulse 69 11/22/24 07:15 Resp 20 11/22/24 07:15 BP 127/64 11/22/24 07:15 Pulse Ox 92 11/22/24 07:15 O2 Del Method Nasal Cannula 11/22/24 07:15 O2 Flow Rate 1 11/22/24 07:15 BMI result Body Mass Index 31.2 Objective Data Active Medications Acetaminophen (Acetaminophen 325 Mg Tablet) 650 mg PO Q6H PRN PRN Reason: Pain, Mild 1-3,fever,headache Last Admin: 11/21/24 06:42 Dose: 650 mg Documented By: AGA Calcium Carbonate (Calcium Carbonate 750 Mg Tab.Chew) 750 mg PO Q4H PRN PRN Reason: Heartburn Heparin Sodium (Porcine) (Heparin Sodium,Porcine 5,000 Unit/Ml Vial) 4,100 unit IVPUSH PROTOCOL BOLUS PRN; Protocol PRN Reason: 40 unit/kg - Heparin Protocol Heparin Sodium (Porcine) (Heparin Sodium,Porcine 5,000 Unit/Ml Vial) 8,100 unit IVPUSH PROTOCOL BOLUS PRN; Protocol PRN Reason: 80 unit/kg - Heparin Protocol Hydromorphone HCl (Hydromorphone Hcl 0.5 Mg/0.5 Ml Syringe) 0.5 mg IVPUSH Q4H PRN; Protocol PRN Reason: Pain, Severe (Pain Scale 7-10) Heparin Sodium/Sodium Chloride (Heparin Sodium,Porcine/1/2ns) 25,000 unit in 250 mls @ 0 mls/hr IVCONT .Q0M [facility]; Protocol Last Admin: 11/21/24 16:21 Dose: 14 units/kg/hr, 14.2 mls/hr Documented By: RACQUEL Co-signed By: EFREM Piperacillin Sod/Tazobactam (Sod 4.5 gm/ Sodium Chloride) 100 mls @ 200 mls/hr IV Q6H [facility] Last Infusion: 11/22/24 06:20 Dose: Infused Documented By: LOIDA Magnesium Hydroxide (Milk Of Magnesia 30 Ml Oral.Susp) 30 ml PO DAILY PRN PRN Reason: Constipation Magnesium Oxide (Magnesium Oxide 400 Mg Tablet) 400 mg PO BID [facility] Last Admin: 11/21/24 19:59 Dose: 400 mg Documented By: LOIDA Melatonin (Melatonin 3 Mg Tablet) 6 mg PO BEDTIME PRN PRN Reason: Insomnia Multivitamins/Vitamin C (Multivitamin Tablet) 1 tab PO DAILY [facility] Ondansetron HCl (Ondansetron Hcl 4 Mg/2 Ml Vial) 4 mg IVPUSH Q8H PRN PRN Reason: Nausea and Vomiting Sodium Chloride (0.9 % Sodium Chloride Flush 3 Ml Syringe) 3 ml IVFLUSH QSHIFT [facility] Last Admin: 11/22/24 00:34 Dose: 3 ml Documented By: LOIDA Labs 11/21/24 05:49 11/21/24 05:48 Labs: Laboratory Results - last 24 hr 11/21/24 12:29 aPTT Heparin Protocol 62.5 Assessment and Plan (1) Pulmonary embolism: Status: Acute (2) DVT (deep venous thrombosis): Status: Acute (3) Mass of pancreas: Status: Acute (4) Liver masses: Status: Acute Plan This is a 64-year-old male with paroxysmal AFib not on prescription medication, pertinent history of tobacco use disorder, alcohol use disorder, not on home prescription medications who presents to the emergency department for evaluation of dyspnea and abdominal pain. Pt admitted to the hospital for treatment and further evaluation of acute PE and left lower extremity DVT in the setting of pancreatic mass concerning for malignancy with liver metastasis. Acute PE and left lower extremity DVT Lower extremity U/S positive for left DVT CTA bilateral pulmonary emboli with possible right heart strain Echo showing LVEF 60-65% with mild pulmonary hypertension Continue heparin drip Vascular surgery consulted who recommended continuing heparin drip; no indication for thrombectomies Monitor on telemetry Pancreatic mass concerning for malignancy with with metastasis CT showing pancreatic body mass concerning for primary malignancy with portacaval and peripancreatic adenopathy consistent with metastasis and extensive hepatic metastasis Oncology consulted, suggest liver mass biopsy for definitive diagnosis Given clinical presentation, complications of DVT/PE/hypercoaguable state, +HIDA scan, pt will be kept on heparin drip and receive inpatient liver biopsy on Saturday 11/25 Analgesics for pain management ?Acute calculous cholecytitis As seen on abd U/S HIDA scan with findings consistent with cystic duct obstruction and acute cholecystitis GI consulted and reviewed images, do not think any acute intervention necessary at this time General surgery feels obstruction related to inflammation or mass PT with relatively benign abd exam, no N/V/D No acute intervention -- ERCP or cholecycstectomy -- planned by GI or GS Continue Zosyn for now, day 3 Paroxysmal AFib Not on prescription medication Reports takes magnesium which keeps him in regular rhythm Continue magnesium and multivitamin Nicotine dependence Refused NRT DVT prophylaxis: IV heparin Full code Pt will require continued hospitalization for administration of supplemental O2 and continued treatment of DVT/PE and monitoring of worsening cholecystitis. Given that pt is currently being treated with heparin and is at high risk for complications and deterioration due to his hypercoaguable state if anticoagulation is held for an extended period of time (2 days if transitioned to Eliquis vs 1-2 hours on heparin drip), pt will remain on heparin drip and get inpatient liver biopsy on Saturday 11/25. Quality Stroke Does the patient have a stroke diagnosis?: No VTE Prior VTE?: No VTE Risk Level:: Medical - moderate - high VTE Device Contraindication: Treatment Not Indicated VTE Drug Contraindication: N/A - Med Ordered
[2024-11-22 07:52] LABS: PTT Heparin Drip 59.4 SEC (53-77.9)
[2024-11-22] MEDS: Heparin Sodium,Porcine/1/2NS 25,000 UNIT/250 ML IV.SOLN 14.2 UNIT IVCONT (09:21)
--- NOTE | 2024-11-22 10:41 | P.PNVS_ITS ---
Subjective Subjective Date of Service: 11/22/24 Patient reports: no new complaints and feels better Interval history: Patient seen and examined. Appears to be doing somewhat better. Overall respiratory status has improved. He is still on nasal cannula but denies any significant shortness of breath. He is currently being worked up for pancreatic body mass with lesions noted in the liver. No acute events overnight. Physical Exam Vital Signs: Vital Signs: Last Vital Signs Temp 98.6 F 11/22/24 07:15 Pulse 69 11/22/24 07:15 Resp 20 11/22/24 07:15 BP 127/64 11/22/24 07:15 Pulse Ox 92 11/22/24 07:15 O2 Del Method Nasal Cannula 11/22/24 07:15 O2 Flow Rate 1 11/22/24 07:15 BMI result Body Mass Index 31.2 Const: General: cooperative, healthy appearing and comfortable Orientation/consciousness: oriented to person, oriented to place and oriented to time HEENT: Head: Yes normal to inspection Neck: Neck: Yes normal visual inspection Carotids: no bruits Chest: Chest palpation & inspection: normal inspection of the chest Resp: Effort & Inspection: normal respiratory effort and able to speak in complete sentences Auscultation: clear to auscultation bilaterally, 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, no rales, no rhonchi and no wheezes Cardio: Rate: regular rate Rhythm: regular rhythm Heart sounds: S1 normal heart sound present and S2 normal heart sound present Bruits: no carotid bruits Peripheral pulses: Peripheral pulses 2+ throughout GI: Inspection: Yes normal to inspection Skin: Wounds: no wounds Hair: normal Neuro: General: oriented to person, oriented to place and oriented to time Cranial nerves: Yes CN's II-XII intact bilaterally and Yes Normal hearing present Cognition (Neuro): normal cognition Motor exam (neuro): 5/5 motor strength present throughout Extrem: Other: venous exam: No significant superficial varicosities or spider telangiectasias, minimal edema General: No clubbing, No cyanosis and No edema Psych: Appearance: grossly normal Mental Status: mental status grossly normal Speech and movement: Normal speech and movement present Progress Note: A&P Assessment and plan (1) DVT (deep venous thrombosis): Status: Acute Assessment and Plan: In short patient appears to be doing well with his DVT PE status. In general seems to be stable from a respiratory status as well. I did review CT scan and lower extremity ultrasound. It does not appear to be amenable to any thrombectomy. At the current time would continue on a heparin drip until his medical workup and liver biopsy is complete. May need long-term Eliquis versus Lovenox. Would touch base with Hematology-Oncology for best long-term anticoagulation recommendations. He will follow up with us on an as-needed basis. Thank you for allowing us to assist in his care. If there are any questions or concerns please do not hesitate to contact us Time Spent With Patient Time: Total time managing care of this patient today ____ minutes. Procedures Date of Service Date of Service: 11/22/24 Quality Stroke Does the patient have a stroke diagnosis?: No VTE Prior VTE?: No VTE Risk Level:: Medical - moderate - high VTE Device Contraindication: Treatment Not Indicated VTE Drug Contraindication: N/A - Med Ordered
--- NOTE | 2024-11-22 16:10 | MHC.CM.PN ---
Per rounds, follow up liver biospy to be done, either inpt. or outpt. Pt does not have PCP.
[2024-11-23] MEDS: 0.9 % Sodium Chloride Flush 3 ML SYRINGE IVFLUSH ×4 (00:03→21:34)
[2024-11-23] MEDS: Heparin Sodium,Porcine/1/2NS 25,000 UNIT/250 ML IV.SOLN 14.2 UNIT IVCONT ×2 (02:12→18:01)
[2024-11-23 02:16] VITALS: RESP 20
[2024-11-23 04:00] VITALS: BP 117/66; PULSE 66; RESP 20; TEMP 36.8; O2SAT 93
[2024-11-23 07:36] LABS: PTT Heparin Drip 52.3 SEC (53-77.9)
[2024-11-23 08:00] VITALS: BP 137/72; PULSE 66; RESP 18; TEMP 36.8; O2SAT 97
--- NOTE | 2024-11-23 10:02 | HO.PM.IMPN ---
Subjective Subjective Date of Service: 11/23/24 Interval History: Follow up for Acute PE, pancreatic mass Denied acute overnight events Denies significant SOB Intermittent RUQ and diffuse abd pain No N/V/D; has been able to tolerate diet Review of Systems Review of Systems: Yes all other systems are reviewed and are negative Physical Exam Exam: Exam: Alert and oriented Lungs normal expansion abd aopears non distended WRIGHT Vital Signs: Vital Signs: Last Vital Signs Temp 98.2 F 11/23/24 08:00 Pulse 66 11/23/24 08:00 Resp 18 11/23/24 08:00 BP 137/72 11/23/24 08:00 Pulse Ox 97 11/23/24 08:00 O2 Del Method Nasal Cannula 11/23/24 08:00 O2 Flow Rate 1 11/23/24 08:00 BMI result Body Mass Index 31.2 Objective Data Active Medications Acetaminophen (Acetaminophen 325 Mg Tablet) 650 mg PO Q6H PRN PRN Reason: Pain, Mild 1-3,fever,headache Last Admin: 11/21/24 06:42 Dose: 650 mg Documented By: AGA Calcium Carbonate (Calcium Carbonate 750 Mg Tab.Chew) 750 mg PO Q4H PRN PRN Reason: Heartburn Heparin Sodium (Porcine) (Heparin Sodium,Porcine 5,000 Unit/Ml Vial) 4,100 unit IVPUSH PROTOCOL BOLUS PRN; Protocol PRN Reason: 40 unit/kg - Heparin Protocol Last Admin: 11/23/24 08:02 Dose: 4,100 unit Documented By: KRISTIN Heparin Sodium (Porcine) (Heparin Sodium,Porcine 5,000 Unit/Ml Vial) 8,100 unit IVPUSH PROTOCOL BOLUS PRN; Protocol PRN Reason: 80 unit/kg - Heparin Protocol Hydromorphone HCl (Hydromorphone Hcl 0.5 Mg/0.5 Ml Syringe) 0.5 mg IVPUSH Q4H PRN; Protocol PRN Reason: Pain, Severe (Pain Scale 7-10) Last Admin: 11/23/24 02:16 Dose: 0.5 mg Documented By: NOAH Hydromorphone HCl (Hydromorphone Hcl 0.5 Mg/0.5 Ml Syringe) 0.5 mg IVPUSH ONCE ONE; Protocol Stop: 11/23/24 10:02 Heparin Sodium/Sodium Chloride (Heparin Sodium,Porcine/1/2ns) 25,000 unit in 250 mls @ 0 mls/hr IVCONT .Q0M [facility]; Protocol Last Titration: 11/23/24 07:59 Dose: 16 units/kg/hr, 16.22 mls/hr Documented By: KRISTIN Co-signed By: PREETI Piperacillin Sod/Tazobactam (Sod 4.5 gm/ Sodium Chloride) 100 mls @ 200 mls/hr IV Q6H [facility] Last Infusion: 11/23/24 06:06 Dose: Infused Documented By: NOAH Magnesium Hydroxide (Milk Of Magnesia 30 Ml Oral.Susp) 30 ml PO DAILY PRN PRN Reason: Constipation Magnesium Oxide (Magnesium Oxide 400 Mg Tablet) 400 mg PO BID [facility] Last Admin: 11/23/24 08:01 Dose: 400 mg Documented By: KRISTIN Melatonin (Melatonin 3 Mg Tablet) 6 mg PO BEDTIME PRN PRN Reason: Insomnia Multivitamins/Vitamin C (Multivitamin Tablet) 1 tab PO DAILY [facility] Last Admin: 11/23/24 08:01 Dose: 1 tab Documented By: KRISTIN Ondansetron HCl (Ondansetron Hcl 4 Mg/2 Ml Vial) 4 mg IVPUSH Q8H PRN PRN Reason: Nausea and Vomiting Sodium Chloride (0.9 % Sodium Chloride Flush 3 Ml Syringe) 3 ml IVFLUSH QSHIFT [facility] Last Admin: 11/23/24 08:03 Dose: 3 ml Documented By: KRISTIN Labs 11/21/24 05:49 11/21/24 05:48 Labs: Laboratory Results - last 24 hr 11/21/24 11/23/24 05:49 06:40 Hold Purple Top SEE NOTE aPTT Heparin Protocol 52.3 L CA 19-9 Antigen [id number] H Assessment and Plan (1) Pulmonary embolism: Status: Acute (2) DVT (deep venous thrombosis): Status: Acute (3) Mass of pancreas: Status: Acute (4) Liver masses: Status: Acute Plan 64-year-old male with paroxysmal AFib not on prescription medication, not on home prescription medications who presented to the emergency department for evaluation of dyspnea and abdominal pain. Pt admitted to the hospital for treatment and further evaluation of acute PE and left lower extremity DVT in the setting of pancreatic mass concerning for malignancy with liver metastasis. Acute PE and left lower extremity DVT Lower extremity U/S positive for left DVT CTA bilateral pulmonary emboli with possible right heart strain Echo showing LVEF 60-65% with mild pulmonary hypertension Continue heparin drip Vascular surgery consulted who recommended continuing heparin drip; no indication for thrombectomies Monitor on telemetry Pancreatic mass concerning for malignancy with with metastasis CT showing pancreatic body mass concerning for primary malignancy with portacaval and peripancreatic adenopathy consistent with metastasis and extensive hepatic metastasis Oncology consulted>suggest liver mass biopsy for definitive diagnosis, 11/25/24 Analgesics for pain management Acute calculous cholecytitis As seen on abd U/S HIDA scan with findings consistent with cystic duct obstruction and acute cholecystitis GI consulted>no acute intervention necessary at this time General surgery feels obstruction related to inflammation or mass. No acute intervention Continue Zosyn Transaminitis Likely secondary to liver metastasis Normocytic anemia No obvious blood loss Follow up CBC Paroxysmal AFib Not on prescription medication Reports takes magnesium which keeps him in regular rhythm Continue magnesium and multivitamin Tobacco use Patient reports that he smokes cigars Denies need for nicotine replacement at this time DVT prophylaxis: IV heparin, will transition to Eliquis after biopsy Full code Quality Stroke Does the patient have a stroke diagnosis?: No VTE Prior VTE?: No VTE Risk Level:: Medical - moderate - high VTE Device Contraindication: Treatment Not Indicated VTE Drug Contraindication: N/A - Med Ordered
[2024-11-23 11:55] VITALS: RESP 18
[2024-11-23 12:00] VITALS: BP 119/68; PULSE 70; RESP 18; TEMP 36.9; O2SAT 93
[2024-11-23 14:38] LABS: PTT Heparin Drip 79.2 SEC (53-77.9)
[2024-11-23 16:00] VITALS: BP 135/82; PULSE 75; RESP 18; TEMP 37.1; O2SAT 93
--- NOTE | 2024-11-23 17:46 | PC.NURSE ---
pt requesting that PRN dilaudid be replaced with PRN morphine. per Mitra CONTROL PANEL OPERATOR, new orders placed via telephone read back, see MAR.
[2024-11-23 21:28] LABS: PTT Heparin Drip 64.9 SEC (53-77.9)
[2024-11-24] VITALS (7 sets, daily range): BP systolic 113–138; BP diastolic 64–80; PULSE 63–87; RESP 16–20; TEMP 36.2–37.3; O2SAT 90–94
[2024-11-24 04:41] LABS: PTT Heparin Drip 56.8 SEC (53-77.9)
--- NOTE | 2024-11-24 06:01 | P.PNHO-ONC_ITS ---
Medical Summary - Medical Summary Date of Service: 11/23/24 Chief complaint: pancreatic mass Primary Care Provider: None Physician Hand Tire Trimmer Utilized?: No - Somali Speaking Interval History Interval history: Jay Degroot is a 64 year old male who has been diagnosed with probable metastatic pancreatic cancer based on imaging study. He presented to the emergency department on 11/20/2024 for complaints of dyspnea and abdominal pain. Patient was sent from urgent care for new diagnosis of left lower extremity DVT. Patient states he has been having dyspnea which is worse with exertion that has been ongoing for the last 2-3 weeks. Also has been having right upper quadrant pain, nonradiating which is worse after eating and which is without any relieving factors. Has associated nausea. Patient has been taking ibuprofen for the abdominal pain. He admits smoking cigarettes but denies significant alcohol use. Denies history of significant medical condition and does not take any prescription home medications. No fever, chills, palpitations, chest pain, changes in urinary or bowel habits. In the emergency department, imaging with bilateral PE with possible right heart strain. Abdominal imaging with pancreatic body mass concerning for malignancy and portacaval and peripancreatic adenopathy consistent with metastasis. Also extensive hepatic metastasis noted. Patient was initiated on IV heparin in the ER Patient states that he has not had any significant weight loss. His sister was diagnosed with Hodgkin's disease at age 17 and breast cancer in her 40s. She of complications of chemo and radiation therapy. Paternal grandmother was treated for breast cancer. Maternal grandfather was treated for prostate cancer. Review of Systems - Constitutional Reports anorexia - Eyes Reports other - ENT Reports system reviewed and no additional complaints, except as documented - Cardiovascular Reports excessive sweating - Respiratory Reports pain on inspiration - Gastrointestinal Reports abdominal pain - Genitourinary Genitourinary: Reports difficulty urinating - Musculoskeletal Reports back pain - Neurologic Reports hearing normal, Reports weakness, Denies abnormal gait, Denies headache(s) [facility] Medical History: Medical History (Last Reviewed 11/20/24 @ 23:56 by Sunshine Milligan MD) Acute COVID-19 Alcohol abuse GERD (gastroesophageal reflux disease) Internal derangement of left knee PAF (paroxysmal atrial fibrillation) Pneumonia due to 2019-nCoV PVNS (pigmented villonodular synovitis) Surgical History: Surgical History (Last Reviewed 11/20/24 @ 23:56 by Sunshine Milligan MD) History of surgery on arm Hx of colonoscopy Hx of ventral hernia repair S/P appendectomy Social History: Social History (Last Reviewed 11/20/24 @ 23:56 by Sunshine Milligan MD) Living Situation History: Household Members: Spouse Housing: House Do you presently have visiting nurse or other home services: No Alcohol History Details: 1. How often do you have a drink containing alcohol?: c. 2-4 times a month 3. How often do you have six or more drinks on one occasion?: b. Less than monthly AUDIT-C Alcohol total score: 3 Currently Displaying Signs/Symptoms of Alcohol Withdrawal: No Tobacco History: Patient Tobacco Use Status: Current everyday Tobacco Tobacco use type: Cigar Smoked in Last 30 Days: Yes Substance Use History: Use of substances other than those prescribed or required for medical reasons : No Currently Displaying Signs/Symptoms of Drug Intoxication Withdrawal: No Advance Directives: Advance Directives: No Advance Directives Information Provided: No Homicidal Assessment: Do you have a plan to hurt others: No Plan Occupation Assessmet: service: No Current occupational status: employed 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 Home Medications and Allergies Current Medications: Current Medications Acetaminophen (Acetaminophen 325 Mg Tablet) 650 mg PO Q6H PRN PRN Reason: Pain, Mild 1-3,fever,headache Last Admin: 11/21/24 06:42 Dose: 650 mg Calcium Carbonate (Calcium Carbonate 750 Mg Tab.Chew) 750 mg PO Q4H PRN PRN Reason: Heartburn Heparin Sodium (Porcine) (Heparin Sodium,Porcine 5,000 Unit/Ml Vial) 4,100 unit IVPUSH PROTOCOL BOLUS PRN; Protocol PRN Reason: 40 unit/kg - Heparin Protocol Last Admin: 11/23/24 08:02 Dose: 4,100 unit Heparin Sodium (Porcine) (Heparin Sodium,Porcine 5,000 Unit/Ml Vial) 8,100 unit IVPUSH PROTOCOL BOLUS PRN; Protocol PRN Reason: 80 unit/kg - Heparin Protocol Hydromorphone HCl (Hydromorphone Hcl 0.5 Mg/0.5 Ml Syringe) 0.5 mg IVPUSH Q4H PRN; Protocol PRN Reason: Breakthrough Pain Last Admin: 11/24/24 05:12 Dose: 0.5 mg Heparin Sodium/Sodium Chloride (Heparin Sodium,Porcine/1/2ns) 25,000 unit in 250 mls @ 0 mls/hr IVCONT .Q0M [facility]; Protocol Last Titration: 11/24/24 04:48 Dose: 14 units/kg/hr, 14.2 mls/hr Piperacillin Sod/Tazobactam (Sod 4.5 gm/ Sodium Chloride) 100 mls @ 200 mls/hr IV Q6H [facility] Last Admin: 11/24/24 05:41 Dose: 200 mls/hr Magnesium Hydroxide (Milk Of Magnesia 30 Ml Oral.Susp) 30 ml PO DAILY PRN PRN Reason: Constipation Magnesium Oxide (Magnesium Oxide 400 Mg Tablet) 400 mg PO BID [facility] Last Admin: 11/23/24 21:34 Dose: 400 mg Melatonin (Melatonin 3 Mg Tablet) 6 mg PO BEDTIME PRN PRN Reason: Insomnia Multivitamins/Vitamin C (Multivitamin Tablet) 1 tab PO DAILY [facility] Last Admin: 11/23/24 08:01 Dose: 1 tab Ondansetron HCl (Ondansetron Hcl 4 Mg/2 Ml Vial) 4 mg IVPUSH Q8H PRN PRN Reason: Nausea and Vomiting Last Admin: 11/23/24 21:33 Dose: 4 mg Sodium Chloride (0.9 % Sodium Chloride Flush 3 Ml Syringe) 3 ml IVFLUSH QSHIFT [facility] Last Admin: 11/23/24 21:34 Dose: 3 ml Home Medications ?Medication ?Instructions ?Recorded ?Confirmed ?Type magnesium oxide 400 mg PO BID PRN 04/22/21 11/21/24 Hist ory multivitamin 1 tab PO DAILY 01/16/23 11/21/24 History Hyaluronic Acid 100 mg PO BID 11/21/24 11/21/24 History ibuprofen 200 mg tablet 800 mg PO BID 11/21/24 11/21/24 History Allergies Allergy/AdvReac Type Severity Reaction Status Date / Time No Known Allergies Allergy Verified 11/20/24 17:26 Exam Vital signs: Vital Signs Temp 99.1 F 11/24/24 03:44 Pulse 71 11/24/24 03:44 Resp 20 11/24/24 03:44 BP 128/74 11/24/24 03:44 Pulse Ox 94 11/24/24 03:44 O2 Del Method Nasal Cannula 11/24/24 03:44 O2 Flow Rate 4 11/24/24 03:44 Intake & Output 11/23/24 11/23/24 11/24/24 06:59 18:59 06:59 Intake Total 439.27 / 1380.670 798.770 / 1051.893 253.123 / 1051.893 Output Total 625 / 1225 400 / 700 300 / 700 Balance -185.73 / 155.670 398.770 / 351.893 -46.877 / 351.893 Urine Output (Average ml/kg/hr) 0.51 0.33 0.25 Intake: Intake, Oral Amount 360 / 360 Intake, IV Amount 439.27 / 880.670 438.770 / 691.893 253.123 / 691.893 Piperacillin Sodium/Tazobactam 200 / 400 200 / 300 100 / 300 4.5 gm In 0.9 % Sodium Chloride 100 ml @ 200 mls/hr IV Q6H [facility] Rx#:[id number] Heparin Sodium,Porcine/1/2NS 25 239.27 / 480.670 238.770 / 391.893 153.123 / 391.893 ,000 unit In 250 ml @ Per Protocol IVCONT .Q0M [facility] Rx#: [id number] Output: Output, Urine Amount 625 / 1225 400 / 700 300 / 700 Other: Urine Urinal Urinal Urine Color Tea Straw Last Bowel Movement 11/22/24 Weight 101.4 kg BMI result Body Mass Index 31.2 - Constitutional Present: no acute distress, average body habitus - Routine HEENT Exam Head: Present: atraumatic, normal inspection - Routine Chest/Breast/Axilla Exam Breast: Present: Normal Exam - Routine Respiratory Exam Absent: accessory muscle use - Routine Cardiovascular Exam Cardiovascular: Present: RRR, S1, S2 - Routine Abdominal Exam Present: diminished bowel sounds, soft - Routine Extremities Exam Present: pulses intact - Routine Skin Exam Present: intact Data - Labs CBC & Chem 7: 11/21/24 05:49 11/21/24 05:48 Labs: Laboratory Last Values WBC 11.2 X10*3/uL (4.8-10.8) H 11/21/24 05:49 RBC 3.86 X10*6/uL (4.60-5.80) L 11/21/24 05:49 Hgb 11.3 g/dl (14.0-18.0) L 11/21/24 05:49 Hct 32.9 % (42.0-52.0) L 11/21/24 05:49 MCV 85.2 fL (80.0-98.0) 11/21/24 05:49 MCH 29.3 pg (27.0-33.0) 11/21/24 05:49 MCHC 34.3 g/dl (31.0-36.0) 11/21/24 05:49 RDW 14.3 % (11.0-16.0) 11/21/24 05:49 Plt Count 203 X10*3/uL (160-400) 11/21/24 05:49 MPV 9.8 fL (9.4-12.4) 11/21/24 05:49 Immature Gran % (Auto) 0.6 % (0.0-0.4) H 11/21/24 05:49 Neut % (Auto) 83.9 % (45-73) H 11/21/24 05:49 Lymph % (Auto) 5.3 % (20-40) L 11/21/24 05:49 Grainger % (Auto) 8.0 % (2-11) 11/21/24 05:49 Eos % (Auto) 1.7 % (0-4) 11/21/24 05:49 Baso % (Auto) 0.5 % (0-2) 11/21/24 05:49 Lymph # (Auto) 0.6 X10*3/uL (1.2-4.9) L 11/21/24 05:49 Grainger # (Auto) 0.9 X10*3/uL (0.1-1.2) 11/21/24 05:49 Eos # (Auto) 0.2 X10*3/uL (0.0-0.4) 11/21/24 05:49 Baso # (Auto) 0.1 X10*3/uL (0.0-0.2) 11/21/24 05:49 Abs Immat Gran (auto) 0.07 X10*3/uL (0.00-0.03) H 11/21/24 05:49 Absolute Neuts (auto) 9.4 x10*3/uL (2.0-8.3) H 11/21/24 05:49 Absolute Nucleated RBC 0.000 X10*3/uL (0.0-0.012) 11/21/24 05:49 Nucleated RBC % (auto) 0.0 /100WBC (0.0-0.2) 11/21/24 05:49 Hold Purple Top SEE NOTE 11/23/24 06:40 PT 12.9 SEC (10.9-12.4) H 11/21/24 05:48 INR 1.1 (0.9-1.1) 11/21/24 05:48 APTT 29.7 SEC (26.0-36.8) 11/20/24 17:37 aPTT Heparin Protocol 56.8 SEC (53-77.9) 11/24/24 03:18 Sodium 138 mmol/L (135-145) 11/21/24 05:48 Potassium 3.9 mmol/L (3.3-5.1) 11/21/24 05:48 Chloride 109 mmol/L (96-108) H 11/21/24 05:48 Carbon Dioxide 21 mmol/L (22-29) L 11/21/24 05:48 Anion Gap 12 (12-20) 11/21/24 05:48 BUN 15 mg/dL (9-16) 11/21/24 05:48 Creatinine 0.91 mg/dL (0.5-1.4) 11/21/24 05:48 Estim Creat Clear Calc 100.7 11/21/24 05:48 Estimated GFR > 60 11/21/24 05:48 Random Glucose 189 mg/dL (60-115) H 11/21/24 05:48 Calcium 8.5 mg/dL (8.4-10.2) D 11/21/24 05:48 Magnesium 2.2 mg/dL (1.6-2.6) 11/20/24 17:37 Total Bilirubin 0.8 mg/dL (0.0-1.0) 11/21/24 05:48 AST 115 U/L (5-37) H 11/21/24 05:48 ALT 126 U/L (0-40) H 11/21/24 05:48 Alkaline Phosphatase 731 U/L (39-117) H 11/21/24 05:48 Troponin I High Sens 7.9 ng/L (<3.5-35.0) D 11/20/24 17:37 B-Natriuretic Peptide 36 pg/mL (<100) 11/20/24 23:18 Total Protein 5.9 g/dL (6.5-8.0) L 11/21/24 05:48 Albumin 3.5 g/dL (3.5-5.0) 11/21/24 05:48 Lipase 30 U/L (8-78) 11/20/24 17:37 CA 19-9 Antigen [id number] U/mL (<34) H 11/21/24 05:49 Urine Color Yellow 11/20/24 20:01 Urine Appearance Clear 11/20/24 20:01 Urine pH 5.5 (5.0-9.0) 11/20/24 20:01 Ur Specific [place] 1.025 (1.005-1.025) 11/20/24 20:01 Urine Protein Trace mg/dL (Neg-Trace) 11/20/24 20:01 Urine Glucose (UA) Negative mg/dL (Negative) 11/20/24 20:01 Urine Ketones 15 mg/dL (Negative) 11/20/24 20:01 Urine Blood Negative (Negative) 11/20/24 20:01 Urine Nitrite Negative (Negative) 11/20/24 20:01 Ur Leukocyte Esterase Negative (Negative) 11/20/24 20:01 Urine RBC 0-2 /HPF (0-2) 11/20/24 20:01 Urine WBC 0-5 /HPF (0-5) 11/20/24 20:01 Ur Squamous Epith Cells 0-2 /HPF (0-2) 11/20/24 20:01 Urine Bacteria None Seen (None Seen) 11/20/24 20:01 Hyaline Casts 3-5 /LPF (0-2) 11/20/24 20:01 - Imaging Radiologist's impression: ITS Impressions Hepatobiliary Scan Nuclear Medicine 11/21/24 12:10 IMPRESSION: 1. Findings consistent with cystic duct obstruction and acute cholecystitis. 2. Multiple photopenic defects in the liver, consistent with the metastatic deposits noted on CT. 3. Findings were discussed with Dr. Morales on 11/22/2024 at 7:22 AM. Electronically signed by: Misha Hilton MD 11/22/2024 07:24 AM EDT Assessment and Plan Patient Active problem list reviewed?: Yes (1) Mass of pancreas Status: Acute Assessment and plan: 1. This is a 64-year-old male admitted for bilateral pulmonary embolism and left lower extremity DVT found to have CT findings consistent with metastatic pancreatic cancer. Chest CTA performed 11/20/2024 showed bilateral lower lobe pulmonary emboli, no significant mediastinal or hilar lymphadenopathy. Left lower extremity Doppler revealed occlusive thrombus throughout left popliteal vein, posterior tibial and peroneal veins. CT abdomen/pelvis with contrast showed 4.5 cm pancreatic body mass concerning for primary malignancy. Portacaval and peripancreatic adenopathy, numerous hepatic lesions concerning for metastasis. Moderate gallbladder distention noted, He is being evaluated for cholecystitis. A biopsy the pancreas is being planned. He is anticoagulated without bleeding. No change in his regimen as indicated. - Time Spent With Patient Time Spent with Patient (in minutes): 15
--- NOTE | 2024-11-24 07:23 | PC.NURSE ---
PTT drawn at 0318. No results by 0430, call placed to lab. Per lab staff, equipment down should have results shortly as equipment back up and running. Results noted around 0445. PTT resulted in no change and was documented in JUL at 0448.
[2024-11-24] MEDS: 0.9 % Sodium Chloride Flush 3 ML SYRINGE IVFLUSH ×3 (08:46→19:58)
--- NOTE | 2024-11-24 10:11 | HO.PM.IMPN ---
Subjective Subjective Date of Service: 11/24/24 Interval History: Follow up for Acute PE, pancreatic mass Denied acute overnight events Denies significant SOB Intermittent RUQ and diffuse abd pain No N/V/D; has been able to tolerate diet Review of Systems Review of Systems: Yes all other systems are reviewed and are negative Physical Exam Exam: Exam: alert and oriented Lungs normal expansion abd appears non distended WRIGHT Vital Signs: Vital Signs: Last Vital Signs Temp 97.7 F 11/24/24 08:00 Pulse 63 11/24/24 08:00 Resp 20 11/24/24 08:00 BP 138/71 11/24/24 08:00 Pulse Ox 94 11/24/24 08:00 O2 Del Method Nasal Cannula 11/24/24 08:00 O2 Flow Rate 1 11/24/24 08:00 BMI result Body Mass Index 31.2 Objective Data Active Medications Acetaminophen (Acetaminophen 325 Mg Tablet) 650 mg PO Q6H PRN PRN Reason: Pain, Mild 1-3,fever,headache Last Admin: 11/21/24 06:42 Dose: 650 mg Documented By: AGA Calcium Carbonate (Calcium Carbonate 750 Mg Tab.Chew) 750 mg PO Q4H PRN PRN Reason: Heartburn Heparin Sodium (Porcine) (Heparin Sodium,Porcine 5,000 Unit/Ml Vial) 4,100 unit IVPUSH PROTOCOL BOLUS PRN; Protocol PRN Reason: 40 unit/kg - Heparin Protocol Last Admin: 11/23/24 08:02 Dose: 4,100 unit Documented By: KRISTIN Heparin Sodium (Porcine) (Heparin Sodium,Porcine 5,000 Unit/Ml Vial) 8,100 unit IVPUSH PROTOCOL BOLUS PRN; Protocol PRN Reason: 80 unit/kg - Heparin Protocol Hydromorphone HCl (Hydromorphone Hcl 0.5 Mg/0.5 Ml Syringe) 0.5 mg IVPUSH Q4H PRN; Protocol PRN Reason: Pain, Moderate(Pain Scale 4-6) Last Admin: 11/24/24 09:44 Dose: 0.5 mg Documented By: KRISTIN Hydromorphone HCl (Hydromorphone Hcl 1 Mg/Ml Syringe) 0.75 mg IVPUSH Q4H PRN; Protocol PRN Reason: Pain, Severe (Pain Scale 7-10) Heparin Sodium/Sodium Chloride (Heparin Sodium,Porcine/1/2ns) 25,000 unit in 250 mls @ 0 mls/hr IVCONT .Q0M [facility]; Protocol Last Titration: 11/24/24 04:48 Dose: 14 units/kg/hr, 14.2 mls/hr Documented By: BARRY Co-signed By: CHUCK Piperacillin Sod/Tazobactam (Sod 4.5 gm/ Sodium Chloride) 100 mls @ 200 mls/hr IV Q6H [facility] Last Infusion: 11/24/24 06:11 Dose: Infused Documented By: BARRY Magnesium Hydroxide (Milk Of Magnesia 30 Ml Oral.Susp) 30 ml PO DAILY PRN PRN Reason: Constipation Magnesium Oxide (Magnesium Oxide 400 Mg Tablet) 400 mg PO BID [facility] Last Admin: 11/24/24 08:42 Dose: 400 mg Documented By: KRISTIN Melatonin (Melatonin 3 Mg Tablet) 6 mg PO BEDTIME PRN PRN Reason: Insomnia Multivitamins/Vitamin C (Multivitamin Tablet) 1 tab PO DAILY [facility] Last Admin: 11/24/24 08:42 Dose: 1 tab Documented By: KRISTIN Ondansetron HCl (Ondansetron Hcl 4 Mg/2 Ml Vial) 4 mg IVPUSH Q8H PRN PRN Reason: Nausea and Vomiting Last Admin: 11/23/24 21:33 Dose: 4 mg Documented By: BARRY Sodium Chloride (0.9 % Sodium Chloride Flush 3 Ml Syringe) 3 ml IVFLUSH QSHIFT [facility] Last Admin: 11/24/24 08:46 Dose: 3 ml Documented By: KRISTIN Labs 11/21/24 05:49 11/21/24 05:48 Labs: Laboratory Results - last 24 hr 11/23/24 11/23/24 11/24/24 14:19 21:13 03:18 aPTT Heparin Protocol 79.2 H D 64.9 56.8 Assessment and Plan (1) Pulmonary embolism: Status: Acute (2) DVT (deep venous thrombosis): Status: Acute (3) Mass of pancreas: Status: Acute (4) Liver masses: Status: Acute Plan 64-year-old male with paroxysmal AFib not on prescription medication, not on home prescription medications who presented to the emergency department for evaluation of dyspnea and abdominal pain. Pt admitted to the hospital for treatment and further evaluation of acute PE and left lower extremity DVT in the setting of pancreatic mass concerning for malignancy with liver metastasis. Acute PE and left lower extremity DVT Lower extremity U/S positive for left DVT CTA bilateral pulmonary emboli with possible right heart strain Echo showing LVEF 60-65% with mild pulmonary hypertension Continue heparin drip Vascular surgery consulted who recommended continuing heparin drip; no indication for thrombectomies Monitor on telemetry Pancreatic mass concerning for malignancy with with metastasis CT showing pancreatic body mass concerning for primary malignancy with portacaval and peripancreatic adenopathy consistent with metastasis and extensive hepatic metastasis Oncology consulted>suggest liver mass biopsy for definitive diagnosis, 11/25/24 Analgesics for pain management Patient stated that he is interested in alternative medicine for treatment of malignancy, pt can discuss options with oncology once workup is completed Acute calculous cholecytitis As seen on abd U/S HIDA scan with findings consistent with cystic duct obstruction and acute cholecystitis GI consulted>no acute intervention necessary at this time General surgery feels obstruction related to inflammation or mass. No acute intervention Continue Zosyn Transaminitis Likely secondary to liver metastasis Normocytic anemia No obvious blood loss Follow up CBC Paroxysmal AFib Not on prescription medication Reports takes magnesium which keeps him in regular rhythm Continue magnesium and multivitamin Tobacco use Patient reports that he smokes cigars Denies need for nicotine replacement at this time DVT prophylaxis: IV heparin, will transition to Eliquis after biopsy Full code Quality Stroke Does the patient have a stroke diagnosis?: No VTE Prior VTE?: No VTE Risk Level:: Medical - moderate - high VTE Device Contraindication: Treatment Not Indicated VTE Drug Contraindication: N/A - Med Ordered
[2024-11-24] MEDS: Heparin Sodium,Porcine/1/2NS 25,000 UNIT/250 ML IV.SOLN 14.2 UNIT IVCONT (10:13)
[2024-11-25] VITALS (22 sets, daily range): BP systolic 118–138; BP diastolic 59–83; PULSE 68–93; RESP 16–24; TEMP 36.1–37.4; O2SAT 92–96
[2024-11-25] MEDS: Heparin Sodium,Porcine/1/2NS 25,000 UNIT/250 ML IV.SOLN 14.2 UNIT IVCONT (03:50)
[2024-11-25 07:09] LABS: Hematocrit 34.8 % (42.0-52.0); Hemoglobin 11.4 g/dl (14.0-18.0); Mean Corpuscular HGB Conc 32.8 g/dl (31.0-36.0); Mean Corpuscular Hemoglobin 28.4 pg (27.0-33.0); Mean Corpuscular Volume 86.8 fL (80.0-98.0); NRBC Abs Auto 0.000 X10*3/uL (0.0-0.012); NRBC Pct Auto 0.0 /100WBC (0.0-0.2); Platelet Count 282 X10*3/uL (160-400); Red Blood Count 4.01 X10*6/uL (4.60-5.80); White Blood Count 12.3 X10*3/uL (4.8-10.8)
[2024-11-25 07:10] LABS: PTT Heparin Drip 53.9 SEC (53-77.9)
--- NOTE | 2024-11-25 08:40 | HO.PM.IMPN ---
Subjective Subjective Date of Service: 11/25/24 Interval History: Follow up for Acute PE, pancreatic mass Denied acute overnight events Denies significant SOB Intermittent RUQ and diffuse abd pain No N/V/D; has been able to tolerate diet Review of Systems Review of Systems: Yes all other systems are reviewed and are negative Physical Exam Exam: Exam: alert and oriented, appears tired Lungs normal expansion abd appears non distended WRIGHT Vital Signs: Vital Signs: Last Vital Signs Temp 99.3 F 11/25/24 07:31 Pulse 73 11/25/24 07:31 Resp 16 11/25/24 07:31 BP 125/80 11/25/24 07:31 Pulse Ox 94 11/25/24 07:31 O2 Del Method Nasal Cannula 11/25/24 07:31 O2 Flow Rate 2 11/25/24 07:31 BMI result Body Mass Index 31.2 Objective Data Active Medications Acetaminophen (Acetaminophen 325 Mg Tablet) 650 mg PO Q6H PRN PRN Reason: Pain, Mild 1-3,fever,headache Last Admin: 11/21/24 06:42 Dose: 650 mg Documented By: AGA Calcium Carbonate (Calcium Carbonate 750 Mg Tab.Chew) 750 mg PO Q4H PRN PRN Reason: Heartburn Docusate Sodium (Docusate Sodium 100 Mg Capsule) 100 mg PO BID [facility] Last Admin: 11/24/24 19:59 Dose: 100 mg Documented By: SANDRO Heparin Sodium (Porcine) (Heparin Sodium,Porcine 5,000 Unit/Ml Vial) 4,100 unit IVPUSH PROTOCOL BOLUS PRN; Protocol PRN Reason: 40 unit/kg - Heparin Protocol Last Admin: 11/23/24 08:02 Dose: 4,100 unit Documented By: KRISTIN Heparin Sodium (Porcine) (Heparin Sodium,Porcine 5,000 Unit/Ml Vial) 8,100 unit IVPUSH PROTOCOL BOLUS PRN; Protocol PRN Reason: 80 unit/kg - Heparin Protocol Hydromorphone HCl (Hydromorphone Hcl 0.5 Mg/0.5 Ml Syringe) 0.5 mg IVPUSH Q4H PRN; Protocol PRN Reason: Pain, Moderate(Pain Scale 4-6) Last Admin: 11/25/24 04:07 Dose: 0.5 mg Documented By: SANDRO Hydromorphone HCl (Hydromorphone Hcl 1 Mg/Ml Syringe) 0.75 mg IVPUSH Q4H PRN; Protocol PRN Reason: Pain, Severe (Pain Scale 7-10) Heparin Sodium/Sodium Chloride (Heparin Sodium,Porcine/1/2ns) 25,000 unit in 250 mls @ 0 mls/hr IVCONT .Q0M [facility]; Protocol On Hold: 11/25/24 06:58 Last Titration: 11/25/24 06:57 Dose: 0 units/kg/hr, 0 mls/hr Documented By: MASOUD Co-signed By: SANDOR Piperacillin Sod/Tazobactam (Sod 4.5 gm/ Sodium Chloride) 100 mls @ 200 mls/hr IV Q6H [facility] Last Infusion: 11/25/24 06:25 Dose: Infused Documented By: SANDRO Magnesium Hydroxide (Milk Of Magnesia 30 Ml Oral.Susp) 30 ml PO DAILY PRN PRN Reason: Constipation Magnesium Oxide (Magnesium Oxide 400 Mg Tablet) 400 mg PO BID [facility] Last Admin: 11/24/24 19:59 Dose: 400 mg Documented By: SANDRO Melatonin (Melatonin 3 Mg Tablet) 6 mg PO BEDTIME PRN PRN Reason: Insomnia Multivitamins/Vitamin C (Multivitamin Tablet) 1 tab PO DAILY [facility] Last Admin: 11/24/24 08:42 Dose: 1 tab Documented By: KRISTIN Ondansetron HCl (Ondansetron Hcl 4 Mg/2 Ml Vial) 4 mg IVPUSH Q8H PRN PRN Reason: Nausea and Vomiting Last Admin: 11/23/24 21:33 Dose: 4 mg Documented By: BARRY Polyethylene Glycol (Polyethylene Glycol 3350 17 Gm Powd.Pack) 17 gm PO DAILY PRN PRN Reason: Constipation Senna (Sennosides 8.6 Mg Tablet) 8.6 mg PO BID [facility] Last Admin: 11/24/24 19:59 Dose: 8.6 mg Documented By: SANDRO Sodium Chloride (0.9 % Sodium Chloride Flush 3 Ml Syringe) 3 ml IVFLUSH QSHIFT [facility] Last Admin: 11/24/24 19:58 Dose: 3 ml Documented By: SANDRO Labs 11/25/24 06:07 11/21/24 05:48 Labs: Laboratory Results - last 24 hr 11/25/24 06:07 MCV 86.8 MCH 28.4 MCHC 32.8 RDW 14.4 Plt Count 282 D MPV 10.7 Absolute Nucleated RBC 0.000 Nucleated RBC % (auto) 0.0 aPTT Heparin Protocol 53.9 Assessment and Plan (1) Pulmonary embolism: Status: Acute (2) DVT (deep venous thrombosis): Status: Acute (3) Mass of pancreas: Status: Acute (4) Liver masses: Status: Acute Plan 64-year-old male with paroxysmal AFib not on prescription medication, not on home prescription medications who presented to the emergency department for evaluation of dyspnea and abdominal pain. Pt admitted to the hospital for treatment and further evaluation of acute PE and left lower extremity DVT in the setting of pancreatic mass concerning for malignancy with liver metastasis. Acute PE and left lower extremity DVT Lower extremity U/S positive for left DVT CTA bilateral pulmonary emboli with possible right heart strain Echo showing LVEF 60-65% with mild pulmonary hypertension Continue heparin drip Vascular surgery consulted who recommended continuing heparin drip; no indication for thrombectomies Monitor on telemetry Pancreatic mass concerning for malignancy with with metastasis CT showing pancreatic body mass concerning for primary malignancy with portacaval and peripancreatic adenopathy consistent with metastasis and extensive hepatic metastasis Oncology consulted>suggest liver mass biopsy for definitive diagnosis, 11/25/24 Analgesics for pain management Patient stated that he is interested in alternative medicine for treatment of malignancy, pt can discuss options with oncology once workup is completed plan for biopsy today Acute calculous cholecytitis As seen on abd U/S HIDA scan with findings consistent with cystic duct obstruction and acute cholecystitis GI consulted>no acute intervention necessary at this time General surgery feels obstruction related to inflammation or mass however, may benefit from drain, reassess tomorrow Continue Zosyn Transaminitis Likely secondary to liver metastasis Normocytic anemia No obvious blood loss Follow up CBC Paroxysmal AFib Not on prescription medication Reports takes magnesium which keeps him in regular rhythm Continue magnesium and multivitamin Tobacco use Patient reports that he smokes cigars Denies need for nicotine replacement at this time DVT prophylaxis: IV heparin, will transition to Eliquis after biopsy Full code Quality Stroke Does the patient have a stroke diagnosis?: No VTE Prior VTE?: No VTE Risk Level:: Medical - moderate - high VTE Device Contraindication: Treatment Not Indicated VTE Drug Contraindication: N/A - Med Ordered
[2024-11-25] MEDS: 0.9 % Sodium Chloride Flush 3 ML SYRINGE IVFLUSH ×3 (08:48→15:29)
--- NOTE | 2024-11-25 11:13 | PM.PNGS ---
Subjective Subjective Date of Service: 11/25/24 Interval history: Has pain on the right side, as baseline No other events reported Heparin drip on hold --patient for CT biopsy of the liver today Physical Exam Vital Signs: Vital Signs: Last Vital Signs Temp 99.3 F 11/25/24 07:31 Pulse 73 11/25/24 07:31 Resp 20 11/25/24 08:44 BP 125/80 11/25/24 07:31 Pulse Ox 94 11/25/24 07:31 O2 Del Method Nasal Cannula 11/25/24 07:31 O2 Flow Rate 2 11/25/24 07:31 BMI result Body Mass Index 31.2 Const: General: no acute distress Resp: Effort & Inspection: normal respiratory effort Cardio: Rate: regular rate GI: Palpation (GI): Soft to palpation, not firm and Tenderness to palpation present (GI) (On right side of the abdomen) Objective Data Active Medications Acetaminophen (Acetaminophen 325 Mg Tablet) 650 mg PO Q6H PRN PRN Reason: Pain, Mild 1-3,fever,headache Last Admin: 11/21/24 06:42 Dose: 650 mg Documented By: AGA Calcium Carbonate (Calcium Carbonate 750 Mg Tab.Chew) 750 mg PO Q4H PRN PRN Reason: Heartburn Docusate Sodium (Docusate Sodium 100 Mg Capsule) 100 mg PO BID [facility] Last Admin: 11/25/24 08:48 Dose: 100 mg Documented By: MASOUD Heparin Sodium (Porcine) (Heparin Sodium,Porcine 5,000 Unit/Ml Vial) 4,100 unit IVPUSH PROTOCOL BOLUS PRN; Protocol PRN Reason: 40 unit/kg - Heparin Protocol Last Admin: 11/23/24 08:02 Dose: 4,100 unit Documented By: RICCIAV Heparin Sodium (Porcine) (Heparin Sodium,Porcine 5,000 Unit/Ml Vial) 8,100 unit IVPUSH PROTOCOL BOLUS PRN; Protocol PRN Reason: 80 unit/kg - Heparin Protocol Hydromorphone HCl (Hydromorphone Hcl 0.5 Mg/0.5 Ml Syringe) 0.5 mg IVPUSH Q4H PRN; Protocol PRN Reason: Pain, Moderate(Pain Scale 4-6) Last Admin: 11/25/24 04:07 Dose: 0.5 mg Documented By: SANDRO Hydromorphone HCl (Hydromorphone Hcl 1 Mg/Ml Syringe) 0.75 mg IVPUSH Q4H PRN; Protocol PRN Reason: Pain, Severe (Pain Scale 7-10) Last Admin: 11/25/24 08:44 Dose: 0.75 mg Documented By: MASOUD Heparin Sodium/Sodium Chloride (Heparin Sodium,Porcine/1/2ns) 25,000 unit in 250 mls @ 0 mls/hr IVCONT .Q0M [facility]; Protocol On Hold: 11/25/24 06:58 Last Titration: 11/25/24 06:57 Dose: 0 units/kg/hr, 0 mls/hr Documented By: MASOUD Co-signed By: SANDRO Piperacillin Sod/Tazobactam (Sod 4.5 gm/ Sodium Chloride) 100 mls @ 200 mls/hr IV Q6H [facility] Last Infusion: 11/25/24 06:25 Dose: Infused Documented By: SANDRO Magnesium Hydroxide (Milk Of Magnesia 30 Ml Oral.Susp) 30 ml PO DAILY PRN PRN Reason: Constipation Magnesium Oxide (Magnesium Oxide 400 Mg Tablet) 400 mg PO BID [facility] Last Admin: 11/25/24 08:50 Dose: 400 mg Documented By: MASOUD Melatonin (Melatonin 3 Mg Tablet) 6 mg PO BEDTIME PRN PRN Reason: Insomnia Multivitamins/Vitamin C (Multivitamin Tablet) 1 tab PO DAILY [facility] Last Admin: 11/25/24 08:48 Dose: 1 tab Documented By: MASOUD Ondansetron HCl (Ondansetron Hcl 4 Mg/2 Ml Vial) 4 mg IVPUSH Q8H PRN PRN Reason: Nausea and Vomiting Last Admin: 11/23/24 21:33 Dose: 4 mg Documented By: BARRY Oxycodone HCl (Oxycodone Hcl Immed Release 5 Mg Tablet) 5 mg PO Q4H PRN PRN Reason: Pain, Mild (Pain Scale 1-3) Polyethylene Glycol (Polyethylene Glycol 3350 17 Gm Powd.Pack) 17 gm PO DAILY PRN PRN Reason: Constipation Senna (Sennosides 8.6 Mg Tablet) 8.6 mg PO BID [facility] Last Admin: 11/25/24 08:48 Dose: 8.6 mg Documented By: MASOUD Sodium Chloride (0.9 % Sodium Chloride Flush 3 Ml Syringe) 3 ml IVFLUSH QSHIFT [facility] Last Admin: 11/25/24 08:48 Dose: 3 ml Documented By: MASOUD Labs 11/25/24 06:07 11/21/24 05:48 Labs: Laboratory Results - last 24 hr 11/25/24 06:07 MCV 86.8 MCH 28.4 MCHC 32.8 RDW 14.4 Plt Count 282 D MPV 10.7 Absolute Nucleated RBC 0.000 Nucleated RBC % (auto) 0.0 aPTT Heparin Protocol 53.9 Procedures Date of Service Date of Service: 11/25/24 Progress Note: A&P Assessment and plan (1) Liver masses: Status: Acute Assessment and Plan: For IR biopsy today -heparin on hold Has pain in the right side likely from the liver masses May benefit from tube cholecystostomy with IR if acute cholecystitis a consideration We will follow closely Does not appear septic Patient does appear to have advanced metastatic disease, probably from pancreatic etiology Time Spent With Patient Time: Total time managing care of this patient today ____ minutes. Quality Stroke Does the patient have a stroke diagnosis?: No VTE Prior VTE?: No VTE Risk Level:: Medical - moderate - high VTE Device Contraindication: Treatment Not Indicated VTE Drug Contraindication: N/A - Med Ordered
--- NOTE | 2024-11-25 11:33 | MHC.CM.PN ---
Patient not medically cleared for dc at this time. CM will continue to follow.
--- NOTE | 2024-11-25 12:32 | PC.NURSE ---
Heparin drip on hold since this am per Provider order pending liver biopsy today.
--- NOTE | 2024-11-25 16:04 | P.CDIM_ITS ---
PROVIDER RESPONSE TEXT: To clarify, the appropriate diagnosis supported by the clinical indicators: Bilateral pulmonary embolism: thrombotic QUERY TEXT: PHYSICIAN'S DOCUMENTATION REQUEST Date of Query: 11/25/2024 11:52 AM EDT Patient Name: Jay Degroot Admit Date: 11/21/2024 Dear Mitra Sandoval QA TEST ANALYST, A review of the medical record indicates additional documentation may be needed. Please review below and update the documentation accordingly. Clinical Indicators: CT scan 11/20/24 - Impression: Bilateral pulmonary emboli with possible right heart strain. Bilateral lower lobe subsegmental atelectasis. Bilateral lower lob pulmonary emboli noted. Smaller upper lob emboli are also identified. Progress notes: Acute PE and left lower extremity DVT. Continue heparin drip. Monitor on telemetry. Based on the above, could you clarify further specificity to the documented pulmonary embolism? Bilateral pulmonary embolism subsegmental (single, multiple) saddle, traumatic, thrombotic, chronic, with cor pulmonale, w/o cor pulmonale, fat, air etc. Other specifics to the noted PE Other (explain) Clinically unable to determine (explain) Thank you, Shawanda Chan, CCS, CDIS Use of terms such as suspected, likely, concern for, or probable (associated with a specific diagnosis that is being evaluated, monitored, or treated as if it exists) are acceptable and can be coded in the inpatient setting, when documented at the time of discharge. Please use your independent medical judgment in providing your response. THIS QUERY IS PART OF THE PERMANENT MEDICAL RECORD
[2024-11-25] MEDS: oxyCODONE HCl Immed Release 5 MG TABLET PO (18:24)
[2024-11-25] MEDS: Lactated Ringers 1,000 ML 100 ML IVCONT (18:25)
[2024-11-26] VITALS (9 sets, daily range): BP systolic 128–140; BP diastolic 63–82; PULSE 73–88; RESP 16–18; TEMP 36–36.5; O2SAT 93–96
[2024-11-26] MEDS: 0.9 % Sodium Chloride Flush 3 ML SYRINGE IVFLUSH ×3 (00:02→15:01)
[2024-11-26 00:12] LABS: PTT Heparin Drip 48.0 SEC (53-77.9)
--- NOTE | 2024-11-26 00:47 | PC.NURSE ---
0030- PTT-HD results came back at 48.0 which is low and per protocol, patient received a bolus as per JUL, then Heparin drip was adjusted per protocol also. Currently running at 16units/kg/hr to a rate of 16.22ml/hr with next PTT=-HD draw for 629. Bolus, rate change, and labwork all explained to patient at his bedside and witnessed by weigh and charge worker. No s/sx active bleeding or bruising present, VSS
[2024-11-26] MEDS: Heparin Sodium,Porcine/1/2NS 25,000 UNIT/250 ML IV.SOLN 16.22 UNIT IVCONT ×2 (03:45→17:28)
[2024-11-26] MEDS: Lactated Ringers 1,000 ML 100 ML IVCONT ×3 (04:40→23:56)
[2024-11-26 06:50] LABS: Hematocrit 33.5 % (42.0-52.0); Hemoglobin 11.2 g/dl (14.0-18.0); Mean Corpuscular HGB Conc 33.4 g/dl (31.0-36.0); Mean Corpuscular Hemoglobin 28.7 pg (27.0-33.0); Mean Corpuscular Volume 85.9 fL (80.0-98.0); NRBC Abs Auto 0.000 X10*3/uL (0.0-0.012); NRBC Pct Auto 0.0 /100WBC (0.0-0.2); Platelet Count 283 X10*3/uL (160-400); Red Blood Count 3.90 X10*6/uL (4.60-5.80); White Blood Count 12.9 X10*3/uL (4.8-10.8)
[2024-11-26 07:06] LABS: Anion Gap 12 (12-20); Blood Urea Nitrogen 16 mg/dL (9-16); Calcium 9.1 mg/dL (8.4-10.2); Carbon Dioxide 27 mmol/L (22-29); Chloride 101 mmol/L (96-108); Creatinine Clr Calc Pharmacy 100.7; Estimated Glomerular Filt Rate > 60; Potassium 4.8 mmol/L (3.3-5.1); Sodium 135 mmol/L (135-145)
[2024-11-26 07:07] LABS: Alanine Aminotransferase 152 U/L (0-40); Albumin Level 3.4 g/dL (3.5-5.0); Alkaline Phosphatase 670 U/L (39-117); Aspartate Amino Transferase 138 U/L (5-37); Magnesium 2.0 mg/dL (1.6-2.6); Total Protein 6.3 g/dL (6.5-8.0)
[2024-11-26 07:27] LABS: PTT Heparin Drip 67.7 SEC (53-77.9)
--- NOTE | 2024-11-26 08:13 | P.PNIM_ITS ---
Subjective Subjective Date of Service: 11/26/24 Interval History: Follow up for Acute PE, pancreatic mass diffuse abd pain No N/V/D; has been able to tolerate diet still no BM Review of Systems Review of Systems: Yes all other systems are reviewed and are negative Physical Exam 2 Exam: Exam: Appearing in no acute distress Lungs with normal expansion Abdomen does not appear to be distended WRIGHT Vital Signs: Vital Signs: Last Vital Signs Temp 96.8 F 11/26/24 07:25 Pulse 77 11/26/24 07:25 Resp 16 11/26/24 07:25 BP 140/74 H 11/26/24 07:25 Pulse Ox 94 11/26/24 07:25 O2 Del Method Nasal Cannula 11/26/24 07:25 O2 Flow Rate 2 11/26/24 07:25 BMI result Body Mass Index 31.2 Objective Data Active Medications Acetaminophen (Acetaminophen 325 Mg Tablet) 650 mg PO Q6H PRN PRN Reason: Pain, Mild 1-3,fever,headache Last Admin: 11/21/24 06:42 Dose: 650 mg Documented By: AGA Calcium Carbonate (Calcium Carbonate 750 Mg Tab.Chew) 750 mg PO Q4H PRN PRN Reason: Heartburn Docusate Sodium (Docusate Sodium 100 Mg Capsule) 100 mg PO BID CYRIL Last Admin: 11/25/24 21:03 Dose: 100 mg Documented By: SANDRO Heparin Sodium (Porcine) (Heparin Sodium,Porcine 5,000 Unit/Ml Vial) 4,100 unit IVPUSH PROTOCOL BOLUS PRN; Protocol PRN Reason: 40 unit/kg - Heparin Protocol Last Admin: 11/26/24 00:28 Dose: 4,100 unit Documented By: SANDRO Heparin Sodium (Porcine) (Heparin Sodium,Porcine 5,000 Unit/Ml Vial) 8,100 unit IVPUSH PROTOCOL BOLUS PRN; Protocol PRN Reason: 80 unit/kg - Heparin Protocol Hydromorphone HCl (Hydromorphone Hcl 0.5 Mg/0.5 Ml Syringe) 0.5 mg IVPUSH Q4H PRN; Protocol PRN Reason: Pain, Moderate(Pain Scale 4-6) Last Admin: 11/26/24 01:18 Dose: 0.5 mg Documented By: SANDRO Hydromorphone HCl (Hydromorphone Hcl 1 Mg/Ml Syringe) 0.75 mg IVPUSH Q4H PRN; Protocol PRN Reason: Pain, Severe (Pain Scale 7-10) Last Admin: 11/25/24 08:44 Dose: 0.75 mg Documented By: MASOUD Heparin Sodium/Sodium Chloride (Heparin Sodium,Porcine/1/2ns) 25,000 unit in 250 mls @ 0 mls/hr IVCONT .Q0M [facility]; Protocol Last Titration: 11/26/24 07:45 Dose: 16 units/kg/hr, 16.22 mls/hr Documented By: MASOUD Co-signed By: AYAH Piperacillin Sod/Tazobactam (Sod 4.5 gm/ Sodium Chloride) 100 mls @ 200 mls/hr IV Q6H [facility] Last Infusion: 11/26/24 06:32 Dose: Infused Documented By: SANDRO Lactated Ringer's (Lr) 1,000 mls @ 100 mls/hr IVCONT .Q10H [facility] Last Admin: 11/26/24 04:40 Dose: 100 mls/hr Documented By: SANDRO Magnesium Citrate (Magnesium Citrate 300 Ml Solution) 300 ml PO ONCE ONE Stop: 11/26/24 08:13 Magnesium Hydroxide (Milk Of Magnesia 30 Ml Oral.Susp) 30 ml PO DAILY PRN PRN Reason: Constipation Magnesium Oxide (Magnesium Oxide 400 Mg Tablet) 400 mg PO BID [facility] Last Admin: 11/25/24 21:03 Dose: 400 mg Documented By: SANDRO Melatonin (Melatonin 3 Mg Tablet) 6 mg PO BEDTIME PRN PRN Reason: Insomnia Multivitamins/Vitamin C (Multivitamin Tablet) 1 tab PO DAILY [facility] Last Admin: 11/25/24 08:48 Dose: 1 tab Documented By: MASOUD Ondansetron HCl (Ondansetron Hcl 4 Mg/2 Ml Vial) 4 mg IVPUSH Q8H PRN PRN Reason: Nausea and Vomiting Last Admin: 11/23/24 21:33 Dose: 4 mg Documented By: BARRY Oxycodone HCl (Oxycodone Hcl Immed Release 5 Mg Tablet) 5 mg PO Q4H PRN PRN Reason: Pain, Mild (Pain Scale 1-3) Last Admin: 11/25/24 18:24 Dose: 5 mg Documented By: MASOUD Polyethylene Glycol (Polyethylene Glycol 3350 17 Gm Powd.Pack) 17 gm PO DAILY PRN PRN Reason: Constipation Last Admin: 11/26/24 04:51 Dose: 17 gm Documented By: SANDRO Senna (Sennosides 8.6 Mg Tablet) 8.6 mg PO BID [facility] Last Admin: 11/25/24 21:03 Dose: 8.6 mg Documented By: SANDRO Sodium Chloride (0.9 % Sodium Chloride Flush 3 Ml Syringe) 3 ml IVFLUSH QSHIFT [facility] Last Admin: 11/26/24 00:02 Dose: 3 ml Documented By: SANDRO Labs 11/26/24 06:45 11/26/24 06:45 Labs: Laboratory Results - last 24 hr 11/25/24 11/26/24 23:56 06:45 MCV 85.9 MCH 28.7 MCHC 33.4 RDW 14.4 Plt Count 283 MPV 10.1 Absolute Nucleated RBC 0.000 Nucleated RBC % (auto) 0.0 aPTT Heparin Protocol 48.0 L 67.7 D Anion Gap 12 Estim Creat Clear Calc 100.7 Estimated GFR > 60 Random Glucose 164 H Calcium 9.1 D Magnesium 2.0 Total Bilirubin 2.6 H Direct Bilirubin 1.8 H AST 138 H ALT 152 H Alkaline Phosphatase 670 H Total Protein 6.3 L Albumin 3.4 L Assessment and Plan (1) Pulmonary embolism: Status: Acute (2) DVT (deep venous thrombosis): Status: Acute (3) Mass of pancreas: Status: Acute (4) Liver masses: Status: Acute Plan 64-year-old male with paroxysmal AFib not on prescription medication, not on home prescription medications who presented to the emergency department for evaluation of dyspnea and abdominal pain. Pt admitted to the hospital for treatment and further evaluation of acute PE and left lower extremity DVT in the setting of pancreatic mass concerning for malignancy with liver metastasis. 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 for malignancy with with metastasis CT showing pancreatic body mass concerning for primary malignancy with portacaval and peripancreatic adenopathy consistent with metastasis and extensive hepatic metastasis Oncology following CA 19-9>[id number] IV Analgesics for pain management Patient stated that he is interested in alternative medicine for treatment of malignancy, if workup is positive, pt can discuss options with oncology once workup is completed Biopsy completed 11/25/2024, results pending Acute PE and left lower extremity DVT Lower extremity U/S positive for left DVT CTA bilateral pulmonary emboli with possible right heart strain Echo showing LVEF 60-65% with mild pulmonary hypertension Continue heparin drip Vascular surgery consulted who recommended continuing heparin drip; no indication for thrombectomies Monitor on telemetry Transaminitis possible secondary to liver metastasis Bili 2.6, direct bili 1.8 Normocytic anemia No obvious blood loss Follow up CBC Paroxysmal AFib Not on prescription medication Reports takes magnesium which keeps him in regular rhythm Continue magnesium and multivitamin Tobacco use Patient reports that he smokes cigars Denies need for nicotine replacement at this time DVT prophylaxis: IV heparin, will transition to Eliquis after general surgery assesses for possible drain tube Full code Quality Stroke Does the patient have a stroke diagnosis?: No VTE Prior VTE?: No VTE Risk Level:: Medical - moderate - high VTE Device Contraindication: Treatment Not Indicated VTE Drug Contraindication: N/A - Med Ordered
--- NOTE | 2024-11-26 11:24 | PM.EVENT ---
I met with patient and his who was at the bedside. was questioning results of biopsy. They were told that the results were not available at this time but they were informed that CA 19-9 was elevated, over 130,000. They wanted to know about specific tests on tumor tissue to guide therapy. I discussed next generation sequencing which generally includes BRCA1/2 and other homologous recombinant repair gene mutation and MSI testing. This would be performed on the biopsy specimen. I discussed further management would involve palliative chemotherapy or targeted therapy depending on pathology results
--- NOTE | 2024-11-26 11:48 | P.PNGS_ITS ---
Subjective Subjective Date of Service: 11/26/24 Interval history: He says he tolerated liver biopsy well yesterday No new complaints Admits to abdominal pain No fever reported overnight Physical Exam 2 Vital Signs: Vital Signs: Last Vital Signs Temp 97.7 F 11/26/24 11:29 Pulse 80 11/26/24 11:29 Resp 16 11/26/24 11:29 BP 140/77 H 11/26/24 11:29 Pulse Ox 96 11/26/24 11:29 O2 Del Method Nasal Cannula 11/26/24 11:29 O2 Flow Rate 2 11/26/24 11:29 BMI result Body Mass Index 31.2 Const: General: no acute distress Resp: Effort & Inspection: normal respiratory effort Cardio: Rate: regular rate GI: Palpation (GI): Soft to palpation, not firm, Tenderness to palpation present (GI) (Mild diffuse tenderness mostly upper abdomen is) and no guarding Objective Data Active Medications Acetaminophen (Acetaminophen 325 Mg Tablet) 650 mg PO Q6H PRN PRN Reason: Pain, Mild 1-3,fever,headache Last Admin: 11/21/24 06:42 Dose: 650 mg Documented By: AGA Calcium Carbonate (Calcium Carbonate 750 Mg Tab.Chew) 750 mg PO Q4H PRN PRN Reason: Heartburn Docusate Sodium (Docusate Sodium 100 Mg Capsule) 100 mg PO BID CYRIL Last Admin: 11/26/24 08:43 Dose: 100 mg Documented By: MASOUD Heparin Sodium (Porcine) (Heparin Sodium,Porcine 5,000 Unit/Ml Vial) 4,100 unit IVPUSH PROTOCOL BOLUS PRN; Protocol PRN Reason: 40 unit/kg - Heparin Protocol Last Admin: 11/26/24 00:28 Dose: 4,100 unit Documented By: SANDRO Heparin Sodium (Porcine) (Heparin Sodium,Porcine 5,000 Unit/Ml Vial) 8,100 unit IVPUSH PROTOCOL BOLUS PRN; Protocol PRN Reason: 80 unit/kg - Heparin Protocol Hydromorphone HCl (Hydromorphone Hcl 1 Mg/Ml Syringe) 1 mg IVPUSH Q3H PRN; Protocol PRN Reason: Pain, Severe (Pain Scale 7-10) Hydromorphone HCl (Hydromorphone Hcl 0.5 Mg/0.5 Ml Syringe) 0.5 mg IVPUSH Q3H PRN; Protocol PRN Reason: Pain, Moderate(Pain Scale 4-6) Last Admin: 11/26/24 08:44 Dose: 0.5 mg Documented By: MASOUD Heparin Sodium/Sodium Chloride (Heparin Sodium,Porcine/1/2ns) 25,000 unit in 250 mls @ 0 mls/hr IVCONT .Q0M [facility]; Protocol Last Titration: 11/26/24 07:45 Dose: 16 units/kg/hr, 16.22 mls/hr Documented By: MASOUD Co-signed By: AYAH Piperacillin Sod/Tazobactam (Sod 4.5 gm/ Sodium Chloride) 100 mls @ 200 mls/hr IV Q6H [facility] Last Admin: 11/26/24 11:31 Dose: 200 mls/hr Documented By: MASOUD Lactated Ringer's (Lr) 1,000 mls @ 100 mls/hr IVCONT .Q10H [facility] Last Admin: 11/26/24 04:40 Dose: 100 mls/hr Documented By: SANDRO Magnesium Hydroxide (Milk Of Magnesia 30 Ml Oral.Susp) 30 ml PO DAILY PRN PRN Reason: Constipation Magnesium Oxide (Magnesium Oxide 400 Mg Tablet) 400 mg PO BID [facility] Last Admin: 11/26/24 10:28 Dose: 400 mg Documented By: MASOUD Melatonin (Melatonin 3 Mg Tablet) 6 mg PO BEDTIME PRN PRN Reason: Insomnia Multivitamins/Vitamin C (Multivitamin Tablet) 1 tab PO DAILY [facility] Last Admin: 11/26/24 08:43 Dose: 1 tab Documented By: MASOUD Ondansetron HCl (Ondansetron Hcl 4 Mg/2 Ml Vial) 4 mg IVPUSH Q8H PRN PRN Reason: Nausea and Vomiting Last Admin: 11/23/24 21:33 Dose: 4 mg Documented By: BARRY Oxycodone HCl (Oxycodone Hcl Immed Release 5 Mg Tablet) 5 mg PO Q4H PRN PRN Reason: Pain, Mild (Pain Scale 1-3) Last Admin: 11/25/24 18:24 Dose: 5 mg Documented By: MASOUD Polyethylene Glycol (Polyethylene Glycol 3350 17 Gm Powd.Pack) 17 gm PO DAILY PRN PRN Reason: Constipation Last Admin: 11/26/24 04:51 Dose: 17 gm Documented By: SANDRO Senna (Sennosides 8.6 Mg Tablet) 8.6 mg PO BID [facility] Last Admin: 11/26/24 08:43 Dose: 8.6 mg Documented By: MASOUD Sodium Chloride (0.9 % Sodium Chloride Flush 3 Ml Syringe) 3 ml IVFLUSH QSHIFT [facility] Last Admin: 11/26/24 08:48 Dose: 3 ml Documented By: MASOUD Labs 11/26/24 06:45 11/26/24 06:45 Labs: Laboratory Results - last 24 hr 11/25/24 11/26/24 23:56 06:45 MCV 85.9 MCH 28.7 MCHC 33.4 RDW 14.4 Plt Count 283 MPV 10.1 Absolute Nucleated RBC 0.000 Nucleated RBC % (auto) 0.0 aPTT Heparin Protocol 48.0 L 67.7 D Anion Gap 12 Estim Creat Clear Calc 100.7 Estimated GFR > 60 Random Glucose 164 H Calcium 9.1 D Magnesium 2.0 Total Bilirubin 2.6 H Direct Bilirubin 1.8 H AST 138 H ALT 152 H Alkaline Phosphatase 670 H Total Protein 6.3 L Albumin 3.4 L Procedures Date of Service Date of Service: 11/26/24 Progress Note: A&P Assessment and plan (1) Liver masses: Status: Acute Assessment and Plan: Likely metastatic disease Also with multiple PEs Abdomen is soft, benign although with some diffuse tenderness, as baseline Pain maybe from liver lesions pancreatic mass Repeat ultrasound see if he may benefit from IR cholecystostomy if the gallbladder is distended Discussed with radiologist Pain management Await path report Diet as tolerated for now Time Spent With Patient Time: Total time managing care of this patient today ____ minutes. Quality Stroke Does the patient have a stroke diagnosis?: No VTE Prior VTE?: No VTE Risk Level:: Medical - moderate - high VTE Device Contraindication: Treatment Not Indicated VTE Drug Contraindication: N/A - Med Ordered
--- NOTE | 2024-11-26 13:27 | MHC.CM.PN ---
Met w/ patient to review PT recommendation of home w/ services. Patient is aware he is unable to obtain home services, as he does not have a PCP. Discussed the possibility of outpatient PT. However, patient does not feel he needs PT at all. Provided [facility] brochure and discussed the importance of establishing care w/ a PCP, as he has not seen one in 4-5 years. Verbalized understanding. He will begin making calls.
[2024-11-26 14:07] LABS: PTT Heparin Drip 61.8 SEC (53-77.9)
[2024-11-27] VITALS (7 sets, daily range): BP systolic 124–137; BP diastolic 66–88; PULSE 71–86; RESP 12–18; TEMP 36.2–37.1; O2SAT 92–95
[2024-11-27] MEDS: oxyCODONE HCl Immed Release 5 MG TABLET PO ×3 (05:49→18:35)
[2024-11-27 07:13] LABS: PTT Heparin Drip 58.3 SEC (53-77.9)
[2024-11-27] MEDS: Heparin Sodium,Porcine/1/2NS 25,000 UNIT/250 ML IV.SOLN 16.22 UNIT IVCONT ×2 (08:04→22:38)
--- NOTE | 2024-11-27 08:05 | P.PNGS_ITS ---
Subjective Subjective Date of Service: 11/28/24 Physical Exam 2 Vital Signs: Vital Signs: Last Vital Signs Temp 97.8 F 11/27/24 07:35 Pulse 76 11/27/24 07:35 Resp 18 11/27/24 07:35 BP 129/83 11/27/24 07:35 Pulse Ox 95 11/27/24 07:35 O2 Del Method Nasal Cannula 11/27/24 07:35 O2 Flow Rate 3 11/27/24 07:35 BMI result Body Mass Index 31.2 Const: Other: c/o pain General: no acute distress Resp: Effort & Inspection: normal respiratory effort Cardio: Rate: regular rate GI: Other: tender diffusely, incl RUQ Palpation (GI): Soft to palpation Objective Data Active Medications Acetaminophen (Acetaminophen 325 Mg Tablet) 650 mg PO Q6H PRN PRN Reason: Pain, Mild 1-3,fever,headache Last Admin: 11/21/24 06:42 Dose: 650 mg Documented By: MILADYSZESushil Calcium Carbonate (Calcium Carbonate 750 Mg Tab.Chew) 750 mg PO Q4H PRN PRN Reason: Heartburn Last Admin: 11/26/24 23:23 Dose: 750 mg Documented By: THI Docusate Sodium (Docusate Sodium 100 Mg Capsule) 100 mg PO BID CYRIL Last Admin: 11/26/24 21:10 Dose: 100 mg Documented By: THI Heparin Sodium (Porcine) (Heparin Sodium,Porcine 5,000 Unit/Ml Vial) 4,100 unit IVPUSH PROTOCOL BOLUS PRN; Protocol PRN Reason: 40 unit/kg - Heparin Protocol Last Admin: 11/26/24 00:28 Dose: 4,100 unit Documented By: SANDRO Heparin Sodium (Porcine) (Heparin Sodium,Porcine 5,000 Unit/Ml Vial) 8,100 unit IVPUSH PROTOCOL BOLUS PRN; Protocol PRN Reason: 80 unit/kg - Heparin Protocol Hydromorphone HCl (Hydromorphone Hcl 1 Mg/Ml Syringe) 1 mg IVPUSH Q3H PRN; Protocol PRN Reason: Pain, Severe (Pain Scale 7-10) Last Admin: 11/27/24 02:59 Dose: 1 mg Documented By: SASHA Hydromorphone HCl (Hydromorphone Hcl 0.5 Mg/0.5 Ml Syringe) 0.5 mg IVPUSH Q3H PRN; Protocol PRN Reason: Pain, Moderate(Pain Scale 4-6) Last Admin: 11/26/24 08:44 Dose: 0.5 mg Heparin Sodium/Sodium Chloride (Heparin Sodium,Porcine/1/2ns) 25,000 unit in 250 mls @ 0 mls/hr IVCONT .Q0M [facility]; Protocol Last Titration: 11/27/24 07:24 Dose: 16 units/kg/hr, 16.22 mls/hr Documented By: DESTINY Co-signed By: CHAR Piperacillin Sod/Tazobactam (Sod 4.5 gm/ Sodium Chloride) 100 mls @ 200 mls/hr IV Q6H [facility] Last Infusion: 11/27/24 06:32 Dose: Infused Documented By: THI Lactated Ringer's (Lr) 1,000 mls @ 100 mls/hr IVCONT .Q10H [facility] Last Infusion: 11/27/24 06:31 Dose: 100 mls/hr Documented By: THI Magnesium Hydroxide (Milk Of Magnesia 30 Ml Oral.Susp) 30 ml PO DAILY PRN PRN Reason: Constipation Magnesium Oxide (Magnesium Oxide 400 Mg Tablet) 400 mg PO BID [facility] Last Admin: 11/26/24 21:10 Dose: 400 mg Documented By: THI Melatonin (Melatonin 3 Mg Tablet) 6 mg PO BEDTIME PRN PRN Reason: Insomnia Multivitamins/Vitamin C (Multivitamin Tablet) 1 tab PO DAILY [facility] Last Admin: 11/26/24 08:43 Dose: 1 tab Documented By: MASOUD Ondansetron HCl (Ondansetron Hcl 4 Mg/2 Ml Vial) 4 mg IVPUSH Q8H PRN PRN Reason: Nausea and Vomiting Last Admin: 11/23/24 21:33 Dose: 4 mg Documented By: BARRY Oxycodone HCl (Oxycodone Hcl Immed Release 5 Mg Tablet) 5 mg PO Q4H PRN PRN Reason: Pain, Mild (Pain Scale 1-3) Last Admin: 11/27/24 05:49 Dose: 5 mg Documented By: THI Comments: per pt request Polyethylene Glycol (Polyethylene Glycol 3350 17 Gm Powd.Pack) 17 gm PO DAILY PRN PRN Reason: Constipation Last Admin: 11/26/24 04:51 Dose: 17 gm Documented By: SANDRO Senna (Sennosides 8.6 Mg Tablet) 8.6 mg PO BID [facility] Last Admin: 11/26/24 21:10 Dose: 8.6 mg Documented By: THI Sodium Chloride (0.9 % Sodium Chloride Flush 3 Ml Syringe) 3 ml IVFLUSH QSHIFT [facility] Last Admin: 11/27/24 00:01 Dose: Not Given Documented By: THI Non-Admin Reason: IV Running Labs 11/26/24 06:45 11/26/24 06:45 Labs: Laboratory Results - last 24 hr 11/26/24 11/27/24 13:53 06:12 aPTT Heparin Protocol 61.8 58.3 Procedures Date of Service Date of Service: 11/28/24 Progress Note: A&P Assessment and plan (1) Liver masses: Status: Acute Assessment and Plan: US reviewed - gallbladder distended with stones, no obvious wall thickening difficult to tell whether is from liver lesions or GB in view of distension of GB, I explained to pt we can order for IR tube cholecystostomy no guarantee cholecystomy will resolve pain he states he is willing to go for IR cholecystostomy but does not wanted done today Heparin drip will have to be held if he undergoes cholecystostomy tube placement Path report pending (2) Gallstones: Status: Acute Time Spent With Patient Time: Total time managing care of this patient today ____ minutes. Quality Stroke Does the patient have a stroke diagnosis?: No VTE Prior VTE?: No VTE Risk Level:: Medical - moderate - high VTE Device Contraindication: Treatment Not Indicated VTE Drug Contraindication: N/A - Med Ordered
[2024-11-27] MEDS: Lactated Ringers 1,000 ML 100 ML IVCONT ×2 (10:17→20:39)
--- NOTE | 2024-11-27 10:23 | MHC.CM.PN ---
Patient not medically cleared for dc. Per MD rounds, plan for abscess drainage tomorrow. CM will continue to follow.
--- NOTE | 2024-11-27 11:28 | P.PNVS_ITS ---
Subjective Subjective Date of Service: 11/27/24 Patient reports: no new complaints and feels better Interval history: Very pleasant 64-year-old gentleman who initially presented for evaluation of DVT and PE. He had originally noticed dyspnea 2-3 days prior to admission. At the current time denies any shortness of breath. Was comfortable sitting up working on his iPad at the time of my visit. He has undergone liver biopsy and is awaiting pathology results. Physical Exam Vital Signs: Vital Signs: Last Vital Signs Temp 97.8 F 11/27/24 07:35 Pulse 76 11/27/24 07:35 Resp 18 11/27/24 07:35 BP 129/83 11/27/24 07:35 Pulse Ox 95 11/27/24 07:35 O2 Del Method Nasal Cannula 11/27/24 07:35 O2 Flow Rate 3 11/27/24 07:35 BMI result Body Mass Index 31.2 Const: General: cooperative, healthy appearing and comfortable Orientation/consciousness: oriented to person, oriented to place and oriented to time HEENT: Head: Yes normal to inspection Neck: Neck: Yes normal visual inspection Carotids: no bruits Chest: Chest palpation & inspection: normal inspection of the chest Resp: Effort & Inspection: normal respiratory effort and able to speak in complete sentences Auscultation: clear to auscultation bilaterally, no crackles, no rales, no rhonchi and no wheezes Cardio: Rate: regular rate Rhythm: regular rhythm Heart sounds: S1 normal heart sound present and S2 normal heart sound present Bruits: no carotid bruits Peripheral pulses: Peripheral pulses 2+ throughout GI: Inspection: Yes normal to inspection Skin: Wounds: no wounds Hair: normal Neuro: General: oriented to person, oriented to place and oriented to time Cranial nerves: Yes CN's II-XII intact bilaterally and Yes Normal hearing present Cognition (Neuro): normal cognition Motor exam (neuro): 5/5 motor strength present throughout Extrem: Other: venous exam: No significant superficial varicosities or spider tel angiectasias, minimal edema General: No clubbing, No cyanosis and No edema Psych: Appearance: grossly normal Mental Status: mental status grossly normal Speech and movement: Normal speech and movement present Progress Note: A&P Assessment and plan (1) Pulmonary embolism: Status: Acute Assessment and Plan: At the current stable from a DVT PE standpoint. He will require long-term anticoagulation such as Eliquis or Lovenox. He is meeting with Hematology- Oncology. They are discussing palliative chemotherapy or targeted therapy depending on pathology results. Would leave long-term anticoagulation and choice of anticoagulants at the discretion of Hematology-Oncology. We will follow on an as-needed basis. Thank you for allowing us to participate in his care. Time Spent With Patient Time: Total time managing care of this patient today ____ minutes. Procedures Date of Service Date of Service: 11/27/24 Quality Stroke Does the patient have a stroke diagnosis?: No VTE Prior VTE?: No VTE Risk Level:: Medical - moderate - high VTE Device Contraindication: Treatment Not Indicated VTE Drug Contraindication: N/A - Med Ordered
--- NOTE | 2024-11-27 11:35 | P.PNIM_ITS ---
Subjective Subjective Date of Service: 11/27/24 Interval History: Follow up for Acute PE, pancreatic mass diffuse abd pain No N/V/D; has been able to tolerate diet Had no specific complaint Physical Exam 2 Vital Signs: Vital Signs: Last Vital Signs Temp 97.8 F 11/27/24 07:35 Pulse 76 11/27/24 07:35 Resp 18 11/27/24 07:35 BP 129/83 11/27/24 07:35 Pulse Ox 95 11/27/24 07:35 O2 Del Method Nasal Cannula 11/27/24 07:35 O2 Flow Rate 3 11/27/24 07:35 BMI result Body Mass Index 31.2 Objective Data Active Medications Acetaminophen (Acetaminophen 325 Mg Tablet) 650 mg PO Q6H PRN PRN Reason: Pain, Mild 1-3,fever,headache Last Admin: 11/21/24 06:42 Dose: 650 mg Documented By: DIVYA-JOZEB Calcium Carbonate (Calcium Carbonate 750 Mg Tab.Chew) 750 mg PO Q4H PRN PRN Reason: Heartburn Last Admin: 11/26/24 23:23 Dose: 750 mg Documented By: THI Docusate Sodium (Docusate Sodium 100 Mg Capsule) 100 mg PO BID [facility]IL Last Admin: 11/27/24 08:02 Dose: 100 mg Documented By: DESTINY Heparin Sodium (Porcine) (Heparin Sodium,Porcine 5,000 Unit/Ml Vial) 4,100 unit IVPUSH PROTOCOL BOLUS PRN; Protocol PRN Reason: 40 unit/kg - Heparin Protocol Last Admin: 11/26/24 00:28 Dose: 4,100 unit Documented By: SANDRO Heparin Sodium (Porcine) (Heparin Sodium,Porcine 5,000 Unit/Ml Vial) 8,100 unit IVPUSH PROTOCOL BOLUS PRN; Protocol PRN Reason: 80 unit/kg - Heparin Protocol Hydromorphone HCl (Hydromorphone Hcl 1 Mg/Ml Syringe) 1 mg IVPUSH Q3H PRN; Protocol PRN Reason: Pain, Severe (Pain Scale 7-10) Last Admin: 11/27/24 08:02 Dose: 1 mg Documented By: DESTINY Hydromorphone HCl (Hydromorphone Hcl 0.5 Mg/0.5 Ml Syringe) 0.5 mg IVPUSH Q3H PRN; Protocol PRN Reason: Pain, Moderate(Pain Scale 4-6) Last Admin: 11/26/24 08:44 Dose: 0.5 mg Heparin Sodium/Sodium Chloride (Heparin Sodium,Porcine/1/2ns) 25,000 unit in 250 mls @ 0 mls/hr IVCONT .Q0M [facility]; Protocol Last Admin: 11/27/24 08:04 Dose: 16 units/kg/hr, 16.22 mls/hr Documented By: DESTINY Co-signed By: AALIYAH Piperacillin Sod/Tazobactam (Sod 4.5 gm/ Sodium Chloride) 100 mls @ 200 mls/hr IV Q6H [facility] Last Infusion: 11/27/24 06:32 Dose: Infused Documented By: THI Lactated Ringer's (Lr) 1,000 mls @ 100 mls/hr IVCONT .Q10H [facility] Last Admin: 11/27/24 10:17 Dose: 100 mls/hr Documented By: DESTINY Magnesium Hydroxide (Milk Of Magnesia 30 Ml Oral.Susp) 30 ml PO DAILY PRN PRN Reason: Constipation Magnesium Oxide (Magnesium Oxide 400 Mg Tablet) 400 mg PO BID [facility] Last Admin: 11/27/24 08:02 Dose: 400 mg Documented By: DESTINY Melatonin (Melatonin 3 Mg Tablet) 6 mg PO BEDTIME PRN PRN Reason: Insomnia Multivitamins/Vitamin C (Multivitamin Tablet) 1 tab PO DAILY [facility] Last Admin: 11/27/24 08:02 Dose: 1 tab Documented By: DESTINY Ondansetron HCl (Ondansetron Hcl 4 Mg/2 Ml Vial) 4 mg IVPUSH Q8H PRN PRN Reason: Nausea and Vomiting Last Admin: 11/23/24 21:33 Dose: 4 mg Documented By: BARRY Oxycodone HCl (Oxycodone Hcl Immed Release 5 Mg Tablet) 5 mg PO Q4H PRN PRN Reason: Pain, Mild (Pain Scale 1-3) Last Admin: 11/27/24 10:38 Dose: 5 mg Documented By: AALIYAH Polyethylene Glycol (Polyethylene Glycol 3350 17 Gm Powd.Pack) 17 gm PO DAILY PRN PRN Reason: Constipation Last Admin: 11/26/24 04:51 Dose: 17 gm Documented By: SANDRO [place] (Sennosides 8.6 Mg Tablet) 8.6 mg PO BID [facility] Last Admin: 11/27/24 08:02 Dose: 8.6 mg Documented By: DESTINY Sodium Chloride (0.9 % Sodium Chloride Flush 3 Ml Syringe) 3 ml IVFLUSH QSHIFT [facility] Last Admin: 11/27/24 08:03 Dose: Not Given Documented By: DESTINY Non-Admin Reason: IV Running Labs 11/26/24 06:45 11/26/24 06:45 Labs: Laboratory Results - last 24 hr 11/26/24 11/27/24 13:53 06:12 aPTT Heparin Protocol 61.8 58.3 Assessment and Plan (1) Pulmonary embolism: Status: Acute (2) DVT (deep venous thrombosis): Status: Acute (3) Mass of pancreas: Status: Acute (4) Liver masses: Status: Acute Plan 64-year-old male with paroxysmal AFib not on prescription medication, not on home prescription medications who presented to the emergency department for evaluation of dyspnea and abdominal pain. Pt admitted to the hospital for treatment and further evaluation of acute PE and left lower extremity DVT in the setting of pancreatic mass concerning for malignancy with liver metastasis. Constipation Poor appetite secondary to abdominal pain also narcotic pain medication IV fluids started Mag citrate ordered Continue scheduled Senokot and Colace Acute calculous cholecytitis HIDA scan with findings consistent with cystic duct obstruction and acute cholecystitis GI consulted>no acute intervention necessary at this time Continue Zosyn General surgery to assess the need for cholecystostomy tube, patient wants to eat today and get it done tomorrow Pancreatic mass concerning for malignancy with with metastasis CT showing pancreatic body mass concerning for primary malignancy with portacaval and peripancreatic adenopathy consistent with metastasis and extensive hepatic metastasis Oncology following CA [id number] IV Analgesics for pain management Patient stated that he is interested in alternative medicine for treatment of malignancy, if workup is positive, pt can discuss options with oncology once workup is completed Biopsy completed 11/25/2024, results pending Acute PE and left lower extremity DVT Lower extremity U/S positive for left DVT CTA bilateral pulmonary emboli with possible right heart strain Echo showing LVEF 60-65% with mild pulmonary hypertension Continue heparin drip Vascular surgery consulted who recommended continuing heparin drip; no indication for thrombectomies Monitor on telemetry Transaminitis possible secondary to liver metastasis Bili 2.6, direct bili 1.8 Normocytic anemia No obvious blood loss Follow up CBC Paroxysmal AFib Not on prescription medication Reports takes magnesium which keeps him in regular rhythm Continue magnesium and multivitamin Tobacco use Patient reports that he smokes cigars Denies need for nicotine replacement at this time DVT prophylaxis: IV heparin, will transition to Eliquis after general surgery assesses for possible drain tube Full code Quality Stroke Does the patient have a stroke diagnosis?: No VTE Prior VTE?: No VTE Risk Level:: Medical - moderate - high VTE Device Contraindication: Treatment Not Indicated VTE Drug Contraindication: N/A - Med Ordered
[2024-11-28] MEDS: oxyCODONE HCl Immed Release 5 MG TABLET PO ×2 (00:20→08:48)
[2024-11-28 03:36] VITALS: BP 131/73; PULSE 71; RESP 17; TEMP 36.5; O2SAT 94
[2024-11-28] MEDS: Lactated Ringers 1,000 ML 100 ML IVCONT ×2 (05:59→15:51)
[2024-11-28 06:36] LABS: PTT Heparin Drip 65.0 SEC (53-77.9)
[2024-11-28 07:36] VITALS: BP 128/74; PULSE 72; RESP 18; TEMP 36.3; O2SAT 94
--- NOTE | 2024-11-28 08:40 | P.PNGS_ITS ---
Subjective Subjective Date of Service: 11/28/24 Interval history: New complaints Still has pain in the abdomen, as baseline Some shortness Physical Exam 2 Vital Signs: Vital Signs: Last Vital Signs Temp 97.3 F 11/28/24 07:36 Pulse 72 11/28/24 07:36 Resp 18 11/28/24 07:36 BP 128/74 11/28/24 07:36 Pulse Ox 94 11/28/24 07:36 O2 Del Method Nasal Cannula 11/28/24 07:36 O2 Flow Rate 3 11/28/24 07:36 BMI result Body Mass Index 31.2 Const: Other: Some shortness of breath Resp: Other: Appears a little short of breath as baseline Cardio: Rate: regular rate GI: Other: Some tenderness diffusely was Palpation (GI): Soft to palpation Objective Data Active Medications Acetaminophen (Acetaminophen 325 Mg Tablet) 650 mg PO Q6H PRN PRN Reason: Pain, Mild 1-3,fever,headache Last Admin: 11/21/24 06:42 Dose: 650 mg Documented By: AGA Calcium Carbonate (Calcium Carbonate 750 Mg Tab.Chew) 750 mg PO Q4H PRN PRN Reason: Heartburn Last Admin: 11/26/24 23:23 Dose: 750 mg Documented By: THI Docusate Sodium (Docusate Sodium 100 Mg Capsule) 100 mg PO BID CYRIL Last Admin: 11/27/24 20:38 Dose: 100 mg Documented By: THI Heparin Sodium (Porcine) (Heparin Sodium,Porcine 5,000 Unit/Ml Vial) 4,100 unit IVPUSH PROTOCOL BOLUS PRN; Protocol PRN Reason: 40 unit/kg - Heparin Protocol Last Admin: 11/26/24 00:28 Dose: 4,100 unit Documented By: SANDRO Heparin Sodium (Porcine) (Heparin Sodium,Porcine 5,000 Unit/Ml Vial) 8,100 unit IVPUSH PROTOCOL BOLUS PRN; Protocol PRN Reason: 80 unit/kg - Heparin Protocol Hydromorphone HCl (Hydromorphone Hcl 1 Mg/Ml Syringe) 1 mg IVPUSH Q3H PRN; Protocol PRN Reason: Pain, Severe (Pain Scale 7-10) Last Admin: 11/28/24 06:19 Dose: 1 mg Documented By: THI Hydromorphone HCl (Hydromorphone Hcl 0.5 Mg/0.5 Ml Syringe) 0.5 mg IVPUSH Q3H PRN; Protocol PRN Reason: Pain, Moderate(Pain Scale 4-6) Last Admin: 11/26/24 08:44 Dose: 0.5 mg Heparin Sodium/Sodium Chloride (Heparin Sodium,Porcine/1/2ns) 25,000 unit in 250 mls @ 0 mls/hr IVCONT .Q0M [facility]; Protocol Last Titration: 11/28/24 06:54 Dose: 16 units/kg/hr, 16.22 mls/hr Documented By: DESTINY Co-signed By: THI Piperacillin Sod/Tazobactam (Sod 4.5 gm/ Sodium Chloride) 100 mls @ 200 mls/hr IV Q6H [facility] Last Infusion: 11/28/24 05:57 Dose: Infused Documented By: THI Lactated Ringer's (Lr) 1,000 mls @ 100 mls/hr IVCONT .Q10H [facility] Last Admin: 11/28/24 05:59 Dose: 100 mls/hr Documented By: THI Magnesium Hydroxide (Milk Of Magnesia 30 Ml Oral.Susp) 30 ml PO DAILY PRN PRN Reason: Constipation Magnesium Oxide (Magnesium Oxide 400 Mg Tablet) 400 mg PO BID [facility] Last Admin: 11/27/24 20:38 Dose: 400 mg Documented By: THI Melatonin (Melatonin 3 Mg Tablet) 6 mg PO BEDTIME PRN PRN Reason: Insomnia Multivitamins/Vitamin C (Multivitamin Tablet) 1 tab PO DAILY [facility] Last Admin: 11/27/24 08:02 Dose: 1 tab Documented By: DESTINY Ondansetron HCl (Ondansetron Hcl 4 Mg/2 Ml Vial) 4 mg IVPUSH Q8H PRN PRN Reason: Nausea and Vomiting Last Admin: 11/23/24 21:33 Dose: 4 mg Documented By: BARRY Oxycodone HCl (Oxycodone Hcl Immed Release 5 Mg Tablet) 5 mg PO Q4H PRN PRN Reason: Pain, Mild (Pain Scale 1-3) Last Admin: 11/28/24 00:20 Dose: 5 mg Documented By: THI Comments: per pt request Polyethylene Glycol (Polyethylene Glycol 3350 17 Gm Powd.Pack) 17 gm PO DAILY PRN PRN Reason: Constipation Last Admin: 11/26/24 04:51 Dose: 17 gm Documented By: SANDRO Senna (Sennosides 8.6 Mg Tablet) 8.6 mg PO BID [facility] Last Admin: 11/27/24 20:38 Dose: 8.6 mg Documented By: THI Sodium Chloride (0.9 % Sodium Chloride Flush 3 Ml Syringe) 3 ml IVFLUSH QSHIFT [facility] Last Admin: 11/28/24 00:04 Dose: Not Given Documented By: THI Non-Admin Reason: IV Running Labs 11/26/24 06:45 11/26/24 06:45 Labs: Laboratory Results - last 24 hr 11/28/24 06:11 aPTT Heparin Protocol 65.0 Procedures Date of Service Date of Service: 11/28/24 Progress Note: A&P Assessment and plan (1) Liver masses: Status: Acute Assessment and Plan: Clinically looks the same Has liver lesions - path report after biopsy shows adenocarcinoma, likely from pancreatic neoplasm He also has DVTs and PEs Imaging studies have shown gallstones and distended gallbladder Uncertain if this has contributory to his pain so we will proceed with IR cholecystostomy today Hold heparin drip prior to procedure Patient understands the plan well Pain management Long-term prognosis poor Oncology follow up Time Spent With Patient Time: Total time managing care of this patient today ____ minutes. Quality Stroke Does the patient have a stroke diagnosis?: No VTE Prior VTE?: No VTE Risk Level:: Medical - moderate - high VTE Device Contraindication: Treatment Not Indicated VTE Drug Contraindication: N/A - Med Ordered
[2024-11-28] MEDS: Milk of Magnesia 30 ML ORAL.SUSP PO (08:55)
--- NOTE | 2024-11-28 10:22 | P.PNIM_ITS ---
Subjective Subjective Date of Service: 11/28/24 Interval History: Follow up for Acute PE, pancreatic mass diffuse abd pain No N/V/D; has been able to tolerate diet has some pain, for drain today but has some questions for the surgeon before moving forward Physical Exam 2 Vital Signs: Vital Signs: Last Vital Signs Temp 97.3 F 11/28/24 07:36 Pulse 72 11/28/24 07:36 Resp 18 11/28/24 07:36 BP 128/74 11/28/24 07:36 Pulse Ox 94 11/28/24 07:36 O2 Del Method Nasal Cannula 11/28/24 07:36 O2 Flow Rate 3 11/28/24 07:36 BMI result Body Mass Index 31.2 Objective Data Active Medications Acetaminophen (Acetaminophen 325 Mg Tablet) 650 mg PO Q6H PRN PRN Reason: Pain, Mild 1-3,fever,headache Last Admin: 11/21/24 06:42 Dose: 650 mg Documented By: AGA Calcium Carbonate (Calcium Carbonate 750 Mg Tab.Chew) 750 mg PO Q4H PRN PRN Reason: Heartburn Last Admin: 11/26/24 23:23 Dose: 750 mg Documented By: THI Docusate Sodium (Docusate Sodium 100 Mg Capsule) 100 mg PO BID CYRIL Last Admin: 11/28/24 08:48 Dose: 100 mg Documented By: DESTINY Heparin Sodium (Porcine) (Heparin Sodium,Porcine 5,000 Unit/Ml Vial) 4,100 unit IVPUSH PROTOCOL BOLUS PRN; Protocol PRN Reason: 40 unit/kg - Heparin Protocol Last Admin: 11/26/24 00:28 Dose: 4,100 unit Documented By: SANDRO Heparin Sodium (Porcine) (Heparin Sodium,Porcine 5,000 Unit/Ml Vial) 8,100 unit IVPUSH PROTOCOL BOLUS PRN; Protocol PRN Reason: 80 unit/kg - Heparin Protocol Hydromorphone HCl (Hydromorphone Hcl 1 Mg/Ml Syringe) 1 mg IVPUSH Q3H PRN; Protocol PRN Reason: Pain, Severe (Pain Scale 7-10) Last Admin: 11/28/24 06:19 Dose: 1 mg Documented By: THI Hydromorphone HCl (Hydromorphone Hcl 0.5 Mg/0.5 Ml Syringe) 0.5 mg IVPUSH Q3H PRN; Protocol PRN Reason: Pain, Moderate(Pain Scale 4-6) Last Admin: 11/26/24 08:44 Dose: 0.5 mg Heparin Sodium/Sodium Chloride (Heparin Sodium,Porcine/1/2ns) 25,000 unit in 250 mls @ 0 mls/hr IVCONT .Q0M [facility]; Protocol Last Titration: 11/28/24 06:54 Dose: 16 units/kg/hr, 16.22 mls/hr Documented By: DESTINY Co-signed By: THI Piperacillin Sod/Tazobactam (Sod 4.5 gm/ Sodium Chloride) 100 mls @ 200 mls/hr IV Q6H [facility] Last Infusion: 11/28/24 05:57 Dose: Infused Documented By: THI Lactated Ringer's (Lr) 1,000 mls @ 100 mls/hr IVCONT .Q10H [facility] Last Admin: 11/28/24 05:59 Dose: 100 mls/hr Documented By: THI Magnesium Hydroxide (Milk Of Magnesia 30 Ml Oral.Susp) 30 ml PO DAILY PRN PRN Reason: Constipation Last Admin: 11/28/24 08:55 Dose: 30 ml Documented By: DESTINY Magnesium Oxide (Magnesium Oxide 400 Mg Tablet) 400 mg PO BID [facility] Last Admin: 11/28/24 08:48 Dose: 400 mg Documented By: DESTINY Melatonin (Melatonin 3 Mg Tablet) 6 mg PO BEDTIME PRN PRN Reason: Insomnia Multivitamins/Vitamin C (Multivitamin Tablet) 1 tab PO DAILY [facility] Last Admin: 11/28/24 08:48 Dose: 1 tab Documented By: DESTINY Ondansetron HCl (Ondansetron Hcl 4 Mg/2 Ml Vial) 4 mg IVPUSH Q8H PRN PRN Reason: Nausea and Vomiting Last Admin: 11/23/24 21:33 Dose: 4 mg Documented By: BARRY Oxycodone HCl (Oxycodone Hcl Immed Release 5 Mg Tablet) 5 mg PO Q4H PRN PRN Reason: Pain, Mild (Pain Scale 1-3) Last Admin: 11/28/24 08:48 Dose: 5 mg Documented By: DESTINY Polyethylene Glycol (Polyethylene Glycol 3350 17 Gm Powd.Pack) 17 gm PO DAILY PRN PRN Reason: Constipation Last Admin: 11/26/24 04:51 Dose: 17 gm Documented By: SANDRO Senna (Sennosides 8.6 Mg Tablet) 8.6 mg PO BID [facility] Last Admin: 11/28/24 08:48 Dose: 8.6 mg Documented By: DESTINY Sodium Chloride (0.9 % Sodium Chloride Flush 3 Ml Syringe) 3 ml IVFLUSH QSHIFT [facility]PLACED BY [facility] Last Admin: 11/28/24 08:49 Dose: Not Given Documented By: DESTINY Non-Admin Reason: IV Running Labs 11/26/24 06:45 11/26/24 06:45 Labs: Laboratory Results - last 24 hr 11/28/24 06:11 aPTT Heparin Protocol 65.0 Assessment and Plan (1) Pulmonary embolism: Status: Acute (2) DVT (deep venous thrombosis): Status: Acute (3) Mass of pancreas: Status: Acute (4) Liver masses: Status: Acute Plan 64-year-old male with paroxysmal AFib not on prescription medication, not on home prescription medications who presented to the emergency department for evaluation of dyspnea and abdominal pain. Pt admitted to the hospital for treatment and further evaluation of acute PE and left lower extremity DVT in the setting of pancreatic mass concerning for malignancy with liver metastasis. Constipation Poor appetite secondary to abdominal pain also narcotic pain medication IV fluids started Mag citrate ordered Continue scheduled bowel regimen Acute calculous cholecytitis HIDA scan with findings consistent with cystic duct obstruction and acute cholecystitis GI consulted>no acute intervention necessary at this time Continue Zosyn General surgery recommends cholecystostomy tube, scheduled for 2 pm today Pancreatic mass concerning for malignancy with with metastasis, CA [id number], Bx from 11/25 has confirmed adenocarcinoma pain control, oncology following Acute PE and left lower extremity DVT Lower extremity U/S positive for left DVT CTA bilateral pulmonary emboli with possible right heart strain Echo showing LVEF 60-65% with mild pulmonary hypertension Continue heparin drip Vascular surgery consulted and recommends continuing heparin drip; no indication for thrombectomies Monitor on telemetry, will transition to lovenox or eliuis later Transaminitis possible secondary to liver metastasis Bili 2.6, direct bili 1.8 Normocytic anemia No obvious blood loss Follow up CBC Paroxysmal AFib Not on prescription medication Reports takes magnesium which keeps him in regular rhythm Continue magnesium and multivitamin Tobacco use Patient reports that he smokes cigars Denies need for nicotine replacement at this time DVT prophylaxis: IV heparin, will transition to Eliquis after general surgery assesses for possible drain tube Full code Quality Stroke Does the patient have a stroke diagnosis?: No VTE Prior VTE?: No VTE Risk Level:: Medical - moderate - high VTE Device Contraindication: Treatment Not Indicated VTE Drug Contraindication: N/A - Med Ordered
[2024-11-28 11:53] VITALS: BP 138/76; PULSE 78; RESP 18; TEMP 37; O2SAT 94
--- NOTE | 2024-11-28 12:58 | PM.EVENT ---
Event Note Date of Service: 11/28/24 Event Note: Seen multiple times today He now says that he does not want to proceed with cholecystostomy tube drain We had a long discussion at bedside along with his present He says he feels better and does not feel the need to have the drain placed. Says he wants to be discharged as soon as he can I had a long talk with him about sequelae of his PEs including chronic shortness of breath and exercise intolerance He also understands he may have chronic pain with his liver Mets as well as the pancreatic mass He is to see Oncology for further management/treatment of his metastatic disease likely from pancreatic cancer Again, he was given the opportunity to ask questions He says he understands the plan above Restart diet Continue heparin drip Discussed with the hospitalist service and nursing staff Time Spent With Patient Time: Total time managing care of this patient today ____ minutes.
--- NOTE | 2024-11-28 13:04 | PM.EVENT ---
Patient was seen this morning. He was given results of biopsy of liver lesion. Biopsy confirms metastatic pancreatic adenocarcinoma. I explained to him that he has stage IV cancer. Palliative chemotherapy will be offered. Molecular studies are pending. Percutaneous biliary drainage was being planned, but patient refused this.
[2024-11-28] MEDS: Heparin Sodium,Porcine/1/2NS 25,000 UNIT/250 ML IV.SOLN 16.22 UNIT IVCONT (13:19)
[2024-11-28 15:03] VITALS: BP 133/62; PULSE 84; RESP 17; TEMP 36.8; O2SAT 95
[2024-11-28 19:24] VITALS: BP 136/74; PULSE 88; RESP 15; TEMP 37.2; O2SAT 97
[2024-11-28] MEDS: 0.9 % Sodium Chloride Flush 3 ML SYRINGE IVFLUSH (20:04)
[2024-11-28 23:18] VITALS: BP 133/79; PULSE 74; RESP 16; TEMP 36.1; O2SAT 94
[2024-11-29] VITALS (7 sets, daily range): BP systolic 133–180; BP diastolic 72–85; PULSE 75–102; RESP 16–24; TEMP 36.7–37.6; O2SAT 93–97; BMI 31.2
[2024-11-29] MEDS: Heparin Sodium,Porcine/1/2NS 25,000 UNIT/250 ML IV.SOLN 16.22 UNIT IVCONT ×2 (02:47→17:32)
[2024-11-29 07:17] LABS: PTT Heparin Drip 65.7 SEC (53-77.9)
--- NOTE | 2024-11-29 07:38 | PC.NURSE ---
PTT at 65.7 at 0600 - per protocol no change to current dose, next check in 24hrs this is third day at therapeutic level. 16U/Kg/hr 16.22 mls/hr
[2024-11-29] MEDS: 0.9 % Sodium Chloride Flush 3 ML SYRINGE IVFLUSH (09:15)
[2024-11-29] MEDS: Milk of Magnesia 30 ML ORAL.SUSP PO (10:17)
[2024-11-29 10:35] LABS: Hematocrit 33.4 % (42.0-52.0); Hemoglobin 11.1 g/dl (14.0-18.0); Mean Corpuscular HGB Conc 33.2 g/dl (31.0-36.0); Mean Corpuscular Hemoglobin 28.5 pg (27.0-33.0); Mean Corpuscular Volume 85.6 fL (80.0-98.0); NRBC Abs Auto 0.000 X10*3/uL (0.0-0.012); NRBC Pct Auto 0.0 /100WBC (0.0-0.2); Platelet Count 369 X10*3/uL (160-400); Red Blood Count 3.90 X10*6/uL (4.60-5.80); White Blood Count 14.8 X10*3/uL (4.8-10.8)
[2024-11-29 10:53] LABS: Alanine Aminotransferase 175 U/L (0-40); Albumin Level 3.5 g/dL (3.5-5.0); Alkaline Phosphatase 827 U/L (39-117); Anion Gap 15 (12-20); Aspartate Amino Transferase 184 U/L (5-37); Blood Urea Nitrogen 15 mg/dL (9-16); Calcium 10.0 mg/dL (8.4-10.2); Carbon Dioxide 27 mmol/L (22-29); Chloride 99 mmol/L (96-108); Creatinine Clr Calc Pharmacy 97.5; Estimated Glomerular Filt Rate > 60; Potassium 4.9 mmol/L (3.3-5.1); Sodium 136 mmol/L (135-145); Total Protein 6.6 g/dL (6.5-8.0)
--- NOTE | 2024-11-29 10:53 | P.PNGS_ITS ---
Subjective Subjective Date of Service: 11/29/24 Interval history: No events reported He says he subjectively thinks he is getting better Tolerating diet Does have periodic pain of the abdomen mostly in the right Physical Exam 2 Exam: Exam: Sitting up on recliner, appears comfortable Vital Signs: Vital Signs: Last Vital Signs Temp 98.0 F 11/29/24 07:42 Pulse 89 11/29/24 07:42 Resp 16 11/29/24 07:42 BP 180/72 H 11/29/24 10:27 Pulse Ox 93 11/29/24 07:42 O2 Del Method Nasal Cannula 11/29/24 07:42 O2 Flow Rate 3 11/29/24 07:42 BMI result Body Mass Index 31.2 Resp: Other: Currently does not appear short of breath Cardio: Rate: regular rate GI: Other: Some tenderness diffusely mostly in the right Palpation (GI): Soft to palpation and not firm Objective Data Active Medications Acetaminophen (Acetaminophen 325 Mg Tablet) 650 mg PO Q6H PRN PRN Reason: Pain, Mild 1-3,fever,headache Last Admin: 11/21/24 06:42 Dose: 650 mg Documented By: AGA Calcium Carbonate (Calcium Carbonate 750 Mg Tab.Chew) 750 mg PO Q4H PRN PRN Reason: Heartburn Last Admin: 11/26/24 23:23 Dose: 750 mg Documented By: THI Docusate Sodium (Docusate Sodium 100 Mg Capsule) 100 mg PO BID [facility] Last Admin: 11/29/24 09:19 Dose: 100 mg Documented By: CHAR Heparin Sodium (Porcine) (Heparin Sodium,Porcine 5,000 Unit/Ml Vial) 4,100 unit IVPUSH PROTOCOL BOLUS PRN; Protocol PRN Reason: 40 unit/kg - Heparin Protocol Last Admin: 11/26/24 00:28 Dose: 4,100 unit Documented By: SANDRO Heparin Sodium (Porcine) (Heparin Sodium,Porcine 5,000 Unit/Ml Vial) 8,100 unit IVPUSH PROTOCOL BOLUS PRN; Protocol PRN Reason: 80 unit/kg - Heparin Protocol Hydromorphone HCl (Hydromorphone Hcl 1 Mg/Ml Syringe) 1 mg IVPUSH Q3H PRN; Protocol PRN Reason: Pain, Severe (Pain Scale 7-10) Last Admin: 11/29/24 09:15 Dose: 1 mg Documented By: CHAR Hydromorphone HCl (Hydromorphone Hcl 0.5 Mg/0.5 Ml Syringe) 0.5 mg IVPUSH Q3H PRN; Protocol PRN Reason: Pain, Moderate(Pain Scale 4-6) Last Admin: 11/26/24 08:44 Dose: 0.5 mg Heparin Sodium/Sodium Chloride (Heparin Sodium,Porcine/1/2ns) 25,000 unit in 250 mls @ 0 mls/hr IVCONT .Q0M [facility]; Protocol Last Admin: 11/29/24 02:47 Dose: 16 units/kg/hr, 16.22 mls/hr Documented By: BASIL Co-signed By: ROGER Piperacillin Sod/Tazobactam (Sod 4.5 gm/ Sodium Chloride) 100 mls @ 200 mls/hr IV Q6H [facility] Last Infusion: 11/29/24 06:15 Dose: Infused Documented By: BASIL Magnesium Hydroxide (Milk Of Magnesia 30 Ml Oral.Susp) 30 ml PO DAILY PRN PRN Reason: Constipation Last Admin: 11/29/24 10:17 Dose: 30 ml Documented By: CHAR Magnesium Oxide (Magnesium Oxide 400 Mg Tablet) 400 mg PO BID [facility] Last Admin: 11/29/24 09:18 Dose: 400 mg Documented By: CHAR Melatonin (Melatonin 3 Mg Tablet) 6 mg PO BEDTIME PRN PRN Reason: Insomnia Multivitamins/Vitamin C (Multivitamin Tablet) 1 tab PO DAILY [facility] Last Admin: 11/29/24 09:18 Dose: 1 tab Documented By: CHAR Ondansetron HCl (Ondansetron Hcl 4 Mg/2 Ml Vial) 4 mg IVPUSH Q8H PRN PRN Reason: Nausea and Vomiting Last Admin: 11/23/24 21:33 Dose: 4 mg Documented By: BARRY Oxycodone HCl (Oxycodone Hcl Immed Release 5 Mg Tablet) 5 mg PO Q4H PRN PRN Reason: Pain, Mild (Pain Scale 1-3) Last Admin: 11/28/24 08:48 Dose: 5 mg Documented By: DESTINY Polyethylene Glycol (Polyethylene Glycol 3350 17 Gm Powd.Pack) 17 gm PO DAILY PRN PRN Reason: Constipation Last Admin: 11/28/24 14:43 Dose: 17 gm Documented By: DESTINY Senna (Sennosides 8.6 Mg Tablet) 8.6 mg PO BID [facility] Last Admin: 11/29/24 09:19 Dose: 8.6 mg Documented By: CHAR Sodium Chloride (0.9 % Sodium Chloride Flush 3 Ml Syringe) 3 ml IVFLUSH QSHIFT [facility] Last Admin: 11/29/24 09:15 Dose: 3 ml Documented By: CHAR Labs 11/29/24 10:27 11/26/24 06:45 Labs: Laboratory Results - last 24 hr 11/29/24 11/29/24 06:03 10:27 MCV 85.6 MCH 28.5 MCHC 33.2 RDW 15.0 Plt Count 369 D MPV 9.9 Absolute Nucleated RBC 0.000 Nucleated RBC % (auto) 0.0 aPTT Heparin Protocol 65.7 Procedures Date of Service Date of Service: 11/29/24 Progress Note: A&P Assessment and plan (1) Cancer, metastatic to liver: Status: Acute Assessment and Plan: Likely from pancreatic source Also has multilobar PEs He had a distended gallbladder Uncertain if his complaints of abdominal pain is from his gallbladder or from liver Mets and pancreatic tumor I arranged for cholecystostomy drain for him in case this helps with this pain He had decided not to go for this He was asking about option of cholecystectomy I explained to him that he is not a candidate for this at this time in view of his overall medical condition including his multilobar pneumonia I emphasized to him that if we were to do a procedure for his distended gallbladder, this option would be to put in a drain He says he overall feels that he is getting better does not want to proceed with any above options He says he wants to be discharged to home Anticoagulation in view of his multilobar PE Oncology as well for metastatic disease in the liver likely from pancreatic cancer Time Spent With Patient Time: Total time managing care of this patient today ____ minutes. Quality Stroke Does the patient have a stroke diagnosis?: No VTE Prior VTE?: No VTE Risk Level:: Medical - moderate - high VTE Device Contraindication: Treatment Not Indicated VTE Drug Contraindication: N/A - Med Ordered
--- NOTE | 2024-11-29 11:14 | P.PNIM_ITS ---
Subjective Subjective Date of Service: 11/29/24 Interval History: Follow up for Acute PE, pancreatic mass diffuse abd pain still refusing IR drain Physical Exam 2 Vital Signs: Vital Signs: Last Vital Signs Temp 98.0 F 11/29/24 07:42 Pulse 89 11/29/24 07:42 Resp 16 11/29/24 07:42 BP 180/72 H 11/29/24 10:27 Pulse Ox 93 11/29/24 07:42 O2 Del Method Nasal Cannula 11/29/24 07:42 O2 Flow Rate 3 11/29/24 07:42 BMI result Body Mass Index 31.2 Const: Other: General: AO X 3, no acute distress Resp: CTA bilateral CVS: S1,S2,RRR GI: +BS, NT, no distention Skin: No rash Neuro: motor grossly intact Psych: appropriate affect Objective Data Active Medications Acetaminophen (Acetaminophen 325 Mg Tablet) 650 mg PO Q6H PRN PRN Reason: Pain, Mild 1-3,fever,headache Last Admin: 11/21/24 06:42 Dose: 650 mg Documented By: AGA Calcium Carbonate (Calcium Carbonate 750 Mg Tab.Chew) 750 mg PO Q4H PRN PRN Reason: Heartburn Last Admin: 11/26/24 23:23 Dose: 750 mg Documented By: THI Docusate Sodium (Docusate Sodium 100 Mg Capsule) 100 mg PO BID [facility] Last Admin: 11/29/24 09:19 Dose: 100 mg Documented By: CHAR Heparin Sodium (Porcine) (Heparin Sodium,Porcine 5,000 Unit/Ml Vial) 4,100 unit IVPUSH PROTOCOL BOLUS PRN; Protocol PRN Reason: 40 unit/kg - Heparin Protocol Last Admin: 11/26/24 00:28 Dose: 4,100 unit Documented By: SANDRO Heparin Sodium (Porcine) (Heparin Sodium,Porcine 5,000 Unit/Ml Vial) 8,100 unit IVPUSH PROTOCOL BOLUS PRN; Protocol PRN Reason: 80 unit/kg - Heparin Protocol Hydromorphone HCl (Hydromorphone Hcl 1 Mg/Ml Syringe) 1 mg IVPUSH Q3H PRN; Protocol PRN Reason: Pain, Severe (Pain Scale 7-10) Last Admin: 11/29/24 09:15 Dose: 1 mg Documented By: CHAR Hydromorphone HCl (Hydromorphone Hcl 0.5 Mg/0.5 Ml Syringe) 0.5 mg IVPUSH Q3H PRN; Protocol PRN Reason: Pain, Moderate(Pain Scale 4-6) Last Admin: 11/26/24 08:44 Dose: 0.5 mg Heparin Sodium/Sodium Chloride (Heparin Sodium,Porcine/1/2ns) 25,000 unit in 250 mls @ 0 mls/hr IVCONT .Q0M [facility]; Protocol Last Admin: 11/29/24 02:47 Dose: 16 units/kg/hr, 16.22 mls/hr Documented By: BASIL Co-signed By: ROGER Piperacillin Sod/Tazobactam (Sod 4.5 gm/ Sodium Chloride) 100 mls @ 200 mls/hr IV Q6H [facility] Last Infusion: 11/29/24 06:15 Dose: Infused Documented By: BASIL Magnesium Hydroxide (Milk Of Magnesia 30 Ml Oral.Susp) 30 ml PO DAILY PRN PRN Reason: Constipation Last Admin: 11/29/24 10:17 Dose: 30 ml Documented By: CAHR Magnesium Oxide (Magnesium Oxide 400 Mg Tablet) 400 mg PO BID [facility] Last Admin: 11/29/24 09:18 Dose: 400 mg Documented By: CHAR Melatonin (Melatonin 3 Mg Tablet) 6 mg PO BEDTIME PRN PRN Reason: Insomnia Multivitamins/Vitamin C (Multivitamin Tablet) 1 tab PO DAILY [facility] Last Admin: 11/29/24 09:18 Dose: 1 tab Documented By: CHAR Ondansetron HCl (Ondansetron Hcl 4 Mg/2 Ml Vial) 4 mg IVPUSH Q8H PRN PRN Reason: Nausea and Vomiting Last Admin: 11/23/24 21:33 Dose: 4 mg Documented By: BARRY Oxycodone HCl (Oxycodone Hcl Immed Release 5 Mg Tablet) 5 mg PO Q4H PRN PRN Reason: Pain, Mild (Pain Scale 1-3) Last Admin: 11/28/24 08:48 Dose: 5 mg Documented By: DESTINY Polyethylene Glycol (Polyethylene Glycol 3350 17 Gm Powd.Pack) 17 gm PO DAILY PRN PRN Reason: Constipation Last Admin: 11/28/24 14:43 Dose: 17 gm Documented By: DESTINY Senna (Sennosides 8.6 Mg Tablet) 8.6 mg PO BID [facility] Last Admin: 11/29/24 09:19 Dose: 8.6 mg Documented By: CHAR Sodium Chloride (0.9 % Sodium Chloride Flush 3 Ml Syringe) 3 ml IVFLUSH QSHIFT [facility] Last Admin: 11/29/24 09:15 Dose: 3 ml Documented By: CHAR Labs 11/29/24 10:27 11/29/24 10:27 Labs: Laboratory Results - last 24 hr 11/29/24 11/29/24 06:03 10:27 MCV 85.6 MCH 28.5 MCHC 33.2 RDW 15.0 Plt Count 369 D MPV 9.9 Absolute Nucleated RBC 0.000 Nucleated RBC % (auto) 0.0 aPTT Heparin Protocol 65.7 Anion Gap 15 Estim Creat Clear Calc 97.5 Estimated GFR > 60 Random Glucose 151 H Calcium 10.0 D Total Bilirubin 5.8 H AST 184 H ALT 175 H Alkaline Phosphatase 827 H Total Protein 6.6 Albumin 3.5 Assessment and Plan (1) Pulmonary embolism: Status: Acute (2) DVT (deep venous thrombosis): Status: Acute (3) Mass of pancreas: Status: Acute (4) Liver masses: Status: Acute Plan 64-year-old male with paroxysmal AFib not on prescription medication, not on home prescription medications who presented to the emergency department for evaluation of dyspnea and abdominal pain. Pt admitted to the hospital for treatment and further evaluation of acute PE and left lower extremity DVT in the setting of pancreatic mass concerning for malignancy with liver metastasis. Constipation bowel regime ivf Acute calculous cholecytitis HIDA scan with findings consistent with cystic duct obstruction and acute cholecystitis GI consulted>no acute intervention necessary at this time Continue Zosyn General surgery recommends cholecystostomy tube, he refused last minutes not surgical candidate for CCY Pancreatic adenocarcinoma, CA [id number], Bx from 11/25 has confirmed adenocarcinoma pain control, oncology following Acute PE and left lower extremity DVT Lower extremity U/S positive for left DVT CTA bilateral pulmonary emboli with possible right heart strain Echo showing LVEF 60-65% with mild pulmonary hypertension Continue heparin drip Vascular surgery consulted and recommends continuing heparin drip; no indication for thrombectomies Presently on heparin and will transition to eliquis at discharge Transaminitis possible secondary to liver metastasis Bili 2.6, direct bili 1.8 Normocytic anemia No obvious blood loss Follow up CBC Paroxysmal AFib Not on prescription medication Reports takes magnesium which keeps him in regular rhythm Continue magnesium and multivitamin Tobacco use Patient reports that he smokes cigars Denies need for nicotine replacement at this time DVT prophylaxis: iv heparin Full code Quality Stroke Does the patient have a stroke diagnosis?: No VTE Prior VTE?: No VTE Risk Level:: Medical - moderate - high VTE Device Contraindication: Treatment Not Indicated VTE Drug Contraindication: N/A - Med Ordered
--- NOTE | 2024-11-29 12:33 | P.PNHO-ONC_ITS ---
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 He continues to have abdominal pain but is able to tolerate diet. No fever or chills. He is on IV antibiotics. Review of Systems - Neurologic Reports hearing normal, Denies abnormal gait, Denies headache(s), Reports weakness PMFSH Medical History: Medical History (Last Updated 11/29/24 @ 10:54 by Nam Arias MD) Acute COVID-19 Alcohol abuse Cancer, metastatic to liver Gallstones GERD (gastroesophageal reflux disease) Internal derangement of left knee PAF (paroxysmal atrial fibrillation) Pneumonia due to 2019-nCoV PVNS (pigmented villonodular synovitis) Surgical History: Surgical History (Last Reviewed 11/26/24 @ 10:51 by Sera Montes PT) History of surgery on arm Hx of colonoscopy Hx of ventral hernia repair S/P appendectomy Social History: Social History (Last Reviewed 11/20/24 @ 23:56 by Sunshine Milligan MD) Living Situation History: Household Members: Spouse Housing: House Do you presently have visiting nurse or other home services: No Alcohol History Details: 1. How often do you have a drink containing alcohol?: c. 2-4 times a month 3. How often do you have six or more drinks on one occasion?: b. Less than monthly AUDIT-C Alcohol total score: 3 Currently Displaying Signs/Symptoms of Alcohol Withdrawal: No Tobacco History: Patient Tobacco Use Status: Current everyday Tobacco Tobacco use type: Cigar Smoked in Last 30 Days: Yes Substance Use History: Use of substances other than those prescribed or required for medical reasons : No Currently Displaying Signs/Symptoms of Drug Intoxication Withdrawal: No Advance Directives: Advance Directives: No Advance Directives Information Provided: No Homicidal Assessment: Do you have a plan to hurt others: No Plan Occupation Assessmet: service: No Current occupational status: employed 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 Home Medications and Allergies Current Medications: Current Medications Acetaminophen (Acetaminophen 325 Mg Tablet) 650 mg PO Q6H PRN PRN Reason: Pain, Mild 1-3,fever,headache Last Admin: 11/21/24 06:42 Dose: 650 mg Calcium Carbonate (Calcium Carbonate 750 Mg Tab.Chew) 750 mg PO Q4H PRN PRN Reason: Heartburn Last Admin: 11/26/24 23:23 Dose: 750 mg Docusate Sodium (Docusate Sodium 100 Mg Capsule) 100 mg PO BID [facility] Last Admin: 11/29/24 09:19 Dose: 100 mg Heparin Sodium (Porcine) (Heparin Sodium,Porcine 5,000 Unit/Ml Vial) 4,100 unit IVPUSH PROTOCOL BOLUS PRN; Protocol PRN Reason: 40 unit/kg - Heparin Protocol Last Admin: 11/26/24 00:28 Dose: 4,100 unit Heparin Sodium (Porcine) (Heparin Sodium,Porcine 5,000 Unit/Ml Vial) 8,100 unit IVPUSH PROTOCOL BOLUS PRN; Protocol PRN Reason: 80 unit/kg - Heparin Protocol Hydromorphone HCl (Hydromorphone Hcl 1 Mg/Ml Syringe) 1 mg IVPUSH Q3H PRN; Protocol PRN Reason: Pain, Severe (Pain Scale 7-10) Last Admin: 11/29/24 09:15 Dose: 1 mg Hydromorphone HCl (Hydromorphone Hcl 0.5 Mg/0.5 Ml Syringe) 0.5 mg IVPUSH Q3H PRN; Protocol PRN Reason: Pain, Moderate(Pain Scale 4-6) Last Admin: 11/26/24 08:44 Dose: 0.5 mg Heparin Sodium/Sodium Chloride (Heparin Sodium,Porcine/1/2ns) 25,000 unit in 250 mls @ 0 mls/hr IVCONT .Q0M [facility]; Protocol Last Admin: 11/29/24 02:47 Dose: 16 units/kg/hr, 16.22 mls/hr Piperacillin Sod/Tazobactam (Sod 4.5 gm/ Sodium Chloride) 100 mls @ 200 mls/hr IV Q6H [facility] Last Admin: 11/29/24 12:08 Dose: 200 mls/hr Magnesium Hydroxide (Milk Of Magnesia 30 Ml Oral.Susp) 30 ml PO DAILY PRN PRN Reason: Constipation Last Admin: 11/29/24 10:17 Dose: 30 ml Magnesium Oxide (Magnesium Oxide 400 Mg Tablet) 400 mg PO BID [facility] Last Admin: 11/29/24 09:18 Dose: 400 mg Melatonin (Melatonin 3 Mg Tablet) 6 mg PO BEDTIME PRN PRN Reason: Insomnia Multivitamins/Vitamin C (Multivitamin Tablet) 1 tab PO DAILY [facility] Last Admin: 11/29/24 09:18 Dose: 1 tab Ondansetron HCl (Ondansetron Hcl 4 Mg/2 Ml Vial) 4 mg IVPUSH Q8H PRN PRN Reason: Nausea and Vomiting Last Admin: 11/23/24 21:33 Dose: 4 mg Oxycodone HCl (Oxycodone Hcl Immed Release 5 Mg Tablet) 5 mg PO Q4H PRN PRN Reason: Pain, Mild (Pain Scale 1-3) Last Admin: 11/28/24 08:48 Dose: 5 mg Polyethylene Glycol (Polyethylene Glycol 3350 17 Gm Powd.Pack) 17 gm PO DAILY PRN PRN Reason: Constipation Last Admin: 11/28/24 14:43 Dose: 17 gm Senna (Sennosides 8.6 Mg Tablet) 8.6 mg PO BID [facility] Last Admin: 11/29/24 09:19 Dose: 8.6 mg Sodium Chloride (0.9 % Sodium Chloride Flush 3 Ml Syringe) 3 ml IVFLUSH QSHIFT [facility] Last Admin: 11/29/24 09:15 Dose: 3 ml Home Medications ?Medication ?Instructions ?Recorded ?Confirmed ?Type magnesium oxide 400 mg PO BID PRN 04/22/21 11/21/24 Hist ory multivitamin 1 tab PO DAILY 01/16/23 11/21/24 History Hyaluronic Acid 100 mg PO BID 11/21/24 11/21/24 History ibuprofen 200 mg tablet 800 mg PO BID 11/21/24 11/21/24 History Allergies Allergy/AdvReac Type Severity Reaction Status Date / Time No Known Allergies Allergy Verified 11/20/24 17:26 Exam Vital signs: Vital Signs Temp 99.7 F 11/29/24 11:21 Pulse 102 H 11/29/24 11:21 Resp 18 11/29/24 11:21 BP 138/82 11/29/24 11:21 Pulse Ox 96 11/29/24 11:21 O2 Del Method Nasal Cannula 11/29/24 11:21 O2 Flow Rate 3 11/29/24 11:21 Intake & Output 11/28/24 11/29/24 11/29/24 18:59 06:59 18:59 Intake Total 1650.745 / 3819.174 2168.429 / 3819.174 Output Total 500 / 2370 1870 / 2370 Balance 1150.745 / 1449.174 298.429 / 1449.174 Urine Output (Average ml/kg/hr) 0.41 1.54 1.54 Intake: Intake, Oral Amount 360 / 1110 750 / 1110 Intake, IV Amount 1290.745 / 2709.174 1418.429 / 2709.174 Piperacillin Sodium/Tazobactam 200 / 400 200 / 400 4.5 gm In 0.9 % Sodium Chloride 100 ml @ 200 mls/hr IV Q6H [facility] Rx#:[id number] Heparin Sodium,Porcine/1/2NS 25 104.078 / 322.507 218.429 / 322.507 ,000 unit In 250 ml @ Per Protocol IVCONT .Q0M [facility] Rx#: [id number] Lactated Ringers 1,000 ml @ 100 986.667 / 3217.742 2116 / 1986.667 mls/hr IVCONT .Q10H [facility] Rx#: [id number] Output: Output, Urine Amount 500 / 2370 1870 / 2370 Other: Meal Refused No No NPO No No Breakfast % Eaten 25% Lunch % Eaten 50% Dinner % Eaten 100% Eating (Feeding) Ability Independent Independent Number of Unmeasured Voids 3 Number of Bowel Movements 0 Urine Bathroom Urinal Urine Color Tea Gregg Weight 101.4 kg Weight 101.4 kg BMI result Body Mass Index 31.2 - Constitutional Present: mild distress, average body habitus - Routine HEENT Exam Head: Present: atraumatic, normal inspection - Routine Respiratory Exam Absent: accessory muscle use - Routine Cardiovascular Exam Cardiovascular: Present: RRR, S1, S2 - Routine Abdominal Exam Present: diminished bowel sounds - Routine Extremities Exam Present: pulses intact - Routine Skin Exam Present: intact Data - Labs CBC & Chem 7: 11/29/24 10:27 11/29/24 10:27 - Imaging Radiologist's impression: ITS Impressions Hepatobiliary Scan Nuclear Medicine 11/21/24 12:10 IMPRESSION: 1. Findings consistent with cystic duct obstruction and acute cholecystitis. 2. Multiple photopenic defects in the liver, consistent with the metastatic deposits noted on CT. 3. Findings were discussed with Dr. Morales on 11/22/2024 at 7:22 AM. Electronically signed by: Misha Hilton MD 11/22/2024 07:24 AM EDT RP Abdomen Ultrasound 11/25/24 15:30 IMPRESSION: Heterogenous liver with no focal lesion seen. Biopsy. Patient was transferred to [facility] for biopsy. Electronically signed by: Dexter Melara MD 11/25/2024 04:42 PM EDT RP Liver Biopsy CT 11/25/24 15:56 IMPRESSION: Successful ultrasound-guided left hepatic lobe lesion biopsy performed without immediate complications. Electronically signed by: Dexter Melara MD 11/26/2024 07:57 AM EDT RP Abdomen Ultrasound 11/26/24 19:56 IMPRESSION: Distended gallbladder with cholelithiasis and a positive sonographic Frank sign. Findings are compatible with acute cholecystitis as seen on HIDA scan 11/21/2024.. Electronically signed by: Misha Hilton MD 11/27/2024 07:08 AM EDT RP Assessment and Plan Patient Active problem list reviewed?: Yes (1) Mass of pancreas Status: Acute Assessment and plan: 1. This is a 64-year-old male admitted for bilateral pulmonary embolism and left lower extremity DVT, diagnosed with metastatic pancreatic cancer. He underwent biopsy of liver mass in the left lobe, this revealed adenocarcinoma compatible with metastasis from pancreatobiliary primary. Chest CTA performed 11/20/2024 showed bilateral lower lobe pulmonary emboli, no significant mediastinal or hilar lymphadenopathy. Left lower extremity Doppler revealed occlusive thrombus throughout left popliteal vein, posterior tibial and peroneal veins. CT abdomen/pelvis with contrast showed 4.5 cm pancreatic body mass concerning for primary malignancy. Portacaval and peripancreatic adenopathy, numerous hepatic lesions concerning for metastasis. Moderate gallbladder distention noted. HIDA scan on 11/21/2024 revealed cystic duct obstruction and acute cholecystitis. He was evaluated by surgery and felt not to be a candidate for cholecystectomy. He was advised percutaneous cholecystostomy tube placement for biliary drainage. He has been on IV antibiotics. He canceled IR procedure last 2 days in a row. I reviewed lab data with the patient. His bilirubin is now 5.8 with overall worsening in liver enzymes. He was advised that he could develop perforation of gallbladder and other complications including sepsis. Given his steady increase in bilirubin, and LFTs he was informed that even palliative chemotherapy is no longer an option. He now wants to know if he can get the procedure done. Hospitalist team, Dr. Egan he is going to look into this. - Time Spent With Patient Time Spent with Patient (in minutes): 10 Additional Coding: - Additional E/M codes Complex E/M visit Add On: CPT G2211
--- NOTE | 2024-11-29 12:35 | MHC.CM.PN ---
Patient not medically cleared for dc at this time. CM will continue to follow.
[2024-11-29] MEDS: Lactated Ringers 1,000 ML 125 ML IVCONT ×2 (14:58→22:42)
--- NOTE | 2024-11-29 18:01 | PC.NURSE ---
Waiting on transfer to [facility] Bed.
[2024-11-29] MEDS: oxyCODONE HCl Immed Release 5 MG TABLET PO (18:08)
[2024-11-30] VITALS (10 sets, daily range): BP systolic 129–143; BP diastolic 69–88; PULSE 78–100; RESP 14–20; TEMP 36.1–37.1; O2SAT 92–95
[2024-11-30] MEDS: Lactated Ringers 1,000 ML 125 ML IVCONT ×3 (05:34→20:19)
[2024-11-30] MEDS: oxyCODONE HCl Immed Release 5 MG TABLET PO (05:34)
[2024-11-30 06:43] LABS: PTT Heparin Drip 74.7 SEC (53-77.9)
[2024-11-30] MEDS: 0.9 % Sodium Chloride Flush 3 ML SYRINGE IVFLUSH (07:38)
--- NOTE | 2024-11-30 08:07 | MHC.CM.PN ---
ACUTE CARE TRANSFER TO [facility] PLANNED FOR TODAY VIA AMBULANCE
[2024-11-30] MEDS: Heparin Sodium,Porcine/1/2NS 25,000 UNIT/250 ML IV.SOLN 16.22 UNIT IVCONT ×2 (09:16→23:28)
--- NOTE | 2024-11-30 12:13 | P.PNIM_ITS ---
Subjective Subjective Date of Service: 11/30/24 Interval History: No new issues, awaiting for transfer bed at [facility] [place] Physical Exam 2 Vital Signs: Vital Signs: Last Vital Signs Temp 97.3 F 11/30/24 11:31 Pulse 78 11/30/24 11:31 Resp 18 11/30/24 11:31 BP 143/70 H 11/30/24 11:31 Pulse Ox 94 11/30/24 11:31 O2 Del Method Nasal Cannula 11/30/24 11:31 O2 Flow Rate 3 11/30/24 11:31 BMI result Body Mass Index 31.2 Const: Other: General: AO X 3, no acute distress Resp: CTA bilateral CVS: S1,S2,RRR GI: +BS, NT, no distention Skin: No rash Neuro: motor grossly intact Psych: appropriate affect Objective Data Active Medications Acetaminophen (Acetaminophen 325 Mg Tablet) 650 mg PO Q6H PRN PRN Reason: Pain, Mild 1-3,fever,headache Last Admin: 11/21/24 06:42 Dose: 650 mg Documented By: AGA Calcium Carbonate (Calcium Carbonate 750 Mg Tab.Chew) 750 mg PO Q4H PRN PRN Reason: Heartburn Last Admin: 11/26/24 23:23 Dose: 750 mg Documented By: THI Docusate Sodium (Docusate Sodium 100 Mg Capsule) 100 mg PO BID CYRIL Last Admin: 11/30/24 07:39 Dose: 100 mg Documented By: MASOUD Heparin Sodium (Porcine) (Heparin Sodium,Porcine 5,000 Unit/Ml Vial) 4,100 unit IVPUSH PROTOCOL BOLUS PRN; Protocol PRN Reason: 40 unit/kg - Heparin Protocol Last Admin: 11/26/24 00:28 Dose: 4,100 unit Documented By: SANDRO Heparin Sodium (Porcine) (Heparin Sodium,Porcine 5,000 Unit/Ml Vial) 8,100 unit IVPUSH PROTOCOL BOLUS PRN; Protocol PRN Reason: 80 unit/kg - Heparin Protocol Hydromorphone HCl (Hydromorphone Hcl 1 Mg/Ml Syringe) 1 mg IVPUSH Q3H PRN; Protocol PRN Reason: Pain, Severe (Pain Scale 7-10) Last Admin: 11/30/24 11:06 Dose: 1 mg Documented By: MASOUD Hydromorphone HCl (Hydromorphone Hcl 0.5 Mg/0.5 Ml Syringe) 0.5 mg IVPUSH Q3H PRN; Protocol PRN Reason: Pain, Moderate(Pain Scale 4-6) Last Admin: 11/26/24 08:44 Dose: 0.5 mg Heparin Sodium/Sodium Chloride (Heparin Sodium,Porcine/1/2ns) 25,000 unit in 250 mls @ 0 mls/hr IVCONT .Q0M [facility]; Protocol Last Admin: 11/30/24 09:16 Dose: 16 units/kg/hr, 16.22 mls/hr Documented By: MASOUD Co-signed By: AYAH Piperacillin Sod/Tazobactam (Sod 4.5 gm/ Sodium Chloride) 100 mls @ 200 mls/hr IV Q6H [facility] Last Infusion: 11/30/24 12:09 Dose: Infused Documented By: MASOUD Lactated Ringer's (Lr) 1,000 mls @ 125 mls/hr IVCONT .Q8H [facility] Last Admin: 11/30/24 05:34 Dose: 125 mls/hr Documented By: BASIL Magnesium Hydroxide (Milk Of Magnesia 30 Ml Oral.Susp) 30 ml PO DAILY PRN PRN Reason: Constipation Last Admin: 11/29/24 10:17 Dose: 30 ml Documented By: CHAR Magnesium Oxide (Magnesium Oxide 400 Mg Tablet) 400 mg PO BID [facility] Last Admin: 11/30/24 07:39 Dose: 400 mg Documented By: MASOUD Melatonin (Melatonin 3 Mg Tablet) 6 mg PO BEDTIME PRN PRN Reason: Insomnia Multivitamins/Vitamin C (Multivitamin Tablet) 1 tab PO DAILY [facility] Last Admin: 11/30/24 07:39 Dose: 1 tab Documented By: MASOUD Ondansetron HCl (Ondansetron Hcl 4 Mg/2 Ml Vial) 4 mg IVPUSH Q8H PRN PRN Reason: Nausea and Vomiting Last Admin: 11/23/24 21:33 Dose: 4 mg Documented By: BARRY Polyethylene Glycol (Polyethylene Glycol 3350 17 Gm Powd.Pack) 17 gm PO DAILY PRN PRN Reason: Constipation Last Admin: 11/28/24 14:43 Dose: 17 gm Documented By: DESTINY Senna (Sennosides 8.6 Mg Tablet) 8.6 mg PO BID [facility] Last Admin: 11/30/24 07:39 Dose: 8.6 mg Documented By: MASOUD Sodium Chloride (0.9 % Sodium Chloride Flush 3 Ml Syringe) 3 ml IVFLUSH QSHIFT [facility] Last Admin: 11/30/24 07:38 Dose: 3 ml Documented By: MASOUD Labs 11/29/24 10:27 11/29/24 10:27 Labs: Laboratory Results - last 24 hr 11/30/24 05:59 aPTT Heparin Protocol 74.7 Assessment and Plan (1) DVT (deep venous thrombosis): Status: Acute (2) Adenocarcinoma of pancreas: Status: Acute (3) Cholecystitis: Status: Acute Plan 64-year-old male with paroxysmal AFib not on prescription medication, not on home prescription medications who presented to the emergency department for evaluation of dyspnea and abdominal pain. Pt admitted to the hospital for treatment and further evaluation of acute PE and left lower extremity DVT in the setting of pancreatic mass concerning for malignancy with liver metastasis. Constipation bowel regime ivf Acute calculous cholecytitis HIDA scan with findings consistent with cystic duct obstruction and acute cholecystitis GI consulted>no acute intervention necessary at this time Continue Zosyn General surgery recommends cholecystostomy tube, he refused last minutes not surgical candidate for CCY Pancreatic adenocarcinoma, CA [id number], Bx from 11/25 has confirmed adenocarcinoma pain control, oncology following Acute PE and left lower extremity DVT Lower extremity U/S positive for left DVT CTA bilateral pulmonary emboli with possible right heart strain Echo showing LVEF 60-65% with mild pulmonary hypertension Continue heparin drip Vascular surgery consulted and recommends continuing heparin drip; no indication for thrombectomies Presently on heparin and will transition to eliquis at discharge Transaminitis possible secondary to liver metastasis Bili 2.6, direct bili 1.8 Normocytic anemia No obvious blood loss Follow up CBC Paroxysmal AFib Not on prescription medication Reports takes magnesium which keeps him in regular rhythm Continue magnesium and multivitamin Tobacco use Patient reports that he smokes cigars Denies need for nicotine replacement at this time DVT prophylaxis: iv heparin Full code Quality Stroke Does the patient have a stroke diagnosis?: No VTE Prior VTE?: No VTE Risk Level:: Medical - moderate - high VTE Device Contraindication: Treatment Not Indicated VTE Drug Contraindication: N/A - Med Ordered
[2024-12-01] VITALS (9 sets, daily range): BP systolic 120–148; BP diastolic 71–76; PULSE 82–105; RESP 16–20; TEMP 36–36.8; O2SAT 92–95
[2024-12-01] MEDS: Milk of Magnesia 30 ML ORAL.SUSP PO (01:43)
[2024-12-01] MEDS: oxyCODONE HCl Immed Release 5 MG TABLET PO ×3 (04:24→19:49)
[2024-12-01] MEDS: Lactated Ringers 1,000 ML 125 ML IVCONT ×3 (04:25→20:54)
[2024-12-01 06:36] LABS: PTT Heparin Drip 66.2 SEC (53-77.9)
--- NOTE | 2024-12-01 08:50 | P.PNIM_ITS ---
Subjective Subjective Date of Service: 12/01/24 Interval History: No new issues, still no bed at [facility] [place] Has abdominal pain, not new Physical Exam 2 Vital Signs: Vital Signs: Last Vital Signs Temp 96.8 F 12/01/24 08:00 Pulse 85 12/01/24 08:00 Resp 18 12/01/24 08:00 BP 132/75 12/01/24 08:00 Pulse Ox 95 12/01/24 08:00 O2 Del Method Room Air 12/01/24 08:00 O2 Flow Rate 3 12/01/24 03:11 BMI result Body Mass Index 31.2 Const: Other: General: AO X 3, no acute distress Resp: CTA bilateral CVS: S1,S2,RRR GI: +BS, some tenderness, no guarding, mild ditention Skin: No rash Neuro: motor grossly intact Psych: appropriate affect Objective Data Active Medications Acetaminophen (Acetaminophen 325 Mg Tablet) 650 mg PO Q6H PRN PRN Reason: Pain, Mild 1-3,fever,headache Last Admin: 11/21/24 06:42 Dose: 650 mg Documented By: AGA Calcium Carbonate (Calcium Carbonate 750 Mg Tab.Chew) 750 mg PO Q4H PRN PRN Reason: Heartburn Last Admin: 11/26/24 23:23 Dose: 750 mg Documented By: THI Docusate Sodium (Docusate Sodium 100 Mg Capsule) 100 mg PO BID CYRIL Last Admin: 12/01/24 08:38 Dose: 100 mg Documented By: MASOUD Heparin Sodium (Porcine) (Heparin Sodium,Porcine 5,000 Unit/Ml Vial) 4,100 unit IVPUSH PROTOCOL BOLUS PRN; Protocol PRN Reason: 40 unit/kg - Heparin Protocol Last Admin: 11/26/24 00:28 Dose: 4,100 unit Documented By: SANDRO Heparin Sodium (Porcine) (Heparin Sodium,Porcine 5,000 Unit/Ml Vial) 8,100 unit IVPUSH PROTOCOL BOLUS PRN; Protocol PRN Reason: 80 unit/kg - Heparin Protocol Hydromorphone HCl (Hydromorphone Hcl 1 Mg/Ml Syringe) 1 mg IVPUSH Q3H PRN; Protocol PRN Reason: Pain, Severe (Pain Scale 7-10) Heparin Sodium/Sodium Chloride (Heparin Sodium,Porcine/1/2ns) 25,000 unit in 250 mls @ 0 mls/hr IVCONT .Q0M [facility]; Protocol Last Titration: 12/01/24 06:56 Dose: 16 units/kg/hr, 16.22 mls/hr Documented By: BASIL Co-signed By: MASOUD Lactated Ringer's (Lr) 1,000 mls @ 125 mls/hr IVCONT .Q8H [facility] Last Admin: 12/01/24 04:25 Dose: 125 mls/hr Documented By: BASIL Magnesium Hydroxide (Milk Of Magnesia 30 Ml Oral.Susp) 30 ml PO DAILY PRN PRN Reason: Constipation Last Admin: 12/01/24 01:43 Dose: 30 ml Documented By: BASIL Magnesium Oxide (Magnesium Oxide 400 Mg Tablet) 400 mg PO BID [facility] Last Admin: 12/01/24 08:38 Dose: 400 mg Documented By: MASOUD Melatonin (Melatonin 3 Mg Tablet) 6 mg PO BEDTIME PRN PRN Reason: Insomnia Multivitamins/Vitamin C (Multivitamin Tablet) 1 tab PO DAILY [facility] Last Admin: 12/01/24 08:38 Dose: 1 tab Documented By: MASOUD Ondansetron HCl (Ondansetron Hcl 4 Mg/2 Ml Vial) 4 mg IVPUSH Q8H PRN PRN Reason: Nausea and Vomiting Last Admin: 11/23/24 21:33 Dose: 4 mg Documented By: BARRY Oxycodone HCl (Oxycodone Hcl Immed Release 5 Mg Tablet) 5 mg PO Q6H PRN PRN Reason: Pain, Severe (Pain Scale 7-10) Last Admin: 12/01/24 04:24 Dose: 5 mg Documented By: BASIL Polyethylene Glycol (Polyethylene Glycol 3350 17 Gm Powd.Pack) 17 gm PO DAILY PRN PRN Reason: Constipation Last Admin: 11/30/24 23:39 Dose: 17 gm Documented By: BASIL Senna (Sennosides 8.6 Mg Tablet) 8.6 mg PO BID [facility] Last Admin: 12/01/24 08:38 Dose: 8.6 mg Documented By: MASOUD Sodium Chloride (0.9 % Sodium Chloride Flush 3 Ml Syringe) 3 ml IVFLUSH QSHIFT [facility] Last Admin: 12/01/24 08:42 Dose: Not Given Documented By: MASOUD Non-Admin Reason: IV Running Labs 11/29/24 10:27 11/29/24 10:27 Labs: Laboratory Results - last 24 hr 12/01/24 05:28 aPTT Heparin Protocol 66.2 Assessment and Plan (1) DVT (deep venous thrombosis): Status: Acute (2) Adenocarcinoma of pancreas: Status: Acute (3) Cholecystitis: Status: Acute Plan 64-year-old male with paroxysmal AFib not on prescription medication, not on home prescription medications who presented to the emergency department for evaluation of dyspnea and abdominal pain. Pt admitted to the hospital for treatment and further evaluation of acute PE and left lower extremity DVT in the setting of pancreatic mass concerning for malignancy with liver metastasis. Constipation bowel regime ivf Acute calculous cholecytitis HIDA scan with findings consistent with cystic duct obstruction and acute cholecystitis GI consulted>no acute intervention necessary at this time Continue Zon General surgery recommends cholecystostomy tube as high risk for CCY, initially refused to have tube but now agreable. Pancreatic adenocarcinoma, CA [id number], Bx from 11/25 has confirmed adenocarcinoma pain control, oncology following, proably paliative chemo later Dilatudid for pain Acute PE and left lower extremity DVT Lower extremity U/S positive for left DVT CTA bilateral pulmonary emboli with possible right heart strain Echo showing LVEF 60-65% with mild pulmonary hypertension Continue heparin drip Vascular surgery consulted and recommends continuing heparin drip; no indication for thrombectomies Presently on heparin and will transition to eliquis at discharge Transaminitis possible secondary to liver metastasis Tbili has risen from 0.8 to 5.8 Normocytic anemia No obvious blood loss Follow up CBC Paroxysmal AFib Not on prescription medication Reports takes magnesium which keeps him in regular rhythm Continue magnesium and multivitamin Tobacco use Patient reports that he smokes cigars Denies need for nicotine replacement at this time DVT prophylaxis: iv heparin Full code Quality Stroke Does the patient have a stroke diagnosis?: No VTE Prior VTE?: No VTE Risk Level:: Medical - moderate - high VTE Device Contraindication: Treatment Not Indicated VTE Drug Contraindication: N/A - Med Ordered
[2024-12-01 09:32] LABS: Alanine Aminotransferase 172 U/L (0-40); Albumin Level 3.0 g/dL (3.5-5.0); Alkaline Phosphatase 798 U/L (39-117); Anion Gap 13 (12-20); Aspartate Amino Transferase 212 U/L (5-37); Blood Urea Nitrogen 12 mg/dL (9-16); Calcium 9.4 mg/dL (8.4-10.2); Carbon Dioxide 26 mmol/L (22-29); Chloride 100 mmol/L (96-108); Creatinine Clr Calc Pharmacy 136.8; Estimated Glomerular Filt Rate > 60; Potassium 4.6 mmol/L (3.3-5.1); Sodium 134 mmol/L (135-145); Total Protein 6.1 g/dL (6.5-8.0)
[2024-12-01] MEDS: Heparin Sodium,Porcine/1/2NS 25,000 UNIT/250 ML IV.SOLN 16.22 UNIT IVCONT (14:14)
--- NOTE | 2024-12-01 22:00 | PC.NURSE ---
Upon assuming care of pt at 19:00, Pt A&Ox4, pt c/o of 8/10 pain. This RN informed the pt that his PRN Dilaudid was not due till 20:26, previous dose given at 17:26, see JUL. Pt became agitated and accusatory, stating ?that it was the wrong time he got it, that he got it earlier at 16:40. This RN explained to the pt that on the JUL it was given at 17:26. Pt then took out his phone and started a voice recording of the time he was getting his medication from this RN. THis RN informed the rf engineer about the situation and to have 2 staff at all time. Pt rang his call treviño soon after asking for his PRN Dilaudid. As this RN and rf engineer went to administer pt?s medication,he pulled out his phone and started video recording us in the video. electronic typesetting machine operator notified the nursing cnc supervisor and called security to the bedside. Security came to pt?s bedside to talk to him about the situation. Will continue to monitor and to have 2 staff at all times.
[2024-12-02] VITALS (14 sets, daily range): BP systolic 126–155; BP diastolic 67–82; PULSE 77–115; RESP 12–18; TEMP 36.6–37.6; O2SAT 92–96
[2024-12-02] MEDS: Heparin Sodium,Porcine/1/2NS 25,000 UNIT/250 ML IV.SOLN 16.22 UNIT IVCONT ×2 (04:22→23:24)
[2024-12-02] MEDS: oxyCODONE HCl Immed Release 5 MG TABLET PO ×2 (04:30→23:29)
[2024-12-02 06:19] LABS: PTT Heparin Drip 63.7 SEC (53-77.9)
[2024-12-02 06:33] LABS: Anion Gap 11 (12-20); Blood Urea Nitrogen 12 mg/dL (9-16); Calcium 9.0 mg/dL (8.4-10.2); Carbon Dioxide 25 mmol/L (22-29); Chloride 102 mmol/L (96-108); Creatinine Clr Calc Pharmacy 130.9; Estimated Glomerular Filt Rate > 60; Potassium 4.4 mmol/L (3.3-5.1); Sodium 134 mmol/L (135-145)
[2024-12-02 08:27] LABS: Alanine Aminotransferase 160 U/L (0-40); Albumin Level 2.7 g/dL (3.5-5.0); Alkaline Phosphatase 717 U/L (39-117); Aspartate Amino Transferase 211 U/L (5-37); Total Protein 5.2 g/dL (6.5-8.0)
[2024-12-02] MEDS: 0.9 % Sodium Chloride Flush 3 ML SYRINGE IVFLUSH (08:32)
--- NOTE | 2024-12-02 10:36 | P.PNIM_ITS ---
Subjective Subjective Date of Service: 12/02/24 Interval History: No new issues, still no bed at [facility] [place] Has persistent abd pain, Bilirubin going up to 11 now agreable to drain today, planned for 11:30 Physical Exam 2 Vital Signs: Vital Signs: Last Vital Signs Temp 98 F 12/02/24 07:01 Pulse 86 12/02/24 07:01 Resp 16 12/02/24 07:01 BP 135/69 12/02/24 07:01 Pulse Ox 95 12/02/24 07:01 O2 Del Method Nasal Cannula 12/02/24 07:01 O2 Flow Rate 3 12/02/24 07:01 BMI result Body Mass Index 31.2 Const: Other: General: AO X 3, no acute distress Resp: CTA bilateral CVS: S1,S2,RRR GI: +BS, some tenderness, no guarding, moderate distention Skin: No rash Neuro: motor grossly intact Psych: appropriate affect Objective Data Active Medications Acetaminophen (Acetaminophen 325 Mg Tablet) 650 mg PO Q6H PRN PRN Reason: Pain, Mild 1-3,fever,headache Last Admin: 11/21/24 06:42 Dose: 650 mg Documented By: AGA Calcium Carbonate (Calcium Carbonate 750 Mg Tab.Chew) 750 mg PO Q4H PRN PRN Reason: Heartburn Last Admin: 11/26/24 23:23 Dose: 750 mg Documented By: THI Docusate Sodium (Docusate Sodium 100 Mg Capsule) 100 mg PO BID CYRIL Last Admin: 12/02/24 08:25 Dose: 100 mg Documented By: ROSETTE Heparin Sodium (Porcine) (Heparin Sodium,Porcine 5,000 Unit/Ml Vial) 4,100 unit IVPUSH PROTOCOL BOLUS PRN; Protocol PRN Reason: 40 unit/kg - Heparin Protocol Last Admin: 11/26/24 00:28 Dose: 4,100 unit Documented By: SANDRO Heparin Sodium (Porcine) (Heparin Sodium,Porcine 5,000 Unit/Ml Vial) 8,100 unit IVPUSH PROTOCOL BOLUS PRN; Protocol PRN Reason: 80 unit/kg - Heparin Protocol Hydromorphone HCl (Hydromorphone Hcl 1 Mg/Ml Syringe) 1 mg IVPUSH Q3H PRN; Protocol PRN Reason: Pain, Severe (Pain Scale 7-10) Last Admin: 12/02/24 08:24 Dose: 1 mg Documented By: ROSETTE Heparin Sodium/Sodium Chloride (Heparin Sodium,Porcine/1/2ns) 25,000 unit in 250 mls @ 0 mls/hr IVCONT .Q0M [facility]; Protocol Last Titration: 12/02/24 09:05 Dose: 0 units/kg/hr, 0 mls/hr Documented By: ROSETTE Co-signed By: AALIYAH Piperacillin Sod/Tazobactam (Sod 4.5 gm/ Sodium Chloride) 100 mls @ 200 mls/hr IV Q6H [facility] Last Infusion: 12/02/24 09:05 Dose: Infused Documented By: ROSETTE Magnesium Hydroxide (Milk Of Magnesia 30 Ml Oral.Susp) 30 ml PO DAILY PRN PRN Reason: Constipation Last Admin: 12/01/24 01:43 Dose: 30 ml Documented By: BASIL Magnesium Oxide (Magnesium Oxide 400 Mg Tablet) 400 mg PO BID [facility] Last Admin: 12/02/24 08:25 Dose: 400 mg Documented By: ROSETTE Melatonin (Melatonin 3 Mg Tablet) 6 mg PO BEDTIME PRN PRN Reason: Insomnia Multivitamins/Vitamin C (Multivitamin Tablet) 1 tab PO DAILY [facility] Last Admin: 12/02/24 08:25 Dose: 1 tab Documented By: ROSETTE Ondansetron HCl (Ondansetron Hcl 4 Mg/2 Ml Vial) 4 mg IVPUSH Q8H PRN PRN Reason: Nausea and Vomiting Last Admin: 11/23/24 21:33 Dose: 4 mg Documented By: BARRY Oxycodone HCl (Oxycodone Hcl Immed Release 5 Mg Tablet) 5 mg PO Q6H PRN PRN Reason: Pain, Severe (Pain Scale 7-10) Last Admin: 12/02/24 04:30 Dose: 5 mg Documented By: THI Polyethylene Glycol (Polyethylene Glycol 3350 17 Gm Powd.Pack) 17 gm PO DAILY PRN PRN Reason: Constipation Last Admin: 11/30/24 23:39 Dose: 17 gm Documented By: BASIL Senna (Sennosides 8.6 Mg Tablet) 8.6 mg PO BID [facility] Last Admin: 12/02/24 08:25 Dose: 8.6 mg Documented By: ROSETTE Sodium Chloride (0.9 % Sodium Chloride Flush 3 Ml Syringe) 3 ml IVFLUSH QSHIFT [facility] Last Admin: 12/02/24 08:32 Dose: 3 ml Documented By: ROSETTE Labs 11/29/24 10:27 12/02/24 05:54 Labs: Laboratory Results - last 24 hr 12/02/24 05:54 Hold Purple Top SEE NOTE aPTT Heparin Protocol 63.7 Anion Gap 11 L Estim Creat Clear Calc 130.9 Estimated GFR > 60 Random Glucose 115 Calcium 9.0 Total Bilirubin 11.6 H Direct Bilirubin 8.3 H AST 211 H ALT 160 H Alkaline Phosphatase 717 H Total Protein 5.2 L Albumin 2.7 L Assessment and Plan (1) DVT (deep venous thrombosis): Status: Acute (2) Adenocarcinoma of pancreas: Status: Acute (3) Cholecystitis: Status: Acute Plan 64-year-old male with paroxysmal AFib not on prescription medication, not on home prescription medications who presented to the emergency department for evaluation of dyspnea and abdominal pain. Pt admitted to the hospital for treatment and further evaluation of acute PE and left lower extremity DVT in the setting of pancreatic mass concerning for malignancy with liver metastasis. Pancreatic adenocarcinoma, CA [id number], Bx from 11/25 has confirmed adenocarcinoma pain control, oncology following, proably paliative chemo later Dilatudid for pain and adjust as needed Acute calculous cholecytitis HIDA scan with findings consistent with cystic duct obstruction and acute cholecystitis GI consulted>no acute intervention necessary at this time Continue Zosyn General surgery recommends cholecystostomy tube as high risk for CCY, initially refused causing delay but now agreaable LFTs stable, but Tibili steadily rising now 11 was 0.8 on admission Transaminitis possible secondary to liver metastasis Tbili has risen from 0.8 to now 11 Acute PE and left lower extremity DVT Lower extremity U/S positive for left DVT CTA bilateral pulmonary emboli with possible right heart strain Echo showing LVEF 60-65% with mild pulmonary hypertension Continue heparin drip Vascular surgery consulted and recommends continuing heparin drip; no indication for thrombectomies Presently on heparin and will transition to eliquis at discharge Constipation bowel regime Normocytic anemia No obvious blood loss Follow up CBC Paroxysmal AFib Not on prescription medication Reports takes magnesium which keeps him in regular rhythm Continue magnesium and multivitamin Tobacco use Patient reports that he smokes cigars Denies need for nicotine replacement at this time DVT prophylaxis: iv heparin Full code, but overall prognosis is poor Quality Stroke Does the patient have a stroke diagnosis?: No VTE Prior VTE?: No VTE Risk Level:: Medical - moderate - high VTE Device Contraindication: Treatment Not Indicated VTE Drug Contraindication: N/A - Med Ordered
--- NOTE | 2024-12-02 11:07 | MHC.CLN ---
NUTRITION NPO FOR PROCEDURE TODAY. RESUME REGULAR DIET WHEN ABLE. NEW DX, 11/28, METASTATIC PANCREATIC CANCER WITH METS TO LIVER. HX VARIABLE PO INTAKE, 25-100%. NO ADDITIONAL NUTRITION INTERVENTIONS AT THIS TIME. REGULAR DIET ALLOWS FOR GREATER FOOD CHOICES. FOLLOW UP FOR PO INTAKE AND DIET TOLERANCE.
--- NOTE | 2024-12-02 11:12 | MHC.CM.PN ---
Patient not medically cleared for dc. CM will continue to follow.
[2024-12-02] MEDS: Milk of Magnesia 30 ML ORAL.SUSP PO (18:06)
[2024-12-02 20:45] LABS: PTT Heparin Drip 58.8 SEC (53-77.9)
[2024-12-03] MEDS: Lactated Ringers 1,000 ML 100 ML IVCONT ×2 (03:23→14:02)
[2024-12-03 04:00] VITALS: BP 152/76; PULSE 99; RESP 18; TEMP 36.3; O2SAT 95
[2024-12-03 06:33] LABS: Alanine Aminotransferase 155 U/L (0-40); Albumin Level 2.6 g/dL (3.5-5.0); Alkaline Phosphatase 696 U/L (39-117); Anion Gap 13 (12-20); Aspartate Amino Transferase 208 U/L (5-37); Blood Urea Nitrogen 13 mg/dL (9-16); Calcium 8.6 mg/dL (8.4-10.2); Carbon Dioxide 24 mmol/L (22-29); Chloride 101 mmol/L (96-108); Creatinine Clr Calc Pharmacy 134.8; Estimated Glomerular Filt Rate > 60; Potassium 4.5 mmol/L (3.3-5.1); Sodium 133 mmol/L (135-145); Total Protein 5.2 g/dL (6.5-8.0)
[2024-12-03 06:36] LABS: PTT Heparin Drip 68.3 SEC (53-77.9)
[2024-12-03 06:54] VITALS: BP 136/83; PULSE 97; RESP 17; TEMP 36.1; O2SAT 95
--- NOTE | 2024-12-03 09:16 | P.PNIM_ITS ---
Subjective Subjective Date of Service: 12/03/24 Interval History: No new issues, still no bed at [facility] [place] Has persistent abd pain, Bilirubin going up to 14, gallbladder drain put in yesterday He's itchy but not new he said Physical Exam 2 Vital Signs: Vital Signs: Last Vital Signs Temp 96.9 F 12/03/24 06:54 Pulse 97 12/03/24 06:54 Resp 17 12/03/24 06:54 BP 136/83 12/03/24 06:54 Pulse Ox 95 12/03/24 06:54 O2 Del Method Nasal Cannula 12/03/24 06:54 O2 Flow Rate 3 12/03/24 06:54 BMI result Body Mass Index 31.2 Const: Other: General: AO X 3, no acute distress HEENT: Sclera icteris Resp: CTA bilateral CVS: S1,S2,RRR GI: +BS, some tenderness, no guarding, moderate distention Skin: No rash Neuro: motor grossly intact Psych: appropriate affect Objective Data Active Medications Acetaminophen (Acetaminophen 325 Mg Tablet) 650 mg PO Q6H PRN PRN Reason: Pain, Mild 1-3,fever,headache Last Admin: 11/21/24 06:42 Dose: 650 mg Documented By: AGA Calcium Carbonate (Calcium Carbonate 750 Mg Tab.Chew) 750 mg PO Q4H PRN PRN Reason: Heartburn Last Admin: 11/26/24 23:23 Dose: 750 mg Documented By: THI Diphenhydramine HCl (Diphenhydramine Hcl 50 Mg/Ml Vial) 25 mg IVPUSH Q6H PRN PRN Reason: Itching Last Admin: 12/03/24 07:44 Dose: 25 mg Documented By: ROSETTE Docusate Sodium (Docusate Sodium 100 Mg Capsule) 100 mg PO BID CYRIL Last Admin: 12/03/24 07:44 Dose: 100 mg Documented By: ROSETTE Heparin Sodium (Porcine) (Heparin Sodium,Porcine 5,000 Unit/Ml Vial) 4,100 unit IVPUSH PROTOCOL BOLUS PRN; Protocol PRN Reason: 40 unit/kg - Heparin Protocol Last Admin: 11/26/24 00:28 Dose: 4,100 unit Documented By: SANDRO Heparin Sodium (Porcine) (Heparin Sodium,Porcine 5,000 Unit/Ml Vial) 8,100 unit IVPUSH PROTOCOL BOLUS PRN; Protocol PRN Reason: 80 unit/kg - Heparin Protocol Hydromorphone HCl (Hydromorphone Hcl 1 Mg/Ml Syringe) 1 mg IVPUSH Q3H PRN; Protocol PRN Reason: Pain, Severe (Pain Scale 7-10) Last Admin: 12/03/24 08:41 Dose: 1 mg Documented By: ROSETTE Heparin Sodium/Sodium Chloride (Heparin Sodium,Porcine/1/2ns) 25,000 unit in 250 mls @ 0 mls/hr IVCONT .Q0M CYRIL; Protocol Last Admin: 12/02/24 23:24 Dose: 16 units/kg/hr, 16.22 mls/hr Documented By: THI Co-signed By: KEREN Piperacillin Sod/Tazobactam (Sod 4.5 gm/ Sodium Chloride) 100 mls @ 200 mls/hr IV Q6H [facility] Last Infusion: 12/03/24 08:21 Dose: Infused Documented By: ROSETTE Lactated Ringer's (Lr) 1,000 mls @ 100 mls/hr IVCONT .Q10H CYRIL Last Admin: 12/03/24 03:23 Dose: 100 mls/hr Documented By: THI Magnesium Hydroxide (Milk Of Magnesia 30 Ml Oral.Susp) 30 ml PO DAILY PRN PRN Reason: Constipation Last Admin: 12/02/24 18:06 Dose: 30 ml Documented By: ROSETTE Magnesium Oxide (Magnesium Oxide 400 Mg Tablet) 400 mg PO BID [facility] Last Admin: 12/03/24 07:45 Dose: 400 mg Documented By: ROSETTE Melatonin (Melatonin 3 Mg Tablet) 6 mg PO BEDTIME PRN PRN Reason: Insomnia Multivitamins/Vitamin C (Multivitamin Tablet) 1 tab PO DAILY [facility] Last Admin: 12/03/24 07:45 Dose: 1 tab Documented By: ROSETTE Ondansetron HCl (Ondansetron Hcl 4 Mg/2 Ml Vial) 4 mg IVPUSH Q8H PRN PRN Reason: Nausea and Vomiting Last Admin: 11/23/24 21:33 Dose: 4 mg Documented By: BARRY Oxycodone HCl (Oxycodone Hcl Immed Release 5 Mg Tablet) 5 mg PO Q6H PRN PRN Reason: Pain, Severe (Pain Scale 7-10) Last Admin: 12/02/24 23:29 Dose: 5 mg Documented By: THI Polyethylene Glycol (Polyethylene Glycol 3350 17 Gm Powd.Pack) 17 gm PO DAILY PRN PRN Reason: Constipation Last Admin: 11/30/24 23:39 Dose: 17 gm Documented By: BASIL Senna (Sennosides 8.6 Mg Tablet) 8.6 mg PO BID [facility] Last Admin: 12/03/24 07:44 Dose: 8.6 mg Documented By: ROSETTE Sodium Chloride (0.9 % Sodium Chloride Flush 3 Ml Syringe) 3 ml IVFLUSH QSHIFT [facility] Last Admin: 12/03/24 07:31 Dose: Not Given Documented By: ROSETTE Non-Admin Reason: IV Running Labs 11/29/24 10:27 12/03/24 05:52 Labs: Laboratory Results - last 24 hr 12/02/24 12/03/24 20:16 05:52 aPTT Heparin Protocol 58.8 68.3 Anion Gap 13 Estim Creat Clear Calc 134.8 Estimated GFR > 60 Random Glucose 113 Calcium 8.6 Total Bilirubin 14.3 H Direct Bilirubin 10.4 H AST 208 H ALT 155 H Alkaline Phosphatase 696 H Total Protein 5.2 L Albumin 2.6 L Assessment and Plan (1) DVT (deep venous thrombosis): Status: Acute (2) Adenocarcinoma of pancreas: Status: Acute (3) Cholecystitis: Status: Acute Plan 64-year-old male with paroxysmal AFib not on prescription medication, not on home prescription medications who presented to the emergency department for evaluation of dyspnea and abdominal pain. Pt admitted to the hospital for treatment and further evaluation of acute PE and left lower extremity DVT in the setting of pancreatic mass concerning for malignancy with liver metastasis. Pancreatic adenocarcinoma, CA 19-9>[id number], Bx from 11/25 has confirmed adenocarcinoma pain control, oncology following, proably paliative chemo later Dilatudid for pain and adjust as needed Acute calculous cholecytitis HIDA scan with findings consistent with cystic duct obstruction and acute cholecystitis GI consulted>no acute intervention necessary Has been on Zosyn General surgery recommends cholecystostomy tube as high risk for CCY--done 12/02, LFTs stable, but Tibili steadily rising now 1, was 0.8 on admission Transaminitis possible secondary to liver metastasis Tbili has risen from 0.8 to now 14, Will discuss with GI if needs palliative stent Acute PE and left lower extremity DVT Lower extremity U/S positive for left DVT CTA bilateral pulmonary emboli with possible right heart strain Echo showing LVEF 60-65% with mild pulmonary hypertension Continue heparin drip Vascular surgery consulted and recommends continuing heparin drip; no indication for thrombectomies Presently on heparin and will transition to eliquis at discharge Constipation bowel regime Normocytic anemia No obvious blood loss Follow up CBC Paroxysmal AFib Not on prescription medication Reports takes magnesium which keeps him in regular rhythm Continue magnesium and multivitamin Tobacco use Patient reports that he smokes cigars Denies need for nicotine replacement at this time DVT prophylaxis: iv heparin Full code, but overall prognosis is poor Quality Stroke Does the patient have a stroke diagnosis?: No VTE Prior VTE?: No VTE Risk Level:: Medical - moderate - high VTE Device Contraindication: Treatment Not Indicated VTE Drug Contraindication: N/A - Med Ordered
--- NOTE | 2024-12-03 10:52 | PM.HEMONCPN ---
Medical Summary - Medical Summary Date of Service: 12/03/24 Chief complaint: Weakness, jaundice Primary Care Provider: None Physician Territory Business Manager Utilized?: No - [place] Speaking Interval History Interval history: Patient has had CT-guided placement of percutaneous transhepatic cholecystostomy catheter 1 12/02. He has drainage of clear bile. His is at bedside. He appears to be weak and getting confused. He is extremely jaundiced. Review of Systems - Neurologic Reports hearing normal, Denies abnormal gait, Denies headache(s), Reports weakness PMFSH Medical History: Medical History (Last Updated 11/29/24 @ 10:54 by Nam Arias MD) Acute COVID-19 Alcohol abuse Cancer, metastatic to liver Gallstones GERD (gastroesophageal reflux disease) Internal derangement of left knee PAF (paroxysmal atrial fibrillation) Pneumonia due to 2019-nCoV PVNS (pigmented villonodular synovitis) Surgical History: Surgical History (Last Reviewed 11/26/24 @ 10:51 by Sera Montes PT) History of surgery on arm Hx of colonoscopy Hx of ventral hernia repair S/P appendectomy Social History: Social History (Last Reviewed 11/20/24 @ 23:56 by Sunshine Milligan MD) Living Situation History: Household Members: Spouse Housing: House Do you presently have visiting nurse or other home services: No Alcohol History Details: 1. How often do you have a drink containing alcohol?: c. 2-4 times a month 3. How often do you have six or more drinks on one occasion?: b. Less than monthly AUDIT-C Alcohol total score: 3 Currently Displaying Signs/Symptoms of Alcohol Withdrawal: No Tobacco History: Patient Tobacco Use Status: Current everyday Tobacco Tobacco use type: Cigar Smoked in Last 30 Days: Yes Substance Use History: Use of substances other than those prescribed or required for medical reasons: No Currently Displaying Signs/Symptoms of Drug Intoxication Withdrawal: No Advance Directives: Advance Directives: No Advance Directives Information Provided: No Homicidal Assessment: Do you have a plan to hurt others: No Plan Occupation Assessmet: service: No Current occupational status: employed 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 Home Medications and Allergies Current Medications: Current Medications Acetaminophen (Acetaminophen 325 Mg Tablet) 650 mg PO Q6H PRN PRN Reason: Pain, Mild 1-3,fever,headache Last Admin: 11/21/24 06:42 Dose: 650 mg Calcium Carbonate (Calcium Carbonate 750 Mg Tab.Chew) 750 mg PO Q4H PRN PRN Reason: Heartburn Last Admin: 11/26/24 23:23 Dose: 750 mg Diphenhydramine HCl (Diphenhydramine Hcl 50 Mg/Ml Vial) 25 mg IVPUSH Q6H PRN PRN Reason: Itching Last Admin: 12/03/24 07:44 Dose: 25 mg Docusate Sodium (Docusate Sodium 100 Mg Capsule) 100 mg PO BID CYRIL Last Admin: 12/03/24 07:44 Dose: 100 mg Heparin Sodium (Porcine) (Heparin Sodium,Porcine 5,000 Unit/Ml Vial) 4,100 unit IVPUSH PROTOCOL BOLUS PRN; Protocol PRN Reason: 40 unit/kg - Heparin Protocol Last Admin: 11/26/24 00:28 Dose: 4,100 unit Heparin Sodium (Porcine) (Heparin Sodium,Porcine 5,000 Unit/Ml Vial) 8,100 unit IVPUSH PROTOCOL BOLUS PRN; Protocol PRN Reason: 80 unit/kg - Heparin Protocol Hydromorphone HCl (Hydromorphone Hcl 1 Mg/Ml Syringe) 1 mg IVPUSH Q3H PRN; Protocol PRN Reason: Pain, Severe (Pain Scale 7-10) Last Admin: 12/03/24 08:41 Dose: 1 mg Heparin Sodium/Sodium Chloride (Heparin Sodium,Porcine/1/2ns) 25,000 unit in 250 mls @ 0 mls/hr IVCONT .Q0M CYRIL; Protocol Last Admin: 12/02/24 23:24 Dose: 16 units/kg/hr, 16.22 mls/hr Piperacillin Sod/Tazobactam (Sod 4.5 gm/ Sodium Chloride) 100 mls @ 200 mls/hr IV Q6H CYRIL Last Infusion: 12/03/24 08:21 Dose: Infused Lactated Ringer's (Lr) 1,000 mls @ 100 mls/hr IVCONT .Q10H CYRIL Last Admin: 12/03/24 03:23 Dose: 100 mls/hr Magnesium Hydroxide (Milk Of Magnesia 30 Ml Oral.Susp) 30 ml PO DAILY PRN PRN Reason: Constipation Last Admin: 12/02/24 18:06 Dose: 30 ml Magnesium Oxide (Magnesium Oxide 400 Mg Tablet) 400 mg PO BID CYRIL Last Admin: 12/03/24 07:45 Dose: 400 mg Melatonin (Melatonin 3 Mg Tablet) 6 mg PO BEDTIME PRN PRN Reason: Insomnia Multivitamins/Vitamin C (Multivitamin Tablet) 1 tab PO DAILY [facility] Last Admin: 12/03/24 07:45 Dose: 1 tab Ondansetron HCl (Ondansetron Hcl 4 Mg/2 Ml Vial) 4 mg IVPUSH Q8H PRN PRN Reason: Nausea and Vomiting Last Admin: 11/23/24 21:33 Dose: 4 mg Oxycodone HCl (Oxycodone Hcl Immed Release 5 Mg Tablet) 5 mg PO Q6H PRN PRN Reason: Pain, Severe (Pain Scale 7-10) Last Admin: 12/02/24 23:29 Dose: 5 mg Polyethylene Glycol (Polyethylene Glycol 3350 17 Gm Powd.Pack) 17 gm PO DAILY PRN PRN Reason: Constipation Last Admin: 11/30/24 23:39 Dose: 17 gm Senna (Sennosides 8.6 Mg Tablet) 8.6 mg PO BID [facility] Last Admin: 12/03/24 07:44 Dose: 8.6 mg Sodium Chloride (0.9 % Sodium Chloride Flush 3 Ml Syringe) 3 ml IVFLUSH QSHIFT [facility] Last Admin: 12/03/24 07:31 Dose: Not Given Home Medications ?Medication ?Instructions ?Recorded ?Confirmed ?Type magnesium oxide 400 mg PO BID PRN 04/22/21 11/21/24 History multivitamin 1 tab PO DAILY 01/16/23 11/21/24 History Hyaluronic Acid 100 mg PO BID 11/21/24 11/21/24 History ibuprofen 200 mg tablet 800 mg PO BID 11/21/24 11/21/24 History Allergies Allergy/AdvReac Type Severity Reaction Status Date / Time No Known Allergies Allergy Verified 11/20/24 17:26 Exam Vital signs: Vital Signs Temp 96.9 F 12/03/24 06:54 Pulse 97 12/03/24 06:54 Resp 17 12/03/24 06:54 BP 136/83 12/03/24 06:54 Pulse Ox 95 12/03/24 06:54 O2 Del Method Nasal Cannula 12/03/24 06:54 O2 Flow Rate 3 12/03/24 06:54 Intake & Output 12/02/24 12/03/24 12/03/24 18:59 06:59 18:59 Intake Total 396.504 / 1245.728 849.224 / 1245.728 100 / 100 Output Total 925 / 1550 625 / 1550 Balance -528.496 / -304.272 224.224 / -304.272 100 / 100 Urine Output (Average ml/kg/hr) 0.58 0.45 0.45 Intake: Intake, Oral Amount 120 / 620 500 / 620 Intake, IV Amount 276.504 / 625.728 349.224 / 625.728 100 / 100 Piperacillin Sodium/Tazobactam 200 / 400 200 / 400 100 / 100 4.5 gm In 0.9 % Sodium Chloride 100 ml @ 200 mls/hr IV Q6H [facility] Rx#:[id number] Heparin Sodium,Porcine/1/2NS 25 76.504 / 225.728 149.224 / 225.728 ,000 unit In 250 ml @ Per Protocol IVCONT .Q0M CYRIL Rx#: [id number] Output: Output, Urine Amount 700 / 1250 550 / 1250 Output, Tube Amount 225 / 300 75 / 300 JOVAN Drain 225 / 300 75 / 300 Other: Breakfast % Eaten 0% Lunch % Eaten 0% 0% Dinner % Eaten 25% Eating (Feeding) Ability Independent Number of Unmeasured Voids 2 Urine Urinal Urinal Urine Color Angelique Angelique Weight 101.4 kg BMI result Body Mass Index 31.2 - Constitutional Present: mild distress, average body habitus, cooperative - Routine HEENT Exam Head: Present: atraumatic, normal inspection Eye: Present: scleral icterus - Routine Respiratory Exam Absent: accessory muscle use - Routine Cardiovascular Exam Cardiovascular: Present: RRR, S1, S2 - Routine Abdominal Exam Present: diminished bowel sounds - Routine Extremities Exam Present: pulses intact - Routine Skin Exam Present: intact Data - Labs CBC & Chem 7: 11/29/24 10:27 12/03/24 05:52 - Imaging Radiologist's impression: ITS Impressions Hepatobiliary Scan Nuclear Medicine 11/21/24 12:10 IMPRESSION: 1. Findings consistent with cystic duct obstruction and acute cholecystitis. 2. Multiple photopenic defects in the liver, consistent with the metastatic deposits noted on CT. 3. Findings were discussed with Dr. Morales on 11/22/2024 at 7:22 AM. Electronically signed by: Misha Hilton MD 11/22/2024 07:24 AM EDT RP Abdomen Ultrasound 11/25/24 15:30 IMPRESSION: Heterogenous liver with no focal lesion seen. Biopsy. Patient was transferred to [facility] for biopsy. Electronically signed by: Dexter Melara MD 11/25/2024 04:42 PM EDT RP Liver Biopsy CT 11/25/24 15:56 IMPRESSION: Successful ultrasound-guided left hepatic lobe lesion biopsy performed without immediate complications. Electronically signed by: Dexter Melara MD 11/26/2024 07:57 AM EDT RP Abdomen Ultrasound 11/26/24 19:56 IMPRESSION: Distended gallbladder with cholelithiasis and a positive sonographic Frank sign. Findings are compatible with acute cholecystitis as seen on HIDA scan 11/21/2024.. Electronically signed by: Misha Hilton MD 11/27/2024 07:08 AM EDT RP Abscess Drainage CT 12/02/24 11:43 IMPRESSION: Status post CT fluoroscopy guided placement of percutaneous transhepatic cholecystostomy catheter connected to a vacuum bottle. None of this fluid was sent to lab. Electronically signed by: Dexter Melara MD 12/02/2024 03:37 PM EDT RP Assessment and Plan Patient Active problem list reviewed?: Yes (1) Mass of pancreas Status: Acute Assessment and plan: 1. This is a 64-year-old male admitted for bilateral pulmonary embolism and left lower extremity DVT, diagnosed with metastatic pancreatic cancer. He underwent biopsy of liver mass in the left lobe, this revealed adenocarcinoma compatible with metastasis from pancreatobiliary primary. Chest CTA performed 11/20/2024 showed bilateral lower lobe pulmonary emboli, no significant mediastinal or hilar lymphadenopathy. Left lower extremity Doppler revealed occlusive thrombus throughout left popliteal vein, posterior tibial and peroneal veins. CT abdomen/pelvis with contrast showed 4.5 cm pancreatic body mass concerning for primary malignancy. Portacaval and peripancreatic adenopathy, numerous hepatic lesions concerning for metastasis. Moderate gallbladder distention noted. HIDA scan on 11/21/2024 revealed cystic duct obstruction and acute cholecystitis. CA 19 9 level over 130,000 units/mL. He was evaluated by surgery and felt not to be a candidate for cholecystectomy. He was advised percutaneous cholecystostomy tube placement for biliary drainage. He has been on IV antibiotics. He had CT-guided placement of cholecystostomy catheter. It is draining clear bile. Unfortunately his bilirubin is continuing to go up, now 14.3 mg per dL. He probably has blockage of biliary duct because of tumor. Reimage liver, CT abdomen/pelvis with contrast has been ordered. Check ammonia level and administer lactulose if necessary. I discussed poor prognosis with both patient and his . - Time Spent With Patient Time Spent with Patient (in minutes): 25 Additional Coding: - Additional E/M codes Complex E/M visit Add On: CPT G2211
[2024-12-03] MEDS: Heparin Sodium,Porcine/1/2NS 25,000 UNIT/250 ML IV.SOLN 16.22 UNIT IVCONT (14:20)
[2024-12-03 14:56] LABS: Ammonia 56 umol/L (13-55)
[2024-12-03] MEDS: iohexoL 350 MG/ML 100 ML INFUS..BTL IV (17:24)
[2024-12-03 19:42] VITALS: BP 137/63; PULSE 105; RESP 20; TEMP 36.7; O2SAT 97
[2024-12-03] MEDS: 0.9 % Sodium Chloride Flush 3 ML SYRINGE IVFLUSH (20:09)
[2024-12-03 23:29] VITALS: BP 125/67; PULSE 100; RESP 18; TEMP 36.3; O2SAT 97
[2024-12-04] VITALS (8 sets, daily range): BP systolic 113–144; BP diastolic 60–75; PULSE 69–106; RESP 14–20; TEMP 35.9–37.4; O2SAT 92–97
--- NOTE | 2024-12-04 00:11 | PM.EVENT ---
Event Note Date of Service: 12/04/24 Event Note: pt having difficulty passing stool - feels in rectum but hard to come out pt placed in lateral position and stool disimpacted - soft and eventually pt able to push and evacuate a lot on his own - pasty stool should feel improved recommend enemas from below as needed - bowel regimen to keep stool soft Time Spent With Patient Time: Total time managing care of this patient today ____ minutes.
--- NOTE | 2024-12-04 00:55 | PC.NURSE ---
Patient asking if he could get a heart monitor , reported like he is going into Afib, feels like heart is fluttering. VS taken, bp 134/75, hr 106, rr 20, 96% on 3 liters . Patient reported just taking magnesium at home for management of afib. Pt hx report state: Paroxysmal AFib Not on prescription medication Reports takes magnesium which keeps him in regular rhythm Continue magnesium and multivitamin Dr. Kruger notified of patient's request/concern.
[2024-12-04] MEDS: Lactated Ringers 1,000 ML 100 ML IVCONT ×3 (03:22→16:44)
[2024-12-04] MEDS: Heparin Sodium,Porcine/1/2NS 25,000 UNIT/250 ML IV.SOLN 16.22 UNIT IVCONT (05:47)
[2024-12-04 06:37] LABS: PTT Heparin Drip 63.3 SEC (53-77.9)
[2024-12-04 07:02] LABS: Alanine Aminotransferase 157 U/L (0-40); Albumin Level 2.7 g/dL (3.5-5.0); Alkaline Phosphatase 687 U/L (39-117); Anion Gap 15 (12-20); Aspartate Amino Transferase 230 U/L (5-37); Blood Urea Nitrogen 17 mg/dL (9-16); Calcium 8.5 mg/dL (8.4-10.2); Carbon Dioxide 22 mmol/L (22-29); Chloride 99 mmol/L (96-108); Creatinine Clr Calc Pharmacy 134.8; Estimated Glomerular Filt Rate > 60; Potassium 3.9 mmol/L (3.3-5.1); Sodium 132 mmol/L (135-145); Total Protein 5.3 g/dL (6.5-8.0)
--- NOTE | 2024-12-04 09:15 | MHC.CLN ---
F/U CONTINUES WITH REGULAR DIET. JOVAN DRAIN PRESENT. 11/28 DX METASTATIC PANCREATIC CANCER WITH METS TO LIVER. VARIABLE PO INTAKE WITH MOST RECENT INTAKE 0-50%. NO ADDITIONAL NUTRITION INTERVENTIONS AT THIS TIME. REGULAR DIET ALLOWS FOR GREATER FOOD CHOICES. FOLLOW UP FOR PO INTAKE AND DIET TOLERANCE.
--- NOTE | 2024-12-04 09:30 | P.PNIM_ITS ---
Subjective Subjective Date of Service: 12/04/24 Interval History: No new issues, still [place] [facility] [place] persistent abd pain, Bilirubin going up to 14, gallbladder drain put in yesterday He's itchy but not new he said Physical Exam 2 Vital Signs: Vital Signs: Last Vital Signs Temp 96.7 F L 12/04/24 07:02 Pulse 95 12/04/24 07:02 Resp 16 12/04/24 07:02 BP 144/66 H 12/04/24 07:02 Pulse Ox 97 12/04/24 07:02 O2 Del Method Nasal Cannula 12/04/24 07:02 O2 Flow Rate 3 12/04/24 07:02 BMI result Body Mass Index 31.2 Const: Other: General: AO X 3, no acute distress HEENT: Sclera icteris Resp: CTA bilateral CVS: S1,S2,RRR GI: +BS, some tenderness, no guarding, moderate distention Skin: No rash Neuro: motor grossly intact Psych: appropriate affect Objective Data Active Medications Acetaminophen (Acetaminophen 325 Mg Tablet) 650 mg PO Q6H PRN PRN Reason: Pain, Mild 1-3,fever,headache Last Admin: 11/21/24 06:42 Dose: 650 mg Documented By: MILADYSZESushil Calcium Carbonate (Calcium Carbonate 750 Mg Tab.Chew) 750 mg PO Q4H PRN PRN Reason: Heartburn Last Admin: 11/26/24 23:23 Dose: 750 mg Documented By: THI Diphenhydramine HCl (Diphenhydramine Hcl 50 Mg/Ml Vial) 25 mg IVPUSH Q6H PRN PRN Reason: Itching Last Admin: 12/03/24 07:44 Dose: 25 mg Documented By: ROSETTE Docusate Sodium (Docusate Sodium 100 Mg Capsule) 100 mg PO BID CYRIL Last Admin: 12/03/24 20:06 Dose: 100 mg Documented By: HIMANSHU Heparin Sodium (Porcine) (Heparin Sodium,Porcine 5,000 Unit/Ml Vial) 4,100 unit IVPUSH PROTOCOL BOLUS PRN; Protocol PRN Reason: 40 unit/kg - Heparin Protocol Last Admin: 11/26/24 00:28 Dose: 4,100 unit Documented By: SANDRO Heparin Sodium (Porcine) (Heparin Sodium,Porcine 5,000 Unit/Ml Vial) 8,100 unit IVPUSH PROTOCOL BOLUS PRN; Protocol PRN Reason: 80 unit/kg - Heparin Protocol Hydromorphone HCl (Hydromorphone Hcl 1 Mg/Ml Syringe) 1 mg IVPUSH Q3H PRN; Protocol PRN Reason: Pain, Severe (Pain Scale 7-10) Last Admin: 12/03/24 08:41 Dose: 1 mg Documented By: ROSETTE Heparin Sodium/Sodium Chloride (Heparin Sodium,Porcine/1/2ns) 25,000 unit in 250 mls @ 0 mls/hr IVCONT .Q0M CYRIL; Protocol Last Titration: 12/04/24 07:16 Dose: 16 units/kg/hr, 16.22 mls/hr Documented By: GUERA Co-signed By: TIA Piperacillin Sod/Tazobactam (Sod 4.5 gm/ Sodium Chloride) 100 mls @ 200 mls/hr IV Q6H CYRIL Last Infusion: 12/04/24 02:32 Dose: Infused Documented By: GUERA Lactated Ringer's (Lr) 1,000 mls @ 100 mls/hr IVCONT .Q10H CYRIL Last Admin: 12/04/24 03:22 Dose: 100 mls/hr Documented By: GUERA Magnesium Hydroxide (Milk Of Magnesia 30 Ml Oral.Susp) 30 ml PO DAILY PRN PRN Reason: Constipation Last Admin: 12/02/24 18:06 Dose: 30 ml Documented By: ROSETTE Magnesium Oxide (Magnesium Oxide 400 Mg Tablet) 400 mg PO BID COUNTS INCLUDE 234 BEDS AT THE [facility] Last Admin: 12/03/24 20:06 Dose: 400 mg Documented By: HIMANSHU Melatonin (Melatonin 3 Mg Tablet) 6 mg PO BEDTIME PRN PRN Reason: Insomnia Multivitamins/Vitamin C (Multivitamin Tablet) 1 tab PO DAILY COUNTS INCLUDE 234 BEDS AT THE [facility] Last Admin: 12/03/24 07:45 Dose: 1 tab Documented By: ROSETTE Ondansetron HCl (Ondansetron Hcl 4 Mg/2 Ml Vial) 4 mg IVPUSH Q8H PRN PRN Reason: Nausea and Vomiting Last Admin: 11/23/24 21:33 Dose: 4 mg Documented By: BARRY Oxycodone HCl (Oxycodone Hcl Immed Release 5 Mg Tablet) 5 mg PO Q6H PRN PRN Reason: Pain, Severe (Pain Scale 7-10) Last Admin: 12/02/24 23:29 Dose: 5 mg Documented By: THI Polyethylene Glycol (Polyethylene Glycol 3350 17 Gm Powd.Pack) 17 gm PO DAILY PRN PRN Reason: Constipation Last Admin: 11/30/24 23:39 Dose: 17 gm Documented By: BASIL Senna (Sennosides 8.6 Mg Tablet) 8.6 mg PO BID COUNTS INCLUDE 234 BEDS AT THE [facility] Last Admin: 12/03/24 20:06 Dose: 8.6 mg Documented By: HIMANSHU Sodium Biphosphate/Sodium Phosphate (Sodium Phosphate,[place]-Dibasic 133 Ml Enema) 133 ml FL ONCE PRN PRN Reason: Constipation Last Admin: 12/03/24 12:51 Dose: 133 ml Documented By: ROSETTE Sodium Chloride (0.9 % Sodium Chloride Flush 3 Ml Syringe) 3 ml IVFLUSH QSHIFT COUNTS INCLUDE 234 BEDS AT THE [facility] Last Admin: 12/03/24 20:09 Dose: 3 ml Documented By: HIMANSHU Labs 11/29/24 10:27 12/04/24 06:01 Labs: Laboratory Results - last 24 hr 12/03/24 12/04/24 14:43 06:01 aPTT Heparin Protocol 63.3 Anion Gap 15 Estim Creat Clear Calc 134.8 Estimated GFR > 60 Random Glucose 126 H Calcium 8.5 Total Bilirubin 16.8 H Direct Bilirubin 11.8 H AST 230 H ALT 157 H Alkaline Phosphatase 687 H Ammonia 56 H Total Protein 5.3 L Albumin 2.7 L Assessment and Plan (1) DVT (deep venous thrombosis): Status: Acute (2) Adenocarcinoma of pancreas: Status: Acute (3) Cholecystitis: Status: Acute Plan 64-year-old male with paroxysmal AFib not on prescription medication, not on home prescription medications who presented to the emergency department for evaluation of dyspnea and abdominal pain. Pt admitted to the hospital for treatment and further evaluation of acute PE and left lower extremity DVT in the setting of pancreatic mass concerning for malignancy with liver metastasis. Pancreatic adenocarcinoma with liver mets, CA 19-9>[id number], Bx from 11/[address] abdomen and pelvis 12/03 show no obstruction but progression of liver mts [facility] is recommending hospice at this time as not candiate for any form of treatment. Continue Dilaudid for pain and will have end life conversation with patient and about going home with hospice Acute calculous cholecytitis HIDA scan with findings consistent with cystic duct obstruction and acute cholecystitis GI consulted>no acute intervention necessary Has been on Zosyn and will stop after 10 days General surgery recommends cholecystostomy tube as high risk for CCY--done 12/02 but didn't chage Bilirubin level which is continuing to rise presently 16 LFTs stable, but Tibili steadily rising now 16, was 0.8 on admission Transaminitis possible secondary to liver metastasis Tbili has risen from 0.8 to now 16, no biliary obstruction, so indiation for any procedure at this time Acute PE and left lower extremity DVT Lower extremity U/S positive for left DVT CTA bilateral pulmonary emboli with possible right heart strain Echo showing LVEF 60-65% with mild pulmonary hypertension Vascular surgery consulted and recommends continuing heparin drip; no indication for thrombectomies Presently on heparin and will transition to eliquis at discharge Constipation bowel regime, had manual disimpaction yesterday and had large bowel movement Normocytic anemia No obvious blood loss Follow up CBC Paroxysmal AFib Not on prescription medication Reports takes magnesium which keeps him in regular rhythm Continue magnesium and multivitamin Tobacco use Patient reports that he smokes cigars Denies need for nicotine replacement at this time DVT prophylaxis: iv heparin Full code, but overall prognosis is poor and hospice is suggested Quality Stroke Does the patient have a stroke diagnosis?: No VTE Prior VTE?: No VTE Risk Level:: Medical - moderate - high VTE Device Contraindication: Treatment Not Indicated VTE Drug Contraindication: N/A - Med Ordered
[2024-12-04] MEDS: 0.9 % Sodium Chloride Flush 3 ML SYRINGE IVFLUSH ×3 (09:37→23:23)
--- NOTE | 2024-12-04 13:38 | MHC.CM.PN ---
Addendum entered by Julia Patrick RN 12/04/24 15:10: [facility] LM for /patient to complete informational. They are able to admit patient to services tomorrow after 1pm, pending completion of informational. Goal is to transport home ~1230pm. Per Verena hospice administrator ([phone]), will need rx for the following sent to [facility] pharmacy: ? Morphine Sulfate 20mg/1ml Give 0.25ml (5mg) q 2 hours PRN pain or breathing difficulty. #30ml Lorazepam 1mg tabs Give 0.5 tab (0.5mg) q 6 PRN anxiety. #12 Using billing information below: RxBIN: [id number] RxPCN: [id number] RxGRP: HOSPICE Will discuss with patient/ upon 's return to hospital. Original Note: MD discussed goals of care with patient and family. Goal is home on hospice. CM discussed w/ patient and , Shawanda. [facility] is contracted w/ patient's insurance and has accepted. Patient/ are comfortable w/ plan. Awaiting informational via telephone this afternoon. Goal is home tomorrow once DME is in place. [facility] will update this CM after informational.
--- NOTE | 2024-12-04 14:15 | MHC.HEMONCSW ---
I saw his Catie while she was still here visiting to confirm some of the details for the PFML as she will be caring for Jay who is scheduled to go home on hospice tomorrow. I then completed the form and had Dr. Callaahn review and sign. I brought back to Catie when complete, and she indicated she would take it to work and have them assist in submitting it.
--- NOTE | 2024-12-04 14:25 | PM.EVENT ---
Discussed CT scan findings with Catie, patient's . Unfortunately scan shows progression in liver metastasis without any intra or extrahepatic biliary ductal dilatation. Percutaneous cholecystostomy drain is in the right place. Bilirubin is now over 16. Patient has become mildly encephalopathic. Unable to offer any systemic/palliative chemotherapy given acute worsening of liver functions and performance status. I discussed hospice care with her. She he is agreeable.
[2024-12-04] MEDS: Milk of Magnesia 30 ML ORAL.SUSP PO (18:35)
--- NOTE | 2024-12-04 22:18 | PC.NURSE ---
Assumed care of patient at 1915. A&Ox4. Patient resting in bed. IVF infusing at ordered rate. VSS. No signs or symptoms of distress. Nighttime medications administered. Patient educated on medications, verbalized understanding. No signs or symptoms of distress. Patient offered no complaint. Call treviño within reach. Bed in low position with alarm on. Care transferred to oncoming MAIDA Bermudez.- see safe start shift assessment for details.
[2024-12-05 03:26] VITALS: BP 122/60; PULSE 99; RESP 20; TEMP 36.5; O2SAT 94
[2024-12-05 06:28] LABS: PTT Heparin Drip 25.2 SEC (53-77.9)
[2024-12-05 06:31] LABS: Alanine Aminotransferase 165 U/L (0-40); Albumin Level 2.5 g/dL (3.5-5.0); Alkaline Phosphatase 722 U/L (39-117); Aspartate Amino Transferase 255 U/L (5-37); Total Protein 5.0 g/dL (6.5-8.0)
--- NOTE | 2024-12-05 06:35 | PC.NURSE ---
JOVAN drain emptied for 25mls this morning, yellow & viscous like appearance, one small streak of blood, and two very small stones noted.
--- NOTE | 2024-12-05 06:40 | PC.NURSE ---
aPTT results came back low at 25.2, Dr. March made aware.
[2024-12-05] MEDS: 0.9 % Sodium Chloride Flush 3 ML SYRINGE IVFLUSH (07:25)
[2024-12-05 07:31] VITALS: BP 135/71; PULSE 97; RESP 16; TEMP 36; O2SAT 92
--- NOTE | 2024-12-05 11:07 | MHC.CM.PN ---
Hospice informational complete. Patient and wish to move forward with plan for dc home w/ [facility] hospice today. Per Verena, quality management coordinator, all DME will be delivered between 1pm - 3pm. BLS transport scheduled for 3pm. Requested meds sent to [facility] pharmacy and will be delivered to patient's room prior to dc. Hospice billing information provided to pharmacy. RN, , patient and all aware of plan.
--- NOTE | 2024-12-05 11:11 | PM.DS ---
DS: Providers Provider Date of Service: 11/30/24 Date of admission: 11/20/24 23:23 Date of discharge: 11/30/24 Primary care physician: None Physician Consults: 11/20/24 23:46 Consult to General Surgery Routine Consulting Provider: [facility] General Surgeons Reason for consultation: ?cholecytitis Consult to Hematology / Oncology Routine Consulting Provider: [facility] Oncology/Hematology Reason for consultation: pancreatic mass Consult to Vascular Surgery Routine Consulting Provider: [facility] Vascular Services Reason for consultation: PE 11/20/24 23:56 Consult to Gastroenterology Routine Consulting Provider: Misha Denton Reason for consultation: pancreatic mass Has provider been notified: No 11/28/24 10:31 Consult to Hematology / Oncology Routine Consulting Provider: Jen Callahan Reason for consultation: pancreatic cancer Has provider been notified: Yes DS: Diagnosis Discharge Diagnosis (1) Pulmonary embolism: Status: Acute (2) DVT (deep venous thrombosis): Status: Acute (3) Mass of pancreas: Status: Acute (4) Liver masses: Status: Acute DS: Summary Hospital Course Hospital Course: admission hpi by Dr. Milligan on November 20 Chief Complaint: Abd pain and dyspnea This is a 64-year-old male with pertinent history of tobacco use disorder, alcohol use disorder, not on home prescription medications who presents to the emergency department for evaluation of dyspnea and abdominal pain. Patient was sent from urgent care for new diagnosis of left lower extremity DVT. Patient states he has been having dyspnea which is worse with exertion that has been ongoing for the last 2-3 weeks. Also has been having right upper quadrant pain, nonradiating which is worse after eating and which is without any relieving factors. Has associated nausea. Patient has been taking ibuprofen for the abdominal pain. He admits smoking cigarettes but denies significant alcohol use. Denies history of significant medical condition and does not take any prescription home medications. No fever, chills, palpitations, chest pain, changes in urinary or bowel habits. In the emergency department, imaging with bilateral PE with possible right heart strain. Abdominal imaging with pancreatic body mass concerning for malignancy and portacaval and peripancreatic adenopathy consistent with metastasis. Also extensive hepatic metastasis noted. Patient was initiated on IV heparin in the ER Hospital course: 64-year-old male with paroxysmal AFib not on meds and has not seen PCP since begining of covid. He presented to the emergency department for evaluation of dyspnea and abdominal pain. His work up revealed Pulmonary embolism and left lower extremity DVT in the setting of pancreatic mass concerning for malignancy with liver metastasis. His hospital course has been complicated by acute cholecystitis with obstructive jaundice, DVT and PE Hospital course by Problem Pancreatic adenocarcinoma. From November 20 CT of abdomen and pelvis showing Pancreatic body mass concerning for primary malignancy Portacaval and peripancreatic adenopathy consistent with metastasis Extensive hepatic metastasis also noted CA 19-9 is [id number]. He has a Core liver, left lobe Biopsy on November 25 with path reported as Adenocarcinoma, compatible with metastasis from pancreatico-biliary primary He has been seen by Oncology (Dr. Callahan) and initially was been considerred for paliative chemo however repeat CT showed worsened liver mets which was leading to rising Bilirubin and therefore was no longer candidate for any treatment and was rather recommended for hospice care which he has accepted and therefore will be going home with hospice. Acute PE and left lower extremity DVT. Lower extremity U/S positive for left DVT/ CTA bilateral pulmonary emboli with possible right heart strain. Echo showing LVEF 60-65% with mild pulmonary hypertension He has been on IV heparin. He was seen by vascular surgery and recommends continuing heparin drip and the goal was to be transition to [facility] for discharged, however given transition of care to hospice and the fact that he has also developped some bleeding complication, heparin and antiocagulation have been stopped Acute calculous cholecytitis confirmed on HIDA scan with findings consistent with cystic duct obstruction and acute cholecystitis GI consulted>no acute intervention necessary at this time. He has been treated with IV Zosyn General surgery recommends cholecystostomy tube as he is rather high risk for cholecsytecomy, he has gone back and forth about having the procedure done, initially agreeing to having it done but then postponed it twice. He ended up having gallbladder drain put in however the did not have an effect on Bilirubin which continue to rise as it was not related to obstruction but rather extensive liver metastais Constipation -- bowel regime Transaminitis-- secondary to liver metastasis rather than obstructive jaundice. Tbili0.8 on waqas to 16 and we stopped checking Normocytic anemia No obvious blood loss CBC have been normal Paroxysmal AFib, Not on prescription medication Reports takes magnesium which keeps him in regular rhythm Continue magnesium and multivitamin, presently in sinus Tobacco use Patient reports that he smokes cigars Denies need for nicotine replacement at this time In the end patient's prognosis was deemed very poor with survival probably days to weaks, he's going home with hospice and family support Time Attestation Discharge Coordination Time (in mins): 50 Quality: Safe Use of Opioids Does Pt have an Active Cancer Diagnosis on the Problem List?: Yes Opioid Measure Date for [facility] Report: 11/05/24 Opioid Measure Time for [facility] Report: 11:56 Quality: Stroke Does the patient have a stroke diagnosis?: No Physical Exam Vital Signs: Vital Signs: Selected Entries 12/05/24 07:31 Temperature 96.8 F Pulse Rate 97 Respiratory Rate 16 Blood Pressure 135/71 Pulse Oximetry 92 Oxygen Delivery Me thod Nasal Cannula Oxygen Flow Rate 3 DS: Data Data Completed and Pending Completed studies during hospitalization [Text1]: Pending at discharge 11/25/24 16:32 Surgical Path [Surgical] [PTH] Routine Discharge Plan Discharge Anticipated Discharge Date/Time: 12/05/24 11:11 Patient Disposition: Hospice - Home Discharge Diagnosis: Adenocarcinoma of pancreas with liver mets, acute cholecystitis, DVT, abd pain Referrals: [facility] [Outside] - 1 Day Referral Note: [facility] will provide hospice services and will see you at home this afternoon. Physician,None [Primary Care Provider, Medical] - 1 Week Discharge Medications: New morphine concentrate 100 mg/5 mL (20 mg/mL) solution 5 mg PO Q3H PRN (Reason: pain/comfort) 15 Days Qty: 30 0RF Rx Instructions: Partial Fill upon patient request. lorazepam 0.5 mg tablet 0.5 mg PO Q6H PRN (Reason: anxiety/restlessness) 4 Days Qty: 20 0RF scopolamine base 1 mg over 3 days patch 3 day 1 patch transdermal Q72H 12 Days Qty: 4 0RF Rx Instructions: 1 patch behind ear Q72H for secretions lactulose 10 gram/15 mL Solution 30 g PO BID Qty: 1200 0RF Rx Instructions: Hold for diarrhea polyethylene glycol 3350 17 gram Powder In Packet 17 g PO DAILY PRN (Reason: Constipation) Qty: 15 0RF magnesium hydroxide [Milk of Magnesia] 400 mg/5 mL Suspension 30 ml PO DAILY PRN (Reason: Constipation) Qty: 355 0RF sennosides [Senna Lax] 8.6 mg Tablet 8.6 mg PO BID Qty: 30 0RF melatonin 3 mg Tablet 6 mg PO BEDTIME PRN (Reason: Insomnia) Qty: 20 0RF Continued magnesium oxide 400 mg magnesium Tablet 400 mg PO BID multivitamin Tablet 1 tab PO DAILY Hyaluronic Acid 100 mg 100 mg PO BID Discontinued ibuprofen 200 mg Tablet 800 mg PO BID Discharge Orders: Discharge Order (Routine); Ordered 12/05/24 Ordered By: Low Egan Diet: Advance to usual diet Activity on Discharge: As tolerated Stand Alone Forms: Patient Portal Discharge page Print Language: Burmese Care Plan Goals: Home with hospice with goal of comfort and pain control Health Concerns: pancreatic cancer with liver mets jaundice Cholcystitis DVT/PE Abdominal pain Plan of Treatment: Going with home hospice service and family and friend support, gaol is to aleviate pain and suffering and with dignity at home surounded by family and friends Assessment: See above
[2024-12-05 11:23] VITALS: BP 139/79; PULSE 92; RESP 16; TEMP 36.1; O2SAT 94
[2024-12-05 14:50] VITALS: BP 137/74; PULSE 91; RESP 16; TEMP 36.4; O2SAT 92
--- NOTE | 2024-12-06 14:19 | P.CDIM_ITS ---
PROVIDER RESPONSE TEXT: To clarify, the appropriate diagnosis supported by the clinical indicators: Metabolic QUERY TEXT: PHYSICIAN'S DOCUMENTATION REQUEST Date of Query: 12/05/2024 01:11 PM EDT Patient Name: Jay Degroot Admit Date: 11/21/2024 Dear Low Egan MD, A review of the medical record indicates additional documentation may be needed. Please review below and update the documentation accordingly. Clinical Indicators: Hematology Event Note dated 12/05/24 - Scan shows progression in liver metastasis without any intra or extrahepatic biliary ductal dilatation. Bilirubin is now over 16. Patient has become mildly encephalopathic. Agreeable to Hospice services. Based on the above, please further specify, in the Progress Notes, the known or suspected type of the documented encephalopathy: Metabolic Toxic Toxic metabolic Hypertensive Hepatic (reported as hepatic failure and needs further specificity as to acute, subacute, or chronic) Due to a specified condition (such as UTI, hyponatremia, CVA, etc.) Other (explain) Clinically unable to determine (explain) Thank you, Shawanda Chan, CCS, CDIS Use of terms such as suspected, likely, concern for, or probable (associated with a specific diagnosis that is being evaluated, monitored, or treated as if it exists) are acceptable and can be coded in the inpatient setting, when documented at the time of discharge. Please use your independent medical judgment in providing your response. THIS QUERY IS PART OF THE PERMANENT MEDICAL RECORD
== END 2024-12-05 15:22 | disposition hospice, home (50) | DRG 281 ==
LOC: HO.ED 23:36 → HO.EDOVER 11-21 00:36 → HO.IMC 11-21 02:00 → HO.S3 11-24 10:38
PROVIDERS: Hospitalist; Nurse Practitioner Acute Care; Physician Assistant; Physician Assistant Medical; Radiology Diagnostic Radiology; Student in an Organized Health Care Education/Training Program; Admitting Provider Student in an Organized Health Care Education/Training Program; Emergency Provider Emergency Medicine; Visit Provider Internal Medicine
PROC: 0FB23ZX Excision of Left Lobe Liver, Percutaneous Approach, Diagnostic (ICD-10-PCS; principal; 2024-11-25 15:30)
PROC: 0F9430Z Drainage of Gallbladder with Drainage Device, Percutaneous Approach (ICD-10-PCS; principal; 2024-12-02 11:40)
DX: C78.7 Secondary malignant neoplasm of liver and intrahepatic bile duct (principal); I26.09 Other pulmonary embolism with acute cor pulmonale; G93.41 Metabolic encephalopathy; K80.01 Calculus of gallbladder with acute cholecystitis with obstruction; I82.432 Acute embolism and thrombosis of left popliteal vein; C25.1 Malignant neoplasm of body of pancreas; Z51.5 Encounter for palliative care; D63.0 Anemia in neoplastic disease; I27.29 Other secondary pulmonary hypertension; G89.3 Neoplasm related pain (acute) (chronic); F17.290 Nicotine dependence, other tobacco product, uncomplicated; I82.442 Acute embolism and thrombosis of left tibial vein; I82.452 Acute embolism and thrombosis of left peroneal vein; I48.0 Paroxysmal atrial fibrillation; K59.00 Constipation, unspecified; Z71.6 Tobacco abuse counseling
CPT/HCPCS: 36415; 47000; 49406; 71275; 74177; 76705; 77012; 78226; 80048; 80053; 80076; 81001; 82140; 83690; 83735; 83880; 84484; 85025; 85027; 85610; 85730; 86301; 88307; 88341; 88342; 93005; 93306; 97162; 99152; 99285; A9537; C1729; J1171; J1200; J1644; J2250; J2270; J2405; J2543; J3010; J3360; J7120; Q9957; Q9967

== ENCOUNTER → 2024-11-20 17:24 | Outpatient (BNV) | payer OTHER, SELFPAY | PROVIDERS: Admitting Provider Student in an Organized Health Care Education/Training Program; Emergency Provider Emergency Medicine; Visit Provider Internal Medicine | DX: R94.31 Abnormal electrocardiogram [ECG] [EKG] (principal); R06.02 Shortness of breath | CPT/HCPCS: 93010 ==

== ENCOUNTER → 2024-11-20 17:43 | Outpatient (BNV) | payer OTHER, SELFPAY | PROVIDERS: Emergency Provider Emergency Medicine; Visit Provider Student in an Organized Health Care Education/Training Program | DX: I26.94 Multiple subsegmental thrombotic pulmonary emboli without acute cor pulmonale (principal); I82.409 Acute embolism and thrombosis of unspecified deep veins of unspecified lower extremity; K86.89 Other specified diseases of pancreas; R16.0 Hepatomegaly, not elsewhere classified | CPT/HCPCS: 99223; 99232; 99233 ==

== ENCOUNTER 2024-11-20 23:23 | Outpatient (BNV) | payer OTHER, SELFPAY | END 2024-12-03 16:40 | PROVIDERS: Admitting Provider Student in an Organized Health Care Education/Training Program; Emergency Provider Emergency Medicine; Visit Provider Radiology Diagnostic Radiology | DX: C78.7 Secondary malignant neoplasm of liver and intrahepatic bile duct (principal) | CPT/HCPCS: 74177 ==

== ENCOUNTER 2024-11-20 23:23 | Outpatient (BNV) | payer OTHER, SELFPAY | END 2024-11-21 12:10 | PROVIDERS: Admitting Provider Student in an Organized Health Care Education/Training Program; Emergency Provider Emergency Medicine; Visit Provider Radiology Diagnostic Radiology | DX: K76.89 Other specified diseases of liver (principal) | CPT/HCPCS: 78226 ==

== ENCOUNTER 2024-11-20 23:23 | Outpatient (BNV) | payer OTHER, SELFPAY | END 2024-11-21 07:00 | PROVIDERS: Admitting Provider Student in an Organized Health Care Education/Training Program; Emergency Provider Emergency Medicine; Visit Provider Internal Medicine | DX: I27.20 Pulmonary hypertension, unspecified (principal); I26.99 Other pulmonary embolism without acute cor pulmonale; I36.1 Nonrheumatic tricuspid (valve) insufficiency | CPT/HCPCS: 93306 ==

== ENCOUNTER 2024-11-20 23:23 | Outpatient (BNV) | payer OTHER, SELFPAY | END 2024-12-02 11:43 | PROVIDERS: Admitting Provider Student in an Organized Health Care Education/Training Program; Emergency Provider Emergency Medicine; Visit Provider Radiology Diagnostic Radiology | DX: Z43.4 Encounter for attention to other artificial openings of digestive tract (principal) | CPT/HCPCS: 47490 ==

== ENCOUNTER 2024-11-20 23:23 | Outpatient (BNV) | payer OTHER, SELFPAY | END 2024-11-26 19:56 | PROVIDERS: Admitting Provider Student in an Organized Health Care Education/Training Program; Emergency Provider Emergency Medicine; Visit Provider Radiology Diagnostic Radiology | DX: K80.00 Calculus of gallbladder with acute cholecystitis without obstruction (principal) | CPT/HCPCS: 76705 ==

== ENCOUNTER 2024-11-20 23:23 | Outpatient (BNV) | payer OTHER, SELFPAY | END 2024-11-25 15:30 | PROVIDERS: Admitting Provider Student in an Organized Health Care Education/Training Program; Emergency Provider Emergency Medicine; Visit Provider Radiology Diagnostic Radiology | DX: R93.2 Abnormal findings on diagnostic imaging of liver and biliary tract (principal) | CPT/HCPCS: 47000; 77012 ==

== ENCOUNTER → 2024-11-20 23:23 | Outpatient (BNV) | payer OTHER, SELFPAY | PROVIDERS: Admitting Provider Student in an Organized Health Care Education/Training Program; Emergency Provider Emergency Medicine; Visit Provider Internal Medicine | DX: K86.89 Other specified diseases of pancreas (principal); I82.402 Acute embolism and thrombosis of unspecified deep veins of left lower extremity | CPT/HCPCS: 99222 ==

== ENCOUNTER → 2024-11-20 23:23 | Outpatient (BNV) | payer OTHER, SELFPAY | PROVIDERS: Admitting Provider Student in an Organized Health Care Education/Training Program; Emergency Provider Emergency Medicine; Visit Provider Surgery Vascular Surgery | DX: I82.432 Acute embolism and thrombosis of left popliteal vein (principal); I26.94 Multiple subsegmental thrombotic pulmonary emboli without acute cor pulmonale | CPT/HCPCS: 99222 ==

== ENCOUNTER → 2024-11-20 23:23 | Outpatient (BNV) | payer OTHER, SELFPAY | PROVIDERS: Admitting Provider Student in an Organized Health Care Education/Training Program; Emergency Provider Emergency Medicine; Visit Provider Physician Assistant Surgical | DX: R16.0 Hepatomegaly, not elsewhere classified (principal) | CPT/HCPCS: 99232 ==